=== PATIENT | male | born 1930 | race Caucasian/White ===

== ENCOUNTER 2016-05-24 11:19 | Outpatient (CLI) | payer MEDICARE | END 2016-05-24 11:20 | disposition home or self-care (01) | DX: R79.89 Other specified abnormal findings of blood chemistry (principal); Z90.49 Acquired absence of other specified parts of digestive tract ==

== ENCOUNTER 2016-09-05 12:37 | Outpatient (CLI) | payer MEDICARE | END 2016-09-05 12:38 | disposition home or self-care (01) | DX: I50.9 Heart failure, unspecified (principal); Z95.0 Presence of cardiac pacemaker ==

== ENCOUNTER 2016-09-13 10:35 | Day surgery (SDC) | payer MEDICARE ==
[2016-09-13] MEDS ORDERED: LACTATED RINGERS 1,000 ML IV ONE (12:18)
[2016-09-13] MEDS ORDERED: KETAMINE 500 MG/10 ML VIAL IVP ONE (13:00)
[2016-09-13] MEDS ORDERED: FLUMAZENIL 0.1 MG/1 ML 5 ML MDV IVP ONE (13:00)
[2016-09-13] MEDS ORDERED: GLYCOPYRROLATE 1 MG/5 ML VIAL IVP ONE (13:00)
[2016-09-13] MEDS ORDERED: MIDAZOLAM 2 MG/2 ML VIAL IVP ONE (13:00)
[2016-09-13 14:53] VITALS: BP 116/60
== END 2016-09-13 10:36 | disposition home or self-care (01) ==
LOC: SDS 10:35
PROVIDERS: ATTEND Internal Medicine
PROC: 0DB78ZX Excision of Stomach, Pylorus, Via Natural or Artificial Opening Endoscopic, Diagnostic (ICD-10-PCS; 2016-09-13)
PROC: 0DBM8ZX Excision of Descending Colon, Via Natural or Artificial Opening Endoscopic, Diagnostic (ICD-10-PCS; principal; 2016-09-13 12:30)
PROC: 0DBH8ZX Excision of Cecum, Via Natural or Artificial Opening Endoscopic, Diagnostic (ICD-10-PCS; 2016-09-13 12:30)
DX: K92.1 Melena (principal); D50.9 Iron deficiency anemia, unspecified; C18.6 Malignant neoplasm of descending colon; D12.0 Benign neoplasm of cecum; K64.0 First degree hemorrhoids; K57.30 Diverticulosis of large intestine without perforation or abscess without bleeding; Z95.0 Presence of cardiac pacemaker; Z96.649 Presence of unspecified artificial hip joint; E78.5 Hyperlipidemia, unspecified; E11.9 Type 2 diabetes mellitus without complications; F32.9 Major depressive disorder, single episode, unspecified; Z79.84 Long term (current) use of oral hypoglycemic drugs
CPT/HCPCS: 43239; 45380; 45385; 88305; 88341; 88342; J7120

== ENCOUNTER 2016-09-26 10:26 | Outpatient (CLI) | payer MEDICARE ==
[2016-09-26] MEDS ORDERED: IOPAMIDOL-300 100 ML VIAL IVP ONE (12:09)
--- NOTE | 2016-09-26 14:12 | CT Report ---
CT ABDOMEN AND PELVIS WITH CONTRAST: 09/26/2016 CLINICAL INDICATION: Colon cancer. TECHNIQUE: Axial CT images of the abdomen and pelvis were obtained with 100 mL Isovue-300 intravenou sly. COMPARISON: 09/17/2014 FINDINGS: Limited evaluation of the lung bases demonstrates peripheral fibrosis. ABDOMEN: The liver, spleen and adrenal glands are unremarkable. The right kidney demonstrates a non obstructing 3 mm calculus in the lower pole. The left kidney demonstrates a cortical cyst. The panc reas demonstrates calcifications in the tail, stable. Postoperative changes of cholecystectomy are n ew from previous. No bowel dilatation, free gas, or free fluid is present. No abdominal adenopathy is seen. PELVIS: Images of the lower pelvis are limited by streak artifact from bilateral hip replacements. Scattered sigmoid diverticulosis is noted, without CT evidence of diverticulitis. No free fluid or p elvic adenopathy is appreciated. Osseous structures demonstrate degenerative changes. IMPRESSION: NO EVIDENCE OF METASTATIC DISEASE. In accordance with CT protocol optimization, one or more of the following dose reduction techniques w ere utilized for this exam: automated exposure control, adjustment of mA and/or KV based on patient size, or use of iterative reconstructive technique. JOB #: [id number] EXT JOB #:[id number]
== END 2016-09-26 10:27 | disposition home or self-care (01) ==
LOC: DI 10:26
PROVIDERS: ATTEND Internal Medicine
DX: C18.9 Malignant neoplasm of colon, unspecified (principal)
CPT/HCPCS: 74177; Q9967

== ENCOUNTER 2016-09-29 12:33 | Outpatient (CLI) | payer MEDICARE ==
[2016-09-29 13:01] LABS: CREATININE 1.5 mg/dL (0.6-1.2)
[2016-09-29] MEDS ORDERED: IOPAMIDOL-300 100 ML VIAL IVP ONE (13:25)
--- NOTE | 2016-09-29 16:22 | CT Report ---
CT OF THE CHEST WITH CONTRAST: 09/29/2016 CLINICAL INDICATION: Colon cancer. TECHNIQUE: Axial CT images of the chest were obtained with 50 mL of Isovue-300 intravenously. FINDINGS: The heart and great vessels demonstrate atherosclerotic calcifications. There is mediastin al adenopathy, with a pretracheal node measuring 1.4 x 1.6 cm. Additionally, there is an anterior med iastinal mass, measuring 3.6 x 3.6 cm. The lungs demonstrate emphysema. There is a diffuse miliary no dular pattern in the lungs, which may represent metastases. Additionally, there is interlobular septa l thickening in the periphery, suggestive of either lymphangitic carcinomatosis or pulmonary edema. N o effusion or pneumothorax is present. The osseous structures demonstrate degenerative changes. IMPRESSION: 1. ANTERIOR MEDIASTINAL MASS AND HILAR ADENOPATHY. THIS MAY REPRESENT METASTASES, BUT CONSIDERATION C OULD ALSO BE GIVEN TO LYMPHOMA. 2. MILIARY PULMONARY NODULES AND SEPTAL PROMINENCE, WHICH MAY REPRESENT LYMPHANGITIC CARCINOMATOSIS O R PULMONARY EDEMA. In accordance with CT protocol optimization, one or more of the following dose reduction techniques w ere utilized for this exam: automated exposure control, adjustment of mA and/or KV based on patient size, or use of iterative reconstructive technique. JOB #: [id number] EXT JOB #:[id number]
== END 2016-09-29 12:34 | disposition home or self-care (01) ==
LOC: DI 12:33
PROVIDERS: ATTEND Internal Medicine
DX: C18.9 Malignant neoplasm of colon, unspecified (principal); R59.0 Localized enlarged lymph nodes; R22.2 Localized swelling, mass and lump, trunk; R91.8 Other nonspecific abnormal finding of lung field; I48.92 Unspecified atrial flutter
CPT/HCPCS: 36415; 71260; 82565; Q9967

== ENCOUNTER 2016-11-13 13:40 | Outpatient (CLI) | payer MEDICARE | END 2016-11-13 13:41 | disposition home or self-care (01) | LOC: DI 13:40 | PROVIDERS: ATTEND Internal Medicine | DX: I08.3 Combined rheumatic disorders of mitral, aortic and tricuspid valves (principal) | CPT/HCPCS: 93306 ==

== ENCOUNTER 2017-01-13 13:44 | Outpatient (CLI) | payer MEDICARE ==
[2017-01-13] MEDS ORDERED: IOPAMIDOL-300 100 ML VIAL ONE (13:53)
[2017-01-13] MEDS ORDERED: IOPAMIDOL-300 100 ML VIAL IVP ONE (14:22)
--- NOTE | 2017-01-13 21:00 | CT Report ---
EXAM: CT HEAD WITH AND WITHOUT CONTRAST COMPARISON: None. CLINICAL HISTORY: Migraine headaches TECHNIQUE: Axial CT images were obtained from the foramen magnum to the vertex pre- and post intravenous Isovue 300. In accordance with CT protocol optimization, one or more of the following dose reduction techniques w ere utilized for this exam: automated exposure control, adjustment of mA and/or KV based on patient s ize, or use of iterative reconstructive technique. FINDINGS: CT head: No intracranial hemorrhage. No mass lesions. No unexpected intra-or extra-axial fluid collections. Ventricles are prominent, presumed to reflect volume loss. No lytic or blastic bone lesions identified. Chronic appearing left maxillary sinusitis is noted. No definite acute component. Mastoids are clear. Postcontrast head CT: No abnormal parenchymal enhancement. No mass lesion. No evident abnormality of the pituitary fossa or clivus is seen. Impression: Generalized volume loss, without discrete prior cortical infarct or mass lesion identified. No etiolo gy for migraine headaches is seen. Referring Provider Line: [phone] SITE ID: [id number]
== END 2017-01-13 13:45 | disposition home or self-care (01) ==
LOC: DI 13:44
PROVIDERS: ATTEND Family Medicine
DX: G43.909 Migraine, unspecified, not intractable, without status migrainosus (principal)
CPT/HCPCS: 70470; Q9967

== ENCOUNTER 2017-02-16 19:39 | Outpatient (CLI) | payer MEDICARE | END 2017-02-16 19:40 | disposition critical access hospital (66) | LOC: EMS 19:39 | PROVIDERS: ATTEND Surgery | DX: R53.1 Weakness (principal); R05 Cough; R32 Unspecified urinary incontinence | CPT/HCPCS: A0425; A0427 ==

== ENCOUNTER 2017-02-16 20:01 | Inpatient (IN) | payer MEDICARE, OTHER ==
[2017-02-16] MEDS ORDERED: SODIUM CHLORIDE 0.9% 1,000 ML IV ONE (20:19)
[2017-02-16 20:47] LABS: BASOPHILS # (AUTO) 0.1 10^3/uL (0.0-0.1); BASOPHILS % (AUTO) 0.4 %; EOSINOPHILS % (AUTO) 0.3 %; HCT - HEMATOCRIT 32.8 % (42.0-52.0); HGB - HEMOGLOBIN 10.6 g/dL (14.0-18.0); LYMPHOCYTES # (AUTO) 1.9 10^3/uL (1.5-3.5); LYMPHOCYTES % (AUTO) 15.9 %; MEAN CORPUSCULAR HEMOGLOBIN 27.8 pg (27.0-31.0); MEAN CORPUSCULAR HGB CONC 32.3 g/dL (32.0-36.0); MEAN CORPUSCULAR VOLUME 86.1 fL (80.0-94.0); MEAN PLATELET VOLUME 6.5 fL (7.4-11.4); MONOCYTES # (AUTO) 0.9 10^3/uL (0.0-1.0); MONOCYTES % (AUTO) 7.5 %; NEUTROPHILS # (AUTO) 8.9 10^3/uL (1.5-6.6); NEUTROPHILS % (AUTO) 75.9 %; RED BLOOD COUNT 3.82 10^6/uL (4.70-6.10); UNCORRECTED WHITE BLOOD COUNT 11.7 x10^3/uL; WHITE BLOOD COUNT 11.7 x10^3/uL (4.8-10.8)
[2017-02-16 20:59] LABS: BILIRUBIN,TOTAL 1.8 mg/dL (0.2-1.0); CALCIUM 8.7 mg/dL (8.5-10.3); CREATININE 1.4 mg/dL (0.6-1.2); POTASSIUM 3.9 mmol/L (3.5-5.0); TOTAL PROTEIN 6.9 g/dL (6.7-8.2)
[2017-02-16 21:01] LABS: PLATELET ESTIMATE, MANUAL NORMAL (130-450,000) (NORMAL); PLATELET MORPHOLOGY NORMAL APPEARANCE (NORMAL)
--- NOTE | 2017-02-16 21:10 | XRAY Preliminary Report ---
Exam: XR CHEST 1 VIEW IMPRESSION: 1. Mild cardiac enlargement. 2. Small bilateral effusions worse on the left than on the right. No pneumothorax. Probable pulmonary edema. 3. Left lower lobe atelectasis versus infiltrates. [facility] SITE ID: [id number]
--- NOTE | 2017-02-16 21:22 | XRAY Report ---
EXAM: CHEST RADIOGRAPHY EXAM DATE: 02/16/2017 08:53 p.m. CLINICAL HISTORY: Cough. COMPARISON: 01/17/2017. TECHNIQUE: 1 view. FINDINGS: Lungs/Pleura: Blunting of both costophrenic angles are noted, worse on the left than on the right. No pneumothorax. Mild perihilar and bilateral lower lobe opacities are noted. Obscuration of the left h emidiaphragm present. Mediastinum: Mild cardiac enlargement is unchanged. There is a single lead cardiac device with the le ad in the right ventricle. Other: Status post right shoulder arthroplasty. IMPRESSION: 1. Mild cardiac enlargement. 2. Small bilateral effusions, worse on the left than on the right. No pneumothorax. Probable pulmonar y edema. 3. Left lower lobe atelectasis versus infiltrates. [facility] Referring Provider Line: [phone] SITE ID: [id number]
--- NOTE | 2017-02-16 22:08 | ED Physician Documentation ---
History of Present Illness - Stated complaint Stated Complaint: UTI - Chief complaint Chief Complaint: General - History obtained from History obtained from: Patient, Family, EMS - History of Present Illness Timing: Today - Additonal information Additional information: Patient is an 86 year old male with a history of colon ca, and a lung mass. Patient had a urine dip that was positive today at [facility] so they sent the patient in for evaluation. While en route patient became slightly altered. fingerstick was performed and patient's blood glucose was 60. Patient was treated with oral glucose. The family states that the patient has been coughing a lot and not too long ago he had to have his lung drained. Review of Systems Constitutional: denies: Fever, Chills Eyes: reports: Reviewed and negative Ears: reports: Reviewed and negative Nose: denies: Rhinorrhea / runny nose, Congestion Throat: reports: Reviewed and negative Cardiac: denies: Chest pain / pressure, Palpitations Respiratory: reports: Dyspnea, Cough. denies: Wheezing GI: denies: Abdominal Pain, Nausea, Vomiting : reports: Unable to Void. denies: Dysuria, Frequency Skin: denies: Rash, Lesions Musculoskeletal: reports: Reviewed and negative Neurologic: denies: Generalized weakness, Focal weakness, Syncope, Confused, LOC Immunocompromised: reports: Immunocompromised PD PAST MEDICAL HISTORY - Past Medical History Cardiovascular: Hypertension, High cholesterol Respiratory: Shortness of breath, Other Neuro: None Endocrine/Autoimmune: Type 2 diabetes, HyPOthyroidism GI: Colon polyps : Renal insuffiency HEENT: None Psych: Depression Musculoskeletal: Osteoarthritis Derm: Other - Past Surgical History Past Surgical History: Yes General: Cholecystectomy, Gastric surgery Ortho: Hip replacement, Rotator cuff repair, Shoulder arthroplasty, Carpal Tunnel surgery, Other Cardiovascular: Pacemaker HEENT: Other Derm: Skin cancer surgery - Present Medications Home Medications: Ambulatory Orders Medication Instructions Recorded Confirmed Hydrochlorothiazide 25 mg PO DAILY 02/05/14 02/16/17 Levothyroxine [Synthroid] 150 mcg PO QDAC 02/05/14 02/16/17 Melatonin/Pyridoxine [Melatonin 3 1 each PO QPM 02/05/14 02/16/17 mg Tablet] Metformin HCl 1,000 mg PO BID 02/05/14 02/16/17 Cyanocobalamin (Vitamin B-12) 1,000 mcg PO DAILY 10/02/17 10/20/17 [Vitamin B-12] Lactose-Reduced Food [Boost] 1 each PO TID 01/30/17 02/16/17 Benzonatate 100 mg PO TID 02/16/17 02/16/17 Metoprolol Succinate [Toprol Xl] 50 mg PO DAILY 02/16/17 02/16/17 - Allergies Allergies/Adverse Reactions: Allergies Allergy/AdvReac Type Severity Reaction Status Date / Time No Known Drug Allergies Allergy Verified 02/16/17 20:10 - Social History Does the pt smoke?: No Smoking Status: Never smoker Does the pt drink ETOH?: Yes Does the pt have substance abuse?: No - Immunizations Immunizations are current?: Yes - POLST Patient has POLST: No PD ED PE NORMAL - Vitals Vital signs reviewed: Yes - HEENT HEENT: Atraumatic, PERRL - Neck Neck: Supple, no meningeal sign - Cardiac Cardiac: No murmur - Derm Derm: Normal color, Warm and dry - Extremities Extremities: No deformity - Psych Psych: Normal mood PD ED PE EXPANDED - General General: Alert - HEENT HEENT: Dry mucous membranes - Respiratory Respiratory: Decreased breath sounds, Right lower lobe, Left lower lobe - Abdomen Abdomen: Other (umbilical hernia) - Neuro Neuro: Alert and Oriented X 3, PERRL. No: Confused, Disoriented Results - Vitals Vitals: Vital Signs - 24 hr 02/16/17 02/16/17 02/16/17 20:04 20:30 22:10 Temperature 36.1 C L 36.8 C Heart Rate 70 84 Respiratory 16 16 19 Rate Blood Pressure 104/62 115/61 O2 Saturation 94 96 02/16/17 22:11 Temperature Heart Rate 76 Respiratory 18 Rate Blood Pressure 108/56 L O2 Saturation 95 Oxygen O2 Source [] Room air O2 Source Nasal cannula - Labs Labs: Laboratory Tests 02/16/17 02/16/17 02/16/17 20:34 20:34 20:34 WBC 11.7 H RBC 3.82 L Hgb 10.6 L Hct 32.8 L MCV 86.1 MCH 27.8 MCHC 32.3 RDW 22.0 H Plt Count 205 MPV 6.5 L Neut # 8.9 H Lymph # 1.9 [place] # 0.9 Eos # 0.0 Baso # 0.1 Absolute Nucleated RBC 0.00 Nucleated RBC % 0.0 Manual Slide Review Indicated Platelet Estimate NORMAL (130-450,000) Platelet Morphology NORMAL APPEARANCE RBC Morph Micro Appear 2+ ANISOCYTOSIS Sodium 136 Potassium 3.9 Chloride 102 Carbon Dioxide 22 Anion Gap 12.0 BUN 33 H Creatinine 1.4 H Estimated GFR (MDRD) 48 L Glucose 75 Lactic Acid Calcium 8.7 Total Bilirubin 1.8 H AST 26 ALT 18 Alkaline Phosphatase 78 Troponin I 0.08 Total Protein 6.9 Albumin 3.5 Globulin 3.4 Albumin/Globulin Ratio 1.0 Lipase 19 L 02/16/17 20:34 WBC RBC Hgb Hct MCV MCH MCHC RDW Plt Count MPV Neut # Lymph # [place] # Eos # Baso # Absolute Nucleated RBC Nucleated RBC % Manual Slide Review Platelet Estimate Platelet Morphology RBC Morph Micro Appear Sodium Potassium Chloride Carbon Dioxide Anion Gap BUN Creatinine Estimated GFR (MDRD) Glucose Lactic Acid 1.9 Calcium Total Bilirubin AST ALT Alkaline Phosphatase Troponin I Total Protein Albumin Globulin Albumin/Globulin Ratio Lipase - Rads (name of study) chest x-ray Radiology: Final report received (small bilateral effusions, worse on left, pulmonary edema, left lower lobe atelectasis vs infiltrates) PD MEDICAL DECISION MAKING - ED course Complexity details: reviewed old records, reviewed results, re-evaluated patient , considered differential, d/w patient, d/w family ED course: Patient was seen and examined at bedside. Patient had already received glucose and was awake and alert. labs were drawn and fluids were started. chest x-ray was ordered and showed bilateral effusions and possible infiltrate. Patient desaturated on room air. Patient was covered with levaquin which would cover both pneumonia and a urinary tract infection. Case was discussed with hospitalist and patient was admitted for pneumonia, hypoxia and suspected urinary tract infection. Departure - Departure Disposition: [facility] DC/Xfer Clinical Impression: Pneumonia, Urinary tract infection, Hypoxia Condition: Stable
[2017-02-16] MEDS ORDERED: ALBUTEROL NEB 2.5 MG/3 ML INH PRN (22:41)
[2017-02-16] MEDS ORDERED: ONDANSETRON 4 MG/2 ML VIAL IVP PRN (22:41)
[2017-02-16] MEDS ORDERED: PROCHLORPERAZINE 10 MG/2 ML VIAL IVP PRN (22:41)
[2017-02-16] MEDS ORDERED: SODIUM CHLORIDE FLUSH 0.9% 10 ML SYRINGE IVP PRN (22:41)
[2017-02-16] MEDS ORDERED: HYDROcod/ACETAM 10 MG/325 MG TABLET PO PRN (22:41)
[2017-02-16] MEDS ORDERED: PROMETHAZINE 25 MG/1 ML VIAL IM PRN (22:41)
[2017-02-16] MEDS ORDERED: ACETAMINOPHEN 325 MG TABLET PO PRN (22:41)
[2017-02-16] MEDS ORDERED: ZOLPIDEM 5 MG TABLET PO PRN (22:41)
[2017-02-16] MEDS ORDERED: HYDROcod/ACETAM 5/325 MG TABLET PO PRN (22:41)
[2017-02-16] MEDS ORDERED: levoFLOXacin 750 MG/150 ML 750 MG/150 ML BAG IV SCH (23:00)
[2017-02-16] MEDS: BENZONATATE 100 MG CAPSULE PO SCH (23:54)
[2017-02-16] MEDS: SODIUM CHLORIDE 0.9% 1,000 ML IV SCH (23:55)
[2017-02-17] MEDS: INSULIN GLARGINE 300 UNIT/3 ML PEN SUBQ SCH ×2 (00:03→20:46)
--- NOTE | 2017-02-17 01:03 | HISTORY & PHYSICAL EXAMINATION ---
Chief Complaint - Chief Complaint Chief Complaint: Generalized weakness History of Present Illness - Admitted From Admitted From:: Emergency department - History Obtained From Records Reviewed: Yes History obtained from: Patient and his son Exam Limitations: None - History of Present Illness HPI Comment/Other: Patient is an 86-year-old gentleman with a past medical history significant for hypertension, diabetes, hypothyroidism, atrial fibrillation no longer on Coumadin, status post pacemaker, CKD stage III, anemia of chronic disease, osteoarthritis, aortic stenosis, hilar lymphadenopathy with pleural effusions and colon cancer who presents to the emergency department secondary to generalized weakness. The patient states that over the last few days he has had increasing weakness, shortness of breath with exertion and a persistent cough dry cough that has been there for 3 weeks. The patient states that today he was being evaluated at [facility] for his weakness and a urine dipstick showed the patient had likely urinary tract infection therefore he was sent to the emergency department. When EMS initially evaluated the patient to bring him to the ER they found that his blood sugar was 60 and he appear to be slightly drowsy therefore he was given oral glucose in route. The patient was also found to be borderline hypotensive. The patient states that he saw his primary care physician about a week ago and at that time his insulin regimen had been decreased from 39 units of Lantus at night to 30 units of Lantus as the patient's blood sugars were running low. The patient has had recent evaluation for his hilar adenopathy and pleural effusions. He has been found to have negative cytology and had 2 biopsies which have both been inconclusive. The patient has also been evaluated by surgery for surgical resection of his colon cancer but due to the patient's uncertain lung condition surgery has been on hold. The patient states that he does have chronic diarrhea due to his colon cancer. He also states that he has had about a 30 pound weight loss over the last 6 months. The patient states that he has been unable to sleep well for the last week due to stress of taking care of his . The patient denies any headaches, blurred vision, runny nose, he does admit to congestion, he denies any sore throat, dizziness, lightheadedness, difficulty swallowing, neck pain, chest pain, orthopnea, PND, abdominal pain, nausea, vomiting, constipation, muscle aches, joint swelling, increased lower extremity swelling, back pain, neck stiffness, urinary urgency, urinary frequency, dysuria , changes in appetite or any focal neurologic deficits. On presentation to the emergency department the patient was afebrile and had a borderline blood pressure of 104/62 but was not in respiratory distress however his O2 saturation did drop to 88% on room air therefore he was placed on 2 L of oxygen. The patient's urinalysis did reveal large leukocyte esterase with greater than 25 WBCs consistent with a urinary tract infection. Routine lab work revealed a leukocytosis of 11.7, chronic anemia of 10.6 and chronic kidney disease with a creatinine of 1.4. The patient's chest x-ray showed small bilateral effusions with probable pulmonary edema along with a left lower lobe infiltrate consistent with pneumonia. The patient was admitted to the medical tee for treatment of pneumonia and urinary tract infection. History - Past Medical History Cardiovascular: reports: Hypertension, High cholesterol, Atrial fibrillation Respiratory: reports: Shortness of breath, Other (Hilar adenopathy and pleural effusions ) Neuro: reports: None Endocrine/Autoimmune: reports: Type 2 diabetes, HyPOthyroidism GI: reports: Colon polyps, Chronic diarrhea, Other (Colon cancer) : reports: Renal insuffiency (CKD stage III) HEENT: reports: None Psych: reports: Depression Musculoskeletal: reports: Osteoarthritis Derm: reports: Other MRSA Hx?: No Other Past Medical History: USES WALKER/CANE PRN... BM q 3days.....Chronic Diarrhea, Chronic Anemia - Past Surgical History General: reports: Cholecystectomy, Gastric surgery Ortho: reports: Hip replacement, Rotator cuff repair, Shoulder arthroplasty, Carpal Tunnel surgery, Other Cardiovascular: reports: Pacemaker HEENT: reports: Other Derm: reports: Skin cancer surgery - Family & Social History Family History: Mother: Cancer (Lung), Father: CAD, Diabetes, Type 2 Living arrangement: Assisted living Living Situation: With spouse/s.o. Social History Notes: The patient lives with his at [facility]. The patient uses a walker. The patient was living at home with his , son and son's girlfriend until just a few months ago. 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 The patient retired and moved would be [place] in the year 1999. The patient has 2 children 1 son and 1 daughter who lives in [place]. The patient states that he has been under a fair amount of stress recently having to take care of his who is sick. The patient used to be a moderate drinker but has quit many years ago the patient has never smoked and he denies any illicit drug use. - Substance History Use: Uses substance without health or social issues: NONE Abuse: Recurrent use of substance despite neg consequences: NONE Dependence: Experiences withdrawal or developed tolerances: NONE - POLST Patient has POLST: No POLST Status: DNR Meds/Allgy - Home Medications Home Medications: Ambulatory Orders Medication Instructions Recorded Confirmed Hydrochlorothiazide 25 mg PO DAILY 02/05/14 02/16/17 Levothyroxine [Synthroid] 150 mcg PO QDAC 02/05/14 02/16/17 Melatonin/Pyridoxine [Melatonin 3 1 each PO QPM 02/05/14 02/16/17 mg Tablet] Metformin HCl 1,000 mg PO BID 02/05/14 02/16/17 Cyanocobalamin (Vitamin B-12) 1,000 mcg PO DAILY 01/29/17 02/16/17 [Vitamin B-12] Lactose-Reduced Food [Boost] 1 each PO TID 01/30/17 02/16/17 Benzonatate 100 mg PO TID 02/16/17 02/16/17 Metoprolol Succinate [Toprol Xl] 50 mg PO DAILY 02/16/17 02/16/17 - Allergies Allergies/Adverse Reactions: Allergies Allergy/AdvReac Type Severity Reaction Status Date / Time No Known Drug Allergies Allergy Verified 02/16/17 20:10 Review of Systems - Other Findings Other Findings: A comprehensive review of systems was performed the pertinent positives and negatives are stated above in the HPI and the remainder of the review of systems is negative. Exam - Vital Signs Reviewed Vital Signs: Yes Vital Signs: Vital Signs x48h Temp Pulse Pulse Resp BP BP Pulse Ox 02/16/17 23:43 36.5 C 77 16 96/62 96 02/16/17 23:12 80 18 106/60 94 - Physical Exam General Appearance: positive: No acute distress, Alert Eyes Bilateral: positive: Normal inspection, PERRL, EOMI, No lid inflammation, Conjunctivae nml, No scleral icterus ENT: positive: ENT inspection nml, Pharynx nml, Dry mucous membranes. negative : Purulent nasal drainage, Pharyngeal erythema, Oral lesions Neck: positive: Nml inspection, Thyroid nml, No JVD, Trachea midline. negative : Thyromegaly, Lymphadenopathy (R), Lymphadenopathy (L), Stiff neck, Carotid bruit, Tracheal deviation Respiratory: positive: Chest non-tender, No respiratory distress, Rales ( Bilateral bases), Rhonchi (Left lower lung) Cardiovascular: positive: No gallop, Systolic murmur Peripheral Pulses: positive: 2+ Abdomen: positive: Non-tender, No organomegaly, Nml bowel sounds, No distention , Other (Obese) Back: positive: Nml inspection. negative: CVA tenderness (R), CVA tenderness (L ) Skin: positive: Color nml, No rash, Warm. negative: Cyanosis, Diaphoresis, Skin rash Extremities: positive: Non-tender, Full ROM, Nml appearance, Pedal edema Neurologic/Psychiatric: positive: Oriented x3, CN's nml (2-12), Motor nml, Sensation nml, Mood/affect nml Conclusion/Plan - Problem List (1) Community acquired pneumonia Conclusion/Plan: The patient presented with generalized weakness, cough, shortness of breath with exertion and had a leukocytosis on presentation. The patient was afebrile however he was hypoxic with oxygen saturation down to 88% on room air. The patient underwent a chest x-ray which did show a left lower lobe infiltrate. Plan: Supplemental oxygen IV Levaquin IV fluids Monitor closely Qualifiers: Laterality: left (2) Urinary tract infection Conclusion/Plan: The patient had been having generalized weakness and drowsiness at his assisted living facility. The patient was evaluated with a urine analysis which was concerning for UTI and patient was sent to our emergency department. On arrival patient was afebrile however he did have a leukocytosis and urinalysis did reveal greater than 25 WBCs with positive leukocyte esterase consistent with a urinary tract infection. Plan: Patient will be treated for UTI with IV Levaquin We will get a PT evaluation for the patient's generalized weakness We will await urine cultures to de-escalate antibiotic. (3) Diabetes Conclusion/Plan: The patient has a history of diabetes and is insulin-dependent. Patient has recently been having his insulin regimen adjusted. The patient's Lantus was recently decreased from 39 units at night to 30 units at night. It appears the patient is still having some hypoglycemia as prior to arrival in the emergency department the patient's blood glucose was found to be 60 and he was diaphoretic. The patient was treated with glucose tablets. The patient's blood glucose on arrival was 75. Plan: We will check a hemoglobin A1c We will decrease the patient's home dose of Lantus to 20 units at night and hold his Metformin Patient was placed on sliding scale insulin Patient will be on a diabetic diet We will monitor the patient's blood glucose before meals at bedtime Qualifiers: Diabetes mellitus type: type 2 (4) Hypertension Conclusion/Plan: Patient has history of hypertension however the patient's blood pressure is borderline low on presentation. Plan: We will hold the patient's home dose of hydrochlorothiazide and metoprolol until her his blood pressure improves We will give the patient IV fluids. Qualifiers: Hypertension type: essential hypertension Qualified Code(s): I10 - Essential (primary) hypertension (5) Aortic stenosis Conclusion/Plan: According to the patient's echocardiogram from October 2016 the patient has moderate aortic stenosis and mild to moderate mitral regurgitation with moderately abnormal right heart pressures. The patient does have shortness of breath with exertion which has worsened over the last couple of days but even prior to that the patient was having shortness of breath with exertion. I question whether the patient's chronic shortness of breath may be secondary to his aortic stenosis. We will need to be careful with giving him IV fluid given his history of aortic stenosis with a risk for possible pulmonary edema and volume overload. Qualifiers: Cardiac valve disease etiology: etiology unspecified Qualified Code(s): I35.0 - Nonrheumatic aortic (valve) stenosis (6) DVT prophylaxis Conclusion/Plan: Patient will be placed on Lovenox while he is hospitalized for DVT prophylaxis. - Lab Results Lab results reviewed: Yes Fish Bones: 02/16/17 20:34 02/16/17 20:34 Other Lab Results: Laboratory Results WBC 11.7 x10^3/uL (4.8-10.8) H 02/16/17 20:34 RBC 3.82 10^6/uL (4.70-6.10) L 02/16/17 20:34 Hgb 10.6 g/dL (14.0-18.0) L 02/16/17 20:34 Hct 32.8 % (42.0-52.0) L 02/16/17 20:34 MCV 86.1 fL (80.0-94.0) 02/16/17 20:34 MCH 27.8 pg (27.0-31.0) 02/16/17 20:34 MCHC 32.3 g/dL (32.0-36.0) 02/16/17 20:34 RDW 22.0 % (12.0-15.0) H 02/16/17 20:34 Plt Count 205 10^3/uL (130-450) 02/16/17 20:34 MPV 6.5 fL (7.4-11.4) L 02/16/17 20:34 Neut # 8.9 10^3/uL (1.5-6.6) H 02/16/17: Lymph # 1.9 10^3/uL (1.5-3.5) 02/16/17 20:34 [place] # 0.9 10^3/uL (0.0-1.0) 02/16/17:34 Eos # 0.0 10^3/uL (0.0-0.7) 02/16/17 20:34 Baso # 0.1 10^3/uL (0.0-0.1) 02/16/17:34 Absolute Nucleated RBC 0.00 x10^3/uL 02/16/17 20:34 Nucleated RBC % 0.0 /100WBC 02/16/17 20:34 Manual Slide Review Indicated 02/16/17 20:34 Platelet Estimate NORMAL (130-450,000) (NORMAL) 02/16/17 20:34 Platelet Morphology NORMAL APPEARANCE (NORMAL) 02/16/17 20:34 RBC Morph Micro Appear 2+ ANISOCYTOSIS (NORMAL) 02/16/17 20:34 Sodium 136 mmol/L (135-145) 02/16/17 20:34 Potassium 3.9 mmol/L (3.5-5.0) 02/16/17 20:34 Chloride 102 mmol/L (101-111) 02/16/17 20:34 Carbon Dioxide 22 mmol/L (21-32) 02/16/17 20:34 Anion Gap 12.0 (6-13) 02/16/17 20:34 BUN 33 mg/dL (6-20) H 02/16/17 20:34 Creatinine 1.4 mg/dL (0.6-1.2) H 02/16/17 20:34 Estimated GFR (MDRD) 48 (>89) L 02/16/17 20:34 Glucose 75 mg/dL (70-100) 02/16/17 20:34 Lactic Acid 1.9 mmol/L (0.5-2.2) 02/16/17 20:34 Calcium 8.7 mg/dL (8.5-10.3) 02/16/17 20:34 Total Bilirubin 1.8 mg/dL (0.2-1.0) H 02/16/17 20:34 AST 26 IU/L (10-42) 02/16/17 20:34 ALT 18 IU/L (10-60) 02/16/17 20:34 Alkaline Phosphatase 78 IU/L (42-121) 02/16/17 20:34 Troponin I 0.08 ng/mL (<0.49) 02/16/17 20:34 Total Protein 6.9 g/dL (6.7-8.2) 02/16/17 20:34 Albumin 3.5 g/dL (3.2-5.5) 02/16/17 20:34 Globulin 3.4 g/dL (2.1-4.2) 02/16/17 20:34 Albumin/Globulin Ratio 1.0 (1.0-2.2) 02/16/17 20:34 Lipase 19 U/L (22-51) L 02/16/17 20:34 - Diagnostic Imaging Results Diagnostic Imaging Results: positive: Final report reviewed Diagnostic Imaging Results Comments: Chest x-ray impression 1. Mild cardiac enlargement. 2. Small bilateral pleural effusions, worse on the left than on the right. No pneumothorax. Probable pulmonary edema. 3. Left lower lobe atelectasis versus infiltrates. Issues/Core Measures - Anticipated LOS Anticipated Stay Length: 2 or more midnights - DVT/VTE - Prophylaxis VTE/DVT Prophylaxis med ordered at admit?: Yes
[2017-02-17 02:05] LABS: BILIRUBIN,URINE NEGATIVE (NEGATIVE)
[2017-02-17 02:15] LABS: UA w/ MICROSCOPIC CHARGE YES; UR CULTURE IF IND INDICATED; WBC,URINE >25 /HPF (0-3)
[2017-02-17] MEDS: SODIUM CHLORIDE FLUSH 0.9% 10 ML SYRINGE IVP SCH ×3 (05:37→20:38)
[2017-02-17 05:45] LABS: BASOPHILS % (AUTO) 0.3 %; EOSINOPHILS # (AUTO) 0.1 10^3/uL (0.0-0.7); EOSINOPHILS % (AUTO) 1.5 %; HCT - HEMATOCRIT 32.5 % (42.0-52.0); HGB - HEMOGLOBIN 10.6 g/dL (14.0-18.0); LYMPHOCYTES # (AUTO) 1.5 10^3/uL (1.5-3.5); LYMPHOCYTES % (AUTO) 16.9 %; MEAN CORPUSCULAR HEMOGLOBIN 28.2 pg (27.0-31.0); MEAN CORPUSCULAR HGB CONC 32.7 g/dL (32.0-36.0); MEAN CORPUSCULAR VOLUME 86.4 fL (80.0-94.0); MEAN PLATELET VOLUME 6.5 fL (7.4-11.4); MONOCYTES # (AUTO) 0.9 10^3/uL (0.0-1.0); MONOCYTES % (AUTO) 9.9 %; NEUTROPHILS # (AUTO) 6.3 10^3/uL (1.5-6.6); NEUTROPHILS % (AUTO) 71.4 %; NUCLEATED RED BLOOD CELLS AUTO 0.1 /100WBC; RED BLOOD COUNT 3.76 10^6/uL (4.70-6.10); RED CELL DISTRIBUTION WIDTH 22.1 % (12.0-15.0); UNCORRECTED WHITE BLOOD COUNT 8.9 x10^3/uL; WHITE BLOOD COUNT 8.9 x10^3/uL (4.8-10.8)
[2017-02-17 05:50] LABS: CALCIUM 8.3 mg/dL (8.5-10.3); CREATININE 1.4 mg/dL (0.6-1.2); POTASSIUM 4.3 mmol/L (3.5-5.0)
[2017-02-17] MEDS: BENZONATATE 100 MG CAPSULE PO SCH ×3 (06:09→20:38)
[2017-02-17] MEDS: LEVOTHYROXINE 75 MCG TABLET PO SCH (06:09)
[2017-02-17 06:32] LABS: PLATELET ESTIMATE, MANUAL NORMAL (130-450,000) (NORMAL); PLATELET MORPHOLOGY NORMAL APPEARANCE (NORMAL)
[2017-02-17 06:58] LABS: HEMOGLOBIN A1C 0.44 g/dL
[2017-02-17] MEDS: INSULIN ASPART 300 UNIT/3 ML PEN SUBQ SCH ×4 (08:08→20:45)
[2017-02-17] MEDS: FAMOTIDINE 20 MG TABLET PO SCH (08:32)
[2017-02-17] MEDS: SACCHAROMYCES BOULARDII 250 MG CAPSULE PO SCH ×2 (08:32→16:44)
[2017-02-17] MEDS: CYANOCOBALAMIN 500 MCG TABLET PO SCH (08:32)
[2017-02-17] MEDS: ENOXAPARIN 40 MG/0.4 ML SYRINGE SUBQ SCH (08:32)
[2017-02-17] MEDS: POLYETHYLENE GLYCOL 3350 17 GM PACKET PO SCH (08:32)
[2017-02-17] MEDS ORDERED: METOPROLOL SUCCINATE 50 MG TABLET PO SCH (09:00)
[2017-02-17] MEDS ORDERED: hydroCHLOROthiazide 25 MG TABLET PO SCH (09:00)
[2017-02-17] MEDS: SODIUM CHLORIDE 0.9% 1,000 ML IV SCH (11:29)
--- NOTE | 2017-02-17 17:51 | PROVIDER PROGRESS NOTE ---
Subjective - Prog Note Date Prog Note Date: 02/17/17 Prog Note Time: 17:48 - Subjective Pt reports feeling: No change Subjective: His main complaint is the cough. It just will not stop. But he is able to get out of the bed, sitting the chair and eating his meals. Son Nico and daughter are with him. He has questions about his surgery. Will the pneumonia delay his surgery. He asked how long he will feel tired. And his daughter wants to know if he will be capable of taking care of his , their mother, who has dementia. Current Medications - Current Medications Current Medications: Active Medications Acetaminophen (Tylenol) 650 mg PO Q4HR PRN PRN Reason: Pain 1 to 4 Acetaminophen/Hydrocodone Bitart ([place] 5/325) 1 tab PO Q4HR PRN PRN Reason: Pain 5 to 7 Acetaminophen/Hydrocodone Bitart ([place] 10 Mg/325 Mg) 1 tab PO Q4HR PRN PRN Reason: Pain 8 to 10 Albuterol () 2.5 mg INH Q4HR PRN PRN Reason: Wheezing Benzonatate (Tessalon) 100 mg PO TID [facility] Last Admin: 02/17/17 13:58 Dose: 100 mg Cyanocobalamin (Vitamin B-12) 1,000 mcg PO DAILY [facility] Last Admin: 02/17/17 08:32 Dose: 1,000 mcg Enoxaparin Sodium (Lovenox) 40 mg SUBQ DAILY [facility] Last Admin: 02/17/17 08:32 Dose: 40 mg Famotidine (Pepcid) 20 mg PO DAILY [facility] Last Admin: 02/17/17 08:32 Dose: 20 mg Sodium Chloride (Normal Saline 0.9%) 1,000 mls @ 100 mls/hr IV .Q10H [facility] Last Admin: 02/17/17 11:29 Dose: 100 mls/hr Levofloxacin (Levaquin 750 Mg/150 Ml) 750 mg in 150 mls @ 100 mls/hr IV Q48H [facility] Insulin Aspart (Novolog) 1 - 5 unit SUBQ 0800,1200,1700,2100 LORNA PRN Reason: Protocol Last Admin: 02/17/17 16:43 Dose: Not Given Insulin Glargine (Lantus Solostar) 20 unit SUBQ QPM [facility] Last Admin: 02/17/17 00:03 Dose: 20 unit Levothyroxine Sodium (Synthroid) 150 mcg PO QDAC [facility] Last Admin: 02/17/17 06:09 Dose: 150 mcg Ondansetron HCl (Zofran Inj) 4 mg IVP Q6HR PRN PRN Reason: Nausea / Vomiting Polyethylene Glycol (Miralax) 17 gm PO DAILY [facility] Last Admin: 02/17/17 08:32 Dose: 17 gm Prochlorperazine Edisylate (Compazine Inj) 10 mg IVP Q6HR PRN PRN Reason: Nausea / Vomiting Promethazine HCl (Phenergan Inj) 25 mg IM Q6HR PRN PRN Reason: Nausea / Vomiting Saccharomyces Boulardii (Florastor) 250 mg PO BIDWM [facility] Last Admin: 02/17/17 16:44 Dose: 250 mg Sodium Chloride (Normal Saline Flush 0.9%) 10 ml IVP PRN PRN PRN Reason: NEEDED PER PROVIDER ORDERS Last Admin: 02/16/17 23:59 Dose: 10 ml Sodium Chloride (Normal Saline Flush 0.9%) 10 ml IVP Q8HR [facility] Last Admin: 02/17/17 13:32 Dose: Not Given Zolpidem Tartrate (Ambien) 5 mg PO QPM PRN PRN Reason: Insomnia Hydrochlorothiazide 25 mg PO DAILY 02/05/14 Metformin HCl 1,000 mg PO BIDWM 02/05/14 Cyanocobalamin (Vitamin B-12) [Vitamin B-12] 1,000 mcg PO DAILY 01/29/17 Metoprolol Succinate [Toprol Xl] 50 mg PO DAILY 02/16/17 Latanoprost 0.005% Ophth Drops [Xalatan Ophth Drops] 1 drops EACHEYE QPM Levothyroxine Sodium 150 mcg PO QDAC 02/17/17 Lisinopril [Lisinopril] 20 mg PO DAILY 02/17/17 Warfarin [Coumadin] 2 mg PO DAILY 02/17/17 Objective - Vital Signs/Intake & Output Reviewed Vital Signs: Yes Vital Signs: Vital Signs x48h Temp Pulse Pulse Resp Resp BP BP 02/17/17 16:11 36.6 C 73 16 136/72 H 02/17/17 10:56 67 14 129/65 Pulse Ox Pulse Ox 02/17/17 16:11 94 02/17/17 10:56 99 Intake & Output: Intake & Output 02/14/17 02/15/17 02/16/17 02/17/17 23:59 23:59 23:59 23:59 Intake Total 2240 Output Total 750 Balance 1490 - Objective General Appearance: positive: Alert, Mild distress Eyes Bilateral: positive: PERRL ENT: positive: Other (Severe postnasal drip) Neck: positive: No JVD, Stiff neck (Mainly on the right side. He has been having a right-sided occipital headache, a pull along his paraspinal cervical muscles down into his trapezius and shoulders for weeks now. He is being evaluated for the cause of his headache and saw neurology last week. After a massage the scalp and the neck muscles and trapezius he actually felt much better). negative: Lymphadenopathy (R), Lymphadenopathy (L), Carotid bruit Respiratory: positive: Chest non-tender, Wheezes, Rales, Rhonchi, Other (He is also coughing. The right lung base is dull, and I hear almost no breath sounds. Dawson up the right lung you can hear the rales and rhonchi and wheezing. The left lung does not have a dull base but still has rales rhonchi and wheezing. He is not using his accessory muscles for retraction.) Cardiovascular: positive: Regular rate & rhythm, Systolic murmur. negative: Gallop/S4, Friction rub Abdomen: positive: Non-tender, No organomegaly, Nml bowel sounds Skin: positive: Warm, Dry Extremities: positive: Full ROM, No pedal edema Neurologic/Psychiatric: positive: Oriented x3, CN's nml (2-12), Motor nml, Weakness - Lab Results Fish Bones: 02/17/17 05:32 02/17/17 05:32 Other Labs: Lab Results x24hrs 02/17/17 02/17/17 02/17/17 Range/Units 05:32 05:32 05:32 WBC 8.9 (4.8-10.8) x10^3/uL RBC 3.76 L (4.70-6.10) 10^6/uL Hgb 10.6 L (14.0-18.0) g/dL Hct 32.5 L (42.0-52.0) % MCV 86.4 (80.0-94.0) fL MCH 28.2 (27.0-31.0) pg MCHC 32.7 (32.0-36.0) g/dL RDW 22.1 H (12.0-15.0) % Plt Count 167 (130-450) 10^3/uL MPV 6.5 L (7.4-11.4) fL Neut # 6.3 (1.5-6.6) 10^3/uL Lymph # 1.5 (1.5-3.5) 10^3/uL [place] # 0.9 (0.0-1.0) 10^3/uL Eos # 0.1 (0.0-0.7) 10^3/uL Baso # 0.0 (0.0-0.1) 10^3/uL Absolute Nucleated RBC 0.01 x10^3/uL Nucleated RBC % 0.1 /100WBC Manual Slide Review Indicated Platelet Estimate NORMAL (130-450,000) (NORMAL) Platelet Morphology NORMAL APPEARANCE (NORMAL) RBC Morph Micro Appear 1+ ANISOCYTOSIS (NORMAL) Sodium 136 (135-145) mmol/L Potassium 4.3 (3.5-5.0) mmol/L Chloride 103 (101-111) mmol/L Carbon Dioxide 22 (21-32) mmol/L Anion Gap 11.0 (6-13) BUN 32 H (6-20) mg/dL Creatinine 1.4 H (0.6-1.2) mg/dL Estimated GFR (MDRD) 48 L (>89) Glucose 82 (70-100) mg/dL Glycated Hemoglobin 5.9 (4.6-6.2) % Estim Average Glucose 123 H (70-100) Calcium 8.3 L (8.5-10.3) mg/dL Urine Color Urine Clarity (CLEAR) Urine pH (5.0-7.5) PH Ur Specific [place] (1.002-1.030) Urine Protein (NEGATIVE) mg/dL Urine Glucose (UA) (NEGATIVE) mg/dL Urine Ketones (NEGATIVE) mg/dL Urine Occult Blood (NEGATIVE) Urine Nitrite (NEGATIVE) Urine Bilirubin (NEGATIVE) Urine Urobilinogen (NORMAL) E.U./dL Ur Leukocyte Esterase (NEGATIVE) Urine RBC (0-5) /HPF Urine WBC (0-3) /HPF Ur Squamous Epith Cells (<= Few) Urine Bacteria (None Seen) /HPF Ur Microscopic Review Urine Culture Comments 02/17/17 Range/Units 01:50 WBC (4.8-10.8) x10^3/uL RBC (4.70-6.10) 10^6/uL Hgb (14.0-18.0) g/dL Hct (42.0-52.0) % MCV (80.0-94.0) fL MCH (27.0-31.0) pg MCHC (32.0-36.0) g/dL RDW (12.0-15.0) % Plt Count (130-450) 10^3/uL MPV (7.4-11.4) fL Neut # (1.5-6.6) 10^3/uL Lymph # (1.5-3.5) 10^3/uL [place] # (0.0-1.0) 10^3/uL Eos # (0.0-0.7) 10^3/uL Baso # (0.0-0.1) 10^3/uL Absolute Nucleated RBC x10^3/uL Nucleated RBC % /100WBC Manual Slide Review Platelet Estimate (NORMAL) Platelet Morphology (NORMAL) RBC Morph Micro Appear (NORMAL) Sodium (135-145) mmol/L Potassium (3.5-5.0) mmol/L Chloride (101-111) mmol/L Carbon Dioxide (21-32) mmol/L Anion Gap (6-13) BUN (6-20) mg/dL Creatinine (0.6-1.2) mg/dL Estimated GFR (MDRD) (>89) Glucose (70-100) mg/dL Glycated Hemoglobin (4.6-6.2) % Estim Average Glucose (70-100) Calcium (8.5-10.3) mg/dL Urine Color YELLOW Urine Clarity TURBID (CLEAR) Urine pH 6.0 (5.0-7.5) PH Ur Specific [place] 1.025 (1.002-1.030) Urine Protein 30 H (NEGATIVE) mg/dL Urine Glucose (UA) NEGATIVE (NEGATIVE) mg/dL Urine Ketones NEGATIVE (NEGATIVE) mg/dL Urine Occult Blood MODERATE H (NEGATIVE) Urine Nitrite NEGATIVE (NEGATIVE) Urine Bilirubin NEGATIVE (NEGATIVE) Urine Urobilinogen 0.2 (NORMAL) (NORMAL) E.U./dL Ur Leukocyte Esterase LARGE H (NEGATIVE) Urine RBC 0-5 (0-5) /HPF Urine WBC >25 H (0-3) /HPF Ur Squamous Epith Cells NONE SEEN (<= Few) Urine Bacteria None Seen (None Seen) /HPF Ur Microscopic Review INDICATED Urine Culture Comments INDICATED Assessment/Plan - Problem List (1) Community acquired pneumonia Impression: In a gentleman who lives in an assisted living facility, and is a current diagnosis of colon cancer with pleural effusions. He is being treated as a community-acquired pneumonia. Day #2 of azithromycin and Rocephin. Plan is for 7 days of combined oral and IV. His oxygen requirement has diminished. He is on room air and doing well. In spite of this he continues to have a severe cough. Qualifiers: Laterality: left (2) Cough Impression: On albuterol, add Robitussin-AC (3) Type 2 diabetes mellitus, with long-term current use of insulin Impression: He was hypoglycemic this morning. But he responded to orange juice and food. We will continue to monitor before meals and 3 times daily and adjust insulin as needed. Qualifiers: Diabetes mellitus complication status: without complication Qualified Code( s): E11.9 - Type 2 diabetes mellitus without complications; Z79.4 - manager long term care ( current) use of insulin; Z79.4 - manager long term care (current) use of insulin; Z79.4 - assisted (current) use of insulin; Z79.4 - assisted (current) use of insulin (4) Urinary tract infection Impression: Day #2 of Levaquin and Rocephin. No cultures available (5) Aortic stenosis Impression: Some of his lung exam may be from fluid overload. I cannot tell. Nevertheless. IV fluids at this time. He is taking p.o. adequately. I want to avoid acute systolic congestive heart failure Qualifiers: Cardiac valve disease etiology: etiology unspecified Qualified Code(s): I35.0 - Nonrheumatic aortic (valve) stenosis
[2017-02-17] MEDS ORDERED: ZINC OXIDE 20% OINT 28.35 GM TUBE TOP ONE (19:02)
[2017-02-17] MEDS: guaiFENesin/CODEINE 5 ML UDC PO PRN (20:37)
[2017-02-18] MEDS: BENZOCAINE/MENTHOL LOZENGE MM PRN ×3 (00:07→21:54)
[2017-02-18] MEDS: guaiFENesin/CODEINE 5 ML UDC PO PRN ×3 (02:18→16:33)
[2017-02-18 06:30] LABS: BASOPHILS % (AUTO) 0.5 %; EOSINOPHILS # (AUTO) 0.3 10^3/uL (0.0-0.7); EOSINOPHILS % (AUTO) 4.1 %; HCT - HEMATOCRIT 31.8 % (42.0-52.0); HGB - HEMOGLOBIN 10.4 g/dL (14.0-18.0); LYMPHOCYTES # (AUTO) 1.9 10^3/uL (1.5-3.5); MEAN CORPUSCULAR HEMOGLOBIN 28.4 pg (27.0-31.0); MEAN CORPUSCULAR HGB CONC 32.9 g/dL (32.0-36.0); MEAN CORPUSCULAR VOLUME 86.5 fL (80.0-94.0); MEAN PLATELET VOLUME 6.8 fL (7.4-11.4); MONOCYTES # (AUTO) 0.9 10^3/uL (0.0-1.0); MONOCYTES % (AUTO) 12.3 %; NEUTROPHILS # (AUTO) 3.8 10^3/uL (1.5-6.6); NEUTROPHILS % (AUTO) 55.1 %; RED BLOOD COUNT 3.67 10^6/uL (4.70-6.10); RED CELL DISTRIBUTION WIDTH 21.8 % (12.0-15.0); UNCORRECTED WHITE BLOOD COUNT 6.9 x10^3/uL; WHITE BLOOD COUNT 6.9 x10^3/uL (4.8-10.8)
[2017-02-18] MEDS: LEVOTHYROXINE 75 MCG TABLET PO SCH (06:36)
[2017-02-18] MEDS: BENZONATATE 100 MG CAPSULE PO SCH ×3 (06:36→21:04)
[2017-02-18] MEDS: SODIUM CHLORIDE FLUSH 0.9% 10 ML SYRINGE IVP SCH ×3 (06:37→21:14)
[2017-02-18 06:39] LABS: CALCIUM 8.1 mg/dL (8.5-10.3); CREATININE 1.1 mg/dL (0.6-1.2); POTASSIUM 3.8 mmol/L (3.5-5.0)
[2017-02-18 07:00] LABS: PLATELET ESTIMATE, MANUAL NORMAL (130-450,000) (NORMAL); PLATELET MORPHOLOGY NORMAL APPEARANCE (NORMAL)
--- NOTE | 2017-02-18 07:53 | PROVIDER PROGRESS NOTE ---
Subjective - Prog Note Date Prog Note Date: 02/18/17 Prog Note Time: 07:53 - Subjective Subjective: In the chair and has less cough. Still coughing but less cough. He feels slightly better. More than anything he is just exhausted in the effort of getting up out of bed to go sit in the chair. Had hypoglycemia this morning to 46. In the outpatient setting he had been decreasing his Lantus already because of low blood sugar. He went from 36-30 units. We will have to reduce even further Current Medications - Current Medications Current Medications: Active Medications Acetaminophen (Tylenol) 650 mg PO Q4HR PRN PRN Reason: Pain 1 to 4 Acetaminophen/Hydrocodone Bitart ([place] 5/325) 1 tab PO Q4HR PRN PRN Reason: Pain 5 to 7 Acetaminophen/Hydrocodone Bitart ([place] 10 Mg/325 Mg) 1 tab PO Q4HR PRN PRN Reason: Pain 8 to 10 Albuterol () 2.5 mg INH Q4HR PRN PRN Reason: Wheezing Benzonatate (Tessalon) 100 mg PO TID [facility] Last Admin: 02/18/17 06:36 Dose: 100 mg Cyanocobalamin (Vitamin B-12) 1,000 mcg PO DAILY [facility] Last Admin: 02/17/17 08:32 Dose: 1,000 mcg Enoxaparin Sodium (Lovenox) 40 mg SUBQ DAILY [facility] Last Admin: 02/17/17 08:32 Dose: 40 mg Famotidine (Pepcid) 20 mg PO DAILY [facility] Last Admin: 02/17/17 08:32 Dose: 20 mg Guaifenesin/Codeine Phosphate (Robitussin Ac) 5 ml PO Q6HR PRN PRN Reason: Cough Last Admin: 02/18/17 02:18 Dose: 5 ml Levofloxacin (Levaquin 750 Mg/150 Ml) 750 mg in 150 mls @ 100 mls/hr IV Q48H [facility] Insulin Aspart (Novolog) 1 - 5 unit SUBQ 0800,1200,1700,2100 [facility] PRN Reason: Protocol Last Admin: 02/17/17 20:45 Dose: 2 unit Insulin Glargine (Lantus Solostar) 20 unit SUBQ QPM [facility] Last Admin: 02/17/17 20:46 Dose: 20 unit Levothyroxine Sodium (Synthroid) 150 mcg PO QDAC [facility] Last Admin: 02/18/17 06:36 Dose: 150 mcg Ondansetron HCl (Zofran Inj) 4 mg IVP Q6HR PRN PRN Reason: Nausea / Vomiting Polyethylene Glycol (Miralax) 17 gm PO DAILY [facility] Last Admin: 02/17/17 08:32 Dose: 17 gm Prochlorperazine Edisylate (Compazine Inj) 10 mg IVP Q6HR PRN PRN Reason: Nausea / Vomiting Promethazine HCl (Phenergan Inj) 25 mg IM Q6HR PRN PRN Reason: Nausea / Vomiting Saccharomyces Boulardii (Florastor) 250 mg PO BIDWM [facility] Last Admin: 02/17/17 16:44 Dose: 250 mg Sodium Chloride (Normal Saline Flush 0.9%) 10 ml IVP PRN PRN PRN Reason: NEEDED PER PROVIDER ORDERS Last Admin: 02/16/17 23:59 Dose: 10 ml Sodium Chloride (Normal Saline Flush 0.9%) 10 ml IVP Q8HR [facility] Last Admin: 02/18/17 06:37 Dose: 10 ml Throat Lozenges (Cepacol) 1 lozenge MM Q2HR PRN PRN Reason: Throat pain Last Admin: 02/18/17 06:36 Dose: 1 lozenge Zolpidem Tartrate (Ambien) 5 mg PO QPM PRN PRN Reason: Insomnia Hydrochlorothiazide 25 mg PO DAILY 02/05/14 Metformin HCl 1,000 mg PO BIDWM 02/05/14 Cyanocobalamin (Vitamin B-12) [Vitamin B-12] 1,000 mcg PO DAILY 01/29/17 Metoprolol Succinate [Toprol Xl] 50 mg PO DAILY 02/16/17 Latanoprost 0.005% Ophth Drops [Xalatan Ophth Drops] 1 drops EACHEYE QPM Levothyroxine Sodium 150 mcg PO QDAC 02/17/17 Lisinopril [Lisinopril] 20 mg PO DAILY 02/17/17 Warfarin [Coumadin] 2 mg PO DAILY 02/17/17 Objective - Vital Signs/Intake & Output Reviewed Vital Signs: Yes Vital Signs: Vital Signs x48h Temp Pulse Resp BP Pulse Ox 02/18/17 07:23 36.5 C 72 18 126/60 99 Intake & Output: Intake & Output 02/15/17 02/16/17 02/17/17 02/18/17 23:59 23:59 23:59 23:59 Intake Total 3665 Output Total 1625 200 Balance 2039 -200 - Objective General Appearance: positive: No acute distress, Alert, Other (Right face and right neck are atrophied in comparison to the left side of his body. He has had extensive surgery to the right shoulder and I wonder if some of this is nerve related from cervical spine. Continues to have a headache on the right side of his head) Eyes Bilateral: positive: PERRL Neck: positive: No JVD, Stiff neck (From musculoskeletal stiffness. Not meningeal). negative: Carotid bruit Respiratory: positive: Chest non-tender, Other (Dull bases with the right lung has greater area of dullness going up the back than the left. Yesterday he had quite a bit of rales and rhonchi and amazingly enough there are none present this morning on exam). negative: Wheezes, Rales, Rhonchi Cardiovascular: positive: Regular rate & rhythm. negative: JVD present, Gallop/ S4, Friction rub Abdomen: positive: Non-tender, No organomegaly, Nml bowel sounds, No distention Skin: positive: Warm, Dry Extremities: positive: No pedal edema Neurologic/Psychiatric: positive: Oriented x3, CN's nml (2-12), Motor nml (just very weak) - Lab Results Fish Bones: 02/18/17 05:33 02/18/17 05:33 Other Labs: Lab Results x24hrs 02/18/17 02/18/17 Range/Units 05:33 05:33 WBC 6.9 (4.8-10.8) x10^3/uL RBC 3.67 L (4.70-6.10) 10^6/uL Hgb 10.4 L (14.0-18.0) g/dL Hct 31.8 L (42.0-52.0) % MCV 86.5 (80.0-94.0) fL MCH 28.4 (27.0-31.0) pg MCHC 32.9 (32.0-36.0) g/dL RDW 21.8 H (12.0-15.0) % Plt Count 180 (130-450) 10^3/uL MPV 6.8 L (7.4-11.4) fL Neut # 3.8 (1.5-6.6) 10^3/uL Lymph # 1.9 (1.5-3.5) 10^3/uL Merrick # 0.9 (0.0-1.0) 10^3/uL Eos # 0.3 (0.0-0.7) 10^3/uL Baso # 0.0 (0.0-0.1) 10^3/uL Absolute Nucleated RBC 0.00 x10^3/uL Nucleated RBC % 0.0 /100WBC Manual Slide Review Indicated Platelet Estimate NORMAL (130-450,000) (NORMAL) Platelet Morphology NORMAL APPEARANCE (NORMAL) RBC Morph Micro Appear 1+ ANISOCYTOSIS (NORMAL) Sodium 135 (135-145) mmol/L Potassium 3.8 (3.5-5.0) mmol/L Chloride 105 (101-111) mmol/L Carbon Dioxide 21 (21-32) mmol/L Anion Gap 9.0 (6-13) BUN 29 H (6-20) mg/dL Creatinine 1.1 (0.6-1.2) mg/dL Estimated GFR (MDRD) 64 L (>89) Glucose 46 L* (70-100) mg/dL Calcium 8.1 L (8.5-10.3) mg/dL Assessment/Plan - Problem List (1) Community acquired pneumonia Impression: In a gentleman who lives in an assisted living facility, and is a current diagnosis of colon cancer with pleural effusions. He is being treated as a community-acquired pneumonia. Day #3 of rocephin and levaquin. Plan is for 7 days of combined oral and IV. His oxygen requirement has diminished. He is on room air and doing well. In spite of this he was having a severe cough. It is still there but much improved with Malcolm Ac. He will be ambulated in his room to see how he does. Plan is possible dc in am if he ambulates safely. Qualifiers: Laterality: left (2) Cough Impression: On albuterol, Robitussin-AC (3) Type 2 diabetes mellitus, with long-term current use of insulin Impression: He was hypoglycemic the last two mornings. But he responded to orange juice and food. We will continue to monitor before meals and 3 times daily and Lantus will be reduced. Qualifiers: Diabetes mellitus complication status: without complication Qualified Code( s): E11.9 - Type 2 diabetes mellitus without complications; Z79.4 - group home ( current) use of insulin; Z79.4 - group home (current) use of insulin; Z79.4 - intermediate manager (current) use of insulin; Z79.4 - intermediate manager (current) use of insulin (4) Urinary tract infection Impression: Day #3 of Levaquin and Rocephin. Urine culture is with no growth. (5) Aortic stenosis Impression: Some of his lung exam may be from fluid overload. I cannot tell. Nevertheless. IV fluids discontinued 02/17/ He is taking p.o. adequately. I want to avoid acute systolic congestive heart failure Qualifiers: Cardiac valve disease etiology: etiology unspecified Qualified Code(s): I35.0 - Nonrheumatic aortic (valve) stenosis
[2017-02-18] MEDS: INSULIN ASPART 300 UNIT/3 ML PEN SUBQ SCH ×4 (08:30→21:05)
[2017-02-18] MEDS: POLYETHYLENE GLYCOL 3350 17 GM PACKET PO SCH (10:47)
[2017-02-18] MEDS: SACCHAROMYCES BOULARDII 250 MG CAPSULE PO SCH ×2 (10:50→16:33)
[2017-02-18] MEDS: ENOXAPARIN 40 MG/0.4 ML SYRINGE SUBQ SCH (10:50)
[2017-02-18] MEDS: FAMOTIDINE 20 MG TABLET PO SCH (10:50)
[2017-02-18] MEDS: CYANOCOBALAMIN 500 MCG TABLET PO SCH (10:51)
[2017-02-18] MEDS: NYSTATIN POWDER 15 GM TOP SCH ×2 (17:00→21:04)
[2017-02-18] MEDS ORDERED: INSULIN GLARGINE 300 UNIT/3 ML PEN SUBQ SCH ×2 (17:00→21:00)
[2017-02-18] MEDS ORDERED: levoFLOXacin 750 MG/150 ML 750 MG/150 ML BAG IV SCH (21:00)
[2017-02-19] MEDS: LEVOTHYROXINE 75 MCG TABLET PO SCH (05:20)
[2017-02-19] MEDS: BENZONATATE 100 MG CAPSULE PO SCH ×2 (05:20→13:21)
[2017-02-19] MEDS: SODIUM CHLORIDE FLUSH 0.9% 10 ML SYRINGE IVP SCH (05:21)
[2017-02-19 05:39] LABS: CALCIUM 8.1 mg/dL (8.5-10.3); CREATININE 1.1 mg/dL (0.6-1.2); POTASSIUM 4.2 mmol/L (3.5-5.0)
[2017-02-19 05:40] LABS: BASOPHILS % (AUTO) 0.4 %; EOSINOPHILS # (AUTO) 0.3 10^3/uL (0.0-0.7); EOSINOPHILS % (AUTO) 4.8 %; HCT - HEMATOCRIT 31.9 % (42.0-52.0); HGB - HEMOGLOBIN 10.4 g/dL (14.0-18.0); LYMPHOCYTES # (AUTO) 1.6 10^3/uL (1.5-3.5); LYMPHOCYTES % (AUTO) 22.5 %; MEAN CORPUSCULAR HEMOGLOBIN 28.1 pg (27.0-31.0); MEAN CORPUSCULAR HGB CONC 32.8 g/dL (32.0-36.0); MEAN CORPUSCULAR VOLUME 85.8 fL (80.0-94.0); MEAN PLATELET VOLUME 6.6 fL (7.4-11.4); MONOCYTES # (AUTO) 0.8 10^3/uL (0.0-1.0); MONOCYTES % (AUTO) 11.3 %; NEUTROPHILS # (AUTO) 4.4 10^3/uL (1.5-6.6); RED BLOOD COUNT 3.71 10^6/uL (4.70-6.10); RED CELL DISTRIBUTION WIDTH 22.1 % (12.0-15.0); UNCORRECTED WHITE BLOOD COUNT 7.2 x10^3/uL; WHITE BLOOD COUNT 7.2 x10^3/uL (4.8-10.8)
[2017-02-19 06:18] LABS: PLATELET ESTIMATE, MANUAL NORMAL (130-450,000) (NORMAL); PLATELET MORPHOLOGY NORMAL APPEARANCE (NORMAL)
[2017-02-19 08:21] VITALS: BP 107/44
[2017-02-19] MEDS: CYANOCOBALAMIN 500 MCG TABLET PO SCH (08:39)
[2017-02-19] MEDS: SACCHAROMYCES BOULARDII 250 MG CAPSULE PO SCH (08:39)
[2017-02-19] MEDS: INSULIN ASPART 300 UNIT/3 ML PEN SUBQ SCH ×2 (08:39→12:07)
[2017-02-19] MEDS: POLYETHYLENE GLYCOL 3350 17 GM PACKET PO SCH (08:40)
[2017-02-19] MEDS: NYSTATIN POWDER 15 GM TOP SCH (08:40)
[2017-02-19] MEDS: FAMOTIDINE 20 MG TABLET PO SCH (08:40)
[2017-02-19] MEDS: ENOXAPARIN 40 MG/0.4 ML SYRINGE SUBQ SCH (08:40)
--- NOTE | 2017-02-19 10:27 | Discharge Plan ---
Discharge Plan Disposition: Home, Self Care Condition: Fair Prescriptions: guaiFENesin/CODEINE [Robitussin AC] 5 ml PO Q6HR PRN #30 udc PRN Reason: Cough Levofloxacin [Levaquin] 500 mg PO DAILY #4 tablet Nystatin [Nystop] 1 applic TOP BID #45 bottle Diet: Diabetic Activity Restrictions: Activity as Tolerated Shower Restrictions: No Driving Restrictions: Yes (no driving) Assistance Devices: Walker Additional Instructions or Follow Up instructions: You were admitted because you had a persistent cough, chest congestion that progressed to shortness of breath and weakness. We found you to have a low oxygen level, and a chest x-ray that had a left lung pneumonia. You also had a urinary tract infection. Prior to all of this you do have a diagnosis of colon cancer, and had been evaluated for enlarged lymph nodes in the middle of your chest and pleural effusions. Your doctors were worried that you had metastasized colon cancer but that workup has been negative. However, you continue to have small pleural effusions. We think that is from your chronic congestive heart failure. Treatment consisted of IV antibiotics, and medicines to try and control your cough. You have needed oxygen off and on. You are still very weak but still able to be independent with getting up out of bed and using a walker. We recommend that you return to [facility], and get home health with physical therapy. You will finish your antibiotics for a pneumonia at 1 pill a day for the next 4 days. And we would like you to see Dr. Rahman in follow-up either this Sunday or next Sunday. We need to be aggressive about getting you recovered from this episode of pneumonia because your colon cancer resection has been delayed several months now as they worked up your other problems. You still have a cough that makes your miserable. Most of it seems to be from post nasal drip. Try claritin or its generic. It is over the counter. And I have given you a prescription for Robitussin AC to take as needed. We also recommend that you strongly consider a rehabilitation facility after your colon cancer surgery. Of course you will have to play it by ear, and you may come through it much stronger than we anticipate but consider which rehabilitation group home you would like to go to after that colon cancer surgery. Follow-Up Care: Home Health - PT No Smoking: If you smoke, Please STOP! Call for help. Follow-up with: Da Rahman MD [Primary Care Provider] -
--- NOTE | 2017-02-19 18:12 | DISCHARGE SUMMARY ---
DATE OF ADMISSION: 02/16/2017 DATE OF DISCHARGE: 02/19/2017 DISCHARGE DIAGNOSES: 1. Community-acquired pneumonia. 2. Cough, chronic. 3. Type 2 diabetes mellitus, with long-term current use of insulin. 4. Urinary tract infection. 5. Aortic stenosis. 6. Colon cancer. 7. Deanne intertrigo, left breast. DISCHARGE MEDICATIONS: 1. Robitussin-AC with codeine 1 teaspoon every 6 hours as needed. 2. Vitamin B12 1000 mcg daily. 3. Hydrochlorothiazide 25 mg daily. 4. Lantus has been changed from the home dose to 16 units subcu q.a.m., not p.m. 5. Latanoprost ophthalmic solution 1 drop in each eye daily. 6. Levaquin 500 mg p.o. daily, #4. 7. Levothyroxine 150 mcg daily. 8. Lisinopril 20 mg daily. 9. Metformin 1000 mg daily. 10. Metoprolol XL 50 mg daily. 11. Nystatin topically to left breast Deanne intertrigo. PRINCIPLE PROCEDURES: Chest x-ray, with left lower lobe atelectasis versus infiltrate. Small bilateral effusions, left worse than right. Mild cardiac enlargement. HOSPITAL COURSE: He is an 86-year-old man, who has hypertension, diabetes, hypothyroidism, and atrial fibrillation, no longer on Coumadin. He has a pacemaker, anemia of chronic disease, osteoarthritis, aortic stenosis, and was recently diagnosed with colon cancer in the spring of this year. As they were doing his workup, they found him to have small pleural effusions and hilar adenopathy. He has been in the midst of a workup and has seen Dr. Jyoti Silva, Amalia Silva, and Oncology. They were trying to establish that this patient had metastatic disease before definitively treating his colon cancer. His mediastinal adenopathy has been biopsied and negative. He had a pleural thoracentesis, and the cytology was negative. In the meantime, he was getting increasingly more fatigued. Over the last few days, he has had increasing weakness and shortness of breath, with a persistent dry cough. The dry cough had been going on for more than 3 or 4 weeks. It was associated with copious postnasal drip and having a cough with quite a bit of phlegm. EMS was called at the [facility] where he lives. His glucose was 60. He was drowsy and was given oral glucose. He was borderline hypotensive. His Lantus had been decreased from 39 units to 30 units at night because of the low sugars. Further evaluation showed him to have abnormal urinary constituents , with a possible UTI, as well as an abnormal chest x-ray and a left lung infiltrate. The patient was placed on empiric antibiotic therapy. He is an immunocompromised elderly gentleman. Urine cultures were done. Blood cultures were not ordered. He was treated with Levaquin and tolerated that well. He received IV Levaquin until the day before discharge, when he was transitioned to oral Levaquin. His initial exam had quite a few rhonchi and crackles. Those resolved within 24 hours. He continued to have a dry steady cough. That has improved Robitussin-AC, but it is still present. He says that is what is driving him crazy more than anything else. Because of the postnasal drip, and I told him that he might want to consider taking Claritin [id number]. At the time of discharge, the crackles and rhonchi are completely resolved. The cough is just still present. With regard to his abnormal urinary constituents that were treated as a UTI, the culture was negative. His diabetes mellitus continued to be problematic, in that he kept on bottoming out in spite of decreasing doses of Lantus. He was on 39 in the outpatient setting and reduced to 30 units in the outpatient setting. In the inpatient setting, he was reduced to 20 units, and that was still too high, and he was changed to 16 units. He still continued to be hypoglycemic on 16 units at night. As of discharge, we asked him to start taking the 16 units in the morning. We would like him to see Dr. Rahman in followup this Sunday or next Sunday to make sure that his potassium is checked and that his lung exam is followed through on. He still continues to have a postnasal drip. The next step would be adding something like Atrovent. 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 Deanne intertrigo was identified during his stay underneath the left breast, and he was started on nystatin. That will be continued in the outpatient setting. I did tell him that he is already debilitated from his illness of pneumonia. He is going to be able to make it back to his assisted living facility with physical therapy in the home health setting, but I would recommend that he consider being treated at a shelter facility for rehabilitation after his colon cancer resection. Aortic stenosis was heard on physical exam, but this is not felt to be the cause of the cough or any congestive heart failure. DISCHARGE PHYSICAL EXAMINATION: GENERAL: He is discharged in stable condition, but still is quite weak. He is able to get up and transfer to a standing position using a walker and walk to the toilet. VITAL SIGNS: His temperature is 36.8, pulse is 78, blood pressure is 107/44, respirations 18, and 94% on 1 liter. He has a nasal tone of voice, postnasal drip, and an occasional dry cough that is at least 50% to 60% better than it was on admission. HEENT/NECK: The right side of his face is much smaller than the left side of his face. He has a right neck deformity from previous surgery, right trapezius deformity, and right shoulder deformity. During his stay, he had quite a bit of headache that was relieved partially by Tylenol and also relieved when I gave him a massage one day. He says that his face is performed because of childhood surgery at the age of 3. LUNGS: Completely clear. Slightly diminished breath sounds at the bases, but were clear of crackles, rhonchi, or wheezing. CARDIOVASCULAR: PMI is normally placed, with a regular rate and rhythm. ABDOMEN: Protuberant, soft, nontender. EXTREMITIES: He has such limb wasting that he almost looks like he is a cirrhotic patient with a protuberant belly, but there is no fluid wave. His ankles have trace edema, with rubor of slight venous insufficiency. However, his limbs have no skin breakdown and no scaling. He has received gait training from Physical Therapy. He was able to contact guard assist and ambulated 200 feet using a front-wheel walker and contact guard assist, with standby assistance. His O2 saturation was 90% after he did that and increased to 92% with verbal cues. He would benefit from continued physical therapy to improve mobility, and we do recommend home health physical therapy. He is limited to being in the home and completely dependent on care providers for transportation. Greater than 30 minutes were spent in coordinating discharge. JOB #: [id number] EXT JOB #:[id number] [facility]
== END 2017-02-19 13:50 | disposition home or self-care (01) | DRG 194 ==
LOC: ED 20:01 → MS2 22:42
PROVIDERS: ADMIT Internal Medicine; ATTEND Specialist
DX: J18.9 Pneumonia, unspecified organism (principal); N39.0 Urinary tract infection, site not specified; C18.9 Malignant neoplasm of colon, unspecified; I10 Essential (primary) hypertension; E11.9 Type 2 diabetes mellitus without complications; I13.0 Hypertensive heart and chronic kidney disease with heart failure and stage 1 through stage 4 chronic kidney disease, or unspecified chronic kidney disease; R09.02 Hypoxemia; E11.649 Type 2 diabetes mellitus with hypoglycemia without coma; I08.0 Rheumatic disorders of both mitral and aortic valves; B37.2 Candidiasis of skin and nail; E11.22 Type 2 diabetes mellitus with diabetic chronic kidney disease; N18.3 Chronic kidney disease, stage 3 (moderate); E03.9 Hypothyroidism, unspecified; I48.91 Unspecified atrial fibrillation; D63.1 Anemia in chronic kidney disease; I95.9 Hypotension, unspecified; J30.0 Vasomotor rhinitis; I50.9 Heart failure, unspecified; E78.00 Pure hypercholesterolemia, unspecified; K52.89 Other specified noninfective gastroenteritis and colitis; E66.9 Obesity, unspecified; R51 Headache; Z66 Do not resuscitate; Z96.649 Presence of unspecified artificial hip joint; Z96.619 Presence of unspecified artificial shoulder joint; Z85.828 Personal history of other malignant neoplasm of skin; Z95.0 Presence of cardiac pacemaker; Z79.4 Long term (current) use of insulin; Z79.84 Long term (current) use of oral hypoglycemic drugs; Z63.6 Dependent relative needing care at home; Z68.32 Body mass index [BMI] 32.0-32.9, adult
CPT/HCPCS: 36415; 71010; 80048; 80053; 81001; 81003; 83036; 83605; 83690; 84484; 85025; 87086; 96360; 99284; 99285

== ENCOUNTER 2017-04-21 13:46 | Outpatient (CLI) | payer MEDICARE ==
--- NOTE | 2017-04-22 00:55 | XRAY Report ---
EXAM: CHEST RADIOGRAPHY EXAM DATE: 04/21/2017 01:57 PM. CLINICAL HISTORY: Pleural effusion. COMPARISON: 02/16/2017. TECHNIQUE: 2 views. FINDINGS: Lungs/Pleura: Medium sized left sided pleural effusion is minimally increased from the prior exam. Th ere is a small to medium right pleural effusion, also increased from the prior exam. There is interst itial septal thickening. Additional bibasilar airspace consolidation. No definite pneumothorax. Mediastinum: Mild enlargement of the cardiac silhouette. Other: Left subclavian pacemaker device tip at the right ventricle apex. There is a right shoulder pr osthesis. IMPRESSION: 1. Mild CHF and pulmonary edema. 2. Bilateral effusions are increased. 3. Bibasilar airspace disease may be compressive atelectasis. Aspiration or infection difficult to ex clude. [facility] Referring Provider Line: [phone] SITE ID: [id number]
== END 2017-04-21 13:47 | disposition home or self-care (01) ==
LOC: DI 13:46
PROVIDERS: ATTEND Internal Medicine
DX: I50.9 Heart failure, unspecified (principal)
CPT/HCPCS: 71020

== ENCOUNTER 2017-04-27 15:21 | Inpatient (IN) | payer MEDICARE ==
--- NOTE | 2017-04-27 16:41 | XRAY Report ---
EXAM: CHEST RADIOGRAPHY EXAM DATE: 04/27/2017 04:33 PM. CLINICAL HISTORY: Shortness of breath. Weakness. COMPARISON: 04/21/2017. TECHNIQUE: 2 views. FINDINGS: Lungs/Pleura: Stable small right and moderate left pleural effusion with mild overlying atelectasis. No sign of infiltrate or pneumothorax. Mediastinum: Large heart. Stable single lead left pacemaker. Other: Right reverse shoulder arthroplasty noted. Stable lower thoracic compression fracture. IMPRESSION: No acute or progressive abnormalities. Stable cardiomegaly and stable small right and mod erate left pleural effusion with overlying mild atelectasis. [facility] Referring Provider Line: [phone] SITE ID: [id number]
[2017-04-27 16:48] LABS: BASOPHILS % (AUTO) 0.8 %; EOSINOPHILS # (AUTO) 0.1 10^3/uL (0.0-0.7); EOSINOPHILS % (AUTO) 2.1 %; HGB - HEMOGLOBIN 11.6 g/dL (14.0-18.0); LYMPHOCYTES # (AUTO) 1.5 10^3/uL (1.5-3.5); LYMPHOCYTES % (AUTO) 24.8 %; MEAN CORPUSCULAR HGB CONC 32.3 g/dL (32.0-36.0); MEAN CORPUSCULAR VOLUME 89.9 fL (80.0-94.0); MEAN PLATELET VOLUME 6.6 fL (7.4-11.4); MONOCYTES # (AUTO) 0.5 10^3/uL (0.0-1.0); MONOCYTES % (AUTO) 7.6 %; NEUTROPHILS # (AUTO) 3.8 10^3/uL (1.5-6.6); NEUTROPHILS % (AUTO) 64.7 %; PLT - PLATELET COUNT 185 10^3/uL (130-450); RED BLOOD COUNT 4.01 10^6/uL (4.70-6.10); WHITE BLOOD COUNT 5.9 x10^3/uL (4.8-10.8)
[2017-04-27 16:58] LABS: CALCIUM 8.9 mg/dL (8.5-10.3); CREATININE 1.1 mg/dL (0.6-1.2)
--- NOTE | 2017-04-27 17:08 | ED Physician Documentation ---
PD HPI DYSPNEA - Stated complaint Stated Complaint: FLUID IN LUNGS - Chief complaint Chief Complaint: Resp - History obtained from History obtained from: Patient - History of Present Illness Timing - onset: How many days ago (several days of increasing weakness, some confusion. No fall nor injury.) Timing - onset during: Light activity Timing - details: Gradual onset (he has had some cough and dyspnea progressing for couple of weeks. Seem in office and had CXR showing effusions. Was getting referral for Radiology to do outpt thoracentesis. Had increase in diuretic dose. However has had general weakness, some noted confusion and off balance noted by caregivers at [facility].) Inciting event(s): No: Out of meds, Immobilization/travel Improved by: Rest. No: Sitting up Worsened by: Exertion. No: Laying flat Associated symptoms: Cough, Bilateral edema. No: Fever, Wheezing, Chest pain / discomfort, Palpitations Similar symptoms before: Diagnosis (CHF and pleural effusions. Had thoracentesis therapeutic last spring and did well with it. Has had some effusion since pneumonia a few years ago. Prior history of colon CA but no lung mets.) Recently seen: Clinic (few days ago, Dr. Rahman) Review of Systems Constitutional: reports: Myalgias. denies: Fever, Chills Nose: reports: Congestion. denies: Rhinorrhea / runny nose Throat: denies: Sore throat Cardiac: reports: Pedal edema. denies: Chest pain / pressure, Palpitations, Calf pain Respiratory: reports: Dyspnea, Cough. denies: Wheezing GI: denies: Abdominal Pain, Nausea, Vomiting, Diarrhea, Bloody / black stool : denies: Dysuria, Frequency Skin: denies: Rash, Lesions Musculoskeletal: reports: Extremity swelling. denies: Extremity pain Neurologic: reports: Generalized weakness, Confused (for few days, increasing). denies: Focal weakness, Numbness Psychiatric: denies: Anxiety Endocrine: denies: Weight loss, Easy bruising / bleeding Immunocompromised: denies: Immunocompromised PD PAST MEDICAL HISTORY - Past Medical History Cardiovascular: Hypertension, High cholesterol, Atrial fibrillation Respiratory: Shortness of breath, Other Neuro: None Endocrine/Autoimmune: Type 2 diabetes, HyPOthyroidism GI: Colon polyps, Chronic diarrhea, Other : Renal insuffiency HEENT: None Psych: Depression Musculoskeletal: Osteoarthritis Derm: Other - Past Surgical History Past Surgical History: Yes General: Cholecystectomy, Gastric surgery Ortho: Hip replacement, Rotator cuff repair, Shoulder arthroplasty, Carpal Tunnel surgery, Other Cardiovascular: Pacemaker HEENT: Other Derm: Skin cancer surgery - Present Medications Home Medications: Ambulatory Orders Medication Instructions Recorded Confirmed Metformin HCl 1,000 mg PO BIDWM 02/05/14 04/27/17 hydroCHLOROthiazide 25 mg PO DAILY 02/05/14 04/27/17 [Hydrochlorothiazide] Cyanocobalamin (Vitamin B-12) 1,000 mcg PO DAILY 01/29/17 04/27/17 [Vitamin B-12] Metoprolol Succinate [Toprol Xl] 50 mg PO DAILY 02/16/17 04/27/17 Latanoprost 0.005% Ophth Drops 1 drops EACHEYE QPM 02/17/17 04/27/17 [Xalatan Ophth Drops] Levothyroxine Sodium 150 mcg PO QDAC 02/17/17 04/27/17 Lisinopril 20 mg PO DAILY 02/17/17 04/27/17 Warfarin [Coumadin] 2 mg PO DAILY 02/17/17 04/27/17 Insulin Glargine [Lantus Solostar] 16 unit SUBQ QPM pen 02/19/17 04/27/17 Levofloxacin [Levaquin] 500 mg PO DAILY #4 tablet 02/19/17 04/27/17 Nystatin [Nystop] 1 applic TOP BID #45 bottle 02/19/17 04/27/17 guaiFENesin/CODEINE [Robitussin AC] 5 ml PO Q6HR PRN #30 udc 02/19/17 04/27/17 - Allergies Allergies/Adverse Reactions: Allergies Allergy/AdvReac Type Severity Reaction Status Date / Time No Known Drug Allergies Allergy Verified 04/27/17 15:28 - Social History Does the pt smoke?: No Smoking Status: Never smoker Does the pt drink ETOH?: Yes Does the pt have substance abuse?: No - Immunizations Immunizations are current?: Yes - POLST Patient has POLST: No POLST Status: DNR PD ED PE NORMAL - Vitals Vital signs reviewed: Yes - General General: Alert and oriented X 3, No acute distress (no respiratory distress and able to lie semi-reclined. ), Well developed/nourished - HEENT HEENT: Ears normal, Pharynx benign - Neck Neck: Supple, no meningeal sign, No adenopathy, No bruit, Other (JVD noted at 45 degrees. ) - Cardiac Cardiac: RRR, Other (1/6 murmur noted left chest. ) - Respiratory Respiratory: No: Clear bilaterally (crackles at bases/lower third, and some dull sounds at lateral bases. ) - Abdomen Abdomen: Soft, Non tender, Non distended - Male Male : Deferred - Rectal Rectal: Deferred - Back Back: No CVA TTP, No spinal TTP - Derm Derm: Normal color, Warm and dry - Extremities Extremities: No calf tenderness / cord, Other (2+ edema in both ankles and lower legs. ) - Neuro Neuro: Alert and oriented X 3, No motor deficit, Normal speech Eye Opening: Spontaneous Motor: Obeys Commands Verbal: Oriented GCS Score: 15 - Psych Psych: Normal mood Results - Vitals Vitals: Vital Signs - 24 hr 04/27/17 04/27/17 04/27/17 15:24 17:01 19:25 Temperature 35.6 C L 35.9 C L Heart Rate 79 83 79 Respiratory 18 17 18 Rate Blood Pressure 125/81 H 128/83 H 119/87 H O2 Saturation 93 93 89 L 04/27/17 04/27/17 04/27/17 19:39 19:40 19:43 Temperature Heart Rate 81 Respiratory 20 20 21 Rate Blood Pressure 122/77 O2 Saturation 87 L 90 L 95 04/27/17 20:01 Temperature Heart Rate 79 Respiratory 22 Rate Blood Pressure 139/87 H O2 Saturation 92 Oxygen O2 Source [With Activity] Nasal cannula O2 Source Nasal cannula Oxygen Flow Rate 4 - Labs Labs: Laboratory Tests 04/27/17 04/27/17 04/27/17 16:28 16:28 16:39 WBC 5.9 RBC 4.01 L Hgb 11.6 L Hct 36.0 L MCV 89.9 MCH 29.0 MCHC 32.3 RDW 16.0 H Plt Count 185 MPV 6.6 L Neut # 3.8 Lymph # 1.5 [place] # 0.5 Eos # 0.1 Baso # 0.0 Absolute Nucleated RBC 0.00 Nucleated RBC % 0.0 PT INR Sodium 123 L Potassium 4.7 Chloride 87 L Carbon Dioxide 22 Anion Gap 14.0 H BUN 25 H Creatinine 1.1 Estimated GFR (MDRD) 64 L Glucose 126 H Glycated Hemoglobin Estim Average Glucose Calcium 8.9 Magnesium 1.4 L B-Natriuretic Peptide Urine Color Urine Clarity Urine pH Ur Specific [place] Urine Protein Urine Glucose (UA) Urine Ketones Urine Occult Blood Urine Nitrite Urine Bilirubin Urine Urobilinogen Ur Leukocyte Esterase Ur Microscopic Review Urine Culture Comments 04/27/17 04/27/17 04/27/17 16:39 16:39 16:39 WBC RBC Hgb Hct MCV MCH MCHC RDW Plt Count MPV Neut # Lymph # [place] # Eos # Baso # Absolute Nucleated RBC Nucleated RBC % PT 15.1 H INR 1.4 H Sodium Potassium Chloride Carbon Dioxide Anion Gap BUN Creatinine Estimated GFR (MDRD) Glucose Glycated Hemoglobin 6.7 H Estim Average Glucose 146 H Calcium Magnesium B-Natriuretic Peptide 835 H Urine Color Urine Clarity Urine pH Ur Specific [place] Urine Protein Urine Glucose (UA) Urine Ketones Urine Occult Blood Urine Nitrite Urine Bilirubin Urine Urobilinogen Ur Leukocyte Esterase Ur Microscopic Review Urine Culture Comments 04/27/17 20:04 WBC RBC Hgb Hct MCV MCH MCHC RDW Plt Count MPV Neut # Lymph # [place] # Eos # Baso # Absolute Nucleated RBC Nucleated RBC % PT INR Sodium Potassium Chloride Carbon Dioxide Anion Gap BUN Creatinine Estimated GFR (MDRD) Glucose Glycated Hemoglobin Estim Average Glucose Calcium Magnesium B-Natriuretic Peptide Urine Color YELLOW Urine Clarity CLEAR Urine pH 6.0 Ur Specific [place] 1.015 Urine Protein NEGATIVE Urine Glucose (UA) NEGATIVE Urine Ketones NEGATIVE Urine Occult Blood NEGATIVE Urine Nitrite NEGATIVE Urine Bilirubin NEGATIVE Urine Urobilinogen 0.2 (NORMAL) Ur Leukocyte Esterase NEGATIVE Ur Microscopic Review NOT INDICATED Urine Culture Comments NOT INDICATED - Rads (name of study) chest Radiology: Prelim report reviewed (bilateral effusions left more than right, comparable to prior CXR. No infiltrates. ) PD MEDICAL DECISION MAKING - ED course Complexity details: reviewed results, re-evaluated patient, considered differential (He does have the pleural effusions and there were referrals from his primary care to get the effusions drained outpatient by radiology. The effusions are not much bigger than they had been on prior films. This certainly can account for his dyspnea though he does not have much orthopnea. I think his bigger issue is the weakness, confusion, off balance that is likely related to the hyponatremia. He does seem to be in some fluid overload and so the hyponatremia will need to be treated carefully with fluid restriction and also diuresis with some saline. His magnesium is slightly low and is given a supplement there. His renal function is somewhat worse than baseline and will need to be reassessed with the diuretic treatment. He is running slightly hypoxic after in the emergency department but it responds with nasal cannula. I think he needs to be admitted for the hyponatremia and confusion and will also need treatment for the effusions and congestive failure.), d/w patient, d/ w regional engagement consultant (Dr. Saleem, hospitalist) Departure - Departure Disposition: 66 [facility] DC/Xfer Clinical Impression: Hyponatremia, General weakness, Confusion, Pleural effusion Dyspnea Qualifiers: Dyspnea type: shortness of breath Qualified Code(s): R06.02 - Shortness of breath; R06.00 - Dyspnea, unspecified; R06.01 - Orthopnea CHF (congestive heart failure) Qualifiers: Congestive heart failure type: unspecified congestive heart failure type Congestive heart failure chronicity: acute on chronic Qualified Code(s): I50.9 - Heart failure, unspecified Condition: Stable Record reviewed to determine appropriate education?: Yes
[2017-04-27 18:07] LABS: HB2 TOTAL 12.4 g/dL; HEMOGLOBIN A1C 0.62 g/dL; HEMOGLOBIN A1C % 6.7 % (4.6-6.2)
[2017-04-27] MEDS ORDERED: MAGNESIUM SULFATE 2 GRAM 2 GM/50 ML BAG IV ONE (18:09)
[2017-04-27] MEDS ORDERED: SODIUM CHLORIDE 0.9% 1,000 ML IV ONE (18:34)
[2017-04-27] MEDS ORDERED: FUROSEMIDE 20 MG/2 ML VIAL IVP STA (18:34)
[2017-04-27] MEDS ORDERED: ONDANSETRON 4 MG/2 ML VIAL IVP PRN (20:08)
[2017-04-27] MEDS ORDERED: ONDANSETRON ODT 4 MG TABLET TL PRN (20:08)
[2017-04-27] MEDS ORDERED: SODIUM CHLORIDE FLUSH 0.9% 10 ML SYRINGE IVP PRN (20:08)
[2017-04-27 20:10] LABS: BILIRUBIN,URINE NEGATIVE (NEGATIVE); GLUCOSE, URINE (UA) NEGATIVE (NEGATIVE); KETONES,URINE (UA) NEGATIVE (NEGATIVE); LEUKOCYTE ESTERASE, URINE NEGATIVE (NEGATIVE); NITRITE,URINE NEGATIVE (NEGATIVE); OCCULT BLOOD,URINE NEGATIVE (NEGATIVE); PROTEIN,URINE NEGATIVE (NEGATIVE); UROBILINOGEN,URINE 0.2 (NORMAL) E.U./dL (NORMAL)
[2017-04-27 20:14] LABS: CLARITY,URINE CLEAR (CLEAR)
[2017-04-27 20:32] LABS: INR 1.4 (0.8-1.2); PT - PROTHROMBIN TIME 15.1 secs (9.9-12.6)
[2017-04-27] MEDS ORDERED: INSULIN GLARGINE 300 UNIT/3 ML PEN SUBQ SCH (21:00)
--- NOTE | 2017-04-27 22:01 | HISTORY & PHYSICAL EXAMINATION ---
Chief Complaint - Chief Complaint Chief Complaint: Increasing cough and shortness of breath superimposed on chronic complaints History of Present Illness - Admitted From Admitted From:: Emergency room - History Obtained From Records Reviewed: [facility] History obtained from: [facility] and patient and daughter Exam Limitations: None - History of Present Illness HPI Comment/Other: In the Spring of this year, he was having bright red blood per rectum, and was diagnosed with EGD and colonoscopy as having a transverse bowel lesion. 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 That was in August 2016. He has subsequently been evaluated for possible metastatic disease since staging CT showed him to have hilar and mediastinal adenopathy. He underwent transthoracic biopsy at [facility] November 10, 2016 and and fortunately the biopsy was inconclusive. He is being seen by Dr. Ralph Navarro and has had a pleural effusion 12/2016 evaluated with thoracentesis 01/17/17. Cytology was negative. He was then hospitalized in January 2017 with community-acquired pneumonia, urinary tract infection, and had small bilateral pleural effusions, left worse than right.. He was discharged home on oral antibiotics, and he felt like he was doing better. He lives at [facility] assisted living facility. His has severe dementia and was living with him but was transferred to the memory care unit shortly after his return to [facility] after his hospitalization in January. He is needing to use a walker more often. He has chronic dyspnea on exertion that does not seem to go away. He has a chronic postnasal drip with a cough. He does not attribute his cough to the pleural effusions. He says these have the cough and postnasal drip for years. Seems to be getting worse. Occasionally is productive of yellow phlegm. He denies fever, chills. He continues to have intermittent diarrhea with relation to a cholecystectomy and his colon cancer. His appetite is poor and he has gone from 260 pounds down to 230 pounds. In the last week his cough worsened over the course of a few days. He denied fever, chills. Denies any URI symptoms. He spends even more short of breath than usual. He was seen by his primary care provider, Dr. Rahman, and given Levaquin and appears to be describing increasing hydrochlorothiazide. Unfortunately [facility] is not part of [facility] and I cannot access their medical records. Chest x-ray confirms worsening of pleural effusions on 04/21/17. He was due to get a thoracentesis next Sunday. His daughter called the assisted-living facility to check up on him today. They described him as getting more short of breath, weaker. Barely able to stand up today. When he got up, at one point, he fell backwards into his chair. As such she was brought to the emergency room. He was evaluated by Dr. Alvarado where he is afebrile, he is not tachypneic, and is requiring 2 L nasal cannula to maintain O2 sats at 90%. As such he was put in 4 liters to maintain him at 95%. He has dull lung sounds, and is a pale fatigued elderly gentleman. Chest x-ray confirms a small right and a moderate left pleural effusion with overlying atelectasis. A large heart. Compared to April 21, 2017 film there is no acute or progressive abnormalities. The effusions are stable size. He is now brought in to accelerate his workup. He is hypoxic, short of breath, fatigue. We attribute that to either his pleural effusions that are from cancer , or from aortic stenosis or from congestive heart failure. History - Past Medical History Cardiovascular: reports: Hypertension, High cholesterol, Atrial fibrillation ( no longer on coumadin.), Valve disorder (LVEF 60-65%, mod R VH, severe LAE, severe KENYATTA, moderate with peak/mean 27mmHg/16 mmHG, area 0.8cm@, mild to mod MR, mild to mod TR, mod abnml R heart pressures), Other (chronic venous stasis and lymphedema of legs with R>L) Respiratory: reports: Pneumonia (CAP in January 2017), Shortness of breath, Sleep apnea (Mild, has seen Sleep Center and to be on CPAP 8 cm H20), Other Neuro: reports: Other (Right sided body numbness and cold sensation. Negative CT brain wiht contrast for CVA. Can't do MRI bc of pacer . Seen by Neurology. ) Endocrine/Autoimmune: reports: Type 2 diabetes (on tank terminal gauger insulin, no complications), HyPOthyroidism GI: reports: Colon polyps, Chronic diarrhea, Cholelithiasis, Other (well differentiated colon cancer, transverse bowel, awaiting surgery since 08/2016) : reports: Benign prostate hypertrophy, Renal insuffiency, Other (Stage III CKD) HEENT: reports: None Psych: reports: Depression Musculoskeletal: reports: Osteoarthritis (shoulder, knees, hips) Derm: reports: Other MRSA Hx?: No Other Past Medical History: Anemia from iron deficiency and Stage III CKD. s/p iron infusions this summer and oral B12, iron. - Past Surgical History General: reports: Cholecystectomy, Gastric surgery, Colonoscopy Ortho: reports: Hip replacement, Rotator cuff repair, Shoulder arthroplasty, Carpal Tunnel surgery, Other Cardiovascular: reports: Pacemaker HEENT: reports: Other Derm: reports: Skin cancer surgery - Family & Social History Family History Comment/Other: Mom of lung cancer Dad has CAD, DM Type 2 Siblings and children healthy. Living arrangement: Assisted living Living Situation: Alone, Other (spouse lives in Memory care. ) Social History Notes: The patient lives with his at [facility] living [facility] but she was moved to the Memory Care unit in late January 2017. The patient uses a walker. The patient was living at home with his , son and son's girlfriend until just a few months ago. 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 The patient retired and moved would [facility] in the year 1999. The patient has 2 children: 1 son and 1 daughter who lives in [place]. The patient states that he has been under a fair amount of stress recently having to take care of his who is sick. The patient used to be a moderate drinker but has quit many years ago the patient has never smoked and he denies any illicit drug use. - Substance History Use: Uses substance without health or social issues: NONE - POLST Patient has POLST: No POLST Status: DNR Meds/Allgy - Home Medications Home Medications: Ambulatory Orders Medication Instructions Recorded Confirmed Metformin HCl 1,000 mg PO BIDWM 02/05/14 04/27/17 hydroCHLOROthiazide 25 mg PO DAILY 02/05/14 04/27/17 [Hydrochlorothiazide] Cyanocobalamin (Vitamin B-12) 1,000 mcg PO DAILY 01/29/17 04/27/17 [Vitamin B-12] Metoprolol Succinate [Toprol Xl] 50 mg PO DAILY 02/16/17 04/27/17 Latanoprost 0.005% Ophth Drops 1 drops EACHEYE QPM 02/17/17 04/27/17 [Xalatan Ophth Drops] Levothyroxine Sodium 150 mcg PO QDAC 02/17/17 04/27/17 Lisinopril 20 mg PO DAILY 02/17/17 04/27/17 Insulin Glargine [Lantus Solostar] 16 unit SUBQ QPM pen 02/19/17 04/27/17 Levofloxacin [Levaquin] 500 mg PO DAILY #4 tablet 02/19/17 04/27/17 Nystatin [Nystop] 1 applic TOP BID #45 bottle 02/19/17 04/27/17 guaiFENesin/CODEINE [Robitussin AC] 5 ml PO Q6HR PRN #30 udc 02/19/17 04/27/17 - Allergies Allergies/Adverse Reactions: Allergies Allergy/AdvReac Type Severity Reaction Status Date / Time No Known Drug Allergies Allergy Verified 04/27/17 15:28 Review of Systems - Constitutional Constitutional: reports: Fatigue, Malaise, Weakness, Poor appetite, Weight loss - Eyes Eyes: reports: Other (wears glasses). denies: Pain, Irritation, Amaurosis, Blurred vision - Ears, Nose & Throat Ears, Nose & Throat: reports: Hearing loss, Nasal congestion, Postnasal drainage (chronic for years). denies: Nosebleeds, Nasal obstruction - Cardiovascular Cariovascular: reports: Irregular heart rate, Palpitations, Edema (chronic for years), Exertional dyspnea (chronic and recently worse), Decr. exercise tolerance (in the last week). denies: Syncope, Orthopnea - Respiratory Respiratory: reports: Cough (chronic for months and worse this week), Sputum production (off and on, no change), Snoring, SOB at rest, SOB with exertion, Apnea. denies: Hemoptysis - Gastrointestinal Gastrointestinal: reports: Diarrhea, Poor appetite. denies: Abdominal pain, Abdominal distention, Constipation, Black stools, Bloody stools, Nausea, Vomiting, Coffee grounds emesis - Genitourinary Genitourinary: reports: Frequency, Nocturia (once a night), Other (avoids fluids so he doesn't have to pee at night). denies: Dysuria - Musculoskeletal Musculoskeletal: reports: Other (joints hurt, feet are taken care of monthly by a big data analytics lead who cuts his nails. has severe onychomycosis.) - Neurological Neurological: reports: General weakness, Other (right sided numbness) - Psychiatric Psychiatric: reports: Depression - Endocrine Endocrine: reports: Intolerance to cold. denies: Polyuria, Polydypsia, Polyphagia - Hematologic/Lymphatic Hematologic/Lymphatic: reports: Anemia, Bruising. denies: Blood clots, Lymphadenopathy Exam - Vital Signs Reviewed Vital Signs: Yes Vital Signs: Vital Signs x48h Temp Pulse Resp BP Pulse Ox 04/27/17 20:40 36.0 C L 78 17 134/80 H 97 - Physical Exam General Appearance: positive: No acute distress, Alert, Other (He is sitting upright in the bed with his daughter at the bedside. Eating half a sandwich and some peaches since she has not eaten lunch. Has a nasal cannula oxygen, nasal tone of voice, is comfortable sitting talking to me) Eyes Bilateral: positive: PERRL, EOMI, Other (Wearing glasses) ENT: positive: Dry mucous membranes, Other (Lower lip has cyanosis/blue discoloration along the inside mucosa) Neck: positive: No JVD, Carotid bruit. negative: Lymphadenopathy (R), Lymphadenopathy (L), Stiff neck Respiratory: positive: Chest non-tender, Rales, Other (Dull lung bases at both, the left side is dull nursing home up the right side is dull only at the bottom. Fatigued but able to complete full sentences with no increased respiratory effort talking to me) Cardiovascular: positive: Irregularly irregular, Systolic murmur. negative: PMI displaced laterally, Gallop/S4, Friction rub (There is loudest at the right upper sternal border, and does start at the apex. Does not radiate to the carotids very loudly. While it is a aortic stenosis murmur, it does not appear harsh. It is not high-pitched and whistling.) Peripheral Pulses: positive: 1+ Abdomen: positive: Non-tender, No organomegaly, Nml bowel sounds, No distention , Other (Mildly to moderately enlarged abdominal pannus with central diastases during his cough) Skin: positive: Dry, Cyanosis (Of lower lip, fingertips and toes. It resolves with compression of the hands, elevation of the feet) Extremities: positive: Pedal edema (3+ edema on the right leg up above the knee , 2+ edema on the left leg up above the knee), Other (He has chronic venous stasis redness of the anterior shins, right leg worse than left leg. The anterior ochoa along the ochoa bone has dry flaking thick skin. There are no ulcers, no skin breakdown yet. He does not wear compression stockings). negative: Nml appearance (The bottoms of his feet are peeling), Joint swelling ( But he does have joint deformities of osteoarthritis in his hands and toes with severe onychomycosis of the toenails) Neurologic/Psychiatric: positive: Oriented x3, CN's nml (2-12), Motor nml (But diffusely weak.). negative: Facial droop, Slurred/abnml speech Conclusion/Plan - Problem List (1) Chronic respiratory failure with hypoxia Conclusion/Plan: slight worsening this last week and it's attributed to #2. Exam shows dull bases but no JVD, no hepatomegaly, cyanosis vs rubor Plan: work up cause of #2 Nasal Canula O2 for now (2) Pleural effusion Conclusion/Plan: one side worse than the other. Most likely will need thoracentesis on the one that is worse. DD includes effusion from tumor, effusion from CAP in January 2017, or CHF. Cytology 01/17/17 had reactive mesothelial cells and mixed inflammation, negative for malignancy Plan: list has coumadin as a drug being taken. It hasn't been for months. I've asked RN to correct list Check INR Ordered Thoracentesis via US tomorrow with radiology submit fluid for cell count, chemistry analysis, cytology (3) Aortic stenosis Conclusion/Plan: on exam does not have JVD and lung bases filled with effusion no hepatomegaly. Severe CHF doesn't seem to be part of this problem and there are no complaints of syncope or angina Murmur is not harsh or high pitched but the 10/2016 already shows signs of afterload stress with dilated atria, valvular regurgitation and increasing pulm pressures. Plan: repeat ECHO small doses of lasix for diuresis Vadodilators such as MOI inhibitors thru inhibition of formation of angiotensin II are preferred treatment for HTN when present. He is on Lisinopril 20 mg Use alpha blockers and nitrates cautiously Qualifiers: Cardiac valve disease etiology: nonrheumatic Qualified Code(s): I35.0 - Nonrheumatic aortic (valve) stenosis (4) Colon adenocarcinoma Conclusion/Plan: It's been 6 months since diagnosis and the patient and his children are understandably anxious. Time is passing and the fear progression of disease with obstruction or metastases. They will be seeing Dr. Navarro in followup (5) CKD (chronic kidney disease), stage III Conclusion/Plan: His GFR jose was 45 01/05/17 and he's been as high as 72 in 08/2016. Today 64, Stable today. will continue to monitor with our diuresis. (6) Lymphedema of both lower extremities Conclusion/Plan: with vaircosities. Chronic venous stasis changes seen on exam Plan: I've explained the pathophysiology He needs to have Jobst stockings every day. he's reluctant. (7) Controlled type 2 diabetes mellitus without complication Conclusion/Plan: he's had reduction of his insulin for 6 months now. Plan: resume his lantus. check ac glucose treat with ac sliding scale Check A1c avoid metformin while here since I will be diuresis. consider stopping metformin in the outpatient setting to avoid lactic acidosis Qualifiers: Diabetes mellitus tank terminal gauger insulin use: with tank terminal gauger use Qualified Code( s): E11.9 - Type 2 diabetes mellitus without complications; Z79.4 - manager long term care ( current) use of insulin; Z79.4 - manager long term care (current) use of insulin; Z79.4 - residential (current) use of insulin; Z79.4 - residential (current) use of insulin (8) Hyponatremia Conclusion/Plan: will need IVF slowly. but may be from lung disease and/or CHF. may be part of his weakness and fatigue this week. - Lab Results Fish Bones: 04/27/17 16:28 04/27/17 16:28 - Diagnostic Imaging Results Diagnostic Imaging Results: positive: Final report reviewed - EKG Results EKG Interpreted Independently: No EKG Comparison: Unchanged from prior EKG Core Measures - Anticipated LOS I expect patient to be DC'd or transferred within 96 hours.: Yes - DVT/VTE - Prophylaxis VTE/DVT Device ordered at admit?: Yes
[2017-04-27] MEDS: NYSTATIN POWDER 15 GM TOP SCH (22:08)
[2017-04-27] MEDS: LATANOPROST 0.005% OPHTH DROPS EACHEYE SCH (22:08)
[2017-04-27] MEDS: SODIUM CHLORIDE FLUSH 0.9% 10 ML SYRINGE IVP SCH (22:09)
[2017-04-28] MEDS ORDERED: MIN OIL/DIMETHICON/COCONUT OIL 92 GM TUBE TOP PRN (00:12)
[2017-04-28] MEDS ORDERED: ZINC OXIDE 20% OINT 28.35 GM TUBE TOP PRN (00:12)
[2017-04-28 05:43] LABS: BASOPHILS % (AUTO) 0.6 %; EOSINOPHILS # (AUTO) 0.2 10^3/uL (0.0-0.7); EOSINOPHILS % (AUTO) 2.8 %; HGB - HEMOGLOBIN 11.3 g/dL (14.0-18.0); LYMPHOCYTES # (AUTO) 1.7 10^3/uL (1.5-3.5); LYMPHOCYTES % (AUTO) 28.3 %; MEAN CORPUSCULAR HEMOGLOBIN 29.6 pg (27.0-31.0); MEAN CORPUSCULAR HGB CONC 33.5 g/dL (32.0-36.0); MEAN CORPUSCULAR VOLUME 88.4 fL (80.0-94.0); MEAN PLATELET VOLUME 6.9 fL (7.4-11.4); MONOCYTES # (AUTO) 0.5 10^3/uL (0.0-1.0); MONOCYTES % (AUTO) 9.2 %; NEUTROPHILS # (AUTO) 3.5 10^3/uL (1.5-6.6); NEUTROPHILS % (AUTO) 59.1 %; PLT - PLATELET COUNT 188 10^3/uL (130-450); RED BLOOD COUNT 3.81 10^6/uL (4.70-6.10); RED CELL DISTRIBUTION WIDTH 15.5 % (12.0-15.0)
[2017-04-28 05:44] LABS: INR 1.4 (0.8-1.2); PT - PROTHROMBIN TIME 15.4 secs (9.9-12.6)
[2017-04-28 05:48] LABS: CALCIUM 8.5 mg/dL (8.5-10.3); CREATININE 1.2 mg/dL (0.6-1.2); MAGNESIUM 1.7 mg/dL (1.7-2.8)
[2017-04-28] MEDS: SODIUM CHLORIDE FLUSH 0.9% 10 ML SYRINGE IVP SCH ×3 (06:38→20:00)
[2017-04-28] MEDS: LEVOTHYROXINE 75 MCG TABLET PO SCH (06:40)
--- NOTE | 2017-04-28 09:10 | Ultrasound Report ---
EXAM: ULTRASOUND OF THE CHEST EXAM DATE: 04/28/2017 08:07 AM. CLINICAL HISTORY: Left pleural effusion marking for thoracentesis. COMPARISON: Chest x-ray 04/27/2017. TECHNIQUE: Real time ultrasound evaluation of the lower left chest was performed by the equal opportunity representative w ith static images obtained for remote interpretation. The largest area of the patient's left pleural effusion was marked by the equal opportunity representative on the skin. FINDINGS: Ultrasound images demonstrate a moderate left pleural effusion. IMPRESSION: Left pleural effusion, marked at the posterior lower left chest, in preparation for thora centesis to be performed by the referring physician. [facility] Referring Provider Line: [phone] SITE ID: [id number]
[2017-04-28] MEDS: INSULIN GLARGINE 300 UNIT/3 ML PEN SUBQ SCH (09:16)
[2017-04-28] MEDS: LISINOPRIL 20 MG TABLET PO SCH (09:17)
[2017-04-28] MEDS: levoFLOXacin 250 MG TABLET PO SCH (09:17)
[2017-04-28] MEDS: METOPROLOL SUCCINATE 50 MG TABLET PO SCH (09:17)
[2017-04-28] MEDS: POLYETHYLENE GLYCOL 3350 17 GM PACKET PO SCH (09:19)
[2017-04-28] MEDS: NYSTATIN POWDER 15 GM TOP SCH ×2 (09:19→20:00)
[2017-04-28 12:19] LABS: CC,BF RBC 1642 /mm^3
[2017-04-28 13:26] LABS: LYMPHOCYTES %,BODY FLUID 88; MONOCYTES %,BODY FLUID 1 %
[2017-04-28 13:27] LABS: BF COLOR YELLOW; BF SOURCE PLEURAL; MACROPHAGES %,BODY FLUID 10 %
--- NOTE | 2017-04-28 14:39 | XRAY Report ---
EXAM: CHEST RADIOGRAPHY EXAM DATE: 04/28/2017 01:57 PM. CLINICAL HISTORY: Status post left thoracentesis. COMPARISON: Chest x-ray 04/27/2017. TECHNIQUE: 2 views. FINDINGS: Lungs/Pleura: Mild hyperinflation with small left pleural effusion and trace right pleural effusion. Pulmonary cephalization with bibasilar airspace disease. No pneumothorax seen. Mediastinum: Cardiomegaly with left-sided single lead pacemaker. Other: Status post right shoulder replacement. Old compression fracture T12. IMPRESSION: 1. Small left pleural effusion, decreased in size consistent with the given history of thoracentesis. No pneumothorax. Other findings as above. [facility] Referring Provider Line: [phone] SITE ID: [id number]
--- NOTE | 2017-04-28 17:37 | PROVIDER PROGRESS NOTE ---
Assessment/Plan - Problem List (1) Chronic respiratory failure with hypoxia Assessment/Plan: slight worsening this last week and it's attributed to #2. Exam shows dull bases but no JVD, no hepatomegaly, cyanosis vs rubor Plan: work up cause of #2 Nasal Canula O2 up to 3L this am (2) Pleural effusion Conclusion/Plan: Left greater than right DD includes effusion from tumor, effusion from CAP in January 2017, or CHF. Cytology 01/17/17 had reactive mesothelial cells and mixed inflammation, negative for malignancy Plan: US to [facility] for thoracentesis this am and consult surgery to do Thoracentesis submit fluid for cell count, chemistry analysis, cytology, culture (3) Aortic stenosis Conclusion/Plan: on exam does not have JVD and lung bases filled with effusion no hepatomegaly. Severe CHF doesn't seem to be part of this problem and there are no complaints of syncope or angina Murmur is not harsh or high pitched but the 10/2016 already shows signs of afterload stress with dilated atria, valvular regurgitation and increasing pulm pressures. Plan: repeat ECHO shows moderate aortic stenosis and low normal EF small doses of lasix for diuresis Vadodilators such as MOI inhibitors thru inhibition of formation of angiotensin II are preferred treatment for HTN when present. He is on Lisinopril 20 mg Use alpha blockers and nitrates cautiously Qualifiers: Cardiac valve disease etiology: nonrheumatic Qualified Code(s): I35.0 - Nonrheumatic aortic (valve) stenosis (4) Colon adenocarcinoma Conclusion/Plan: It's been 6 months since diagnosis and the patient and his children are understandably anxious. Time is passing and the fear progression of disease with obstruction or metastases. They will be seeing Dr. Navarro in followup (5) CKD (chronic kidney disease), stage III Conclusion/Plan: His GFR jose was 45 01/05/17 and he's been as high as 72 in 08/2016. Today 58, Stable today. will continue to monitor with our diuresis. (6) Lymphedema of both lower extremities Conclusion/Plan: with vaircosities. Chronic venous stasis changes seen on exam Plan: He needs to have Jobst stockings every day. (7) Controlled type 2 diabetes mellitus without complication Conclusion/Plan: he's had reduction of his insulin for 6 months now. Plan: resume his lantus. check ac glucose treat with ac sliding scale Check A1c avoid metformin while here since I will be diuresis. consider stopping metformin in the outpatient setting to avoid lactic acidosis Qualifiers: Diabetes mellitus watermelon inspector insulin use: with watermelon inspector use Qualified Code( s): E11.9 - Type 2 diabetes mellitus without complications; Z79.4 - watermelon inspector ( current) use of insulin; Z79.4 - care home (current) use of insulin; Z79.4 - watermelon inspector (current) use of insulin; Z79.4 - watermelon inspector (current) use of insulin (8) Hyponatremia Conclusion/Plan: Likely from lung disease and/or CHF. may be part of his weakness and fatigue this week. Monitor - Current Meds Current Meds: Current Medications Generic Name Dose Route Start Last Admin Trade Name Freq PRN Reason Stop Dose Admin Insulin Glargine 16 unit 04/27/17 21:24 04/28/17 09:16 Lantus Solostar SUBQ 16 unit DAILY LORNA Administration Latanoprost 0 drops 04/27/17 21:00 04/27/17 22:08 Xalatan Ophth Drops EACHEYE Not Given QPM LORNA Levofloxacin 500 mg 04/28/17 09:00 04/28/17 09:17 Levaquin PO 500 mg DAILY LORNA Administration Levothyroxine Sodium 150 mcg 04/28/17 07:00 04/28/17 06:40 Synthroid PO 150 mcg QDAC LORNA Administration Lisinopril 20 mg 04/28/17 09:00 04/28/17 09:17 Zestril PO 20 mg DAILY LORNA Administration Metoprolol Succinate 50 mg 04/28/17 09:00 04/28/17 09:17 Toprol Xl PO 50 mg DAILY LORNA Administration Mineral Oil 1 applic 04/28/17 00:12 04/28/17 02:17 Cavilon TOP 1 applic PRN PRN Administration Skin Care Multi-Ingredient Ointment 1 applic 04/28/17 00:12 04/28/17 02:17 Zinc Oxide TOP 1 applic PRN PRN Administration Skin Care Nystatin 1 applic 04/27/17 21:00 04/28/17 09:19 Nystop TOP 1 applic BID LORNA Administration Polyethylene Glycol 17 gm 04/28/17 09:00 04/28/17 09:19 Miralax PO Not Given DAILY LORNA Sodium Chloride 10 ml 04/27/17 22:00 04/28/17 14:43 Normal Saline Flush 0.9% IVP 10 ml Q8HR LORNA Administration - Lab Result Lab results reviewed: Yes Fish Bone Diagrams: 04/28/17 05:11 04/28/17 05:11 - Diagnostic Imaging Results Diagnostic Imaging Results: Final report reviewed - Additional Planning Condition/Complexity: Guarded My Orders: My Active Orders 04/28/17 General Surgery Consult [CONS] Routine Consult/Specialty: Surgery Plan Discussed with:: Patient, Family Subjective - Subjective Patient Reports: Shortness of Breath (Patient is still short of breath this morning. He denies any cough or fevers or chills.) Nursing Reports: No Complaints Objective Vital Signs: Vital Signs - 24 hr 04/27/17 04/27/17 04/28/17 20:40 22:00 00:25 Temperature 36.0 C L 36.3 C L 36.4 C L Heart Rate 78 Heart Rate [ 74 72 Brachial] Respiratory 17 18 18 Rate Blood Pressure 134/80 H Blood Pressure 132/79 H 106/58 L [Right Brachial artery] O2 Saturation 97 98 96 04/28/17 04/28/17 08:24 16:42 Temperature 36.6 C 36.4 C L Heart Rate Heart Rate [ 54 L 68 Brachial] Respiratory 18 18 Rate Blood Pressure Blood Pressure 121/67 109/63 [Right Brachial artery] O2 Saturation 92 95 Oxygen O2 Source Nasal cannula I&O (Last 24 Hrs): Intake and Output Totals x24h 04/26/17 04/27/17 04/28/17 23:59 23:59 23:59 Intake Total 450 Output Total 1300 Balance -850 General: Alert, Oriented x3, Cooperative, Mild distress (Short of breath) HEENT: Atraumatic, PERRLA, EOMI, Mucous membr. moist/pink Neck: Supple, No JVD, No thyromegaly, +2 carotid pulse wo bruit, No LAD Lymphatic: no adenopathy Neuro: Alert, Non Focal, CN 2-12 Grossly Intact, Oriented Times 3 Cardiovascular: Regular rate, Normal S1, Normal S2, No murmurs Respiratory: Chest non-tender, Rales (Bilateral worse on left), Other ( Tachypneic) Abdomen: Normal bowel sounds, Soft, No tenderness, No hepatospenomegaly Extremities: No clubbing, No cyanosis, No edema, Normal pulses Skin: No rashes, No breakdown - Results Results: Laboratory Results WBC 6.0 x10^3/uL (4.8-10.8) 04/28/17 05:11 RBC 3.81 10^6/uL (4.70-6.10) L 04/28/17 05:11 Hgb 11.3 g/dL (14.0-18.0) L 04/28/17 05:11 Hct 33.7 % (42.0-52.0) L 04/28/17 05:11 MCV 88.4 fL (80.0-94.0) 04/28/17 05:11 MCH 29.6 pg (27.0-31.0) 04/28/17 05:11 MCHC 33.5 g/dL (32.0-36.0) 04/28/17 05:11 RDW 15.5 % (12.0-15.0) H 04/28/17 05:11 Plt Count 188 10^3/uL (130-450) 04/28/17 05:11 MPV 6.9 fL (7.4-11.4) L 04/28/17 05:11 Neut # 3.5 10^3/uL (1.5-6.6) 04/28/17 05:11 Lymph # 1.7 10^3/uL (1.5-3.5) 04/28/17 05:11 Grayson # 0.5 10^3/uL (0.0-1.0) 04/28/17 05:11 Eos # 0.2 10^3/uL (0.0-0.7) 04/28/17 05:11 Baso # 0.0 10^3/uL (0.0-0.1) 04/28/17 05:11 Absolute Nucleated RBC 0.00 x10^3/uL 04/28/17 05:11 Nucleated RBC % 0.0 /100WBC 04/28/17 05:11 PT 15.4 secs (9.9-12.6) H 04/28/17 05:11 INR 1.4 (0.8-1.2) H 04/28/17 05:11 Sodium 125 mmol/L (135-145) L 04/28/17 05:11 Potassium 4.2 mmol/L (3.5-5.0) 04/28/17 05:11 Chloride 92 mmol/L (101-111) L 04/28/17 05:11 Carbon Dioxide 25 mmol/L (21-32) 04/28/17 05:11 Anion Gap 8.0 (6-13) 04/28/17 05:11 BUN 25 mg/dL (6-20) H 04/28/17 05:11 Creatinine 1.2 mg/dL (0.6-1.2) 04/28/17 05:11 Estimated GFR (MDRD) 58 (>89) L 04/28/17 05:11 Glucose 75 mg/dL (70-100) 04/28/17 05:11 POC Whole Bld Glucose 77 mg/dL (70 - 100) 04/28/17 07:52 Glycated Hemoglobin 6.7 % (4.6-6.2) H 04/27/17 16:39 Estim Average Glucose 146 (70-100) H 04/27/17 16:39 Calcium 8.5 mg/dL (8.5-10.3) 04/28/17 05:11 Magnesium 1.7 mg/dL (1.7-2.8) 04/28/17 05:11 B-Natriuretic Peptide 835 pg/mL (5-100) H 04/27/17 16:39 Urine Color YELLOW 04/27/17 20:04 Urine Clarity CLEAR (CLEAR) 04/27/17 20:04 Urine pH 6.0 PH (5.0-7.5) 04/27/17 20:04 Ur Specific [place] 1.015 (1.002-1.030) 04/27/17 20:04 Urine Protein NEGATIVE mg/dL (NEGATIVE) 04/27/17 20:04 Urine Glucose (UA) NEGATIVE mg/dL (NEGATIVE) 04/27/17 20:04 Urine Ketones NEGATIVE mg/dL (NEGATIVE) 04/27/17 20:04 Urine Occult Blood NEGATIVE (NEGATIVE) 04/27/17 20:04 Urine Nitrite NEGATIVE (NEGATIVE) 04/27/17 20:04 Urine Bilirubin NEGATIVE (NEGATIVE) 04/27/17 20:04 Urine Urobilinogen 0.2 (NORMAL) E.U./dL (NORMAL) 04/27/17 20:04 Ur Leukocyte Esterase NEGATIVE (NEGATIVE) 04/27/17 20:04 Ur Microscopic Review NOT INDICATED 04/27/17 20:04 Urine Culture Comments NOT INDICATED 04/27/17 20:04 Fluid Source PLEURAL 04/28/17 11:30 Fluid Color YELLOW 04/28/17 11:30 Fluid Clarity CLEAR 04/28/17 11:30 Fluid WBC 803 /mm^3 04/28/17 11:30 Fluid RBC 1642 /mm^3 04/28/17 11:30 Fluid Neutrophils % 1 % 04/28/17 11:30 Fluid Lymphocytes % 88 04/28/17 11:30 Fluid Monocytes % 1 % 04/28/17 11:30 Fluid Macrophages % 10 % 04/28/17 11:30 Fld Mesothelial Cell % Not Reportable 04/28/17 11:30 CSF Total Protein Cancelled 04/28/17 11:30 - Procedures Procedures: Procedures CARPAL TUNNEL RELEASE (02/09/14) EXCISION OF CECUM, ENDO, DIAGN (09/13/16) EXCISION OF DESCENDING COLON, ENDO, DIAGN (09/13/16) EXCISION OF STOMACH, PYLORUS, ENDO, DIAGN (09/13/16) LAPAROSCOPIC CHOLECYSTECTOMY (09/19/14) PARTIAL SHOULDER REPLACEMENT (02/09/14)
[2017-04-28] MEDS: LATANOPROST 0.005% OPHTH DROPS EACHEYE SCH (20:00)
[2017-04-28] MEDS: ACETAMINOPHEN 325 MG TABLET PO PRN (22:14)
[2017-04-29] MEDS: ACETAMINOPHEN 325 MG TABLET PO PRN (03:30)
[2017-04-29] MEDS: SODIUM CHLORIDE FLUSH 0.9% 10 ML SYRINGE IVP SCH ×2 (06:16→08:46)
[2017-04-29] MEDS: LEVOTHYROXINE 75 MCG TABLET PO SCH (06:29)
[2017-04-29 07:05] LABS: BASOPHILS % (AUTO) 0.5 %; EOSINOPHILS # (AUTO) 0.1 10^3/uL (0.0-0.7); EOSINOPHILS % (AUTO) 2.1 %; HGB - HEMOGLOBIN 10.9 g/dL (14.0-18.0); LYMPHOCYTES # (AUTO) 1.6 10^3/uL (1.5-3.5); LYMPHOCYTES % (AUTO) 26.1 %; MEAN CORPUSCULAR HEMOGLOBIN 29.5 pg (27.0-31.0); MEAN CORPUSCULAR HGB CONC 33.4 g/dL (32.0-36.0); MEAN CORPUSCULAR VOLUME 88.3 fL (80.0-94.0); MEAN PLATELET VOLUME 6.8 fL (7.4-11.4); MONOCYTES # (AUTO) 0.7 10^3/uL (0.0-1.0); MONOCYTES % (AUTO) 11.5 %; NEUTROPHILS # (AUTO) 3.7 10^3/uL (1.5-6.6); NEUTROPHILS % (AUTO) 59.8 %; PLT - PLATELET COUNT 182 10^3/uL (130-450); RED BLOOD COUNT 3.69 10^6/uL (4.70-6.10); RED CELL DISTRIBUTION WIDTH 15.7 % (12.0-15.0); WHITE BLOOD COUNT 6.3 x10^3/uL (4.8-10.8)
[2017-04-29 07:10] LABS: INR 1.4 (0.8-1.2); PT - PROTHROMBIN TIME 15.8 secs (9.9-12.6)
[2017-04-29 07:15] LABS: CALCIUM 8.4 mg/dL (8.5-10.3); CREATININE 1.2 mg/dL (0.6-1.2); MAGNESIUM 1.6 mg/dL (1.7-2.8)
[2017-04-29 07:46] VITALS: BP 104/69
[2017-04-29] MEDS: LISINOPRIL 20 MG TABLET PO SCH (08:45)
[2017-04-29] MEDS: levoFLOXacin 250 MG TABLET PO SCH (08:45)
[2017-04-29] MEDS: METOPROLOL SUCCINATE 50 MG TABLET PO SCH (08:45)
[2017-04-29] MEDS: POLYETHYLENE GLYCOL 3350 17 GM PACKET PO SCH (08:46)
[2017-04-29] MEDS: INSULIN GLARGINE 300 UNIT/3 ML PEN SUBQ SCH (08:46)
[2017-04-29] MEDS: NYSTATIN POWDER 15 GM TOP SCH (08:46)
--- NOTE | 2017-04-29 11:29 | Discharge Plan ---
"Discharge Plan for SNF / [facility] - DC Plan and Transition Orders Disposition: 01 Home, Self Care Condition: Stable SNF Transition Orders: Admit to: [facility] under the care of Da Rahman Discharge Diagnosis: 1. Chronic respiratory failure with hypoxia 2. Pleural Effusion 3. Colon Cancer 4. CKD stage 3 5. Diabetes Type 2 6. Lymphedema Medicare Certification: I certify that Post Hospital care home care is medically necessary on a continuing basis for any of the conditions for which she/he is receiving care during hospitalization. Notify PCP of admission and forward orders to primary provider for signature. Weight on admission and monthly. Call PCP immediately if weight increases by 10 pounds or if patient develops dyspnea, chest pain/tightness or edema. House Bowel Program: Yes If no BM after 2 days, nurse may give M.O.M. 30ml PO PRN and /or ducolax Supp 1 HI and /or SANDRA 250mg P.O., and/or senna 1-2 tabs PO. On day 3 nurse may give repeat above order until residents constipation is resolved. Immunizations: Annual Influenza Vaccine: Yes. (between Dec 29 and July 28.) Unless allergy or already given Two-Step PPD: Yes per [facility] [id number] or appropriate documentation of approved exceptions Treatments & Other Orders: Continue home medications as before admission. Oxygen Orders: 2L of O2 as needed for O2 sat less than 92% Lab Tests or X-Rays Orders: None Orthopedic Orders: None. Medications: PLEASE REFER TO THE DISCHARGE MEDICATION LIST. Insulin Orders? Yes Diagnosis: Diabetes Initiate hypo and hyperglycemia protocols for BG <70 and BG >375. May check BG prn for signs/symptoms of dysglycemia. Frequency of BG checks: [AC/Meal/HS] Basal Insulin: None Correction Insulin: - Select the type of insulin below [Novolog]100 units /ml insulin inject subq per orders indicate below [x] LOW DOSE [] MODERATE DOSE [] MODERATE/HIGH DOSE [] HIGH DOSE GB UNITS GB UNITS GB UNITS GB UNITS 61-140 0 UNITS 61-140 0 UNITS 61-140 0 UNITS 61-140 0 UNITS 141-175 1 UNITS 141-175 1 UNITS 141-175 2 UNITS 141-175 3 UNITS 176-225 2 UNITS 176-225 3 UNITS 176-225 4 UNITS 176-225 5 UNITS 226-275 3 UNITS 226-275 5 UNITS 226-275 6 UNITS 226-275 7 UNITS 276-325 4 UNITS 276-325 7 UNITS 276-325 8 UNITS 276-325 9 UNITS 326-375 5 UNITS 326-375 9 UNITS 326-375 10 UNITS 326-375 11 UNITS >375 CONTACT MD >375 CONTACT MD >375 CONTACT MD >375 CONTACT MD Allergies and Adverse Reactions: Allergies Allergy/AdvReac Type Severity Reaction Status Date / Time No Known Drug Allergies Allergy Verified 04/27/17 15:28 - Diet Type: No added sugar Texture: Regular Liquids: Thin May have monthly special meal: Yes - Therapies | Activity Activity: Activity as Tolerated Weight Bearing: Full Weight Assistance Devices: Walker Follow Up: Please follow up with your PCP and surgeon regarding results of cytology from the pleural fluid and regarding future surgery for your colon cancer."
--- NOTE | 2017-04-29 12:39 | DISCHARGE SUMMARY ---
"Discharge Summary Admit Date: 04/27/17 Discharge Date: 04/29/17 Discharging Provider: Miah Farr MD Primary Care Provider: Da Rahman MD Code Status: Do Not Attempt Resuscitation Condition at Discharge: Stable Discharge Disposition: 01 Home, Self Care - DIAGNOSES Admission Diagnoses: 1. Chronic respiratory failure with hypoxia 2. Pleural effusion 3. Aortic stenosis 4. Colon adenocarcinoma 5. CKD stage III 6. Lymphedema of both lower extremities Discharge Diagnoses with Status of Each Condition: 1. Chronic respiratory failure with hypoxia 2. Pleural effusion 3. Aortic stenosis 4. Colon adenocarcinoma 5. CKD stage III 6. Lymphedema of both lower extremities 7. Controlled type 2 diabetes mellitus without complications - HPI History of Present Illness: In the Spring of this year, he was having bright red blood per rectum, and was diagnosed with EGD and colonoscopy as having a transverse bowel lesion. 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 That was in August 2016. He has subsequently been evaluated for possible metastatic disease since staging CT showed him to have hilar and mediastinal adenopathy. He underwent transthoracic biopsy at [facility] November 10, 2016 and and fortunately the biopsy was inconclusive. He is being seen by Dr. Ralph Navarro and has had a pleural effusion 12/2016 evaluated with thoracentesis 01/17/17. Cytology was negative. He was then hospitalized in January 2017 with community-acquired pneumonia, urinary tract infection, and had small bilateral pleural effusions, left worse than right.. He was discharged home on oral antibiotics, and he felt like he was doing better. He lives at [facility] assisted living facility. His has severe dementia and was living with him but was transferred to the memory care unit shortly after his return to [facility] after his hospitalization in January. He is needing to use a walker more often. He has chronic dyspnea on exertion that does not seem to go away. He has a chronic postnasal drip with a cough. He does not attribute his cough to the pleural effusions. He says these have the cough and postnasal drip for years. Seems to be getting worse. Occasionally is productive of yellow phlegm. He denies fever, chills. He continues to have intermittent diarrhea with relation to a cholecystectomy and his colon cancer. His appetite is poor and he has gone from 260 pounds down to 230 pounds. In the last week his cough worsened over the course of a few days. He denied fever, chills. Denies any URI symptoms. He spends even more short of breath than usual. He was seen by his primary care provider, Dr. Rahman, and given Levaquin and appears to be describing increasing hydrochlorothiazide. Unfortunately [facility] is not part of [facility] and I cannot access their medical records. Chest x-ray confirms worsening of pleural effusions on 04/21/17. He was due to get a thoracentesis next Sunday. His daughter called the assisted-living facility to check up on him today. They described him as getting more short of breath, weaker. Barely able to stand up today. When he got up, at one point, he fell backwards into his chair. As such she was brought to the emergency room. He was evaluated by Dr. Alvarado where he is afebrile, he is not tachypneic, and is requiring 2 L nasal cannula to maintain O2 sats at 90%. As such he was put in 4 liters to maintain him at 95%. He has dull lung sounds, and is a pale fatigued elderly gentleman. Chest x-ray confirms a small right and a moderate left pleural effusion with overlying atelectasis. A large heart. Compared to April 21, 2017 film there is no acute or progressive abnormalities. The effusions are stable size. He is now brought in to accelerate his workup. He is hypoxic, short of breath, fatigue. We attribute that to either his pleural effusions that are from cancer , or from aortic stenosis or from congestive heart failure. - CONSULTS | PROCEDURES Consultations: Dr. Gaurav Rodriguez general surgery Procedures: Thoracentesis with removal of 1300 mL's of pleural fluid. - HOSPITAL COURSE Hospital Course: Patient was admitted to the medical tee and placed on oxygen. The patient's oxygen requirement increased up to 4 L nasal cannula prior to thoracentesis. The patient had a thoracentesis on 04/28/[address] Gaurav Rodriguez of general surgery. 1300 mL's of fluid were removed from the left pleural cavity. Chest x -ray postprocedure showed a small left pleural effusion decreased in size consistent with given history of thoracentesis. It did not show any evidence of a pneumothorax. The patient had significant improvement in his breathing and was weaned down to room air saturating at 94% prior to discharge. The patient was evaluated by his assisted living facility [facility] and was cleared to return back. The patient was discharged back to [facility] in stable condition. The patient will follow up with his primary care physician and with surgery for further treatment of his colon cancer. The patient's pleural fluid had significant RBCs and was sent off for cytology which is currently pending. - ALLERGIES Allergies/Adverse Reactions: Allergies Allergy/AdvReac Type Severity Reaction Status Date / Time No Known Drug Allergies Allergy Verified 04/27/17 15:28 - MEDICATIONS Home Medications: Ambulatory Orders Medication Instructions Recorded Confirmed Metformin HCl 1,000 mg PO BIDWM 02/05/14 04/27/17 hydroCHLOROthiazide 25 mg PO DAILY 02/05/14 04/27/17 [Hydrochlorothiazide] Metoprolol Succinate [Toprol Xl] 50 mg PO DAILY 02/16/17 04/27/17 Levothyroxine Sodium 150 mcg PO QDAC 02/17/17 04/27/17 Insulin Glargine [Lantus Solostar] 12 unit SQ DAILY 04/28/17 04/28/17 Vitamin B Complex 1 each PO DAILY 04/28/17 04/28/17 - PHYSICAL EXAM AT DISCHARGE General Appearance: positive: No acute distress, Alert Eyes Bilateral: positive: Normal inspection, PERRL, EOMI, No lid inflammation, Conjunctivae nml, No scleral icterus ENT: positive: ENT inspection nml, Pharynx nml, No signs of dehydration. negative: Purulent nasal drainage, Pharyngeal erythema, Oral lesions Neck: positive: Nml inspection, Thyroid nml, No JVD, Trachea midline. negative : Thyromegaly, Lymphadenopathy (R), Lymphadenopathy (L), Stiff neck, Carotid bruit, Tracheal deviation Respiratory: positive: Chest non-tender, No respiratory distress, Rales (Mild at bases bilaterally) Cardiovascular: positive: Regular rate & rhythm, No murmur, No gallop Peripheral Pulses: positive: 2+ Abdomen: positive: Non-tender, No organomegaly, Nml bowel sounds, No distention. negative: Guarding, Rebound, Hepatomegaly Back: positive: Nml inspection. negative: CVA tenderness (R), CVA tenderness (L ) Skin: positive: Color nml, No rash, Warm. negative: Diaphoresis Extremities: positive: Non-tender, Full ROM, Nml appearance, No pedal edema Neurologic/Psychiatric: positive: Oriented x3, CN's nml (2-12), Motor nml, Sensation nml, Mood/affect nml - LABS Result Diagrams: 04/29/17 06:20 04/29/17 06:20 - DIAGNOSTIC IMAGING Diagnostic Imaging Results: Final report reviewed Diagnostic Imaging Results Comments: Chest x-ray 04/27/2017 Impression: No acute or progressive abnormalities. Stable cardiomegaly and stable small right and moderate left pleural effusion with overlying mild atelectasis. Chest ultrasound Impression: Left pleural effusion, marked at the posterior lower left chest, in preparation for thoracentesis to be performed by referring physician Chest x-ray 04/28/2017 Impression: 1. Small left pleural effusion, decreased in size consistent with given history of thoracentesis. No pneumothorax. Other findings as above. - FOLLOW UP Follow Up: Patient will follow up with his primary care physician and surgery for treatment of his colon cancer and chronic medical problems. Patient's pleural fluid was sent off for cytology results have yet to return and will need to be followed up by his primary care physician. - TIME SPENT Time Spent in Discharge (Minutes): 45 (FAX TO PCP)"
--- NOTE | 2017-05-30 17:11 | PROCEDURE REPORT ---
DATE OF SERVICE: 04/28/2017 Physician: Tom Rodriguez MD PRE AND POST PROCEDURE DIAGNOSIS: Left pleural effusion. PROCEDURE: Left thoracentesis. DESCRIPTION OF PROCEDURE: After informed consent was obtained, the patient was sat up in bed and the left posterior chest was then prepped and draped in usual sterile fashion. The skin, 2 fingerbreadths down and laterally, from the tip of the scapula was then identified for thoracentesis. The skin overlying this area was then injected with local anesthesia. A small incision was then made in the skin. A thoracentesis needle was then inserted over the top of the rib and into the pleural space. There was return of serous fluid. The catheter was then inserted into the chest pleural space. The catheter was then hooked up to suction canisters in which 1300 mL of fluid was then aspirated. The catheter was then removed and a tape was then placed upon the insertion site. There were no immediate complications. A STAT chest x-ray was ordered. TD: 05/30/2017 18:11
== END 2017-04-29 12:20 | disposition home or self-care (01) | DRG 189 ==
LOC: ED 15:21 → MS2 20:08
PROVIDERS: ADMIT Specialist; ATTEND Internal Medicine
PROC: 0W9B3ZZ Drainage of Left Pleural Cavity, Percutaneous Approach (ICD-10-PCS; principal; 2017-04-28)
DX: J96.11 Chronic respiratory failure with hypoxia (principal); J90 Pleural effusion, not elsewhere classified; I11.0 Hypertensive heart disease with heart failure; J91.0 Malignant pleural effusion; E87.1 Hypo-osmolality and hyponatremia; N28.9 Disorder of kidney and ureter, unspecified; C18.4 Malignant neoplasm of transverse colon; I13.0 Hypertensive heart and chronic kidney disease with heart failure and stage 1 through stage 4 chronic kidney disease, or unspecified chronic kidney disease; Z85.038 Personal history of other malignant neoplasm of large intestine; I50.9 Heart failure, unspecified; Z79.01 Long term (current) use of anticoagulants; N18.3 Chronic kidney disease, stage 3 (moderate); I35.0 Nonrheumatic aortic (valve) stenosis; E11.9 Type 2 diabetes mellitus without complications; I89.0 Lymphedema, not elsewhere classified; E78.00 Pure hypercholesterolemia, unspecified; I48.91 Unspecified atrial fibrillation; I87.8 Other specified disorders of veins; G47.30 Sleep apnea, unspecified; E03.9 Hypothyroidism, unspecified; D63.1 Anemia in chronic kidney disease; D50.9 Iron deficiency anemia, unspecified; F32.9 Major depressive disorder, single episode, unspecified; B35.1 Tinea unguium; Z66 Do not resuscitate; Z87.01 Personal history of pneumonia (recurrent); Z87.440 Personal history of urinary (tract) infections; Z90.49 Acquired absence of other specified parts of digestive tract; Z79.4 Long term (current) use of insulin; Z95.0 Presence of cardiac pacemaker; Z85.828 Personal history of other malignant neoplasm of skin
CPT/HCPCS: 32554; 36415; 71020; 76604; 80048; 81001; 81003; 81599; 82947; 83036; 83615; 83735; 83880; 84157; 85025; 85610; 87070; 87086; 87205; 89051; 93306; 96365; 96375; 99285

== ENCOUNTER 2017-06-08 17:10 | Outpatient (CLI) | payer MEDICARE ==
--- NOTE | 2017-06-08 17:36 | CONSULTATION NOTE ---
Palliative Care Consultation - Referral Referring Provider: Dr. Da Rahman Time of Visit: Referral setting: Assisted living (Patient seen at [facility], he has been in assisted living now since July. 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 This was in August 2016. In his workup he was shown on a CT to have hilar and mediastinal adenopathy, he did undergo transthoracic biopsy and unfortunately the biopsy was inconclusive, patient does continue to have recurrent pleural effusions, he had a thoracentesis in December/2016 and another one in his hospitalization of 04/27. Of concern his he continues to have abdominal distention, denies pain or cramping, has intermittent nausea but no vomiting. He does report early satiety, he does have ongoing diarrhea, this is not persistent but builds up over 2 or 3 days and then he is incontinent without control. He has had ongoing weight loss most recent weight is been about 233. This is a total of 30 pounds over the last several months. During this time he did see the oncologist, at that point in time recommended surgery as the intervention. He also had presented with increased headaches, altered sensation of cold on the right side, and had a workup with the neurologist that was negative as well. He did receive an iron transfusion related to his anemia , had follow-up with eye doctor which was negative workup. His headaches and some of his neurology symptoms have improved since his moved into the memory facility. At this point in time they are waiting follow-up with Dr. Renee, they did not have an appointment scheduled, and follow-up with surgeon 's office they had been waiting for follow-up with patient. Appointment has been made for . Patient's goals actually are to move forward on the surgery, he is getting somewhat impatient, he does present with multiple comorbidities including hypertension, atrial fib, valve disorder, pneumonia in January 2017, he does have pacer, type 2 diabetes, BPH, and renal insufficiency stage III. He is not the best of health as far as his functional status, he is able to ambulate short distances, his diabetes has been fairly well controlled, he also has lower extremity venous stasis disease. He is not concerned regarding the information provided about the high risk given his underlying health conditions , feels like he needs to move forward, particularly as his symptom burden is increasing. His goal is also to outlive his , this is related to financial stressors, and be able to be of support for her through her ongoing decline with dementia. 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), HyPOthyroidism GI: reports: Colon polyps, Chronic diarrhea, Cholelithiasis, Other (colon cancer transverse) : reports: Benign prostate hypertrophy, Renal insuffiency HEENT: reports: None Psych: reports: Depression Musculoskeletal: reports: Osteoarthritis (shoulder, knees, hips) Derm: reports: Other (venuos stasis) MRSA Hx?: No - Past Surgical History General: reports: Cholecystectomy, Gastric surgery, Colonoscopy Ortho: reports: Hip replacement, Rotator cuff repair, Shoulder arthroplasty, Carpal Tunnel surgery, Other Cardiovascular: reports: Pacemaker HEENT: reports: Other Derm: reports: Skin cancer surgery - Substance History Use: Uses substance without health or social issues: Tobacco (distant history of smoking pipe), Alcohol (stopped drinking 06/2016) Social History - Living Situation Living arrangement: Assisted living Living Situation: Alone Support System: Erika has dementia, and she was the impetus for moving into [facility] after hospitalization. She continued to deteriorate quite quickly, they did move her in the last month over to [facility], this is actually been no relief to the . He does live alone in the apartment.His daughter provides support and oversight for his medical care, the patient is alert and oriented and able to participate in all conversations and decisions. He does have a son who is less [place] and errands Family History - Family History Family History: Mother: , Cancer, Father: , Diabetes, Type 2, Brother: , [place] Medications/Allergies - Medications Home Medications: Ambulatory Orders Medication Instructions Recorded Confirmed Metformin HCl 1,000 mg PO BIDWM 02/05/14 06/08/17 hydroCHLOROthiazide 25 mg PO DAILY 02/05/14 06/08/17 [Hydrochlorothiazide] Metoprolol Succinate [Toprol Xl] 50 mg PO DAILY 02/16/17 06/08/17 Levothyroxine Sodium 150 mcg PO QDAC 02/17/17 06/08/17 Insulin Glargine [Lantus Solostar] 12 unit SQ DAILY 04/28/17 06/08/17 Vitamin B Complex 1 each PO DAILY 04/28/17 06/08/17 Acetaminophen 500 mg PO Q4HR PRN 06/08/17 06/08/17 Dextromethorphan HBr [Robitussin] 2 tsp PO Q8HR PRN 06/08/17 06/08/17 Furosemide [Lasix] 20 mg PO .MWF 06/08/17 06/08/17 Ipratropium [place] 1 spray CATRINA Q4HR PRN 06/08/17 06/08/17 Melatonin 3 mg PO ACHS PRN 06/08/17 06/08/17 Nystatin Cream [Mycostatin Cream] 1 applic TOP BID 06/08/17 06/08/17 - Allergies Allergies/Adverse Reactions: Allergies Allergy/AdvReac Type Severity Reaction Status Date / Time No Known Drug Allergies Allergy Verified 04/27/17 15:28 Review of Systems - Constitutional Constitutional: reports: Fatigue, Poor appetite, Weight loss. denies: Fever - Eyes Eyes: reports: Vision loss, Corrective lenses - Ears, Nose & Throat Ears, Nose & Throat: reports: Postnasal drainage - Cardiovascular Cardiovascular: reports: Exertional dyspnea, Decr. exercise tolerance. denies: Chest pain - Respiratory Respiratory: reports: Cough, SOB at rest, SOB with exertion, Other (most recent pleural effusion left tapped 1300 mls last hospitalization) - Gastrointestinal Gastrointestinal: reports: Abdominal distention, Diarrhea (patient reports abdominal pressure "builds up"; then has diarrhea every 2-3 days without much control and some incontinence; denies acute pain or cramping with this), Bloating, Poor appetite, Early satiety. denies: Vomiting - Genitourinary Genitourinary: reports: Frequency, Incontinence - Musculoskeletal Musculoskeletal: reports: Stiffness, Limited range of motion (right shoulder), Muscle weakness (lower extremities; ambulates on short distances), Joint pain ( right knee limiting mobility), Assistive devices (uses rolling walker like wheelchair in apartment), Other (c/o cold right side; work up negative) - Integumentary Integumentary: reports: Lesions (v), Dryness, Other (left breast with lesion of candidasis) - Neurological Neurological: reports: General weakness, Headache (improved), Dizziness (on awakening), Memory problems (STM; no confusion) - Psychiatric Psychiatric: reports: Depression, Anxiety - Endocrine Endocrine: reports: Diabetes type 2 (BS good range 84-122) - Hematologic/Lymphatic Hematologic/Lymphatic: reports: Anemia (received iron transfusion in past; no recent labs since hospitalization), Recurrent infections (pneumonia in January) - All Other Systems All Other Systems: reports: Reviewed and negative Physical Exam - Vital Signs Temperature: 97.7 C Pulse Rate: 57 Respiratory Rate: 18 O2 Saturation: 96 (ra @ rest) Blood Pressure: 94/64 - Physical Exam General Appearance: positive: No acute distress, Alert Eyes Bilateral: positive: Normal inspection, Conjunctivae nml, No scleral icterus ENT: positive: Dry mucous membranes Neck: positive: No JVD, Trachea midline, Stiff neck Cardiovascular: positive: Regular rate & rhythm, Systolic murmur Respiratory: positive: Other (no breaths sounds left base about 1/[address] up; diminished left; right clear-diminished base) Abdomen: positive: Soft, Abnml bowel sounds (hyperactive;not tinkling), Distended, Taut (unclear if ascitic or fat) Skin: positive: Pallor, Dryness, Other (plaques and scales of venous stasis; dull red no s/s infection; fungal nails) Extremities: positive: Pedal edema (1-2+ up to knees) Neurologic/Psychiatric: positive: Oriented x3, Mood/affect nml, Weakness, Flat affect Palliative Care - POLST Patient has POLST: No Pain: Pain unchanged, Location (right knee; no abdominal pain) Tiredness/Fatigue: Moderate (4-6) Drowsiness/Sedation: None Nausea: None Depression: Mild (1-3) Anxiety: Mild (1-3) Dyspnea: Severe (7-10) Anorexia: Moderate (4-6) Sleep: Sleeps poorly (up frequently at night) Feelings of wellbeing/Perceived Quality of Life: Fair, Acceptable Performance Status: Patient is at [facility], does have frequent wound checks for assistance. He is currently bathing himself independently, will need assistance with his venous stasis care of his lower extremities, does go down to dining room for most meals. - Palliative Care Discussion: Discussion regarding patient's goals of care, which is to move forward with surgery, is hoping for the best, discussed surgical risk and possible sequela, patient would want to be a full code but if he were deteriorating are going to have significant disabilities he would not want to prolong his life or put himself in a place where he would be more disabled. Anuj Arce his DPOAE feels like she would be able to speak on his behalf he was unable speak for himself. 1 of the driving factors for his goals for moving forward and getting better as his is 57 years, with dementia, it would be actually financially disadvantage for them, and he also wants to be able to oversee her care and end- of-life care. He reports he is not afraid of dying, but is hoping for a good outcome. He does very recognize this will include a transition to a senior care for rehab, we did discuss at length things he could do at this point in time to prepare himself for surgery including increasing activity, and improved nutrition. 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 Has been many steps along the way, as trying to rule out metastatic disease, particularly related to his mediastinal and hilar adenopathy. He has had recurrent left pleural effusions, he presents with fairly moderate symptom burden, but anxious to move on to the next step. He does have multiple comorbidities, that are of concern as far as surgical risk, but he is certain at this point in time that this is his wishes. Palliative care to provide support, help with coordination of care, and follow as he is of advanced age and fragile health. Recommendations/Counseling Done: 1. Colon cancer. Called to Dr. Montejo to facilitate setting up second step of surgical consult. Appointment set for 06/20. Patient is quite symptomatic, will follow up with note and current goals which are to proceed with surgery.Contact me with Dr. Villeda, to follow-up on anemia and iron transfusions, had been instructed to follow-up in 1-2 months, no labs drawn since hospitalization in March. Ordered will have done the same time his chest x-ray. Also discussion regarding concern for time. Between diagnosis and still unscheduled surgery, Dr. Villeda recommended a CT of the abdomen and pelvis again to evaluate for metastatic disease 2. Dyspnea. Patient has had recurrent left pleural effusions, does present with symptoms as well as objective findings. Given he is moving on towards surgery, will go ahead and get a chest x-ray case patient does need thoracentesis prior to surgery. 3. Hypotension. Patient does admit to poor fluid intake, he has had weight loss, and is on multiple hypertension medications. Encouraged increase fluid intake, as well as increase activity, will have facility monitor blood pressures daily and weights weekly the next couple weeks. May need to adjust medications with patient's recent weight loss. 4. Candidiasis under left breast. Has open lesion painful to touch, does have nystatin cream already ordered as as needed we will schedule it for 1 week or until lesion healed 5. Venous stasis lower extremities. Patient has not been doing any care for lower extremities. Patient is pain-free assistance, treatment plan will be to wash with warm soapy water and rinse and apply emollient cream, family to pick that up today. 6. Advanced care planning. Patient does have JOYCE Arce [phone]. Initiated conversation regarding CODE STATUS, goals of care, and pending surgical risk. Patient's goal is to proceed with surgery, hoping for the best, reports he is not afraid of dying and would not want any support that would prolong any suffering. He is hoping to recover well and continue to support his with dementia, they have been 57 years. Time Spent: 75 minutes spent with greater than 50% of this done in counseling regarding goals of care, translating current information, helping coordinate and next steps as far as moving forward on surgery and checking ongoing status of labs, recurrent left pleural effusion, follow-up with oncologist and anticipatory guidance
== END 2017-06-08 17:11 | disposition home or self-care (01) ==
LOC: PC 17:10
PROVIDERS: ATTEND Nurse Practitioner Adult Health
DX: Z51.5 Encounter for palliative care (principal); C18.4 Malignant neoplasm of transverse colon; R06.00 Dyspnea, unspecified; I95.9 Hypotension, unspecified; B37.2 Candidiasis of skin and nail; I87.8 Other specified disorders of veins; J90 Pleural effusion, not elsewhere classified; R11.0 Nausea; R68.81 Early satiety; R19.7 Diarrhea, unspecified; R63.4 Abnormal weight loss; I10 Essential (primary) hypertension; I48.91 Unspecified atrial fibrillation; E11.22 Type 2 diabetes mellitus with diabetic chronic kidney disease; I12.9 Hypertensive chronic kidney disease with stage 1 through stage 4 chronic kidney disease, or unspecified chronic kidney disease; N18.3 Chronic kidney disease, stage 3 (moderate); Z79.4 Long term (current) use of insulin; Z79.84 Long term (current) use of oral hypoglycemic drugs; Z95.0 Presence of cardiac pacemaker; Z87.891 Personal history of nicotine dependence; R14.0 Abdominal distension (gaseous); M62.81 Muscle weakness (generalized); F32.9 Major depressive disorder, single episode, unspecified; F41.9 Anxiety disorder, unspecified

== ENCOUNTER 2017-06-11 14:41 | Outpatient (CLI) | payer MEDICARE ==
[2017-06-11 15:29] LABS: HGB - HEMOGLOBIN 11.5 g/dL (14.0-18.0); MEAN CORPUSCULAR HEMOGLOBIN 29.1 pg (27.0-31.0); MEAN CORPUSCULAR HGB CONC 33.2 g/dL (32.0-36.0); MEAN CORPUSCULAR VOLUME 87.9 fL (80.0-94.0); NEUTROPHILS # (AUTO) 4.3 10^3/uL (1.5-6.6); NEUTROPHILS % (AUTO) 63.2 %; RED BLOOD COUNT 3.95 10^6/uL (4.70-6.10); RED CELL DISTRIBUTION WIDTH 15.3 % (12.0-15.0); WHITE BLOOD COUNT 6.8 x10^3/uL (4.8-10.8)
[2017-06-11 15:37] LABS: ALBUMIN 4.4 g/dL (3.2-5.5); ALBUMIN/GLOBULIN RATIO 1.3 (1.0-2.2); BILIRUBIN,TOTAL 1.4 mg/dL (0.2-1.0); CALCIUM 9.1 mg/dL (8.5-10.3); CREATININE 1.4 mg/dL (0.6-1.2); TOTAL PROTEIN 7.7 g/dL (6.7-8.2)
--- NOTE | 2017-06-11 15:59 | XRAY Report ---
TWO VIEW CHEST: 06/11/2017 CLINICAL INDICATION: Pleural effusion, dyspnea. COMPARISON: 04/28/2017. FINDINGS: Frontal and lateral views of the chest demonstrate a normal cardiac silhouette. A left subclavian pacemaker is present. Small effusions persist. No pneumothorax is present. IMPRESSION: STABLE EFFUSIONS. NO SIGNIFICANT INTERVAL CHANGE. TD: 06/11/2017 15:58
== END 2017-06-11 14:42 | disposition home or self-care (01) ==
LOC: DI 14:41
PROVIDERS: ATTEND Nurse Practitioner Adult Health
DX: J90 Pleural effusion, not elsewhere classified (principal); D50.0 Iron deficiency anemia secondary to blood loss (chronic); Z79.899 Other long term (current) drug therapy
CPT/HCPCS: 36415; 71046; 80053; 83540; 84466; 85027

== ENCOUNTER 2017-06-15 14:05 | Outpatient (CLI) | payer MEDICARE ==
--- NOTE | 2017-06-15 18:07 | CONSULTATION NOTE ---
Palliative Care Follow Up - Referral Referring Provider: Dr. 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 His workup also has included a CT to have follow-up on hilar or mediastinal adenopathy, he did undergo transthoracic biopsy which reportedly unfortunately was inconclusive. During this time he also had a workup with neurology, concern about follow-up on possible stroke, this too was negative. He has also had recurrent pleural effusions, but most recently his checks x-ray on 06/11/2017 showed small effusions persist did not but stable. He himself does feel more short of breath, increased fatigue, and somewhat impatient about getting on with his surgery for his cancer. His labs did reveal a low iron level of 28, TIBC 496, iron percent saturation 6, and transferrin 354. He is receiving an iron transfusion as we speak. He does present with symptoms of intermittent diarrhea, his perception is that "builds up", and he has no control and some incontinence with this. He does not have any nausea or vomiting, or increase in pain related to this. Dr. Silva, has spoken with the daughter, for patient to proceed will need a cardiology appointment, he does have underlying hypertension atrial fib, valve disorder, and a pacer. As well as renal insufficiency stage III. This is to complete a risk assessment to be able to weigh benefits and burdens and risk for surgery. Patient does have insight that he has a high risk candidate, but does not feel that he has other options. In the context of his cancer, Dr. Navarro did want a follow-up given his last CT scan was in December 2016, to evaluate for further metastatic disease. Patient goals are to move forward with surgery, but does have some understanding of the steps we need to go through. He does perceive at this point in time the risk is worth it for him, his overall approach to things is fairly pragmatic. He is quite focused on being able to be present and supportive for his to her decline with dementia. Social History - Living Situation Living arrangement: Assisted living Living Situation: Alone Support System: Patient moved into [facility] to be able to support his , as she was having dementia decline, unfortunately her dates were not able to be met in the current setting, and she is over in [facility] which is the dementia unit. He does feel like she is settling in. His daughter Anuj provides oversight and efficacy for his medical needs, he also has a son Nico who is providing support for transportation. Medications/Allergies - Medications Home Medications: Ambulatory Orders Medication Instructions Recorded Confirmed Metformin HCl 1,000 mg PO BIDWM 02/05/14 06/08/17 hydroCHLOROthiazide 25 mg PO DAILY 02/05/14 06/08/17 [Hydrochlorothiazide] Metoprolol Succinate [Toprol Xl] 50 mg PO DAILY 02/16/17 06/08/17 Levothyroxine Sodium 150 mcg PO QDAC 02/17/17 06/08/17 Insulin Glargine [Lantus Solostar] 12 unit SQ DAILY 04/28/17 06/08/17 Vitamin B Complex 1 each PO DAILY 04/28/17 06/08/17 Acetaminophen 500 mg PO Q4HR PRN 06/08/17 06/08/17 Dextromethorphan HBr [Robitussin] 2 tsp PO Q8HR PRN 06/08/17 06/08/17 Furosemide [Lasix] 20 mg PO .MWF 06/08/17 06/08/17 Ipratropium [place] 1 spray CATRINA Q4HR PRN 06/08/17 06/08/17 Melatonin 3 mg PO ACHS PRN 06/08/17 06/08/17 Nystatin Cream [Mycostatin Cream] 1 applic TOP BID 06/08/17 06/08/17 - Allergies Allergies/Adverse Reactions: Allergies Allergy/AdvReac Type Severity Reaction Status Date / Time No Known Drug Allergies Allergy Verified 04/27/17 15:28 Review of Systems - Constitutional Constitutional: reports: Fatigue - Eyes Eyes: reports: Corrective lenses - Ears, Nose & Throat Ears, Nose & Throat: reports: Dry mouth - Cardiovascular Cardiovascular: reports: Edema, Decr. exercise tolerance. denies: Chest pain - Respiratory Respiratory: reports: SOB at rest, SOB with exertion. denies: Hemoptysis - Gastrointestinal Gastrointestinal: reports: Abdominal distention, Diarrhea, Early satiety. denies: Bloody stools, Nausea - Genitourinary Genitourinary: reports: Frequency - Musculoskeletal Musculoskeletal: reports: Muscle aches, Limited range of motion (right side, particularly upper extremity), Assistive devices (uses rolling walker) - Integumentary Integumentary: reports: Other (venous stasis; started LE [facility] about 2 days ago) - Neurological Neurological: reports: General weakness, Headache, Memory problems (STM at times ) - Psychiatric Psychiatric: reports: Anxiety (relating to impending delay in getting surgery). denies: Depression - Endocrine Endocrine: reports: Diabetes type 2 - Hematologic/Lymphatic Hematologic/Lymphatic: reports: Anemia (34.7 hct) - All Other Systems All Other Systems: reports: Reviewed and negative Physical Exam - Vital Signs Pulse Rate: 76 Respiratory Rate: 18 Blood Pressure: 112/68 - Physical Exam General Appearance: positive: No acute distress Eyes Bilateral: positive: Normal inspection ENT: positive: No signs of dehydration Neck: positive: No JVD, Trachea midline Cardiovascular: positive: Regular rate & rhythm Respiratory: positive: Diminished in bases. 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 He is limited as far as his ability to bend over, he can walk short distances though tends to roll himself on his 4 wheeled walker. Does report lower extremity weakness is the limiting factor as well severe fatigue. - Palliative Care Discussion: Patient does perceive himself as having a consider amount of marta, he does not identify any particular sikhism. He is fairly pragmatic, and seems to have some insight into the seriousness of the nature of his impending surgery. He is getting quite impatient with the process, his outcomes are hoping for better quality of life, and to address his underlying cancer diagnosis. He reports he is not "afraid of having cancer", did discuss at length though the concern is any sequela from the surgery itself given his underlying comorbidities and advanced age. Patient at this point, does not want to be a DO NOT RESUSCITATE, but a FULL CODE, he is hoping for a positive outcome from this surgery. We did discuss in the context of what would be acceptable quality of life, he does not want to be a heavy burden, or spend the rest of his life in a residential. He is most worried about the impact on his , her ongoing decline, and related to the financial stressors if he were to first. 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 He has been getting further workup, he does have multiple comorbidities that are concerning as far as surgical risk, at this point in time he is receiving an iron transfusion, pending CT abdomen/pelvis, as well as cardiology referral. Palliative care to provide support, help with coordination of care, and follow as he is of advanced age and fragile health. Recommendations/Counseling Done: 1. Colon cancer. Next step for Dr. Delia Williamson is to receive cardiology referral, daughter is currently attempting to fast track that for this next week. Patient is receiving iron transfusion, and has pending CT scan of the abdomen and pelvis to evaluate for metastatic disease per Dr. Navarro's recommendation. Patient does present with mild obstructive symptoms, with increased diarrhea, increased tightness in his abdomen, but no acute symptoms of pain or vomiting or nausea. 2. Dyspnea. At this point in time he does not have recurrent pleural effusion , most likely related to his current counts. Instructed to pace activities. 3. Venous stasis, lower extremities. They have started in the last couple days care to his lower extremities, this is already improved the appearance of this. They will continue this support at the assisted living facility. 4. Diabetes type 2. Patient reports his blood sugars have been running on the lower side, will have [facility] send them early next week to see if his insulin needs to be adjusted given his weight loss and decreased intake. 5. Advanced care planning. Patient does have DPOA Anuj Arce [phone]. Patient currently in the context of the conversation, still wants to be a full code. We did discuss to revisit this decision, again in the context of weighing benefits and burdens of moving forward. Patient does not want long- term to be dependent, to have to live in a residential, or to prolong any suffering. But at this point is wanting to have support and surgery improve quantity of life as well as quality. Time Spent: 45 minutes with greater than 50% of this done and counseling regarding goals of care, assisting with coordination of care regarding preparation for surgery, and anticipatory guidance
== END 2017-06-15 14:06 | disposition home or self-care (01) ==
LOC: PC 14:05
PROVIDERS: ATTEND Nurse Practitioner Adult Health
DX: Z51.5 Encounter for palliative care (principal); C18.4 Malignant neoplasm of transverse colon; R06.00 Dyspnea, unspecified; I87.8 Other specified disorders of veins; E11.22 Type 2 diabetes mellitus with diabetic chronic kidney disease; I12.9 Hypertensive chronic kidney disease with stage 1 through stage 4 chronic kidney disease, or unspecified chronic kidney disease; N18.3 Chronic kidney disease, stage 3 (moderate); Z79.84 Long term (current) use of oral hypoglycemic drugs; Z79.4 Long term (current) use of insulin; J90 Pleural effusion, not elsewhere classified; R53.83 Other fatigue; R19.7 Diarrhea, unspecified; I10 Essential (primary) hypertension; I48.91 Unspecified atrial fibrillation; Z95.0 Presence of cardiac pacemaker; R06.09 Other forms of dyspnea; M62.81 Muscle weakness (generalized); D64.9 Anemia, unspecified; M17.0 Bilateral primary osteoarthritis of knee; F32.9 Major depressive disorder, single episode, unspecified; F41.9 Anxiety disorder, unspecified
CPT/HCPCS: 99215

== ENCOUNTER 2017-06-20 13:39 | Outpatient (CLI) | payer MEDICARE ==
[2017-06-20] MEDS ORDERED: IOPAMIDOL-300 50 ML VIAL ONE (13:58)
[2017-06-20] MEDS ORDERED: IOPAMIDOL-300 100 ML VIAL ONE (13:58)
[2017-06-20 14:49] LABS: CREATININE 1.4 mg/dL (0.6-1.2)
[2017-06-20] MEDS ORDERED: IOPAMIDOL-300 50 ML VIAL PO ONE (16:48)
[2017-06-20] MEDS ORDERED: IOPAMIDOL-300 100 ML VIAL IVP ONE (16:48)
--- NOTE | 2017-06-21 11:50 | CT Report ---
CT OF THE ABDOMEN AND PELVIS WITH CONTRAST: 06/20/2017 CLINICAL INDICATION: Adenocarcinoma of transverse colon. TECHNIQUE: Axial CT images of the abdomen and pelvis were obtained with 100 mL Isovue 300 intravenously as well as oral contrast. COMPARISON: 09/26/2016. FINDINGS: Limited evaluation of the lung bases demonstrates small pleural effusions and associated basilar atelectasis. ABDOMEN: The liver, spleen, pancreas and adrenal glands appear unremarkable. Nonobstructing right renal calculus is again noted, and a small cortical cyst is seen in the left kidney. No hydronephrosis or hydroureter is present. The patient is status post cholecystectomy. No bowel dilatation, free gas, or free fluid is present. No abdominal adenopathy is seen. PELVIS: Sigmoid diverticulosis is present, without CT evidence of diverticulitis. No pelvic adenopathy or free fluid is seen. Osseous structures demonstrate degenerative and postoperative changes. IMPRESSION: NO DEFINITE EVIDENCE OF METASTATIC DISEASE. NEW SMALL BILATERAL PLEURAL EFFUSIONS. NO EVIDENCE OF BOWEL OBSTRUCTION. CT DOSE REDUCTION STATEMENT In accordance with CT protocol optimization, one or more of the following dose reduction techniques were utilized for this exam: automated exposure control, adjustment of mA and/or KV based on patient size, or use of iterative reconstructive technique. TD: 06/21/2017 11:50
== END 2017-06-20 13:40 | disposition home or self-care (01) ==
LOC: DI 13:39
PROVIDERS: ATTEND Nurse Practitioner Adult Health
DX: C18.4 Malignant neoplasm of transverse colon (principal); J90 Pleural effusion, not elsewhere classified
CPT/HCPCS: 36415; 74177; 82565; Q9967

== ENCOUNTER 2017-07-02 10:15 | Outpatient (CLI) | payer MEDICARE ==
--- NOTE | 2017-07-02 20:32 | CONSULTATION NOTE ---
Palliative Care Follow Up - Referral Referring Provider: Dr. 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 His workup included a CT to have follow-up on hilar/mediastinal adenopathy, he did undergo transthoracic biopsy that was inconclusive. He also has had a workup for neurology for possible stroke, this was negative. He has had some recurrent pleural effusions on the left, most recently his most recent chest x-ray on does show moderate left pleural effusion though this was not compared to previous one here would be. He continues to feel short of breath, with fatigue , did receive iron transfusion, CT of the abdomen did not show any symptoms of metastatic disease. His last step was to see the public safety teacher, he is to lose 15 pounds related to his heart failure medication adjustments were to have been made. He did see them on 228 has not started his regimen. His understanding from Dr. Epps is that he may proceed, with the goal of him starting in better fluid balance. He is to start furosemide 60 mg daily, with potassium 10 mEq with a BMP in 1 week. Patient had been on furosemide 20 mg Sunday, he will be receiving close monitoring of weights and blood pressures as well as follow-up from the heart failure clinic. Patient does continue with regular bowel patterns, with buildup in abdominal pressure, passes soft loose stool mixed with watery stool. He denies any increased abdominal pain or nausea and vomiting with this. He does have early satiety but has been eating. Social History - Living Situation Living arrangement: Assisted living Living Situation: Alone Support System: Daughter Anuj helps patient navigate healthcare system, he is currently living in assisted living. His [place] is across the [place] and [facility], which is a dementia unit. Medications/Allergies - Medications Home Medications: Ambulatory Orders Medication Instructions Recorded Confirmed Metformin HCl 1,000 mg PO BIDWM 02/05/14 07/02/17 hydroCHLOROthiazide 25 mg PO DAILY 02/05/14 07/02/17 [Hydrochlorothiazide] Metoprolol Succinate [Toprol Xl] 50 mg PO DAILY 02/16/17 07/02/17 Levothyroxine Sodium 150 mcg PO QDAC 02/17/17 07/02/17 Insulin Glargine [Lantus Solostar] 10 unit SQ DAILY 04/28/17 07/02/17 Vitamin B Complex 1 each PO DAILY 04/28/17 07/02/17 Acetaminophen 500 mg PO Q4HR PRN 06/08/17 07/02/17 Dextromethorphan HBr [Robitussin] 2 tsp PO Q8HR PRN 06/08/17 07/02/17 Furosemide [Lasix] 60 mg PO DAILY 06/08/17 07/02/17 Ipratropium [place] 1 spray CATRINA Q4HR PRN 06/08/17 07/02/17 Melatonin 3 mg PO ACHS PRN 06/08/17 07/02/17 Nystatin Cream [Mycostatin Cream] 1 applic TOP BID 06/08/17 07/02/17 Potassium Citrate [Potassium 10 meq PO DAILY 07/02/17 07/02/17 Citrate ER] - Allergies Allergies/Adverse Reactions: Allergies Allergy/AdvReac Type Severity Reaction Status Date / Time No Known Drug Allergies Allergy Verified 04/27/17 15:28 Review of Systems - Constitutional Constitutional: reports: Fatigue, Weight stable (234). denies: Fever, Chills, Night sweats - Eyes Eyes: reports: Corrective lenses - Ears, Nose & Throat Ears, Nose & Throat: reports: Dry mouth - Cardiovascular Cardiovascular: reports: Edema, Exertional dyspnea, Decr. exercise tolerance. denies: Palpitations, Chest pain - Respiratory Respiratory: reports: SOB at rest, SOB with exertion. denies: Cough - Gastrointestinal Gastrointestinal: reports: Reflux/heartburn, Bloating, Poor appetite, Early satiety, Other (reports loose stool with significant bloating; then release, mixed with water; no s/s bleeding.). denies: Rectal bleeding, Black stools - Genitourinary Genitourinary: reports: Frequency, Urgency - Musculoskeletal Musculoskeletal: reports: Stiffness, Limited range of motion, Muscle weakness, Assistive devices (uses 4WW to ambulate; lift chair) - Integumentary Integumentary: reports: Dryness, Pigment changes - Neurological Neurological: reports: General weakness - Psychiatric Psychiatric: reports: Anxiety. denies: Depression - Endocrine Endocrine: reports: Diabetes type 2 (running on lower side 80 to occasionally over 110; goal about 120) - Hematologic/Lymphatic Hematologic/Lymphatic: reports: Anemia - All Other Systems All Other Systems: reports: Reviewed and negative Physical Exam - Vital Signs Temperature: 97.0 C Pulse Rate: 69 Respiratory Rate: 18 O2 Saturation: 90 (ra @ rest) Blood Pressure: 118/74 - Physical Exam General Appearance: positive: Alert, Anxious Eyes Bilateral: positive: Normal inspection, No scleral icterus ENT: positive: ENT inspection nml Neck: positive: Trachea midline Cardiovascular: positive: Regular rate & rhythm Respiratory: positive: Other (decreased 1/4 up on left; diminished right base; clear). negative: Wheezes, Rales, Rhonchi Abdomen: positive: Abnml bowel sounds (hyperactive), Distended, Obese. negative : Guarding Skin: positive: Pallor, Other (rash on face) Extremities: positive: Pedal edema (2-3+ up to knees; no worse than last visit;) , Other (difficulty getting sitting to standing) Neurologic/Psychiatric: positive: Oriented x3, Mood/affect nml, Weakness Palliative Care - POLST Patient has POLST: No Pain: Pain unchanged, Location (bilateral knee pain; generalized achiness) Tiredness/Fatigue: Moderate (4-6) Drowsiness/Sedation: None Nausea: None Depression: Mild (1-3) Anxiety: Mild (1-3) Dyspnea: Moderate (4-6) Anorexia: Mild (1-3) Sleep: Variable sleep pattern Constipation: No Feelings of wellbeing/Perceived Quality of Life: Fair, Acceptable Performance Status: Patient with assistance for ADLs, he can walk down to meals and self-feed. He does have poor activity tolerance. He has have difficulty getting from sitting to standing this is both weakness and bilateral DJD pain. He is at baseline fairly sedentary, has not been able to increase his activity secondary to breathlessness. - Palliative Care Discussion: Patient did fill his meeting with public safety teacher was quite productive. He is aware he is to attempt diuresis, in preparation for surgery. He has not made an appointment with the surgeon yet. Did discuss most likely this would be something to facilitate. He is agreed in agreement. We did discuss completing the [facility] [facility] Counseling regarding goals of care and decisions. Patient at this point in time does want to be a DNAR/allow natural as well as selected treatments. He would accept surgery and things to prolong and improve his quality of life, but would not at end of life want to prolong his suffering. He continues to be quite focused on getting as "good as he can" to be able to be supportive of his who has dementia. Did provide him with hard choices for loving people as he is trying to help his complete hers as well, we did discuss in the context of our conversation that we would revisit this and sign it at our next visit. 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 He has had multiple workups related to his comorbidities as far as surgical risk, he has recently completed his follow-up with Dr. Epps the public safety teacher. He has recommended that he lose 15 pounds prior to surgery and receive close follow-up regarding his CHF thru the process. Patient is anxious to proceed with surgery, will help facilitate appointment with Dr. Silva. Recommendations/Counseling Done: 1. CHF. Patient has only received 1 increased dose of his furosemide at 60 mg last Sunday, due to miscommunication regarding pharmacy prescription and medication program at [facility], does not have furosemide available even for baseline dosing. Did provide prescription for 20 mg tabs 3 tabs daily, as well as potassium for 1 week, confirmed [place] delivery to be delivered within the week. Recommended he start as soon as possible and receive lab work at the end of week as to not miss if patient does poorly. 2. Colon cancer. Will help facilitate appointment with surgeon to proceed with scheduling, or at least be able to follow-up on risk and benefit. Will provide note from Dr. Epps as well and support. 3. Venous stasis, lower extremity. Skin does appear in better condition, though he does still have some lower extremity edema, no open areas are noted areas of cellulitis. 4. Diabetes type 2. Will decrease Lantus to 10 units, he has been running on the slow side with increased diuresis is at high risk for hypoglycemia. 5. Advanced care planning. Did spend time counseling regarding [facility], provided hard choices for loving people, as well as anticipatory guidance Time Spent: 45 minutes with greater than 50% of this done in counseling regarding symptom management, coordination of care regarding prescriptions and new plan for diuresis, as well as anticipatory guidance and advanced care planning
== END 2017-07-02 10:16 | disposition home or self-care (01) ==
LOC: PC 10:15
PROVIDERS: ATTEND Nurse Practitioner Adult Health
DX: Z51.5 Encounter for palliative care (principal); I50.9 Heart failure, unspecified; C18.4 Malignant neoplasm of transverse colon; I87.8 Other specified disorders of veins; E11.9 Type 2 diabetes mellitus without complications; Z79.4 Long term (current) use of insulin; Z79.84 Long term (current) use of oral hypoglycemic drugs; M62.81 Muscle weakness (generalized)

== ENCOUNTER 2017-07-09 10:15 | Outpatient (CLI) | payer MEDICARE ==
--- NOTE | 2017-07-09 17:48 | CONSULTATION NOTE ---
Palliative Care Follow Up - Referral Referring Provider: Dr. 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 His workup included a CT to have follow-up on hilar/mediastinal adenopathy, his transthoracic biopsy was inconclusive. He has been diuresed by his golf range attendant, he has lost 19 pounds, and appears quite dry today. His blood pressure is 102/51, he is complaining of dry mouth, denies any dizziness. He is quite tired from the frequent urination, but his legs do seem improved with decreased lower extremity edema as well as he does feel he is breathing better.Unfortunately he did not get his labs drawn on Sunday as I had requested , they had rescheduled him for Sunday as he had started his diuresis officially on Sunday the 07/02. Patient continues to have intermittent explosive diarrhea, at times he is incontinent of stool. He also been running low blood sugars, he does feel a little bit more energetic despite the symptoms of dehydration, though they did not take his blood sugar till after breakfast today. Patient continues to eat fairly high carbo load, he reports he had pancakes and syrup with a blood sugar of 253 after breakfast. We had decreased his Lantus, unfortunately this did not get put on his medication record, so we did discontinue it to see if his blood sugars with improve as they were running quite low below 100. His venous stasis is still quite rough, his lower extremities are quite John, at this point in time though his skin is at high risk for cellulitis no signs or symptoms of infection. Social History - Living Situation Living arrangement: Assisted living Living Situation: Alone Support System: His kyra daughter Anuj Arce oversees his care her phone number is . They have an appointment with Dr. Radford on 320. His Lula his over in the dementia unit. Medications/Allergies - Medications Home Medications: Ambulatory Orders Medication Instructions Recorded Confirmed Metformin HCl 1,000 mg PO BIDWM 02/05/14 07/09/17 hydroCHLOROthiazide 25 mg PO DAILY 02/05/14 07/09/17 [Hydrochlorothiazide] Metoprolol Succinate [Toprol Xl] 50 mg PO DAILY 02/16/17 07/09/17 Levothyroxine Sodium 150 mcg PO QDAC 02/17/17 07/09/17 Vitamin B Complex 1 each PO DAILY 04/28/17 07/09/17 Acetaminophen 500 mg PO Q4HR PRN 06/08/17 07/09/17 Dextromethorphan HBr [Robitussin] 2 tsp PO Q8HR PRN 06/08/17 07/09/17 Furosemide [Lasix] 20 mg PO DAILY 06/08/17 07/09/17 Ipratropium [place] 1 spray CATRINA Q4HR PRN 06/08/17 07/09/17 Melatonin 3 mg PO ACHS PRN 06/08/17 07/09/17 Nystatin Cream [Mycostatin Cream] 1 applic TOP BID 06/08/17 07/09/17 Potassium Citrate [Potassium 10 meq PO DAILY 07/02/17 07/09/17 Citrate ER] - Allergies Allergies/Adverse Reactions: Allergies Allergy/AdvReac Type Severity Reaction Status Date / Time No Known Drug Allergies Allergy Verified 04/27/17 15:28 Review of Systems - Constitutional Constitutional: reports: Fatigue, Weight loss (215 from 234 last week). denies : Fever - Eyes Eyes: reports: Vision loss, Corrective lenses - Ears, Nose & Throat Ears, Nose & Throat: reports: Hearing loss, Dry mouth (reports quite severe) - Cardiovascular Cardiovascular: reports: Decr. exercise tolerance. denies: Lightheadedness - Respiratory Respiratory: reports: SOB with exertion. denies: Cough, Orthopnea, SOB at rest - Gastrointestinal Gastrointestinal: reports: Diarrhea, Bloating, Good appetite. denies: Abdominal pain, Rectal bleeding, Nausea, Vomiting - Genitourinary Genitourinary: reports: Frequency, Urgency, Incontinence - Musculoskeletal Musculoskeletal: reports: Muscle pain, Muscle aches, Stiffness, Limited range of motion, Muscle weakness, Assistive devices (uses walker) - Integumentary Integumentary: reports: Dryness, Other (venous stasis lower extremities) - Neurological Neurological: reports: General weakness, Memory problems (mild) - Psychiatric Psychiatric: reports: Anxiety - Endocrine Endocrine: reports: Diabetes type 2 - All Other Systems All Other Systems: reports: Reviewed and negative Physical Exam - Vital Signs Temperature: 97.9 C Pulse Rate: 81 Respiratory Rate: 18 O2 Saturation: 91 (ra @ rest) Blood Pressure: 102/51 - Physical Exam General Appearance: positive: No acute distress, Alert Eyes Bilateral: positive: Normal inspection ENT: positive: Dry mucous membranes. negative: Pharyngeal erythema Neck: positive: No JVD, Trachea midline Cardiovascular: positive: Regular rate & rhythm Respiratory: positive: Other (diminished left lower base but decreased). negative: Wheezes, Rales, Rhonchi Abdomen: positive: Non-tender, Nml bowel sounds, Distended, Obese Skin: positive: Pallor, Dryness, Other (bilataral venous stasis) Extremities: positive: Pedal edema (markedly improved) Neurologic/Psychiatric: positive: Oriented x3, Mood/affect nml, Flat affect Palliative Care - POLST Patient has POLST: No Pain: Pain unchanged, Location (generalized joint pain; lower extremities) Tiredness/Fatigue: Moderate (4-6) Drowsiness/Sedation: None Nausea: None Depression: Mild (1-3) Anxiety: Moderate (4-6) Dyspnea: Moderate (4-6) Anorexia: None Sleep: Variable sleep pattern Constipation: No Feelings of wellbeing/Perceived Quality of Life: Fair, Acceptable Performance Status: Patient is ambulatory with his 4 wheeled walker, does feel a little bit stronger and more able to ambulate easier with decreased edema in his lower extremities. He is able to change himself, is showering though everything takes "much longer". Will put him at a PPS of 70% - Palliative Care Discussion: Plan had been to follow-up on [address] today, patient is trying to complete for both himself and his Lula. We did review the form much more in detail this time, he does want to be a D and a R, wants to have further conversation with his family before completing. Patient does understand particularly after reading hard choices for loving people, and fragility of his situation given advanced age and multiple comorbidities. We did discuss quality of life, in the context of if patient more dependent or needed assisted placement this with not be acceptable. He is okay with assisted placement for rehab or short-term and is aware that most likely this will be part of his treatment plan after surgery. He is wondering, about returning home with paid caregivers with his . Lula is in a dementia unit, His perception is she is march more functional than most of the residents. It does sound like she does have a little bit of neuropsychiatric behaviors with some , he continues to struggle how best to support her given his current health Results - Lab Results Lab and Imaging Results: requested to be faxed to myself as well. 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 He has actually lost 19 pounds, and does appear quite dry today, will decrease his diuretic and await results of labs. Patient continues to be anxious to proceed with surgery , does have an appointment with the surgeon next week. Recommendations/Counseling Done: 1. CHF. Patient has received a whole week of 60 mg of furosemide, as well as potassium 10 mEq daily. Unfortunately lab work was not done end of week, am awaiting results. I did leave a message at the heart failure clinic for KAREN RODRÍGUEZ's at [phone], did not hear back from her by end of day so sent in order to decrease furosemide to 20 mg daily patient's baseline furosemide had been 3 times a week at the dose of 20 mg. Will await lab results and coordinate with clinic and golf range attendant. 2.Diabetes type 2. Unfortunately patient's Lantus had not been decreased, his blood sugars continue to run low, I did follow-up with coding educator, will discontinue for now and restart if creeps back up.Will have them send his blood sugars on to see if need to restart Lantus, would restart at 8 units depending on readings. 3 venous stasis, lower extremities. Skin continues to appear somewhat contreras, his lower extremity edema is improving, no open areas are noted or signs or symptoms of infection. 4. Colon cancer. Patient does have a scheduled visit with Dr. Renee next week on Sunday. Patient is quite anxious to move forward with surgery, continues to have intermittent and unpredictable explosive diarrhea. Denies pain, cramping, nausea or vomiting and knows to report any of the above symptoms. 5. Advanced care planning. Reviewed the [address], patient continues to focus on goals of care, at this point in time wants to wait until he spoken with daughter as well as follow-up with surgeon. We will see patient depending on surgical schedule and long-term plan. Plan to follow-up on labs and kidney function for maintenance dosing, will collaborate with heart failure clinic. Time Spent: 45 minutes with greater than 50% of this done in counseling regarding symptom management, CHF management, diabetic management and anticipatory guidance
== END 2017-07-09 10:16 | disposition home or self-care (01) ==
LOC: PC 10:15
PROVIDERS: ATTEND Nurse Practitioner Adult Health
DX: Z51.5 Encounter for palliative care (principal); I50.9 Heart failure, unspecified; E11.9 Type 2 diabetes mellitus without complications; Z79.4 Long term (current) use of insulin; Z79.84 Long term (current) use of oral hypoglycemic drugs; I87.8 Other specified disorders of veins; C18.4 Malignant neoplasm of transverse colon; F32.9 Major depressive disorder, single episode, unspecified; F41.9 Anxiety disorder, unspecified
CPT/HCPCS: 99349

== ENCOUNTER 2017-07-13 00:26 | Outpatient (CLI) | payer MEDICARE | END 2017-07-13 00:27 | disposition critical access hospital (66) | LOC: EMS 00:26 | PROVIDERS: ATTEND Surgery | DX: M25.511 Pain in right shoulder (principal); M25.551 Pain in right hip; W01.0XXA Fall on same level from slipping, tripping and stumbling without subsequent striking against object, initial encounter; Y92.099 Unspecified place in other non-institutional residence as the place of occurrence of the external cause | CPT/HCPCS: A0425; A0429 ==

== ENCOUNTER 2017-07-13 00:41 | Inpatient (IN) | payer MEDICARE ==
--- NOTE | 2017-07-13 02:23 | XRAY Preliminary Report ---
Exam: XR SHOULDER 3 VIEW RT IMPRESSION: 1. Please refer to the report of the chest radiograph and rib series. 2. Right total shoulder prosthesis without definite acute bony abnormalities. 3. 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 Marrow replacing process difficult to exclude. [facility] SITE ID: [id number]
--- NOTE | 2017-07-13 02:28 | XRAY Preliminary Report ---
Exam: XR HIP W/PELVIS 2-3V RT IMPRESSION: Bilateral hip replacement. No definite acute bony abnormality. [facility] SITE ID: [id number]
--- NOTE | 2017-07-13 02:29 | XRAY Report ---
EXAM: RIGHT SHOULDER RADIOGRAPHY EXAM DATE: 07/13/2017 02:02 AM. CLINICAL HISTORY: Fall, right-sided pain. COMPARISON: None. TECHNIQUE: 3 views. FINDINGS: Bones: Right total shoulder prosthesis. No evidence of a fracture or periprosthesis loosening demonst rated. Mottled appearance of the humerus. Rib fractures are described on the rib series report. Joints: No dislocation. Soft tissues: Findings about the chest are dictated separately on the chest radiograph report. IMPRESSION: 1. Please refer to the report of the chest radiograph and rib series. 2. Right total shoulder prosthesis without definite acute bony abnormality. 3. 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 Marrow replacing process difficult to exclude. [facility] Referring Provider Line: [phone] SITE ID: [id number]
--- NOTE | 2017-07-13 02:31 | XRAY Report ---
EXAM: RIGHT HIP AND PELVIS RADIOGRAPHY EXAM DATE: 07/13/2017 01:55 AM. HISTORY: Fall, right-sided pain. COMPARISONS: None. TECHNIQUE: 1 view of the pelvis and 2 view of the hip. FINDINGS: Bones: There is no definite acute displaced fracture or suspicious bony lesion. Osteopenia reduces se nsitivity and specificity. Joints: Bilateral hip replacements have been performed. No evidence of loosening or infection of the right hip prosthesis and of the left hip prosthesis as visualized. Soft Tissues: Calcific atherosclerosis. IMPRESSION: Bilateral hip replacement. No definite acute bony abnormality. [facility] Referring Provider Line: [phone] SITE ID: [id number]
--- NOTE | 2017-07-13 02:31 | XRAY Preliminary Report ---
Exam: XR RIBS W/PA CHEST RT IMPRESSION: 1. Acute appearing mildly displaced fractures of the lateral portions of the right first, second, thi rd, and fourth ribs. There is no definite evidence of a pneumothorax. Small associated extrapleural h ematoma. 2. Left basilar pleural and parenchymal abnormalities is stable. Stable blunting of the right lateral costophrenic sulcus region. [facility] SITE ID: [id number]
--- NOTE | 2017-07-13 02:44 | XRAY Report ---
EXAM: RIGHT RIB RADIOGRAPHY EXAM DATE: 07/13/2017 02:01 AM. CLINICAL HISTORY: Fall, right-sided pain. COMPARISON: 06/11/2017 (report not available at this time). TECHNIQUE: 1 view of the chest and 5 views of the ribs. FINDINGS: Bones: Acute-appearing displaced fractures of the lateral portions of the right first, second, third, and fourth ribs noted. This is far above the laterally placed BB, reportedly at the patient-describe d site of pain. Lungs and pleura: There is right lateral upper hemithorax pleural thickening, related to the rib frac tures. Chronic bilateral costophrenic sulcus region blunting. This is left greater than right. Mediastinum: Mild enlargement of the cardiac silhouette. Other: Left subclavian pacemaker device tip at the right ventricle apex. Right shoulder prosthesis. N onspecific mottled appearance of the right humerus, potentially from aggressive osteoporosis. Bone ma rrow infiltrative process difficult to exclude with certainty. IMPRESSION: 1. Acute-appearing mildly displaced fractures of the lateral portions of the right first, second, thi rd, and fourth ribs. There is no definite evidence of a pneumothorax. Small associated extrapleural h ematoma. 2. Left basilar pleural and parenchymal abnormality is stable. Stable blunting of the right lateral c ostophrenic sulcus region. [facility] Referring Provider Line: [phone] SITE ID: [id number]
[2017-07-13] MEDS ORDERED: LIDOCAINE PATCH 5% TOP STA (03:06)
[2017-07-13] MEDS ORDERED: oxyCOD/ACETAMIN 5 MG/325 MG TABLET PO STA (03:06)
--- NOTE | 2017-07-13 03:13 | ED Physician Documentation ---
PD HPI Fall - Stated complaint Stated Complaint: GLF/R SIDE PX - Chief complaint Chief Complaint: General - History obtained from History obtained from: Patient, EMS - History of Present Illness Mechanism of injury: Tripped Fall distance: Standing position Where injury occurred: Home Timing - onset: Today Injury(ies) location: Chest, Right Upper Extremity, Right Lower Extremity Quality of pain: Pain, Aching Associated symptoms: No: LOC, AMS, Amnesia, Neck pain Worsens with: Movement, Palpation Contributing factors: No: Anticoagulated Similar symptoms before: Has not had sx before Recently seen: Not recently seen - Additional information Additional information: patient is an 86 year old male who is brought in by ems after falling. patient states that he had taken off his shoes and he got up to go to the bathroom. patient tripped and fell on his right side. ems was called. Patient denies any loc, or amnesia. Patient states that he is not on any blood thinners. Patient is complaining of pain in his right scapular region, his right shoulder and his right hip. Review of Systems Constitutional: denies: Fever, Chills Eyes: denies: Decreased vision, Photophobia Ears: denies: Ear pain, Drainage/discharge Nose: denies: Epistaxis Throat: denies: Dental pain / toothache Cardiac: denies: Chest pain / pressure, Palpitations Respiratory: denies: Dyspnea, Cough, Wheezing GI: denies: Nausea, Vomiting : reports: Reviewed and negative Skin: denies: Abrasion (s), Laceration (s) Musculoskeletal: reports: Back pain, Extremity pain, Joint pain, Extremity swelling. denies: Neck pain Neurologic: denies: Generalized weakness, Focal weakness, Numbness, Altered mental status, Headache, Head injury, LOC Psychiatric: denies: Depressed Immunocompromised: denies: Immunocompromised PD PAST MEDICAL HISTORY - Past Medical History Cardiovascular: Hypertension, High cholesterol, Atrial fibrillation, Valve disorder, Other Respiratory: Pneumonia, Shortness of breath Neuro: Other Endocrine/Autoimmune: Type 2 diabetes, HyPOthyroidism GI: Colon polyps, Chronic diarrhea, Cholelithiasis, Other : Benign prostate hypertrophy, Renal insuffiency HEENT: None Psych: Depression Musculoskeletal: Osteoarthritis Derm: Other - Past Surgical History Past Surgical History: Yes General: Cholecystectomy, Gastric surgery, Colonoscopy Ortho: Hip replacement, Rotator cuff repair, Shoulder arthroplasty, Carpal Tunnel surgery, Other Cardiovascular: Pacemaker HEENT: Other Derm: Skin cancer surgery - Present Medications Home Medications: Ambulatory Orders Medication Instructions Recorded Confirmed Metformin HCl 1,000 mg PO BIDWM 02/05/14 07/09/17 hydroCHLOROthiazide 25 mg PO DAILY 02/05/14 07/09/17 [Hydrochlorothiazide] Metoprolol Succinate [Toprol Xl] 50 mg PO DAILY 02/16/17 07/09/17 Levothyroxine Sodium 150 mcg PO QDAC 02/17/17 07/09/17 Vitamin B Complex 1 each PO DAILY 04/28/17 07/09/17 Acetaminophen 500 mg PO Q4HR PRN 06/08/17 07/09/17 Dextromethorphan HBr [Robitussin] 2 tsp PO Q8HR PRN 06/08/17 07/09/17 Furosemide [Lasix] 20 mg PO DAILY 06/08/17 07/09/17 Ipratropium [place] 1 spray CATRINA Q4HR PRN 06/08/17 07/09/17 Melatonin 3 mg PO ACHS PRN 06/08/17 07/09/17 Nystatin Cream [Mycostatin Cream] 1 applic TOP BID 06/08/17 07/09/17 Potassium Citrate [Potassium 10 meq PO DAILY 07/02/17 07/09/17 Citrate ER] - Allergies Allergies/Adverse Reactions: Allergies Allergy/AdvReac Type Severity Reaction Status Date / Time No Known Drug Allergies Allergy Verified 07/13/17 00:48 - Social History Does the pt smoke?: No Smoking Status: Never smoker Does the pt drink ETOH?: Yes Does the pt have substance abuse?: No - Immunizations Immunizations are current?: Yes - POLST Patient has POLST: No POLST Status: DNR PD ED PE NORMAL - Vitals Vital signs reviewed: Yes - General General: Alert and oriented X 3 - HEENT HEENT: Atraumatic, Dentition benign - Neck Neck: Supple, no meningeal sign, No bony TTP - Cardiac Cardiac: RRR, No murmur - Abdomen Abdomen: Soft, Non tender, Non distended - Neuro Neuro: Alert and oriented X 3, No motor deficit, No sensory deficit, Normal speech Eye Opening: Spontaneous Motor: Obeys Commands Verbal: Oriented GCS Score: 15 - Psych Psych: Normal mood PD ED PE EXPANDED - Back Back: Vertebral tenderness (lateral tenderenss thourough back from upper to lower thoracics on the right side, no ecchymosis, no gorss deformity) - Extremities Extremities: Right shoulder (tenderness to palpation of right shoulder, previous surgical scarring, no gross deformity), Right hip (tenderness to palpation of right hip) Results - Vitals Vitals: Vital Signs - 24 hr 07/13/17 00:42 Temperature 36.5 C Heart Rate 70 Respiratory 16 Rate Blood Pressure 131/75 H O2 Saturation 83 L Oxygen O2 Source [With Activity] Nasal cannula O2 Source Room air - Rads (name of study) rt rib series Radiology: Final report received (mildly displaced fractures of ribs 1-4) right shoulder Radiology: Final report received (no acute abnormality) right hip Radiology: Final report received (no acute abnormality) PD MEDICAL DECISION MAKING - ED course Complexity details: reviewed old records, reviewed results, re-evaluated patient , considered differential, d/w patient, d/w [facility] consultant ED course: Patient was seen and examined at bedside. Patient was sent for imaging. When patient returned the results were reviewed. patient was found to have multiple rib fractures but no pnuemo, or hemothorax. patient was treated with lidoderm and percocet. Hospitalist was contacted and the case was discussed with her. patient was admitted for further evaluation and care. Departure - Departure Disposition: ED Place in Observation Clinical Impression: Multiple rib fractures involving four or more ribs Condition: Good
[2017-07-13 03:29] LABS: BASOPHILS % (AUTO) 0.3 %; EOSINOPHILS % (AUTO) 0.3 %; HGB - HEMOGLOBIN 11.9 g/dL (14.0-18.0); LYMPHOCYTES # (AUTO) 1.1 10^3/uL (1.5-3.5); LYMPHOCYTES % (AUTO) 8.9 %; MEAN CORPUSCULAR HEMOGLOBIN 29.3 pg (27.0-31.0); MEAN CORPUSCULAR HGB CONC 33.3 g/dL (32.0-36.0); MEAN CORPUSCULAR VOLUME 88.2 fL (80.0-94.0); MEAN PLATELET VOLUME 6.5 fL (7.4-11.4); MONOCYTES # (AUTO) 0.7 10^3/uL (0.0-1.0); MONOCYTES % (AUTO) 5.5 %; NEUTROPHILS # (AUTO) 10.2 10^3/uL (1.5-6.6); PLT - PLATELET COUNT 194 10^3/uL (130-450); RED BLOOD COUNT 4.07 10^6/uL (4.70-6.10); RED CELL DISTRIBUTION WIDTH 17.4 % (12.0-15.0)
[2017-07-13] MEDS ORDERED: SODIUM CHLORIDE FLUSH 0.9% 10 ML SYRINGE IVP PRN (03:34)
[2017-07-13] MEDS ORDERED: ONDANSETRON 4 MG/2 ML VIAL IVP PRN (03:34)
[2017-07-13] MEDS ORDERED: IBUPROFEN 600 MG TABLET PO PRN (03:34)
[2017-07-13 03:36] LABS: CREATININE 1.3 mg/dL (0.6-1.2)
[2017-07-13] MEDS ORDERED: SODIUM CHLORIDE 0.9% 1,000 ML IV SCH (04:00)
[2017-07-13] MEDS: HYDROmorphone 1 MG/ML SYRINGE IVP PRN ×2 (04:29→09:15)
[2017-07-13] MEDS ORDERED: BENZOCAINE/MENTHOL LOZENGE MM PRN (05:22)
--- NOTE | 2017-07-13 07:24 | HISTORY & PHYSICAL EXAMINATION ---
DATE OF SERVICE: 07/13/2017 Physician: Linnette Tjeeda MD HISTORY OF PRESENT ILLNESS: This is an 86-year-old, white male with a history of hypertension, diabetes, pneumonia in January 2017, aortic stenosis, prior pleural effusions requiring thoracentesis. The patient lives at [facility]. The patient was brought in by an ambulance after falling. He described that he was taking off his shoes and then got up to go to the bathroom, and tripped and fell over his shoes, falling on his right side. He denies any syncope, he can remember the entire event. The patient started complaining of pain in the right shoulder area, right scapular area, and right hip area. X-rays done in the emergency room of various parts of his body have shown that he has rib fractures of ribs 1 through 4 and he is admitted for pain management and Incentive Spirometry use. PAST MEDICAL HISTORY: Hypertension, diabetes, community acquired pneumonia requiring admission here in January 2017, aortic stenosis, pleural effusions with prior thoracentesis, atrial fibrillation, hypothyroidism, BPH, CKD, depression, arthritis. PAST SURGICAL HISTORY: Cholecystectomy, gastric surgery, colonoscopy, hip replacement, rotator cuff surgery, shoulder arthroplasty, carpal tunnel surgery, pacemaker, skin cancer surgery. REVIEW OF SYSTEMS: Comprehensive review of systems was performed and the pertinent positives are in the HPI, all the rest are negative. ALLERGIES: None. MEDICATIONS AT HOME 1. Hydrochlorothiazide 25 mg daily. 2. Vitamin B complex daily. 3. Potassium citrate 10 mEq daily. 4. Mycostatin cream topically b.i.d. 5. Toprol-XL 50 mg daily. 6. Metformin 1000 mg b.i.d. 7. Melatonin 3 mg a.c. and at bedtime p.r.n. 8. Levothyroxine 150 mcg p.o. daily. 9. Ipratropium nasal spray p.r.n. 10. Lasix 20 mg daily. 11. Robitussin p.r.n. 12. Tylenol p.r.n. FAMILY HISTORY: Noncontributory, unknown by the patient. SOCIAL HISTORY: The patient is a nonsmoker, drinks no alcohol, uses no illicit drugs, lives at an assisted living facility. PHYSICAL EXAMINATION GENERAL: Elderly, white male, cachectic. He is in no distress, supine in bed. VITAL SIGNS: Blood pressure 131/75, pulse of 70, afebrile; room air saturation 83%, increased to 93% on 4 liters nasal cannula. HEENT: Reveals temporal wasting. He has a "brush burn" on his right cheek. Oral mucosa is moist. NECK: Shows positive JVD supine. No carotid bruits. CHEST: Diminished breath sounds diffusely. No rales or wheezes. HEART: Sounds have a soft S1, S2 and a 3/6 systolic murmur at the base, mid peaking. There is no gallop. ABDOMEN: Soft, decreased bowel sounds, nontender. EXTREMITIES: No clubbing, cyanosis or edema. NEUROLOGIC: Grossly intact. LABORATORIES: Sodium 136, potassium 4.1, BUN 54, creatinine 1.3. White blood count 12, hemoglobin 11.9, platelet count normal at 194. No INR was done. No urinalysis was done. ELECTROCARDIOGRAM: None done, but telemetry shows ventricular pacing, underlying rhythm not clear. IMAGING: Hip and pelvis x-rays showed bilateral hip replacements and no bony abnormality. Shoulder x-ray on the right showed right total shoulder prosthesis and mottled appearance of the humerus, suggesting osteoporosis. Rib x-rays showed acute appearing mildly displaced fractures of the lateral portions of the right first, second, third and fourth ribs. No pneumothorax, small extrapleural hematoma present. There is a left basilar pleural and parenchymal abnormality, which is stable, and stable blunting of the right costophrenic angle. IMPRESSION/DIAGNOSES 1. Rib fractures. 2. Fall. 3. Diabetes, on oral medications. 4. Hypertension history, currently controlled. 5. Aortic stenosis history. 6. Pleural effusion, small, recurrent. 7. Pre-renal azotemia. PLAN: Place the patient in Observation status on telemetry. Obtain an EKG to assess the rhythm. Obtain orthostatic vital signs to determine if there was any obvious sign for him to have fallen. Initiate pain control and initiate incentive spirometry in order to avoid splinting, atelectasis, and potential pneumonia. Continue with his other medications, but would back off on the diuretics currently, given his prerenal azotemia. Obtain consult from OT and PT to [facility] with the current rib fractures and pain. DEEP VENOUS THROMBOSIS PROPHYLAXIS: SCDs. CODE STATUS: DNR. ATTESTATION: The patient is expected to be discharged or transferred to another facility within 96 hours: Yes. TD: 07/13/2017 07:23 RICARDO
[2017-07-13] MEDS: FAMOTIDINE 20 MG TABLET PO SCH (09:14)
[2017-07-13] MEDS: SODIUM CHLORIDE FLUSH 0.9% 10 ML SYRINGE IVP SCH ×2 (09:15→16:28)
[2017-07-13] MEDS: POLYETHYLENE GLYCOL 3350 17 GM PACKET PO SCH (11:17)
[2017-07-13] MEDS ORDERED: ACETAMINOPHEN 325 MG TABLET PO PRN (11:35)
[2017-07-13] MEDS ORDERED: SODIUM CHLORIDE 0.9% 500 ML IV ONE (15:33)
--- NOTE | 2017-07-13 15:41 | PROVIDER PROGRESS NOTE ---
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 He states that he recently discontinued his insulin and just takes Metformin. He cannot recall recent blood sugar values. Plan: Check A1C and order blood sugar checks, SSI ACHS. (2) Multiple rib fractures involving four or more ribs Assessment/Plan: Patient states that he tripped and fell to the ground in his apartment and laid there for " a while" before he got help. This is concerning for rhabdomyolysis and an extremely high risk for pneumonia in ~24 hours. The patient does not use oxygen at home, and has required 5L per nasal cannula while at the hospital. Plan: Continue lidocaine patches for right upper posterior rib pain, encourage ambulation, encourage incentive spirometry, may consider a repeat chest x-ray since patient has not been able to wean off O2, and provide oxygen to keep O2 greater than 92%. (3) CHF (congestive heart failure) Qualifiers: Congestive heart failure type: combined Congestive heart failure chronicity : acute on chronic Qualified Code(s): I50.43 - Acute on chronic combined systolic (congestive) and diastolic (congestive) heart failure Assessment/Plan: Patient's most recent echocardiogram from 04/28/2017 shows mild LV hypertrophy with an EF of 55%, LA moderately dilated, moderate aortic stenosis with regurg, moderate mitral regurg, and moderate pulmonary hypertension with a RVSP at rest of 46mmHg. So this is combined acute on chronic heart failure with a likely exacerbation from fall and now lung injury. Plan: Order echo, hold lasix in the setting of hypotension, and give 500ml NS bolus x1. Check BNP, electrolytes. (4) Hypoxia Assessment/Plan: Patient does not have a history of oxygen use, but now requires 5L nasal cannula due to recent lung injury. The patient has a history of moderate pulmonary hypertension, but he will likely need oxygen going forward. Plan: Order echo, provide oxygen to keep O2 greater than 92%, and attempt to wean after the acute injury is resolved. (5) Hypotension Qualifiers: Hypotension type: unspecified hypotension type Qualified Code(s): I95.9 - Hypotension, unspecified Assessment/Plan: Hypotension at rest with values of 83/47 and 84/59 without tachycardia. Patient normally takes lasix at home, but states that he has been weaned from his usual dose. He is also noted to have low urinary output. Plan: Give a 500ml NS bolus, recheck vital signs and continue to hold lasix. (6) CKD (chronic kidney disease), stage III Assessment/Plan: Patient has had this condition for several years and has a GFR of 39, and a creatinine of 1.7. This could be worsened due to being slightly dehydrated at the time of admission. Plan: Monitor labs and avoid nephrotoxins. - Current Meds Current Meds: Current Medications Generic Name Dose Route Start Last Admin Trade Name Freq PRN Reason Stop Dose Admin Famotidine 20 mg 07/13/17 09:00 07/13/17 09:14 Pepcid PO 20 mg DAILY LORNA Administration Hydromorphone HCl 1 mg 07/13/17 03:34 07/13/17 09:15 Dilaudid Inj Syringe IVP 1 mg Q2H PRN Administration Pain 8 to 10 Ibuprofen 600 mg 07/13/17 03:34 07/13/17 09:15 Motrin PO 600 mg Q6HR PRN Administration Pain 1 to 4 Polyethylene Glycol 17 gm 07/13/17 09:00 07/13/17 11:17 Miralax PO Not Given DAILY LORNA Sodium Chloride 10 ml 07/13/17 03:34 07/13/17 04:29 Normal Saline Flush 0.9% IVP 10 ml PRN PRN Administration NEEDED PER PROVIDER ORDERS Sodium Chloride 10 ml 07/13/17 09:00 07/13/17 09:15 Normal Saline Flush 0.9% IVP 10 ml [id number],[id number],1700 LORNA Administration - Lab Result Fish Bone Diagrams: 07/14/17 06:05 07/14/17 06:05 - EKG Results EKG Interpreted Independently: Yes EKG Comparison: Changed from prior EKG - Diagnostic Imaging Results Diagnostic Imaging Results: Prelim report reviewed, Final report reviewed - Additional Planning Condition/Complexity: Guarded My Orders: My Active Orders 07/13/17 11:35 Acetaminophen [Tylenol] 650 mg PO Q4HR PRN 07/13/17 14:39 Admit [Admit \\ Transfer \\ Status] [RC] .ONCE 07/13/17 15:33 Sodium Chloride 0.9% [Normal Saline 0.9%] 500 ml IV ONCE 07/13/17 16:00 Levothyroxine [Synthroid] 150 mcg PO QDAC 07/13/17 Lunch Dysphagia Puree Diet [DIET] 07/14/17 09:00 Metoprolol Succinate [Toprol Xl] 50 mg PO DAILY hydroCHLOROthiazide [Hydrodiuril] 25 mg PO DAILY Plan Discussed with:: Patient Time Spent: 15-30 minutes Subjective - Subjective Patient Reports: Cough, Fatigue, Shortness of Breath Nursing Reports: Shortness of Breath, Other (activity intolerance, not at baseline.) Objective Vital Signs: Vital Signs - 24 hr 07/13/17 07/13/17 07/13/17 04:47 08:00 10:10 Temperature 36.4 C L 36.2 C L Heart Rate [ 77 79 Brachial] Heart Rate [ 80 Sitting] Heart Rate [ 73 Supine] Respiratory 20 18 Rate Blood Pressure 124/75 [Left Brachial artery] Blood Pressure 103/61 [Right Brachial artery] Blood Pressure 111/60 [Sitting] Blood Pressure 103/56 L [Supine] O2 Saturation 93 90 L 07/13/17 07/13/17 12:04 12:59 Temperature 36.3 C L Heart Rate [ 73 Brachial] Heart Rate [ Sitting] Heart Rate [ Supine] Respiratory 16 Rate Blood Pressure [Left Brachial artery] Blood Pressure 83/47 L [Right Brachial artery] Blood Pressure [Sitting] Blood Pressure 84/59 L [Supine] O2 Saturation 97 Oxygen O2 Source Nasal cannula I&O (Last 24 Hrs): Intake and Output Totals x24h 07/11/17 07/12/17 07/13/17 23:59 23:59 23:59 Intake Total 1600 Balance 1600 - Results Results: Laboratory Results WBC 12.0 x10^3/uL (4.8-10.8) H 07/13/17 03:24 RBC 4.07 10^6/uL (4.70-6.10) L 07/13/17 03:24 Hgb 11.9 g/dL (14.0-18.0) L 07/13/17 03:24 Hct 35.9 % (42.0-52.0) L 07/13/17 03:24 MCV 88.2 fL (80.0-94.0) 07/13/17 03:24 MCH 29.3 pg (27.0-31.0) 07/13/17 03:24 MCHC 33.3 g/dL (32.0-36.0) 07/13/17 03:24 RDW 17.4 % (12.0-15.0) H 07/13/17 03:24 Plt Count 194 10^3/uL (130-450) 07/13/17 03:24 MPV 6.5 fL (7.4-11.4) L 07/13/17 03:24 Neut # 10.2 10^3/uL (1.5-6.6) H 07/13/17 03:24 Lymph # 1.1 10^3/uL (1.5-3.5) L 07/13/17 03:24 [place] # 0.7 10^3/uL (0.0-1.0) 07/13/17 03:24 Eos # 0.0 10^3/uL (0.0-0.7) 07/13/17 03:24 Baso # 0.0 10^3/uL (0.0-0.1) 07/13/17 03:24 Absolute Nucleated RBC 0.00 x10^3/uL 07/13/17 03:24 Nucleated RBC % 0.0 /100WBC 07/13/17 03:24 Sodium 136 mmol/L (135-145) 07/13/17 03:24 Potassium 4.1 mmol/L (3.5-5.0) 07/13/17 03:24 Chloride 99 mmol/L (101-111) L 07/13/17 03:24 Carbon Dioxide 23 mmol/L (21-32) 07/13/17 03:24 Anion Gap 14.0 (6-13) H 07/13/17 03:24 BUN 54 mg/dL (6-20) H 07/13/17 03:24 Creatinine 1.3 mg/dL (0.6-1.2) H 07/13/17 03:24 Estimated GFR (MDRD) 53 (>89) L 07/13/17 03:24 Glucose 222 mg/dL (70-100) H 07/13/17 03:24 Calcium 9.0 mg/dL (8.5-10.3) 07/13/17 03:24 - Procedures Procedures: Procedures CARPAL TUNNEL RELEASE (02/09/14) DRAINAGE OF LEFT PLEURAL CAVITY, PERCUTANEOUS APPROACH (04/27/17) EXCISION OF CECUM, ENDO, DIAGN (09/13/16) EXCISION OF DESCENDING COLON, ENDO, DIAGN (09/13/16) EXCISION OF STOMACH, PYLORUS, ENDO, DIAGN (09/13/16) LAPAROSCOPIC CHOLECYSTECTOMY (09/19/14) PARTIAL SHOULDER REPLACEMENT (02/09/14)
[2017-07-13] MEDS ORDERED: LEVALBUTEROL 1.25 MG/3 ML NEB INH PRN (15:47)
[2017-07-13 16:21] LABS: CALCIUM 8.5 mg/dL (8.5-10.3); CREATININE 1.5 mg/dL (0.6-1.2)
[2017-07-13 16:22] LABS: HB2 TOTAL 11.9 g/dL; HEMOGLOBIN A1C 0.64 g/dL; HEMOGLOBIN A1C % 7.1 % (4.6-6.2)
[2017-07-13] MEDS: LEVOTHYROXINE 75 MCG TABLET PO SCH (16:28)
[2017-07-13] MEDS: LEVALBUTEROL 1.25 MG/3 ML NEB INH SCH ×2 (16:37→20:30)
[2017-07-13] MEDS: OXYMETAZOLINE NASAL SPRAY NAS SCH ×2 (18:40→21:53)
[2017-07-13] MEDS: SODIUM CHLORIDE 0.65% NASAL SPRAY NAS SCH ×2 (19:48→21:53)
[2017-07-13] MEDS: MAGNESIUM OXIDE 400 MG TABLET PO SCH ×2 (19:48→21:53)
[2017-07-14] MEDS: SODIUM CHLORIDE FLUSH 0.9% 10 ML SYRINGE IVP SCH ×3 (00:28→21:34)
[2017-07-14] MEDS: MAGNESIUM OXIDE 400 MG TABLET PO SCH ×3 (05:45→21:37)
[2017-07-14] MEDS: SODIUM CHLORIDE 0.65% NASAL SPRAY NAS SCH ×3 (05:45→23:05)
[2017-07-14] MEDS: LEVOTHYROXINE 75 MCG TABLET PO SCH (06:08)
[2017-07-14 06:22] LABS: ALBUMIN 3.8 g/dL (3.2-5.5); ALBUMIN/GLOBULIN RATIO 1.1 (1.0-2.2); BILIRUBIN,TOTAL 2.2 mg/dL (0.2-1.0); CALCIUM 8.5 mg/dL (8.5-10.3); CREATININE 1.7 mg/dL (0.6-1.2); TOTAL PROTEIN 7.3 g/dL (6.7-8.2)
[2017-07-14 06:24] LABS: BASOPHILS % (AUTO) 0.5 %; EOSINOPHILS # (AUTO) 0.2 10^3/uL (0.0-0.7); EOSINOPHILS % (AUTO) 2.1 %; HGB - HEMOGLOBIN 11.1 g/dL (14.0-18.0); LYMPHOCYTES # (AUTO) 1.9 10^3/uL (1.5-3.5); LYMPHOCYTES % (AUTO) 22.5 %; MEAN CORPUSCULAR HEMOGLOBIN 29.3 pg (27.0-31.0); MEAN CORPUSCULAR VOLUME 88.8 fL (80.0-94.0); MEAN PLATELET VOLUME 6.7 fL (7.4-11.4); MONOCYTES # (AUTO) 0.8 10^3/uL (0.0-1.0); MONOCYTES % (AUTO) 9.7 %; NEUTROPHILS # (AUTO) 5.6 10^3/uL (1.5-6.6); NEUTROPHILS % (AUTO) 65.2 %; PLT - PLATELET COUNT 150 10^3/uL (130-450); RED BLOOD COUNT 3.78 10^6/uL (4.70-6.10); RED CELL DISTRIBUTION WIDTH 18.3 % (12.0-15.0); WHITE BLOOD COUNT 8.5 x10^3/uL (4.8-10.8)
[2017-07-14] MEDS: HYDROmorphone 1 MG/ML SYRINGE IVP PRN (08:00)
[2017-07-14] MEDS ORDERED: hydroCHLOROthiazide 25 MG TABLET PO SCH (09:00)
[2017-07-14] MEDS ORDERED: METOPROLOL SUCCINATE 50 MG TABLET PO SCH ×2 (09:00)
[2017-07-14] MEDS: SPIRONOLACTONE 25 MG TABLET PO SCH (09:05)
[2017-07-14] MEDS: METOPROLOL SUCCINATE 25 MG TABLET PO SCH (09:05)
[2017-07-14] MEDS: FAMOTIDINE 20 MG TABLET PO SCH (09:05)
[2017-07-14] MEDS: OXYMETAZOLINE NASAL SPRAY NAS SCH ×2 (09:05→21:37)
--- NOTE | 2017-07-14 09:22 | PROVIDER PROGRESS NOTE ---
Subjective - Prog Note Date Prog Note Date: 07/14/17 Prog Note Time: 09:22 - Subjective Pt reports feeling: Improved Subjective: Buck wishes to go home. He denies N/V or a new cough. Objective - Vital Signs/Intake & Output Reviewed Vital Signs: Yes Vital Signs: Vital Signs x48h Temp Pulse Pulse Pulse Pulse Resp BP 07/14/17 08:30 79 72 72 07/14/17 08:29 36.6 C 72 20 105/65 07/14/17 05:00 36.6 C 69 16 113/68 07/14/17 02:00 83 82 BP BP BP Pulse Ox 07/14/17 08:30 112/62 107/60 105/65 07/14/17 08:29 94 07/14/17 05:00 93 07/14/17 02:00 114/61 119/62 Intake & Output: Intake & Output 07/11/17 07/12/17 07/13/17 07/14/17 23:59 23:59 23:59 23:59 Intake Total 820 500 Output Total 1100 Balance -280 500 - Objective General Appearance: positive: No acute distress, Alert Eyes Bilateral: positive: Normal inspection, PERRL ENT: positive: ENT inspection nml, Pharynx nml Neck: positive: Nml inspection, Thyroid nml, No JVD Respiratory: positive: Chest non-tender, No respiratory distress Cardiovascular: positive: Regular rate & rhythm, No gallop Peripheral Pulses: 1+ Radial (R), 1+ Radial (L) Abdomen: positive: Non-tender, Nml bowel sounds Back: positive: Nml inspection Skin: positive: No rash, Warm, Dry Extremities: positive: Non-tender, Full ROM, Nml appearance, No pedal edema Neurologic/Psychiatric: positive: Oriented x3, CN's nml (2-12), Motor nml, Sensation nml, Weakness, Depressed mood/affect Reflexes: Bicep (R): 3+, Bicep (L): 3+ - Lab Results Fish Bones: 07/15/17 06:15 07/15/17 06:15 Other Labs: Lab Results x24hrs 07/14/17 07/14/17 07/14/17 Range/Units 06:05 06:05 06:05 WBC 8.5 (4.8-10.8) x10^3/uL RBC 3.78 L (4.70-6.10) 10^6/uL Hgb 11.1 L (14.0-18.0) g/dL Hct 33.6 L (42.0-52.0) % MCV 88.8 (80.0-94.0) fL MCH 29.3 (27.0-31.0) pg MCHC 33.0 (32.0-36.0) g/dL RDW 18.3 H (12.0-15.0) % Plt Count 150 (130-450) 10^3/uL MPV 6.7 L (7.4-11.4) fL Neut # 5.6 (1.5-6.6) 10^3/uL Lymph # 1.9 (1.5-3.5) 10^3/uL Allen # 0.8 (0.0-1.0) 10^3/uL Eos # 0.2 (0.0-0.7) 10^3/uL Baso # 0.0 (0.0-0.1) 10^3/uL Absolute Nucleated RBC 0.00 x10^3/uL Nucleated RBC % 0.0 /100WBC Sodium 134 L (135-145) mmol/L Potassium 4.6 (3.5-5.0) mmol/L Chloride 98 L (101-111) mmol/L Carbon Dioxide 24 (21-32) mmol/L Anion Gap 12.0 (6-13) BUN 58 H (6-20) mg/dL Creatinine 1.7 H (0.6-1.2) mg/dL Estimated GFR (MDRD) 39 L (>89) Glucose 207 H (70-100) mg/dL Glycated Hemoglobin (4.6-6.2) % Estim Average Glucose (70-100) Calcium 8.5 (8.5-10.3) mg/dL Magnesium (1.7-2.8) mg/dL Total Bilirubin 2.2 H (0.2-1.0) mg/dL AST 33 (10-42) IU/L ALT 21 (10-60) IU/L Alkaline Phosphatase 56 (42-121) IU/L Total Creatine Kinase (22-269) IU/L Troponin I 0.20 (<0.49) ng/mL B-Natriuretic Peptide (5-100) pg/mL Total Protein 7.3 (6.7-8.2) g/dL Albumin 3.8 (3.2-5.5) g/dL Globulin 3.5 (2.1-4.2) g/dL Albumin/Globulin Ratio 1.1 (1.0-2.2) TSH (0.34-5.60) uIU/mL 07/13/17 07/13/17 07/13/17 Range/Units 21:13 15:58 15:58 WBC (4.8-10.8) x10^3/uL RBC (4.70-6.10) 10^6/uL Hgb (14.0-18.0) g/dL Hct (42.0-52.0) % MCV (80.0-94.0) fL MCH (27.0-31.0) pg MCHC (32.0-36.0) g/dL RDW (12.0-15.0) % Plt Count (130-450) 10^3/uL MPV (7.4-11.4) fL Neut # (1.5-6.6) 10^3/uL Lymph # (1.5-3.5) 10^3/uL Allen # (0.0-1.0) 10^3/uL Eos # (0.0-0.7) 10^3/uL Baso # (0.0-0.1) 10^3/uL Absolute Nucleated RBC x10^3/uL Nucleated RBC % /100WBC Sodium (135-145) mmol/L Potassium (3.5-5.0) mmol/L Chloride (101-111) mmol/L Carbon Dioxide (21-32) mmol/L Anion Gap (6-13) BUN (6-20) mg/dL Creatinine (0.6-1.2) mg/dL Estimated GFR (MDRD) (>89) Glucose (70-100) mg/dL Glycated Hemoglobin 7.1 H (4.6-6.2) % Estim Average Glucose 157 H (70-100) Calcium (8.5-10.3) mg/dL Magnesium (1.7-2.8) mg/dL Total Bilirubin (0.2-1.0) mg/dL AST (10-42) IU/L ALT (10-60) IU/L Alkaline Phosphatase (42-121) IU/L Total Creatine Kinase 175 (22-269) IU/L Troponin I 0.19 (<0.49) ng/mL B-Natriuretic Peptide (5-100) pg/mL Total Protein (6.7-8.2) g/dL Albumin (3.2-5.5) g/dL Globulin (2.1-4.2) g/dL Albumin/Globulin Ratio (1.0-2.2) TSH (0.34-5.60) uIU/mL 07/13/17 07/13/17 07/13/17 Range/Units 15:58 15:58 15:58 WBC (4.8-10.8) x10^3/uL RBC (4.70-6.10) 10^6/uL Hgb (14.0-18.0) g/dL Hct (42.0-52.0) % MCV (80.0-94.0) fL MCH (27.0-31.0) pg MCHC (32.0-36.0) g/dL RDW (12.0-15.0) % Plt Count (130-450) 10^3/uL MPV (7.4-11.4) fL Neut # (1.5-6.6) 10^3/uL Lymph # (1.5-3.5) 10^3/uL Allen # (0.0-1.0) 10^3/uL Eos # (0.0-0.7) 10^3/uL Baso # (0.0-0.1) 10^3/uL Absolute Nucleated RBC x10^3/uL Nucleated RBC % /100WBC Sodium (135-145) mmol/L Potassium (3.5-5.0) mmol/L Chloride (101-111) mmol/L Carbon Dioxide (21-32) mmol/L Anion Gap (6-13) BUN (6-20) mg/dL Creatinine (0.6-1.2) mg/dL Estimated GFR (MDRD) (>89) Glucose (70-100) mg/dL Glycated Hemoglobin (4.6-6.2) % Estim Average Glucose (70-100) Calcium (8.5-10.3) mg/dL Magnesium 1.4 L (1.7-2.8) mg/dL Total Bilirubin (0.2-1.0) mg/dL AST (10-42) IU/L ALT (10-60) IU/L Alkaline Phosphatase (42-121) IU/L Total Creatine Kinase (22-269) IU/L Troponin I (<0.49) ng/mL B-Natriuretic Peptide 1356 H (5-100) pg/mL Total Protein (6.7-8.2) g/dL Albumin (3.2-5.5) g/dL Globulin (2.1-4.2) g/dL Albumin/Globulin Ratio (1.0-2.2) TSH 3.69 (0.34-5.60) uIU/mL 07/13/17 Range/Units 15:58 WBC (4.8-10.8) x10^3/uL RBC (4.70-6.10) 10^6/uL Hgb (14.0-18.0) g/dL Hct (42.0-52.0) % MCV (80.0-94.0) fL MCH (27.0-31.0) pg MCHC (32.0-36.0) g/dL RDW (12.0-15.0) % Plt Count (130-450) 10^3/uL MPV (7.4-11.4) fL Neut # (1.5-6.6) 10^3/uL Lymph # (1.5-3.5) 10^3/uL Allen # (0.0-1.0) 10^3/uL Eos # (0.0-0.7) 10^3/uL Baso # (0.0-0.1) 10^3/uL Absolute Nucleated RBC x10^3/uL Nucleated RBC % /100WBC Sodium 131 L (135-145) mmol/L Potassium 4.3 (3.5-5.0) mmol/L Chloride 96 L (101-111) mmol/L Carbon Dioxide 23 (21-32) mmol/L Anion Gap 12.0 (6-13) BUN 52 H (6-20) mg/dL Creatinine 1.5 H (0.6-1.2) mg/dL Estimated GFR (MDRD) 45 L (>89) Glucose 292 H (70-100) mg/dL Glycated Hemoglobin (4.6-6.2) % Estim Average Glucose (70-100) Calcium 8.5 (8.5-10.3) mg/dL Magnesium (1.7-2.8) mg/dL Total Bilirubin (0.2-1.0) mg/dL AST (10-42) IU/L ALT (10-60) IU/L Alkaline Phosphatase (42-121) IU/L Total Creatine Kinase (22-269) IU/L Troponin I (<0.49) ng/mL B-Natriuretic Peptide (5-100) pg/mL Total Protein (6.7-8.2) g/dL Albumin (3.2-5.5) g/dL Globulin (2.1-4.2) g/dL Albumin/Globulin Ratio (1.0-2.2) TSH (0.34-5.60) uIU/mL - Diagnostic Imaging Diagnostic Imaging Results: positive: Final report reviewed Assessment/Plan - Problem List (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 He states that he recently discontinued his insulin and just takes Metformin. He cannot recall recent blood sugar values. Hemoglobin A1C was 7.1 today, which is appropriate for his age as guidelines are more lenient over age 80. Low dose lantus was added today to account for the absence of Metformin. Plan: Continue to monitor blood sugar checks, SSI ACHS. (2) Multiple rib fractures involving four or more ribs Impression: Patient states that he tripped and fell to the ground in his apartment and laid there for " a while" before he got help. This is concerning for rhabdomyolysis , which was ruled out as his CK was only 175. This is also concerning for a potential high risk for pneumonia in ~24 hours. The patient does not use oxygen at home, and has required 4-5L per nasal cannula while at the hospital. PT will see daily to encourage ambulation and trips to the chair. Plan: Continue lidocaine patches for right upper posterior rib pain, encourage ambulation, encourage incentive spirometry, may consider a repeat chest x-ray since patient has not been able to wean off O2, and provide oxygen to keep O2 greater than 92%. (3) CHF (congestive heart failure) Impression: Patient's most recent echocardiogram from 04/28/2017 shows mild LV hypertrophy with an EF of 55%, LA moderately dilated, moderate aortic stenosis with regurg, moderate mitral regurg, and moderate pulmonary hypertension with a RVSP at rest of 46mmHg. So this is combined acute on chronic heart failure with a likely exacerbation from fall and now lung injury. Plan: Order echo, hold lasix in the setting of hypotension, and give 500ml NS bolus x1. Check BNP, electrolytes. Qualifiers: Congestive heart failure type: combined Congestive heart failure chronicity : acute on chronic Qualified Code(s): I50.43 - Acute on chronic combined systolic (congestive) and diastolic (congestive) heart failure (4) Hypoxia Impression: Patient does not have a history of oxygen use, but now requires 5L nasal cannula due to recent lung injury. The patient has a history of moderate pulmonary hypertension, but he will likely need oxygen going forward. Plan: Order echo, provide oxygen to keep O2 greater than 92%, and attempt to wean after the acute injury is resolved. (5) Hypotension Impression: Hypotension at rest with values of 83/47 and 84/59 without tachycardia. Patient normally takes lasix at home, but states that he has been weaned from his usual dose. He is also noted to have low urinary output. Plan: Give a 500ml NS bolus, recheck vital signs and continue to hold lasix. Qualifiers: Hypotension type: unspecified hypotension type Qualified Code(s): I95.9 - Hypotension, unspecified
[2017-07-14] MEDS: LEVALBUTEROL 1.25 MG/3 ML NEB INH SCH ×2 (10:19→19:10)
[2017-07-14] MEDS: oxyCOD/ACETAMIN 5 MG/325 MG TABLET PO PRN (13:30)
[2017-07-14] MEDS: GABAPENTIN 100 MG CAPSULE PO SCH ×2 (13:30→21:37)
[2017-07-14] MEDS: POLYETHYLENE GLYCOL 3350 17 GM PACKET PO SCH (13:31)
[2017-07-15] MEDS: SODIUM CHLORIDE FLUSH 0.9% 10 ML SYRINGE IVP SCH ×2 (00:10→08:28)
[2017-07-15] MEDS: HYDROmorphone 1 MG/ML SYRINGE IVP PRN (00:10)
[2017-07-15] MEDS: MAGNESIUM OXIDE 400 MG TABLET PO SCH ×2 (06:26→12:50)
[2017-07-15] MEDS: SODIUM CHLORIDE 0.65% NASAL SPRAY NAS SCH ×2 (06:26→12:51)
[2017-07-15] MEDS: LEVOTHYROXINE 75 MCG TABLET PO SCH (06:27)
[2017-07-15 06:47] LABS: BASOPHILS # (AUTO) 0.1 10^3/uL (0.0-0.1); BASOPHILS % (AUTO) 0.6 %; EOSINOPHILS # (AUTO) 0.3 10^3/uL (0.0-0.7); HGB - HEMOGLOBIN 10.9 g/dL (14.0-18.0); LYMPHOCYTES # (AUTO) 1.5 10^3/uL (1.5-3.5); LYMPHOCYTES % (AUTO) 19.5 %; MEAN CORPUSCULAR HEMOGLOBIN 29.2 pg (27.0-31.0); MEAN CORPUSCULAR HGB CONC 32.8 g/dL (32.0-36.0); MONOCYTES # (AUTO) 0.7 10^3/uL (0.0-1.0); MONOCYTES % (AUTO) 9.5 %; NEUTROPHILS # (AUTO) 5.2 10^3/uL (1.5-6.6); NEUTROPHILS % (AUTO) 66.4 %; PLT - PLATELET COUNT 158 10^3/uL (130-450); RED BLOOD COUNT 3.73 10^6/uL (4.70-6.10); RED CELL DISTRIBUTION WIDTH 17.9 % (12.0-15.0); WHITE BLOOD COUNT 7.9 x10^3/uL (4.8-10.8)
[2017-07-15 06:55] LABS: ALBUMIN 3.7 g/dL (3.2-5.5); ALBUMIN/GLOBULIN RATIO 1.1 (1.0-2.2); CALCIUM 8.6 mg/dL (8.5-10.3); CREATININE 1.2 mg/dL (0.6-1.2)
[2017-07-15 08:06] VITALS: BP 104/57
[2017-07-15] MEDS: FAMOTIDINE 20 MG TABLET PO SCH (08:27)
[2017-07-15] MEDS: GABAPENTIN 100 MG CAPSULE PO SCH (08:27)
[2017-07-15] MEDS: SPIRONOLACTONE 25 MG TABLET PO SCH (08:27)
[2017-07-15] MEDS: oxyCOD/ACETAMIN 5 MG/325 MG TABLET PO PRN ×2 (08:28→12:49)
[2017-07-15] MEDS: OXYMETAZOLINE NASAL SPRAY NAS SCH (08:29)
[2017-07-15] MEDS: METOPROLOL SUCCINATE 25 MG TABLET PO SCH (08:32)
[2017-07-15] MEDS: POLYETHYLENE GLYCOL 3350 17 GM PACKET PO SCH (08:32)
[2017-07-15] MEDS: LEVALBUTEROL 1.25 MG/3 ML NEB INH SCH (10:15)
--- NOTE | 2017-07-15 12:08 | Discharge Plan ---
"Discharge Plan for SNF / [facility] - DC Plan and Transition Orders Disposition: SNF DC/Xfer Condition: Good SNF Transition Orders: Admit to: Care Age under the care of Dr. White Discharge Diagnosis: CHF, DM type 2, multiple rib fractures right upper, hypoxia , CKD stage 3, debility. Medicare Certification: I certify that [facility] home care is medically necessary on a continuing basis for any of the conditions for which she/he is receiving care during hospitalization. Notify PCP of admission and forward orders to primary provider for signature. Weight on admission and weekly. Call PCP immediately if weight increases by 10 pounds or if patient develops dyspnea, chest pain/tightness or edema. House Bowel Program: yes If no BM after 2 days, nurse may give M.O.M. 30ml PO PRN and /or ducolax Supp 1 NV and /or SANDRA 250mg P.O., and/or senna 1-2 tabs PO. On day 3 nurse may give repeat above order until residents constipation is resolved. Immunizations: Annual Influenza Vaccine: yes. (between Dec 29 and July 28. ) Unless allergy or already given Two-Step PPD: yes; per [facility] [phone] or appropriate documentation of approved exceptions Treatments & Other Orders: PT/OT and speech therapy or per protocol. Oxygen Orders: 2-5L per nasal cannula to keep oxygen greater than 90%. Lab Tests or X-Rays Orders: May need follow up chest x-ray, but one will be checked today for rib fractures. Medications: PLEASE REFER TO THE DISCHARGE MEDICATION LIST. Insulin Orders? No, continue with Metformin PO BID. Diagnosis: Diabetes; Initiate hypo and hyperglycemia protocols for BG <70 and BG >375. May check BG prn for signs/symptoms of dysglycemia. Allergies and Adverse Reactions: Allergies Allergy/AdvReac Type Severity Reaction Status Date / Time No Known Drug Allergies Allergy Verified 07/13/17 00:48 - Medications New Prescriptions: oxyCODONE/ACET 5/325 [Percocet 5 mg/325 mg] 1 tab PO Q4HR PRN #30 tablet PRN Reason: Pain Gabapentin [Neurontin] 100 mg PO BID #60 capsule Levalbuterol [Xopenex] 1.25 mg INH RTQ4H PRN #180 neb PRN Reason: Wheezing Levalbuterol [Xopenex] 1.25 mg INH RTBID #60 neb Spironolactone [Aldactone] 25 mg PO DAILY #30 tablet - Diet Type: Geriatric Texture: Regular Liquids: Thin May have monthly special meal: Yes - Therapies | Activity Therapy: Evaluation | Treat if indicated: Speech, PT, OT Rehabilitation Potential: Maximize functional status, Return to independent living, Maintain present ADL Functional Activity: Activity as Tolerated Weight Bearing: Full Weight Assistance Devices: Walker"
--- NOTE | 2017-07-15 12:19 | DISCHARGE SUMMARY ---
Discharge Summary Discharge Date: 07/15/17 Discharging Provider: LETICIA Titus Primary Care Provider: Dr White Code Status: Do Not Attempt Resuscitation Condition at Discharge: Good Discharge Disposition: SNF DC/Xfer Discharge Facility Name: Care Age - DIAGNOSES Admission Diagnoses: Fracture, ribs (S22.39XA) Unspecified fall, initial encounter (W19.XXXA) Type 2 diabetes mellitus without complications (E11.9) Essential (primary) hypertension (I10) Nonrheumatic aortic (valve) stenosis (I35.0) Acute kidney failure, unspecified (N17.9) Other specified abnormal findings of blood chemistry (R79.89) Discharge Diagnoses with Status of Each Condition: Fracture, ribs (S22.39XA) Diabetes mellitus type 2 with complications (E11.8) Hypotension (I95.9) Hypoxia (R09.02) Acute on chronic combined systolic and diastolic CHF, 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 He states that he recently discontinued his insulin and just takes Metformin. He cannot recall recent blood sugar values. Plan: Check A1C and order blood sugar checks, SSI ACHS. (2) Multiple rib fractures involving four or more ribs Assessment/Plan: Patient states that he tripped and fell to the ground in his apartment and laid there for " a while" before he got help. This is concerning for rhabdomyolysis and an extremely high risk for pneumonia in ~24 hours. The patient does not use oxygen at home, and has required 5L per nasal cannula while at the hospital. Plan: Continue lidocaine patches for right upper posterior rib pain, encourage ambulation, encourage incentive spirometry, may consider a repeat chest x-ray since patient has not been able to wean off O2, and provide oxygen to keep O2 greater than 92%. (3) CHF (congestive heart failure) Qualifiers: Congestive heart failure type: combined Congestive heart failure chronicity : acute on chronic Qualified Code(s): I50.43 - Acute on chronic combined systolic (congestive) and diastolic (congestive) heart failure Assessment/Plan: Patient's most recent echocardiogram from 04/28/2017 shows mild LV hypertrophy with an EF of 55%, LA moderately dilated, moderate aortic stenosis with regurg, moderate mitral regurg, and moderate pulmonary hypertension with a RVSP at rest of 46mmHg. So this is combined acute on chronic heart failure with a likely exacerbation from fall and now lung injury. Plan: Order echo, hold lasix in the setting of hypotension, and give 500ml NS bolus x1. Check BNP, electrolytes. (4) Hypoxia Assessment/Plan: Patient does not have a history of oxygen use, but now requires 5L nasal cannula due to recent lung injury. The patient has a history of moderate pulmonary hypertension, but he will likely need oxygen going forward. Plan: Order echo, provide oxygen to keep O2 greater than 92%, and attempt to wean after the acute injury is resolved. (5) Hypotension Qualifiers: Hypotension type: unspecified hypotension type Qualified Code(s): I95.9 - Hypotension, unspecified Assessment/Plan: Hypotension at rest with values of 83/47 and 84/59 without tachycardia. Patient normally takes lasix at home, but states that he has been weaned from his usual dose. He is also noted to have low urinary output. Plan: Give a 500ml NS bolus, recheck vital signs and continue to hold lasix. (6) CKD (chronic kidney disease), stage III Assessment/Plan: Patient has had this condition for several years and has a GFR of 39, and a creatinine of 1.7. This could be worsened due to being slightly dehydrated at the time of admission. Plan: Monitor labs and avoid nephrotoxins. - ALLERGIES Allergies/Adverse Reactions: Allergies Allergy/AdvReac Type Severity Reaction Status Date / Time No Known Drug Allergies Allergy Verified 07/13/17 00:48 - MEDICATIONS Home Medications: Ambulatory Orders Medication Instructions Recorded Confirmed Metformin HCl 1,000 mg PO BIDWM 02/05/14 07/13/17 hydroCHLOROthiazide 25 mg PO DAILY 02/05/14 07/13/17 [Hydrochlorothiazide] Metoprolol Succinate [Toprol Xl] 50 mg PO DAILY 02/16/17 07/13/17 Levothyroxine Sodium 150 mcg PO QDAC 02/17/17 07/13/17 Vitamin B Complex 1 each PO DAILY 04/28/17 07/13/17 Furosemide [Lasix] 20 mg PO DAILY 06/08/17 07/13/17 Gabapentin [Neurontin] 100 mg PO BID #60 capsule 07/15/17 Levalbuterol [Xopenex] 1.25 mg INH RTBID #60 neb 07/15/17 Levalbuterol [Xopenex] 1.25 mg INH RTQ4H PRN #180 neb 07/15/17 Spironolactone [Aldactone] 25 mg PO DAILY #30 tablet 07/15/17 oxyCODONE/ACET 5/325 [Percocet 5 1 tab PO Q4HR PRN #30 tablet 07/15/17 mg/325 mg] - PHYSICAL EXAM AT DISCHARGE General Appearance: positive: No acute distress, Alert Eyes Bilateral: positive: Normal inspection, PERRL ENT: positive: ENT inspection nml, Pharynx nml, No signs of dehydration Neck: positive: Nml inspection, Thyroid nml, No JVD, Trachea midline Respiratory: positive: Chest non-tender, No respiratory distress, Breath sounds nml Cardiovascular: positive: Regular rate & rhythm, No murmur, No gallop Peripheral Pulses: positive: 1+ Abdomen: positive: Non-tender, No organomegaly, Nml bowel sounds Back: positive: Nml inspection Skin: positive: No rash, Warm, Dry Extremities: positive: Non-tender, Full ROM, Nml appearance, Pedal edema Neurologic/Psychiatric: positive: Disoriented to time, Weakness, Sensory loss, Depressed mood/affect Reflexes: Bicep (R): 2+, Bicep (L): 2+ - LABS Result Diagrams: 07/15/17 06:15 07/15/17 06:15 - DIAGNOSTIC IMAGING Diagnostic Imaging Results: Prelim report reviewed, Final report reviewed Diagnostic Imaging Results Comments: EXAM: RIGHT SHOULDER RADIOGRAPHY EXAM DATE: 07/13/2017 02:02 AM. CLINICAL HISTORY: Fall, right-sided pain. COMPARISON: None. TECHNIQUE: 3 views. FINDINGS: Bones: Right total shoulder prosthesis. No evidence of a fracture or periprosthesis loosening demonstrated. Mottled appearance of the humerus. Rib fractures are described on the rib series report. Joints: No dislocation. Soft tissues: Findings about the chest are dictated separately on the chest radiograph report. IMPRESSION: 1. Please refer to the report of the chest radiograph and rib series. 2. Right total shoulder prosthesis without definite acute bony abnormality. 3. 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 Marrow replacing process difficult to exclude. EXAM: RIGHT RIB RADIOGRAPHY EXAM DATE: 07/13/2017 02:01 AM. CLINICAL HISTORY: Fall, right-sided pain. COMPARISON: 06/11/2017 (report not available at this time). TECHNIQUE: 1 view of the chest and 5 views of the ribs. FINDINGS: Bones: Acute-appearing displaced fractures of the lateral portions of the right first, second, third, and fourth ribs noted. This is far above the laterally placed BB, reportedly at the patient-described site of pain. Lungs and pleura: There is right lateral upper hemithorax pleural thickening, related to the rib fractures. Chronic bilateral costophrenic sulcus region blunting. This is left greater than right. Mediastinum: Mild enlargement of the cardiac silhouette. Other: Left subclavian pacemaker device tip at the right ventricle apex. Right shoulder prosthesis. Nonspecific mottled appearance of the right humerus, potentially from aggressive osteoporosis. Bone marrow infiltrative process difficult to exclude with certainty. IMPRESSION: 1. Acute-appearing mildly displaced fractures of the lateral portions of the right first, second, third, and fourth ribs. There is no definite evidence of a pneumothorax. Small associated extrapleural hematoma. 2. Left basilar pleural and parenchymal abnormality is stable. Stable blunting of the right lateral costophrenic sulcus region. EXAM: RIGHT HIP AND PELVIS RADIOGRAPHY EXAM DATE: 07/13/2017 01:55 AM. HISTORY: Fall, right-sided pain. COMPARISONS: None. TECHNIQUE: 1 view of the pelvis and 2 view of the hip. FINDINGS: Bones: There is no definite acute displaced fracture or suspicious bony lesion. Osteopenia reduces sensitivity and specificity. Joints: Bilateral hip replacements have been performed. No evidence of loosening or infection of the right hip prosthesis and of the left hip prosthesis as visualized. Soft Tissues: Calcific atherosclerosis. IMPRESSION: Bilateral hip replacement. No definite acute bony abnormality. - FOLLOW UP Follow Up: Disposition: 03 SNF DC/Xfer Condition: Good SNF Transition Orders: Admit to: Care Age under the care of Dr. White Discharge Diagnosis: CHF, DM type 2, multiple rib fractures right upper, hypoxia , CKD stage 3, debility. - TIME SPENT Time Spent in Discharge (Minutes): 45
[2017-07-15] MEDS ORDERED: HYDROmorphone 1 MG/ML CARPUJECT IVP PRN (13:12)
== END 2017-07-15 14:25 | DRG 183 ==
LOC: EDUNIT# → ED 00:41 → OBS 03:34 → OBSVTOIN 14:39 → MS2 15:19
PROVIDERS: ADMIT Internal Medicine; ATTEND Nurse Practitioner
DX: S22.41XA Multiple fractures of ribs, right side, initial encounter for closed fracture (principal); I50.43 Acute on chronic combined systolic (congestive) and diastolic (congestive) heart failure; I13.0 Hypertensive heart and chronic kidney disease with heart failure and stage 1 through stage 4 chronic kidney disease, or unspecified chronic kidney disease; W01.0XXA Fall on same level from slipping, tripping and stumbling without subsequent striking against object, initial encounter; I95.9 Hypotension, unspecified; R09.02 Hypoxemia; I12.9 Hypertensive chronic kidney disease with stage 1 through stage 4 chronic kidney disease, or unspecified chronic kidney disease; E11.22 Type 2 diabetes mellitus with diabetic chronic kidney disease; N18.3 Chronic kidney disease, stage 3 (moderate); N18.9 Chronic kidney disease, unspecified; I08.0 Rheumatic disorders of both mitral and aortic valves; I27.20 Pulmonary hypertension, unspecified; I35.0 Nonrheumatic aortic (valve) stenosis; I48.91 Unspecified atrial fibrillation; E03.9 Hypothyroidism, unspecified; N40.0 Benign prostatic hyperplasia without lower urinary tract symptoms; M19.90 Unspecified osteoarthritis, unspecified site; Y92.099 Unspecified place in other non-institutional residence as the place of occurrence of the external cause; Z79.84 Long term (current) use of oral hypoglycemic drugs; Z85.828 Personal history of other malignant neoplasm of skin; Z95.0 Presence of cardiac pacemaker; Z87.01 Personal history of pneumonia (recurrent); Z96.643 Presence of artificial hip joint, bilateral; Z96.611 Presence of right artificial shoulder joint
CPT/HCPCS: 36415; 80048; 80053; 82550; 83036; 83735; 83880; 84443; 84484; 85025; 93005; 93306; 94640; 96374; 96376; 99283; 99285

== ENCOUNTER 2017-07-17 11:00 | Outpatient (CLI) | payer MEDICARE ==
--- NOTE | 2017-07-17 19:32 | CONSULTATION NOTE ---
Palliative Care Follow Up - Referral Referring Provider: Dr. 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 The goal had been to diurese him of 15 pounds, which was met, unfortunately over the weekend he did have a fall with fractured ribs, and now is receiving rehab at the [facility]. Patient does present with ongoing hypoxia, this is a new symptom for him , concern for risk for pneumonia. Patient does describe pain in his right neck area, increased pain with movement , he does report he is has a fairly high pain tolerance but is moving quite slow. He does have difficulty taking a deep breath, as well as moving his right arm. He has used some intermittent oxycodone with acetaminophen, but is having difficulty identifying when to take his medication. He also presents with hypoxia, on O2 at 3-1/2 L oxygen was measuring 89% patient had taken off prior to my arrival readings were in the high 70s. Patient's oxygen titrated up to 4 L and remained at 90%. Patient does not perceive significant breathlessness, but does admit to deep breathing escalating his pain. Patient' s weight prior to admit was 215 at facility, to 212.3 at hospital, and weight as of 07/15 223 pounds here at facility. Does present with some lower extremity edema, quite doughy in nature, blood pressure is running low for him. Other presenting problem new for him was urinary retention, patient also has Dallas catheter.Patient is quite discouraged over series of events, was hoping to meet with surgeon to proceed with surgery today, appointment has been moved to 2 weeks out. He is hoping to be able to move forward as far as a goal and get past this. Social History - Living Situation Living arrangement: Assisted living Living Situation: Alone Support System: Patient lives at [facility], his Lula is in [facility]. His daughter Anuj oversees his care she lives in [place]. [place] Medications/Allergies - Medications Home Medications: Ambulatory Orders Medication Instructions Recorded Confirmed Metformin HCl 1,000 mg PO BIDWM 02/05/14 07/18/17 Metoprolol Succinate [Toprol Xl] 50 mg PO DAILY 02/16/17 07/18/17 Levothyroxine Sodium 150 mcg PO QDAC 02/17/17 07/18/17 Vitamin B Complex 1 each PO DAILY 04/28/17 07/18/17 Furosemide [Lasix] 20 mg PO DAILY 06/08/17 07/18/17 Gabapentin [Neurontin] 100 mg PO BID #60 capsule 07/15/17 07/18/17 Levalbuterol [Xopenex] 1.25 mg INH RTBID #60 neb 07/15/17 07/18/17 Levalbuterol [Xopenex] 1.25 mg INH RTQ4H PRN #180 neb 07/15/17 07/18/17 Spironolactone [Aldactone] 25 mg PO DAILY #30 tablet 07/15/17 07/18/17 Lidocaine Patch 5% [Lidoderm Patch] 1 patch TOP DAILY 07/18/17 07/18/17 oxyCODONE/ACET 5/325 [Percocet 5 1 - 2 tab PO Q4HR PRN 07/18/17 07/18/17 mg/325 mg] - Allergies Allergies/Adverse Reactions: Allergies Allergy/AdvReac Type Severity Reaction Status Date / Time No Known Drug Allergies Allergy Verified 07/13/17 00:48 Review of Systems - Constitutional Constitutional: reports: Fatigue, Weakness, Poor appetite - Eyes Eyes: reports: Vision loss, Corrective lenses - Ears, Nose & Throat Ears, Nose & Throat: reports: Hearing loss (mild), Dry mouth - Cardiovascular Cardiovascular: reports: Edema, Exertional dyspnea, Decr. exercise tolerance. denies: Palpitations, Chest pain - Respiratory Respiratory: reports: SOB with exertion, Other (hypoxia) - Gastrointestinal Gastrointestinal: reports: Constipation (no bm since prioir to the fall), Poor appetite, Early satiety - Genitourinary Genitourinary: reports: Other (dallas catheter; had no prior retention problems per report) - Musculoskeletal Musculoskeletal: reports: Muscle pain, Stiffness, Limited range of motion, Muscle weakness, Transfer issues (needs assist to transfer to wheelchair related to pain/weakness) - Integumentary Integumentary: reports: Dryness, Other (LE venous stasis) - Neurological Neurological: reports: General weakness, Focal weakness, Numbness - Psychiatric Psychiatric: reports: Depression, Anxiety - Endocrine Endocrine: reports: Diabetes type 2 (blood sugars elevated; has just discontnued lantus secondary to low blood sugars at facililty; increased with hospitalization) - Hematologic/Lymphatic Hematologic/Lymphatic: reports: Anemia (recent iron transfusion) - All Other Systems All Other Systems: reports: Reviewed and negative Physical Exam - Vital Signs Temperature: 98.6 C Pulse Rate: 72 Respiratory Rate: 20 O2 Saturation: 90 (4 liters) Blood Pressure: 112/64 - Physical Exam General Appearance: positive: Mild distress Eyes Bilateral: positive: Normal inspection ENT: positive: ENT inspection nml Neck: positive: No JVD, Trachea midline Cardiovascular: positive: Regular rate & rhythm Respiratory: positive: Diminished in bases, Other Abdomen: positive: Non-tender, Soft, Abnml bowel sounds (decreased), Obese Skin: positive: Pallor, Dryness, Other (venous stasis bilat. no s/s cellulitis) Extremities: positive: Pedal edema (doughy) Neurologic/Psychiatric: positive: Oriented x3, Weakness, Depressed mood/affect, Flat affect Palliative Care - POLST Patient has POLST: Yes POLST Status: DNR, Selective Treatment (POLST completed during visit) Pain: Pain worsening, Location Tiredness/Fatigue: Moderate (4-6) Drowsiness/Sedation: Mild (1-3) Nausea: None Depression: Moderate (4-6) Anxiety: Mild (1-3) Dyspnea: Severe (7-10) Anorexia: Moderate (4-6) Sleep: Variable sleep pattern Constipation: Yes, Opoid induced, Intermittent constipation Feelings of wellbeing/Perceived Quality of Life: Fair, Worsening Performance Status: Patient at baseline only walks short distances in his apartment, he was dependent on his 4 wheeled walker with frequent stops. He is currently needing assistance in and out of bed, able to stand and pivot and weight-bear. Is dependent for bathing. Would put him at a PPS at 60%. - Palliative Care Discussion: Patient's goal today was to complete his [address], counseling regarding goals of care, patient does understand the seriousness of his illness and the fragility of his situation with multiple comorbidities and his ongoing failing health. He is hopeful to be able to "outlast his " who has dementia, as this would be financially detrimental if he were to first. He though himself though wants to focus on quality of life, hospitalization at this point is still okay including surgery for his colon cancer, but he would not want to be put on a ventilator or life support. So DNAR and selective treatments were selected, we did discuss at this point in time he would accept antibiotics and treatment for infection as well as weigh the benefits and burdens for any kind of nutritional support depending on the situation. This is completed, as well as anticipatory guidance provided. Copy to [facility], primary care, and a HIM Results - Lab Results Lab results reviewed: Yes Impression and Recommendations - Palliative Care Impression: This is an 86-year-old gentleman with recent hospitalization 07/13 through related to a fall, resulting in multiple rib fractures. He does present today with ongoing symptoms of hypoxia, has underlying CHF, diabetes mellitus type 2, and chronic kidney stage III. He is awaiting follow-up for pending surgery for his adenocarcinoma of colon. Patient at high risk for sequela and at risk for pneumonia, patient already with underlying debility and poor activity tolerance. Palliative care providing ongoing support regarding goals of care and symptom management. Recommendations/Counseling Done: 1. Diabetes type 2. Will reinitiate Lantus 10 units, they are continuing to monitor blood sugars. Has restarted metformin from hospitalization. Expect will take a few days to even out. A1c actually was 7.1 in the hospital. Patient is fairly noncompliant with diabetic diet and caloric intake. 2. CHF. Patient currently on Spironolactone, and furosemide at 20 mg. At this point he does have some lower extremity edema, he did actually appreciate the SCDs at the hospital, we did discuss initiating LEXIE jhon he was in favor of this. Patient should be on daily weights, as unclear what his baseline weight will be at the facility. Had diuresed his goal of 15 pounds plus, will need to be monitored on a regular basis. BMP and CBC ordered. 4. Hypoxia. Consult with Dr. White attending physician, discussed concern regarding hypoxia new symptom. Patient at high risk with rib fractures and underlying comorbidities for pneumonia. Will get follow-up chest x-ray, preferences at [facility] given past history of comparisons versus portable chest x-ray. 5. Colon cancer. Patient has rescheduled appointment for surgeon in 2 weeks. Will provide note. 6. Venous stasis lower extremity. Patient without signs or symptoms of cellulitis, though skin continues to be flaky and dry. Will have them apply lotion daily. 7. Acute on chronic pain. This is multifactorial in origin. Patient has been initiated on gabapentin 100 mg twice daily, is unclear if Lidoderm patches are providing any relief. We did discuss needs to have pain control so can move a little bit easier and participate in incentive spirometer. Agreed to scheduled acetaminophen 650 mg 3 times daily, will use the Percocet 1-2 tabs for breakthrough pain. Hopefully this will allow him to participate more in activities with better pain control. 8. Constipation. Patient reports no bowel movement noted and till prior of fall. Patient has intermittent constipation and diarrhea, he is fearful of obstructing related to his cancer. Did agree to take senna 1 tab today. Encourage staff to follow-up with house bowel program to aggressively manage patient's current constipation if no result 9. Advanced care planning. Counseling provided and [facility] [facility] completed, provided anticipatory guidance. Clarification of goals. Time Spent: 60 minutes with greater than 50% of this done in counseling coordination of care , completing [address] and evaluation of pain management.
== END 2017-07-17 11:01 | disposition home or self-care (01) ==
LOC: PC 11:00
PROVIDERS: ATTEND Nurse Practitioner Adult Health
DX: Z51.5 Encounter for palliative care (principal); E11.22 Type 2 diabetes mellitus with diabetic chronic kidney disease; N18.3 Chronic kidney disease, stage 3 (moderate); Z79.84 Long term (current) use of oral hypoglycemic drugs; I50.9 Heart failure, unspecified; R09.02 Hypoxemia; C18.4 Malignant neoplasm of transverse colon; I87.8 Other specified disorders of veins; K59.03 Drug induced constipation; T40.2X5D Adverse effect of other opioids, subsequent encounter; G89.29 Other chronic pain; M54.2 Cervicalgia; Z99.81 Dependence on supplemental oxygen; Z79.891 Long term (current) use of opiate analgesic; R60.0 Localized edema; Z66 Do not resuscitate
CPT/HCPCS: 99310

== ENCOUNTER 2017-07-18 17:40 | Outpatient (CLI) | payer OTHER, MEDICARE ==
[2017-07-18 18:27] LABS: BASOPHILS % (AUTO) 0.3 %; EOSINOPHILS # (AUTO) 0.2 10^3/uL (0.0-0.7); EOSINOPHILS % (AUTO) 1.8 %; HGB - HEMOGLOBIN 10.2 g/dL (14.0-18.0); LYMPHOCYTES # (AUTO) 1.2 10^3/uL (1.5-3.5); LYMPHOCYTES % (AUTO) 13.5 %; MEAN CORPUSCULAR HEMOGLOBIN 28.7 pg (27.0-31.0); MEAN CORPUSCULAR HGB CONC 32.2 g/dL (32.0-36.0); MEAN CORPUSCULAR VOLUME 89.2 fL (80.0-94.0); MEAN PLATELET VOLUME 7.3 fL (7.4-11.4); MONOCYTES % (AUTO) 11.2 %; NEUTROPHILS # (AUTO) 6.5 10^3/uL (1.5-6.6); NEUTROPHILS % (AUTO) 73.2 %; PLT - PLATELET COUNT 227 10^3/uL (130-450); RED BLOOD COUNT 3.57 10^6/uL (4.70-6.10); WHITE BLOOD COUNT 8.9 x10^3/uL (4.8-10.8)
[2017-07-18 18:40] LABS: CALCIUM 8.9 mg/dL (8.5-10.3); CREATININE 1.8 mg/dL (0.6-1.2)
== END 2017-07-18 17:41 | disposition home or self-care (01) ==
LOC: LAB.R 17:40 → EDSTATUS 20:39
DX: Z79.899 Other long term (current) drug therapy (principal); D50.9 Iron deficiency anemia, unspecified
CPT/HCPCS: 80048; 82728; 85025

== ENCOUNTER 2017-07-20 09:41 | Outpatient (CLI) | payer MEDICARE ==
--- NOTE | 2017-07-20 11:55 | XRAY Report ---
TWO VIEW CHEST: 07/20/2017 CLINICAL INDICATION: Hypoxia. COMPARISON: 07/13/2017. FINDINGS: Frontal and lateral views of the chest demonstrate a mildly enlarged cardiac silhouette. Left subclavian pacemaker is stable. Small effusions and basilar atelectasis are again noted. No pneumothorax is seen. IMPRESSION: SMALL EFFUSIONS WITH BASILAR ATELECTASIS. TD: 07/20/2017 11:53
== END 2017-07-20 09:42 | disposition home or self-care (01) ==
LOC: DI 09:41
PROVIDERS: ATTEND Nurse Practitioner Adult Health
DX: J90 Pleural effusion, not elsewhere classified (principal); J98.11 Atelectasis
CPT/HCPCS: 71046

== ENCOUNTER 2017-07-23 16:15 | Outpatient (CLI) | payer MEDICARE ==
--- NOTE | 2017-07-23 21:05 | CONSULTATION NOTE ---
Palliative Care Follow Up - Referral Referring Provider: Dr. Da Rahman Time of Visit: [id number] Referral setting: Residential Facility Referral Reason: CHF/Colon Cancer - Information Sources Records reviewed: RN notes reviewed, Previous records reviewed History/Review of Systems obtained from: Patient, Family (son Nico at visit) Exam limitations: No limitations - History of Present Illness Update Brief HPI Update: This is an 86-year-old gentleman is currently at the intermediate facility following a fall, resulting in right rib fractures. He was hospitalized from to 07/16/2017. 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 Complicating factor has been new symptom of hypoxia, patient though did have a chest x-ray on 07/20/2017 (though was ordered for completion on 07/17/17 (that only showed small effusions with basilar atelectasis. Today he presents at rest on 2 L at 96%, after being off oxygen for 15 minutes, he is staying stable at 96%. His breath sounds are diminished in the bases, of note on his inspirometer, he is only able to take it up to his 500-750, whereas last week he was hitting about 1500. His labs also last week 07-18-17 continued to show anemia with a hemoglobin of 10.2, hematocrit 31.8, he did have a ferritin of 310.3. He had received an iron transfusion about 3 weeks ago. Am concerned was his BUN of 62, and creatinine of 1.8, and GFR of 36. His metformin was discontinued, we will recheck tomorrow morning as well. He was to be able to get daily weights, unfortunately the only weight I have currently is from this morning which was 216.4, and there is some concern about accuracy. His weight on admission was 07/15 at 223. His lower extremity edema has diminished significantly, he still has some doughy pitting edema up to mid calf, right greater than left. He still does not have his LEXIE stockings on. It was reported he was confused this a.m., of note he did have an oxycodone early in the a.m., was unable to participate or follow through with physical therapy. I do find them today with some delay, but no confusion. He was aware he had some alteration in consciousness this a.m., but is alert and oriented 3 right now. In his chart the mental status examination ANGEL, On 07/17 measured him at 17, which would define him as "dementia". 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 I would say this is more consistent with my findings of him both now and in the past. Social History - Living Situation Living arrangement: Assisted living, Other (currently at SNF under skilled care) Living Situation: Alone Support System: daughter Pricilla oversees patient care; son Nico provides transportation and support; daughter out of town for few days. Lula recently moved to [facility] for her dementia. Medications/Allergies - Medications Home Medications: Ambulatory Orders Medication Instructions Recorded Confirmed Metoprolol Succinate [Toprol Xl] 50 mg PO DAILY 02/16/17 07/23/17 Levothyroxine Sodium 150 mcg PO QDAC 02/17/17 07/23/17 Vitamin B Complex 1 each PO DAILY 04/28/17 07/23/17 Furosemide [Lasix] 20 mg PO DAILY 06/08/17 07/23/17 Levalbuterol [Xopenex] 1.25 mg INH RTBID #60 neb 07/15/17 07/23/17 Levalbuterol [Xopenex] 1.25 mg INH RTQ4H PRN #180 neb 07/15/17 07/23/17 Spironolactone [Aldactone] 25 mg PO DAILY #30 tablet 07/15/17 07/23/17 Lidocaine Patch 5% [Lidoderm Patch] 1 patch TOP DAILY 07/18/17 07/23/17 oxyCODONE/ACET 5/325 [Percocet 5 1 - 2 tab PO Q4HR PRN 07/18/17 07/23/17 mg/325 mg] Acetaminophen [Tylenol] 650 mg PO TID 07/23/17 07/24/17 Insulin Glargine [Lantus Solostar] 12 unit SQ DAILY 07/23/17 07/23/17 Fluticasone [Flonase] 1 spray INH BID 07/24/17 07/24/17 House Bowel Program 1 applic PO DAILY 07/24/17 hydroCHLOROthiazide 25 mg PO DAILY 07/24/17 07/24/17 [Hydrochlorothiazide] - Allergies Allergies/Adverse Reactions: Allergies Allergy/AdvReac Type Severity Reaction Status Date / Time No Known Drug Allergies Allergy Verified 07/13/17 00:48 Review of Systems - Constitutional Constitutional: reports: Fatigue, Weight loss - Eyes Eyes: reports: Vision loss, Corrective lenses - Ears, Nose & Throat Ears, Nose & Throat: reports: Hearing loss (mild), Dry mouth - Cardiovascular Cardiovascular: reports: Edema, Exertional dyspnea, Decr. exercise tolerance. denies: Chest pain - Respiratory Respiratory: reports: SOB with exertion - Gastrointestinal Gastrointestinal: reports: Constipation (intermittent; poor recall is charted but patient unable to recall), Early satiety, Good appetite (reports improved) - Genitourinary Genitourinary: reports: Incontinence (slight; decreased intake because doesn't want to call for help), Other (dallas catheter was discontinued) - Musculoskeletal Musculoskeletal: reports: Stiffness, Limited range of motion (right shoulder- exacerbated by fall), Muscle weakness, Assistive devices (ambulating 15 feet with PT), Transfer issues (mostly wheelchair bound;) - Integumentary Integumentary: reports: Dryness, Other (venous statsis) - Neurological Neurological: reports: General weakness, Memory problems (SLUMS documented 07/17 16; patient has improved) - Psychiatric Psychiatric: reports: Other (frustration with concern about speed of progress) - Endocrine Endocrine: reports: Diabetes type 2 (off metformin secondary to kidney function ; blood sugarsA.m. blood sugars running when 48-173; prior to meals lunch 156- 277; prior to dinner 155-221; and bedtime blood sugars 156-207) - Hematologic/Lymphatic Hematologic/Lymphatic: reports: Anemia (recent iron transfusion) - All Other Systems All Other Systems: reports: Reviewed and negative Physical Exam - Vital Signs Temperature: 97.8 C Pulse Rate: 73 Respiratory Rate: 18 O2 Saturation: 96 (see HPI) Blood Pressure: 98/68 - Physical Exam General Appearance: positive: Mild distress Eyes Bilateral: positive: Normal inspection ENT: positive: Dry mucous membranes Neck: positive: No JVD, Trachea midline Cardiovascular: positive: Regular rate & rhythm Respiratory: positive: Diminished in bases, Other (750 on inspirometer; less than last week though 02 sats improved as well as breath sounds from last visit) . negative: Wheezes, Rales, Rhonchi Abdomen: positive: Non-tender, Soft, Nml bowel sounds, Distended, Obese Skin: positive: Pallor, Other (venous statsis) Extremities: positive: Pedal edema (right greater than left; less edema than last week; LEXIE hose at bedside; feet and hands cool to touch) Neurologic/Psychiatric: positive: Oriented x3, Weakness, Depressed mood/affect, Flat affect, Other (had noted confusion this am; received oxycodone; slower response from baseline last couple of weeks;) Palliative Care - POLST Patient has POLST: Yes POLST Status: DNR, Selective Treatment Pain: Pain improved, Location (rib pain improving; right shoulder pain not back to baseline; c/o pain in back in between shoulder blades) Tiredness/Fatigue: Moderate (4-6) Drowsiness/Sedation: Mild (1-3) Nausea: None Depression: Mild (1-3) Anxiety: Mild (1-3) Dyspnea: Mild (1-3) Anorexia: Mild (1-3) Sleep: Sleeps well Constipation: Intermittent constipation Feelings of wellbeing/Perceived Quality of Life: Fair, Improved Performance Status: Patient's goal is to independently toilet, was able to do this previous to fall. Currently reported is able to ambulate 15 feet with walker with assistance. Patient reports decreased activity tolerance, and fatigue. Patient at baseline was fairly sedentary, walking short distances with 4 wheeled walker with frequent rest stops. He was so able to maneuver and manage independently in his apartment - Palliative Care Discussion: Patient remains discouraged at perception of continued slow recovery, his goal is to return to [facility] as soon as possible. He does recognize currently is unable to manage independently, would need to be able to toilet self, as well as tolerate going to dining room. Short-term goal is to have Laurence zeng with his at [facility], son at visit discussed need for training on car transfers. Patient has completed [address], again remains anxious to pursue surgery, has had multiple delays as far as his underlying health issues. He remains quite frail, and with concern related to balancing his multiple co- morbidities. Results - Lab Results Lab results reviewed: Yes Impression and Recommendations - Palliative Care Impression: This is an 86-year-old gentleman currently residing in intermediate facility , as a result of a fall with the sequela of multiple rib fractures. Today his hypoxia is improved, remains with symptoms of dehydration, concern for underlying CHF, chronic kidney stage III, continue adjustments regarding his diabetes type 2. He is awaiting follow-up for pending surgery for adenocarcinoma of the transverse colon. Patient does remain high risk for sequela attributed to his multiple comorbidities, he does have underlying debility, and poor activity tolerance. Palliative care providing ongoing support regarding goals of care and symptom management. Recommendations/Counseling Done: 1. Hypotension. Patient reports taking in less fluids secondary to needing assistance to the bathroom, reviewed this is counterproductive to his current recovery, encouraged to continue with at least 1500 mls, Patient does have on depends, encouraged to not take any risks as far as transferring without assistance, patient understands instructions and verbal teach back. 2. CHF. Patient currently on baseline hydrochlorothiazide (did not have on my previous list of meds on discharge), and discharged from hospital was put on Spironolactone 25 mg, as well as on baseline furosemide 20 mg daily which is up from his previous baseline dose of 3 times a week. He had been diuresed via his plastic products sales representative prior to fall, and has lost around 15 pounds, has been a delicate balance with his kidney failure. Will have BMP drawn tomorrow, follow- up with Dr. White is probably needs diuretics adjusted. Requested previously ordered LEXIE hose be applied, at bedside. Requested follow up with daily weights , and concerns for scale accuracy. 3. Hypoxia. Patient does present with decreased inspirometer readings, but improved oxygen saturations. O2 sats at rest during our visit off oxygen were at 96%. Would recommend continued evaluation but weaning off oxygen as tolerated. Did not have patient ambulate, this will be dependent on rehab evaluation and readings. 4. Colon cancer. Patient does have rescheduled visit with surgeon next Sunday afternoon. /3. Patient remains hopeful will be able to move forward with surgery. 5. Mild cuff cognitive deficits. Patient currently on gabapentin 100 mg twice daily, this was initiated on hospitalization most likely for pain management. Patient without any neuropathic symptoms, pain has improved, will discontinue as looking at things that might improve his cognition. Did follow up with speech therapist Violet, to repeat the SLUMS, she did report later with improvement. They will continue to monitor. 6. Acute on chronic pain. This is multifactorial in origin, does report with pain is improving, reports has some residual back pain. Denies any lower extremity pain, some mild numbness, but no tingling are sharp shooting. Does have ongoing chronic right shoulder pain, this is exacerbated with the fall. Will continue with acetaminophen 650 mg 3 times daily, given patient's alteration on Percocet, encouraged to use only 1 tab, and sparingly. Patient's pain tends to be exacerbated with right shoulder movement, and transfers only. 7. Constipation. Patient's bowel log does show intermittent small bowel movements, patient with poor recall of frequency or consistency. Currently on house bowel program, encouraged to ask for senna as needs. He does continue to feel bloated. Does not want scheduled senna at this point in time as fears incontinence. 8. Diabetes type 2. Patient currently off metformin, will increase baseline Lantus to 12 units and continue to monitor. 9. Advanced care planning. Patient remains quite fragile, with multiple competing comorbidities. GHANSHYAM in place. Short-term goal is to go to [facility] with his at [facility]. Son at visit, encouraged to do car transfer training in preparation not only for short-term goal of visit to [facility], but also doctor's appointment on Sunday. If unable to tolerate will need arrangements for transportation for MD visit Sunday, this is reviewed with son and may need further follow-up Time Spent: 45 minutes with greater than 50% of this done in counseling regarding goals, symptoms, and follow up on CHF/CKD, as well as coordination of care with clinical staff
== END 2017-07-23 16:16 | disposition home or self-care (01) ==
LOC: PC 16:15
PROVIDERS: ATTEND Nurse Practitioner Adult Health
DX: Z51.5 Encounter for palliative care (principal); I95.9 Hypotension, unspecified; I50.9 Heart failure, unspecified; R09.02 Hypoxemia; C18.4 Malignant neoplasm of transverse colon; E11.22 Type 2 diabetes mellitus with diabetic chronic kidney disease; N18.3 Chronic kidney disease, stage 3 (moderate); Z79.4 Long term (current) use of insulin; G89.29 Other chronic pain; M25.511 Pain in right shoulder; S22.49XD Multiple fractures of ribs, unspecified side, subsequent encounter for fracture with routine healing; D64.9 Anemia, unspecified; Z79.891 Long term (current) use of opiate analgesic; Z66 Do not resuscitate
CPT/HCPCS: 99310

== ENCOUNTER 2017-07-24 09:55 | Outpatient (CLI) | payer MEDICARE ==
[2017-07-24 12:00] LABS: CALCIUM 8.5 mg/dL (8.5-10.3); CREATININE 1.6 mg/dL (0.6-1.2)
== END 2017-07-24 09:56 | disposition home or self-care (01) ==
LOC: LAB.R 09:55
PROVIDERS: ATTEND Family Medicine
DX: N18.3 Chronic kidney disease, stage 3 (moderate) (principal)
CPT/HCPCS: 80048

== ENCOUNTER 2017-07-30 10:15 | Outpatient (CLI) | payer MEDICARE ==
--- NOTE | 2017-07-30 20:49 | CONSULTATION NOTE ---
Palliative Care Follow Up - Referral Referring Provider: Dr. Da Rahman Time of Visit: [id number] Referral setting: [facility] Facility Referral Reason: CHF/Colon Cancer - Information Sources Records reviewed: RN notes reviewed, Previous records reviewed History/Review of Systems obtained from: Patient Exam limitations: No limitations - History of Present Illness Update Brief HPI Update: This is an 86-year-old gentleman who is currently at the [facility] facility following a fall, he was hospitalized from 07/15 to 07/16/2017. He has continued to improve, he is participating in rehab therapies, he is able to ambulate with contact guard 150 feet. 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 He is hopeful that this will happen soon, is due to see the surgeon tomorrow. His respiratory status has improved, he is off oxygen, his O2 sats at rest are 92%. His breath sounds are diminished in the bases but clear. No longer needs his nebulizers, and his pain from his fractured ribs is improved. His mental status is cleared, with a discontinue the gabapentin. He does return back to his baseline, which is some short-term memory issues, but alert and oriented 3 , able to track and engage in conversation. He continued to lose weight, this is multifactorial in origin. He has been diuresed, he weighed 211 yesterday. He also is having some early satiety, and attributes some of it to the food at the alf. His a.m. blood sugars have run 110-139, with somewhat more elevated during the day, this last week, His metformin is currently on hold pending his surgery, and recheck of his kidney function. Though this is continued to improve as well. Social History - Living Situation Living arrangement: Assisted living Living Situation: Alone Support System: His daughter Anuj his his advocate, as far as managing healthcare decisions and support, [place] been supportive for [place]. His Lula is at the dementia unit in [place].He is expected to return back to [facility] assisted living on discharge from the alf. Medications/Allergies - Medications Home Medications: Ambulatory Orders Medication Instructions Recorded Confirmed Metoprolol Succinate [Toprol Xl] 50 mg PO DAILY 02/16/17 07/30/17 Levothyroxine Sodium 150 mcg PO QDAC 02/17/17 07/30/17 Vitamin B Complex 1 each PO DAILY 04/28/17 07/30/17 Furosemide [Lasix] 20 mg PO DAILY 06/08/17 07/30/17 Levalbuterol [Xopenex] 1.25 mg INH RTQ4H PRN #180 neb 07/15/17 07/30/17 Spironolactone [Aldactone] 25 mg PO DAILY #30 tablet 07/15/17 07/30/17 Lidocaine Patch 5% [Lidoderm Patch] 1 patch TOP DAILY 07/18/17 07/30/17 oxyCODONE/ACET 5/325 [Percocet 5 1 - 2 tab PO Q4HR PRN 07/18/17 07/30/17 mg/325 mg] Acetaminophen [Tylenol] 650 mg PO TID 07/23/17 07/30/17 Insulin Glargine [Lantus Solostar] 14 unit SQ DAILY 07/23/17 07/30/17 Fluticasone [Flonase] 1 spray INH BID 07/24/17 07/30/17 House Bowel Program 1 applic PO DAILY 07/24/17 07/30/17 - Allergies Allergies/Adverse Reactions: Allergies Allergy/AdvReac Type Severity Reaction Status Date / Time No Known Drug Allergies Allergy Verified 07/13/17 00:48 Review of Systems - Constitutional Constitutional: reports: Fatigue, Weight loss (211) - Eyes Eyes: reports: Vision loss, Corrective lenses - Ears, Nose & Throat Ears, Nose & Throat: reports: Hearing loss, Dry mouth - Cardiovascular Cardiovascular: reports: Exertional dyspnea, Decr. exercise tolerance - Respiratory Respiratory: reports: SOB with exertion. denies: Cough, Wheezing - Gastrointestinal Gastrointestinal: reports: Diarrhea (reports continued loose stool about every two days;), Early satiety. denies: Nausea, Reflux/heartburn - Genitourinary Genitourinary: reports: Frequency - Musculoskeletal Musculoskeletal: reports: Limited range of motion (right shoulder), Muscle weakness, Transfer issues (needs still assist to transfer;), Other (follow up with PT can ambutlate up to 150 ft.; has practiced car transfers) - Integumentary Integumentary: reports: Dryness, Other (venous stasis) - Neurological Neurological: reports: General weakness, Memory problems (much improved off gabapentin) - Psychiatric Psychiatric: denies: Depression, Anxiety - Endocrine Endocrine: reports: Diabetes type 2 - Hematologic/Lymphatic Hematologic/Lymphatic: reports: Anemia - All Other Systems All Other Systems: reports: Reviewed and negative Physical Exam - Vital Signs Temperature: 98.3 C Pulse Rate: 76 Respiratory Rate: 18 O2 Saturation: 92 (ra @ rest) Blood Pressure: 102/64 - Physical Exam General Appearance: positive: No acute distress Eyes Bilateral: positive: Normal inspection ENT: positive: No signs of dehydration Neck: positive: No JVD, Trachea midline Cardiovascular: positive: Regular rate & rhythm Respiratory: positive: Diminished in bases. negative: Wheezes, Rales, Rhonchi Abdomen: positive: Non-tender, Soft, Distended Skin: positive: Pallor, Dryness, Other (venous stasis dry LE; no s/s cellulitis or break down) Extremities: positive: Pedal edema (trace; much improved) Neurologic/Psychiatric: positive: Oriented x3, Mood/affect nml Palliative Care - POLST Patient has POLST: Yes POLST Status: DNR, Selective Treatment Pain: Pain improved (Patient does complain of residual pain in his right hip from the fall, this is increased with weightbearing, but he is able to ambulate. He does have baseline right shoulder pain from multiple surgeries. He is on scheduled acetaminophen 650 mg 3 times daily, is only needed to use occasional oxycodone for breakthrough pain.) Performance Status: Patient able to use the urinal at the bedside, he does need contact assist for toileting, he reports this is more to do with managing incontinent pads. He remains mostly wheelchair bound during the day, is working with therapy daily, has progressed fairly dramatically actually past his baseline from when he was in assisted living. - Palliative Care Discussion: Patient quite anxious to "get on with it". He is hoping for surgery soon, if this were so would return back to the alf for rehab, and then transition on back to [facility] assisted living. He denies depression, but does report he is unhappy with current situation, is hoping for good news tomorrow. Patient does appear to have insight into the fragility of his situation, but feels if he does not move forward at this point, he will lose an opportunity to improve his quality as well as quantity of life. Impression and Recommendations - Palliative Care Impression: This is an 86-year-old gentleman currently residing in [facility] facility as result of a fall, with the sequela of multiple rib fractures. He continues to improve, with his hypoxia resolved, does have underlying CHF, currently with improved lower extremity edema, has chronic kidney stage III, has had ongoing adjustments of his medications and diuretics, as well as his diabetes type 2 which is currently managed with his insulin. He is awaiting follow-up for pending surgery for adenocarcinoma of the transverse colon, he is meeting with the surgeon tomorrow. He remains quite hopeful that he can move forward with this. Palliative care providing ongoing support regarding goals of care and symptom management. Recommendations/Counseling Done: 1. CHF. Patient's most recent echo shows ejection fraction of 55-60%. Has continued to lose weight though this is multifactorial not just fluid, lower extremity edema pretty much resolved. Diuretics adjusted last week, he is currently on Spironolactone 25 mg, as well as baseline furosemide 20 mg daily, will have BMP drawn 4/4, may need to adjust furosemide (baseline prior was 3x a week). 2.Hypoxia. This appears to have resolved. Patient at rest at 92%. Has not had oxygen on except for therapy sessions. Patient no longer needs nebulizers, will discontinue scheduled Xopenex. 3. Colon cancer. Patient does have visit with surgeon tomorrow, remains hopeful will be able to move towards surgery as soon as possible. 4. Mild cognitive deficits. This is improved with the discontinuation of the gabapentin, appears to be back to baseline of short-term memory deficits, but able to participate, alert and oriented, and presents with decision-making capacity. 5. Acute on chronic pain. Patient is currently controlled with acetaminophen 3 times a day, his chronic right shoulder pain which was exacerbated with the falls, remains problematic but improving. 6. Diabetes type 2. Patient currently off metformin secondary to labs, and pending surgery. Will increase baseline Lantus to 14 units and continue to monitor. Fasting blood sugars do appear within good range, though elevated through the day. 7. Advanced care planning. Patient does present with fragility, with multiple competing comorbidities, but is improved from baseline even previous to alf stay. He is anxious to return home to [facility], though at this time still requires some contact assist for toileting, and safety with ambulation. He is hopeful to be moving forward on with surgery, this would necessitate further follow-up and rehab after hospitalization. Will await outcome of surgical appointment, and plan accordingly regarding moving forward. Time Spent: 30 minutes with greater than 50% of this done in counseling regarding symptom management, coordination of care with rehab therapies, Dr. White, will send note on to Dr. Silva, and anticipatory guidance divided.
== END 2017-07-30 10:16 | disposition home or self-care (01) ==
LOC: PC 10:15
PROVIDERS: ATTEND Nurse Practitioner Adult Health
DX: Z51.5 Encounter for palliative care (principal); I50.9 Heart failure, unspecified; C18.4 Malignant neoplasm of transverse colon; G31.84 Mild cognitive impairment of uncertain or unknown etiology; M25.511 Pain in right shoulder; E11.22 Type 2 diabetes mellitus with diabetic chronic kidney disease; N18.3 Chronic kidney disease, stage 3 (moderate); M62.81 Muscle weakness (generalized); Z79.4 Long term (current) use of insulin; Z79.891 Long term (current) use of opiate analgesic; Z66 Do not resuscitate
CPT/HCPCS: 99309

== ENCOUNTER 2017-08-03 16:30 | Outpatient (CLI) | payer MEDICARE ==
[2017-08-03 20:17] LABS: BASOPHILS % (AUTO) 0.6 %; EOSINOPHILS # (AUTO) 0.1 10^3/uL (0.0-0.7); EOSINOPHILS % (AUTO) 2.3 %; HGB - HEMOGLOBIN 11.1 g/dL (14.0-18.0); LYMPHOCYTES # (AUTO) 1.6 10^3/uL (1.5-3.5); LYMPHOCYTES % (AUTO) 28.5 %; MEAN CORPUSCULAR HEMOGLOBIN 29.3 pg (27.0-31.0); MEAN CORPUSCULAR HGB CONC 32.9 g/dL (32.0-36.0); MEAN PLATELET VOLUME 6.5 fL (7.4-11.4); MONOCYTES # (AUTO) 0.4 10^3/uL (0.0-1.0); NEUTROPHILS # (AUTO) 3.4 10^3/uL (1.5-6.6); NEUTROPHILS % (AUTO) 60.6 %; PLT - PLATELET COUNT 282 10^3/uL (130-450); RED BLOOD COUNT 3.79 10^6/uL (4.70-6.10); RED CELL DISTRIBUTION WIDTH 17.8 % (12.0-15.0); WHITE BLOOD COUNT 5.6 x10^3/uL (4.8-10.8)
[2017-08-03 20:28] LABS: CALCIUM 8.5 mg/dL (8.5-10.3); CREATININE 1.3 mg/dL (0.6-1.2)
== END 2017-08-03 16:31 | disposition home or self-care (01) ==
LOC: LAB.R 16:30
DX: I50.9 Heart failure, unspecified (principal); N18.3 Chronic kidney disease, stage 3 (moderate)
CPT/HCPCS: 80048; 83540; 84466; 85025

== ENCOUNTER 2017-08-10 10:10 | Outpatient (CLI) | payer MEDICARE ==
--- NOTE | 2017-08-10 12:45 | CONSULTATION NOTE ---
Palliative Care Follow Up - Referral Referring Provider: Dr. Da Rahman Time of Visit: [id number] Referral setting: Assisted living (Patient is seen in his home setting which is [facility] assisted living; it is a taxing and considerable effort for him to leave the facility related to fatigue, lower extremity weakness, and right hip pain) Referral Reason: CHF/Colon Cancer/Goals of Care - Information Sources Records reviewed: RN notes reviewed, Previous records reviewed History/Review of Systems obtained from: Patient Exam limitations: No limitations - History of Present Illness Update Brief HPI Update: This is an 86-year-old gentleman who has recently been [facility] from jail facility, after a fall the resulted in a hospitalization from 07/15 to . He is actually improved from his baseline prior to this, his underlying acute on chronic heart failure has improved with diuresis of his lower extremity edema, His hypoxia has resolved, his blood sugars have been stable for the last couple days, and his functional status improved from his prior to hospitalization with his therapy at the SNF, he would like to continue to build up his strength and endurance. And follow-up with the surgeon, given his multiple comorbidities, and quoted high mortality rates for this surgery, patient at this point in time has put off pursuing further intervention for his known adenocarcinoma of the transverse colon. He has not had any obstructive symptoms, his CT done in the last couple months did not show any metastatic disease, and his labs have remained somewhat stable. In pursuing information regarding this, he is to follow-up with the oncologist, and may or may not follow up with the second opinion. He does understand he would not be able to have the surgery at [facility] given the need for access to specialists. Today he presents with improved spirits, has been down to meals, and is transitioning back to his assisted living facility without any problems. Visit focus on reconciling plan of care and medications. Social History - Living Situation Living arrangement: Assisted living Living Situation: Alone (spouse lives across in the dementia unit from facility ; reports memory is worsening;His daughter Anuj oversees and advocates for his treatment plan, [place] and [place] support) Medications/Allergies - Medications Home Medications: Ambulatory Orders Medication Instructions Recorded Confirmed Metoprolol Succinate [Toprol Xl] 50 mg PO DAILY 02/16/17 08/10/17 Levothyroxine Sodium 150 mcg PO QDAC 02/17/17 08/10/17 Vitamin B Complex 1 each PO DAILY 04/28/17 08/10/17 Furosemide [Lasix] 20 mg PO .EVERY OTHER DAY 06/08/17 08/10/17 Acetaminophen [Tylenol] 650 mg PO Q6HR PRN 07/23/17 08/10/17 Insulin Glargine [Lantus Solostar] 14 unit SQ DAILY 07/23/17 08/10/17 Fluticasone [Flonase] 1 spray INH DAILY 07/24/17 08/10/17 Spironolactone [Aldactone] 25 mg PO .EVERY OTHER DAY 08/10/17 08/10/17 - Allergies Allergies/Adverse Reactions: Allergies Allergy/AdvReac Type Severity Reaction Status Date / Time No Known Drug Allergies Allergy Verified 07/13/17 00:48 Review of Systems - Constitutional Constitutional: reports: Fatigue, Weakness, Weight loss - Eyes Eyes: reports: Vision loss, Corrective lenses - Ears, Nose & Throat Ears, Nose & Throat: reports: Hearing loss, Nasal congestion - Cardiovascular Cardiovascular: reports: Edema, Exertional dyspnea, Decr. exercise tolerance. denies: Chest pain, Lightheadedness - Respiratory Respiratory: reports: SOB with exertion. denies: Cough, Wheezing, Orthopnea, SOB at rest - Gastrointestinal Gastrointestinal: reports: Abdominal distention, Good appetite, Other (bowels moving daily soft; no diarrhea for several days). denies: Nausea - Genitourinary Genitourinary: reports: Urgency, Incontinence (mild) - Musculoskeletal Musculoskeletal: reports: Stiffness, Limited range of motion (shoulders right greater than left;), Joint pain ( right hip pain;) - Integumentary Integumentary: reports: Dryness (venous stasis lower extremities) - Neurological Neurological: reports: General weakness, Memory problems (mild STM;). denies: Headache - Psychiatric Psychiatric: reports: Depression (denies depression but has feelings of "sadness "; expressing grief and loss). denies: Anxiety - Endocrine Endocrine: reports: Diabetes type 2 (FBS good on Lantus 14 units; off metformin with renal function-appears to improve diarrhea as well), Hypothyroidism - Hematologic/Lymphatic Hematologic/Lymphatic: reports: Anemia - All Other Systems All Other Systems: reports: Reviewed and negative Physical Exam - Vital Signs Temperature: 96.9 C Pulse Rate: 78 Respiratory Rate: 16 O2 Saturation: 99 (ra @ rest) Blood Pressure: 92/68 - Physical Exam General Appearance: positive: No acute distress, Alert Eyes Bilateral: positive: Normal inspection ENT: positive: No signs of dehydration Neck: positive: No JVD, Trachea midline, Stiff neck (some extension/stiffness at baseline) Respiratory: positive: Breath sounds nml. negative: Rales Abdomen: positive: Non-tender, Soft, Nml bowel sounds, Distended Skin: positive: Other (venous stasis changes dry; no open areas) Extremities: positive: Pedal edema (1+; right greater than left; much improved from baseline; dislikes LEXIE hose requests to discontinue) Neurologic/Psychiatric: positive: Oriented x3, Mood/affect nml, Flat affect Palliative Care - POLST Patient has POLST: Yes POLST Status: DNR, Selective Treatment Pain: Location (new pain right hip; worsens with walking; able to "stretch" out with ambulation and improves; no pain at rest; reports it is chronic; currently controlled with intermittent acetaminophen; does not want anything scheduled; worse at night) Tiredness/Fatigue: Mild (1-3) Drowsiness/Sedation: None Nausea: None Depression: Mild (1-3) Anxiety: Mild (1-3) Dyspnea: Moderate (4-6) (with ambulation) Anorexia: Mild (1-3) Sleep: Sleep improved Constipation: No Feelings of wellbeing/Perceived Quality of Life: Good, Acceptable, Improved Performance Status: Patient is able to ambulate short distances with front wheeled walker, does need to pace himself. Today he is able to dress output slowly. He does have a lift chair, need some assistance from sitting to standing, but has improved to the point he can get out of bed independently. He does call for assistance as needed for bathing or other activities. I would put him at a PPS of 60% - Palliative Care Discussion: Patient today does express relief at being able to transition back to assisted living. He continues to weigh the consideration about returning home, and given especially the ongoing expense for pain for both [facility] and [facility]. He is wondering about home assistance for this. He denies that he is feeling depressed, he is of course concerned about the future and implications about his cancer. He does express feelings of loss and grief, increasing perplexity regarding how best to respond to his Lula who has dementia and is deteriorating, and just his feelings of vulnerability given his advancing age and illness Impression and Recommendations - Palliative Care Impression: This is an 86-year-old gentleman who has recently had a setback as a result of a fall, including a jail facility stay. He has though improved at baseline his functional status, currently his acute on chronic heart failure is controlled, he remains frail as far as his comorbidities of renal insufficiency , diabetes 2, and adenocarcinoma of the colon. Palliative care to continue provide support for symptom management and clarifying goals of care. Recommendations/Counseling Done: 1.Acute on chronic heart failure. Patient's recent diuretics have been changed to every other day, patient is somewhat hypotensive today, but without symptoms of dizziness and does appear to be tolerating this currently. Facility has been instructed on 3 times a week blood pressures, as well as daily weights to be checked on weekly. Patient to see Dr. Rahman his PCP next week, will need labs in the next week or 2. 2. Colon cancer. Patient at this point in time will further follow-up with oncologist regarding recommendations and trajectory of disease, may or may not pursue second opinion given his multiple comorbidities and high mortality quoted from his appointment. He is content currently with his current state of health and without any symptoms of obstruction currently. His diarrhea has improved off the metformin, and bowels are moving with soft consistency at least daily. 3. Diabetes type 2. Patient currently on Lantus 14 units daily, currently his fasting blood sugars appear within good range, will continue to monitor. 4. Right hip pain. Patient without pain at rest, this is mostly with ambulation. Patient would benefit from ongoing support for strengthening and endurance. Patient reports currently response to intermittent acetaminophen, patient had been restarted on gabapentin this was discontinued secondary to cognitive deficits. Will discontinue at this point in time. Patient declined to have regular scheduled acetaminophen. 5. Generalized muscle weakness. Patient is encouraged by the progress he made with rehab at the jail facility. He is hopeful to continue with this , home physical therapy has been ordered. Son Nico, is working on obtaining a wheelchair to be able to go across the street to visit his , did review if unable to find properly fitted 1, PT could help facilitate ordering one from [employer] for rent. Patient does not qualify under Medicare guidelines to have it paid for. 6. Depression. Normalize feelings of grief and loss and concern for the future. Does feel it does assist him to talk to myself about this, we discussed having the palliative medical director occupational health available for counseling. He was very open and excited about this idea, as well as being able to explore the possibility of perhaps returning home and what resources were available. 7. Advanced care planning. Patient is very frail, has multiple comorbidities that carry with that concerns for sequela that may impact his ability to remain independent. At this point in time his goal is to remain at assisted living, be able to visit his on a regular basis, and work towards improving his underlying health and functional status. [id number]. Patient is unable to pursue outpatient physical therapy as it is a taxing considerable effort for the patient to leave the home given his right hip pain, generalized weakness, and fatigue. Physical therapy is need to progress his home exercise program, gait training, and address right hip pain. Patient would benefit from review of fall precautions, equipment needed in his apartment, and proper training on his walker. Time Spent: 30 minutes with greater than 50% of this done in counseling and coordination of care with clinical staff at [facility], follow-up with home health, and reconciliation of medications.
== END 2017-08-10 10:11 | disposition home or self-care (01) ==
LOC: PC 10:10
PROVIDERS: ATTEND Nurse Practitioner Adult Health
DX: Z51.5 Encounter for palliative care (principal); I50.9 Heart failure, unspecified; C18.4 Malignant neoplasm of transverse colon; E11.9 Type 2 diabetes mellitus without complications; Z79.4 Long term (current) use of insulin; M25.551 Pain in right hip; M62.81 Muscle weakness (generalized); F32.9 Major depressive disorder, single episode, unspecified; F41.9 Anxiety disorder, unspecified; Z66 Do not resuscitate

== ENCOUNTER 2017-09-05 11:00 | Outpatient (CLI) | payer MEDICARE ==
--- NOTE | 2017-09-05 13:12 | CONSULTATION NOTE ---
Palliative Care Follow Up - Referral Referring Provider: Dr. Da Rahman Time of Visit: 03-11 Referral setting: [facility] Referral Reason: Colon CA/CHF/DM/Goals of Care - Information Sources Records reviewed: Previous records reviewed History/Review of Systems obtained from: Patient Exam limitations: No limitations - History of Present Illness Update Brief HPI Update: This is an 86-year-old gentleman who has known adenocarcinoma of the transverse colon, continues to struggle with further intervention. He did see the oncologist this last week, who recommended he get a second opinion with the colon cancer specialist and is making that referral. How he interpreted the consult our recommendation was "to cut it out and get it over with", is concerned about continuous bleeding or worsening of this as well as original concern about obstruction. Patient is currently receiving iron transfusion, does complain of fatigue, has started home physical therapy, but remains quite functionally impaired. Patient has multiple comorbidities including congestive heart failure, and severe chronic kidney disease, his labs actually look fairly good for him with his BUN 26, creatinine 1.3, GFR 53. He has been on decreased doses and trying to find a balance between his weight and kidney function. Unfortunately today he has increased his weight by several pounds, and does have some increased lower extremity swelling with his right greater than left, but does not have any crackles. The other concern he has is recently they switched the timing of his Lantus, from a.m. to p.m., this is caused him quite a bit of distress, and follow-up there is really no rationale for changing this and will resume a.m. dosing. His PCP did increase his Lantus to 10 units, he is tolerating this fine his blood sugars have been running between 97 and 117. Social History - Living Situation Living arrangement: Assisted living Living Situation: Alone (When the patient's main concern is his Lula who is over at [facility], she continues to be quite unhappy with her new setting, he does visit her every other day. His daughter Anuj continues provide oversight and coordination of care for his medical appointments and needs, his son Nico is providing transportation. He does feel quite supported has continued to struggle with numerous complaints regarding [facility], but for the most part feels like he is getting good care) Medications/Allergies - Medications Home Medications: Ambulatory Orders Medication Instructions Recorded Confirmed Metoprolol Succinate [Toprol Xl] 50 mg PO DAILY 02/16/17 09/05/17 Levothyroxine Sodium 150 mcg PO QDAC 02/17/17 09/05/17 Vitamin B Complex 1 each PO DAILY 04/28/17 09/05/17 Furosemide [Lasix] 20 mg PO DAILY MDD for 10 days 06/08/17 09/05/17 then return to QOD Acetaminophen [Tylenol] 650 mg PO Q6HR PRN 07/23/17 09/05/17 Insulin Glargine [Lantus Solostar] 10 unit SQ QDBREAKFAST 07/23/17 09/05/17 Fluticasone [Flonase] 1 spray INH DAILY 07/24/17 09/05/17 Spironolactone [Aldactone] 25 mg PO .EVERY OTHER DAY 08/10/17 09/05/17 Acetaminophen 1,000 mg PO 09/05/17 - Allergies Allergies/Adverse Reactions: Allergies Allergy/AdvReac Type Severity Reaction Status Date / Time No Known Drug Allergies Allergy Verified 07/13/17 00:48 Review of Systems - Constitutional Constitutional: reports: Fatigue, Weight gain (224 today; has been staying about ). denies: Fever, Chills - Eyes Eyes: reports: Vision loss, Corrective lenses - Ears, Nose & Throat Ears, Nose & Throat: reports: Nasal congestion, Dry mouth - Cardiovascular Cardiovascular: reports: Edema (LE worsening), Decr. exercise tolerance. denies : Chest pain - Respiratory Respiratory: reports: SOB with exertion. denies: Cough, SOB at rest - Gastrointestinal Gastrointestinal: reports: Abdominal distention, Good appetite, Other (bowel pattern remains erratic with alternating constipation and loose stools; often without warning-gets very anxious about incontinence). denies: Reflux/heartburn - Genitourinary Genitourinary: reports: Frequency - Musculoskeletal Musculoskeletal: reports: Stiffness (right hip and side/residual since fall in June), Muscle weakness, Assistive devices (using walker consistently) - Integumentary Integumentary: reports: Dryness, Other (venous stasis) - Neurological Neurological: reports: General weakness, Memory problems (some forgetfulness) - Psychiatric Psychiatric: denies: Depression, Anxiety - Endocrine Endocrine: reports: Diabetes type 2 - Hematologic/Lymphatic Hematologic/Lymphatic: reports: Anemia (iron low 33; saturation 10%) - All Other Systems All Other Systems: reports: Reviewed and negative Physical Exam - Physical Exam General Appearance: positive: No acute distress Eyes Bilateral: positive: Normal inspection ENT: positive: Dry mucous membranes (no s/s of candidiasis) Neck: positive: No JVD, Trachea midline, Other (some forward extension) Cardiovascular: positive: Regular rate & rhythm Respiratory: positive: Diminished in bases (left greater than right). negative : Wheezes, Rales, Rhonchi Abdomen: positive: Non-tender, Soft, Nml bowel sounds, Distended Skin: positive: Pallor, Dryness, Other (venous stasis; dryness and flaking worse ; admits to not following through with LE lotioning) Extremities: positive: Pedal edema (taut up to knees; worse than previously noted; but also noted fill in upper arms/face with weight gain no just fluid) Neurologic/Psychiatric: positive: Oriented x3, Mood/affect nml, Weakness Palliative Care - POLST Patient has POLST: Yes POLST Status: DNR, Selective Treatment Pain: Pain unchanged, Location (right hip; worse at night; finds 1000 mg APAP satifactory; reminded can have another dose;) Tiredness/Fatigue: Moderate (4-6) Drowsiness/Sedation: None Nausea: None Depression: Mild (1-3) Anxiety: Mild (1-3) Dyspnea: Moderate (4-6) (with activity) Anorexia: None Sleep: Variable sleep pattern (up one to two times to void) Constipation: Intermittent constipation Feelings of wellbeing/Perceived Quality of Life: Fair, Acceptable, No change Performance Status: Patient is ambulating down to meals, with his 4 wheeled walker. He does report he has to rest frequently because of activity intolerance. He has only been sponge bathing, as he cannot really manage the shower, particularly related to mopping up water and have this set up is. Did say he would accept assistance, will follow up with home health and facility. Patient currently I would put as a PPS of 60% - Palliative Care Discussion: Patient's biggest worry and concern continues to be the focus on his , who is living with dementia. He does have a lot of guilty feelings as far as having to have her where she is, she is quite unhappy. He is visiting her every other day, continues to be concerned if he happens to first. Patient himself reports he is "not afraid for the end", is unclear how he feels either way, but is willing to explore further options. His biggest concern is that it is hard for him to accept help, this very much important for him to remain independent. He very much would like to actually return home, recognizing he would need some assistance in this, but it is unclear if this is a realistic goal. Patient does have some insight into the seriousness of his illness, though I expect he does not understand with his advanced age and multiple comorbidities his fragile status. His goals remain as independent as possible. Results - Lab Results Lab results reviewed: Yes Impression and Recommendations - Palliative Care Impression: This is a 86-year-old gentleman who has multiple comorbidities including acute on chronic heart failure, renal insufficiency, diabetes type 2, adenocarcinoma of the colon, and ongoing functional decline. Patient is struggling again about whether to proceed with intervention regarding his colon cancer, but is willing to explore possibilities. His biggest worry continues to be his with dementia. Palliative care to continue to provide support and oversight given his fragile status and support in his setting of assisted living. Recommendations/Counseling Done: 1. Acute on chronic heart failure. Patient's weight up to dated 06/23, with increased lower extremity edema. Patient's kidney functions actually look fairly good for him, will go ahead and give him an extra dose of Lasix 20 mg now as he is not due to have one today, and generally increased for 10 days 20 mg daily (vs every other day) and result return to previous dosing. 2.Diabetes type 2. Follow-up with hospital educator, no reason to do nighttime Lantus dosing, actually may put her risk with small bump, for hypoglycemia at nighttime. Will go ahead and change to Lantus 10 units in a.m., will have staff give 10 units on return to facility to accommodate change in timing. Have requested to send weekly blood sugar logs for 3 weeks to monitor for any trends. #3 generalized weakness. Patient has initiated physical therapy, he is quite deconditioned. We will ask them to add home health aide for assistance with bathing, did check with facility he does not have that is a covered service. If this is of help he can add it at the time of discharge from home health. 4. Adenocarcinoma of the transverse colon. Patient currently willing to pursue second opinion with specialist: Surgeon, remains quite ambivalent about what he might do in the end. Patient is currently receiving iron transfusions, does have some intermittent constipation and loose stool, no acute pain or discomfort, and is eating without problems. We will continue to support patient through the decision-making process. 5. Depression. Patient is doing quite well actually with his mood, continues to struggle in his journey with his who has dementia, counseling regarding normalizing grief and loss processes regarding this. 6. Advanced care planning. Patient does have a [address] in place, is coming to another [facility] again around decisions about whether to intervene with his cancer. Patient does not have any anxiety, and is fairly pragmatic, does have good support from family. Did leave update for daughter Anuj Deal regarding changes made and findings. Time Spent: 60 minutes was given 50% of this done in counseling regarding depression, anticipatory guidance, and [facility].
== END 2017-09-05 11:01 | disposition home or self-care (01) ==
LOC: PC 11:00
PROVIDERS: ATTEND Nurse Practitioner Adult Health
DX: Z51.5 Encounter for palliative care (principal); I50.9 Heart failure, unspecified; E11.22 Type 2 diabetes mellitus with diabetic chronic kidney disease; N18.9 Chronic kidney disease, unspecified; Z79.4 Long term (current) use of insulin; C18.4 Malignant neoplasm of transverse colon; F32.9 Major depressive disorder, single episode, unspecified; R63.5 Abnormal weight gain; R60.0 Localized edema; M62.81 Muscle weakness (generalized); D64.9 Anemia, unspecified; R06.00 Dyspnea, unspecified; Z66 Do not resuscitate
CPT/HCPCS: 99215

== ENCOUNTER 2017-09-26 13:35 | Outpatient (CLI) | payer MEDICARE ==
--- NOTE | 2017-09-26 14:09 | CONSULTATION NOTE ---
Palliative Care Follow Up - Referral Referring Provider: Dr. Da Rahman Time of Visit: 02-07 Referral setting: Assisted living Referral Reason: Colon Cancer/CHF - Information Sources Records reviewed: Previous records reviewed History/Review of Systems obtained from: Patient Exam limitations: No limitations - History of Present Illness Update Brief HPI Update: This is an 86-year-old gentleman who has known adenocarcinoma of the transverse colon, did get his follow-up consult with GI surgeon regarding weighing benefits and burdens of moving forward. Her recommendation was to enjoy life as it is, the patient's understanding was that "she cannot recall guarantee any kind of meaningful recovery", and that there were multiple issues going either way. He decided at this point to take his chances on living day to day. And follow-up with oncologist, reports there is no known prognostic component in the context of previous experiences, patient is already had no disease for greater than a year, without any complications. So could be days to weeks, or further extended period of time. Would just be monitoring for complications and progressive disease. Patient's understanding is he will get a serial of scans. Patient does seem at peace with his current decision, but continues to struggle with his ongoing chronic health issues including CHF, renal insufficiency, diabetes, and ongoing functional decline. Patient's most significant symptom actually is fatigue, he does have decreased activity tolerance, he is working with home health physical therapy. He does admit to being sedentary, he denies depression though he does present with some depressive symptoms. He does have significant candidiasis under his abdominal fold and groin today, this is adding to his discomfort. Otherwise his pain is quite controlled, he is sleeping well, and his appetite is back to his baseline. Social History - Living Situation Living arrangement: Assisted living Living Situation: Alone Support System: Spouse Lula at dementia unit across the street; son Nico [place] living in his home, provides transportation and support; daughter Anuj in [place] provides oversight and advocacy for medical care/finances Medications/Allergies - Medications Home Medications: Ambulatory Orders Medication Instructions Recorded Confirmed Metoprolol Succinate [Toprol Xl] 50 mg PO DAILY 02/16/17 09/27/17 Levothyroxine Sodium 150 mcg PO QDAC 02/17/17 09/27/17 Vitamin B Complex 1 each PO DAILY 04/28/17 09/27/17 Furosemide [Lasix] 20 mg PO .Q2 DAYS 06/08/17 09/05/17 Acetaminophen [Tylenol] 650 mg PO Q6HR PRN 07/23/17 09/05/17 Insulin Glargine [Lantus Solostar] 10 unit SQ QDBREAKFAST 07/23/17 09/27/17 Fluticasone [Flonase] 1 spray INH DAILY 07/24/17 09/27/17 Spironolactone [Aldactone] 25 mg PO .EVERY OTHER DAY 08/10/17 09/27/17 Acetaminophen 1,000 mg PO 09/05/17 Nystatin 1 applic TOP DAILY 09/27/17 09/27/17 - Allergies Allergies/Adverse Reactions: Allergies Allergy/AdvReac Type Severity Reaction Status Date / Time No Known Drug Allergies Allergy Verified 07/13/17 00:48 Review of Systems - Constitutional Constitutional: reports: Fatigue, Weight stable (range avg about 222-225) - Eyes Eyes: reports: Vision loss, Corrective lenses (feels some vision changes) - Ears, Nose & Throat Ears, Nose & Throat: reports: Hearing loss, Dry mouth - Cardiovascular Cardiovascular: reports: Edema (LE feels at good baseline), Lightheadedness ( occasional), Exertional dyspnea, Decr. exercise tolerance. denies: Chest pain - Respiratory Respiratory: reports: SOB with exertion. denies: Cough - Gastrointestinal Gastrointestinal: reports: Other (bowels continue with fluctuating status; has urgency and soft stool sometimes incontinence) - Genitourinary Genitourinary: reports: Frequency, Urgency - Musculoskeletal Musculoskeletal: reports: Muscle aches, Stiffness, Limited range of motion ( right shoulder), Muscle weakness, Assistive devices (uses front wheel rolling walker; is working with home PT for strengthening) - Integumentary Integumentary: reports: Rash (reports worsening), Dryness - Neurological Neurological: reports: General weakness, Memory problems (STM but not problematic; concentration difficult at times) - Psychiatric Psychiatric: reports: Depression (mild) - Endocrine Endocrine: reports: Diabetes type 2 (BS good range; happier with AM administration) - Hematologic/Lymphatic Hematologic/Lymphatic: reports: Anemia - All Other Systems All Other Systems: reports: Reviewed and negative Physical Exam - Vital Signs Temperature: 96.9 C Pulse Rate: 80 Respiratory Rate: 18 O2 Saturation: 93 (ra@ rest) Blood Pressure: 112/68 - Physical Exam General Appearance: positive: No acute distress Eyes Bilateral: positive: Normal inspection ENT: positive: No signs of dehydration Neck: positive: No JVD, Trachea midline Cardiovascular: positive: Regular rate & rhythm Respiratory: positive: Diminished in bases (right greater than left) Abdomen: positive: Non-tender, Nml bowel sounds, Distended Skin: positive: Other (foul smelling excoriation and candidiais under abdominal fold; groin folds reddened. Has only had bathing one time so far; found it very helpful) Extremities: positive: Pedal edema (1-2+ right greater than left), Other ( ambulating to meals with 4WW; reports very sedentary;) Neurologic/Psychiatric: positive: Oriented x3, Mood/affect nml Palliative Care - POLST Patient has POLST: Yes POLST Status: DNR, Selective Treatment Pain: Pain improved (right hip pain better; right shoulder pain chronic) Tiredness/Fatigue: Moderate (4-6) (reports sleeps easily in chair during day; fatigue remains problematic) Drowsiness/Sedation: Mild (1-3) Nausea: None Depression: Mild (1-3) Anxiety: Mild (1-3) Dyspnea: Moderate (4-6) (with exertion; denies at rest) Anorexia: None Sleep: Sleeps well Constipation: No Feelings of wellbeing/Perceived Quality of Life: Good, Acceptable Performance Status: Patient is ambulating short distances 2 the bathroom, he is going down for meals with his 4 wheeled walker. He does take frequent breaks and sits on the seat. He does admit to being quite sedentary. He has had 1 home health aide bath with much improvement, he does find this quite helpful. He has not been bathing or attending to personal hygiene very attentively. He does admit to some functional decline, he does attribute this to some increased fatigue - Palliative Care Discussion: Patient continues to struggle in his support of his who has dementia, he does find her cognitive decline distressing. He continues to struggle with whether to return home or not, is running no resources. It does seem to be some discontent as far as his perception about what should happen, he believes his son does want him home, his daughter wants him to stay at assisted living. We did discuss in the continuum particularly unknown what his journey is going to be, that might be better to be some place where he can have more support. He does feel quite lonely, and does feel like he could hire assistance at home. Did agree to a medical palliative care social service director to explore this further, as well as counseling for adjustment to his sadness and illness. Did answer clarifying questions regarding the [address], will continue to explore as patient declines his wishes around end-of-life. Impression and Recommendations - Palliative Care Impression: This is a 86-year-old gentleman has multiple comorbidities including a chronic heart failure, renal insufficiency, diabetes type 2, and ongoing functional decline. At this point in time the decision around his adenocarcinoma of the colon is to watch, but will follow up with oncologist regarding next labs, he had find some improvement in his energy with iron transfusions. Palliative care to continue providing support and oversight given his fragile status and transition to hospice when appropriate. Recommendations/Counseling Done: 1. Chronic heart failure. Patient is at baseline weight between 223 and 225, has had no increase in shortness of breath. Patient continues to have lower extremity edema, but is well managed compared to his baseline. Will get BMP with pending labs, no changes in his diuretics to be made. We did try a trial of increased Lasix for 10 days, without much results. He does feel currently he can manage his lower extremity edema. 2. Diabetes type 2. Patient's blood sugars continue to run within acceptable range. No changes, patient is liking his Lantus in the a.m. 3. Generalized weakness. Patient has continued with physical therapy, will continue to work on functional ambulation and endurance. Have added home health aide to assist with bathing and address skin issues. Will look at continuing this on discharge from home health. Have also requested [employer] for counseling and long-term planning. 4. Adenocarcinoma of the transverse colon. Patient has received a second opinion, recommendation was to not proceed with this surgery given risks and benefits. Patient does seem at peace with current decision. 5. Candidiasis. Patient will use antifungal cream, nystatin 100,000 U/g topical ordered to be applied daily by staff and after bathing. Instructed patient to wash daily under pannus and in groin folds and pat dry prior to application. 6. Depression. Patient continues to struggle with fluctuating mood, has agreed to medical palliative care social service director. 7. Advanced care planning. Patient does have [address] in place, patient is quite fragile, has multiple comorbidities adding to his poor prognostic indicators. Will continue to follow for symptom burden and support, did introduce the concept of hospice in the continuum of care. Time Spent: 60 minutes was given 50% of this done in counseling regarding anticipatory guidance, continuum of care, management of multiple comorbidities, coordination of care with facility regarding care plan.
== END 2017-09-26 13:36 | disposition home or self-care (01) ==
LOC: PC 13:35
PROVIDERS: ATTEND Nurse Practitioner Adult Health
DX: Z51.5 Encounter for palliative care (principal); I50.9 Heart failure, unspecified; E11.9 Type 2 diabetes mellitus without complications; M62.81 Muscle weakness (generalized); C18.4 Malignant neoplasm of transverse colon; B37.2 Candidiasis of skin and nail; Z66 Do not resuscitate

== ENCOUNTER 2017-10-08 15:15 | Outpatient (CLI) | payer MEDICARE ==
--- NOTE | 2017-10-08 21:12 | CONSULTATION NOTE ---
Palliative Care Follow Up - Referral Referring Provider: Dr. Da Rahman Time of Visit: [id number] Referral setting: Assisted living Referral Reason: CHF/Colon CA - Information Sources Records reviewed: Previous records reviewed History/Review of Systems obtained from: Patient Exam limitations: Clinical condition (patient with STM issues) - History of Present Illness Update Brief HPI Update: This is a 86-year-old gentleman has known adenocarcinoma of the transverse colon , currently is not pursuing any further treatment in the context of his underlying comorbidities and risk for mortality/morbidity. This point in time we are monitoring for complications of progressive disease. Patient also has underlying CHF, his weight has been creeping up, his last weight was 227. He does feel his lower extremity edema has increased, with some increased tightness particularly across the top of his feet, he would like to address increase aggressiveness as of his diuresis, unfortunately he did not get his labs done this last week, he reports he forgot. He does report some increased shortness of breath and decreased activity tolerance, he has a history of left pleural effusion, he does have diminished breath sounds in about a quarter the way up on the left side, agreed will see the results of his labs and can follow- up with chest x-ray. There is also some concern with increased swelling in his right leg greater than his left, no warmth redness or pain, the patient does remain at high risk for DVT. Patient still continues to struggle with fatigue, he is working with home health physical therapy, he does use a 4 wheeled walker for baseline. He is also receiving services for bathing assist, and has had some improvement with his personal hygiene and his candidiasis in his skin folds. Social History - Living Situation Living arrangement: Assisted living Living Situation: Alone Support System: His Lula who has advanced dementia is in the memory unit across the street, he does visit her every other day. He does have a son who helps with transportation and appointments, and his daughter assist with overseeing his plan of care Medications/Allergies - Medications Home Medications: Ambulatory Orders Medication Instructions Recorded Confirmed Metoprolol Succinate [Toprol Xl] 50 mg PO DAILY 02/16/17 09/27/17 Levothyroxine Sodium 150 mcg PO QDAC 02/17/17 09/27/17 Vitamin B Complex 1 each PO DAILY 04/28/17 09/27/17 Furosemide [Lasix] 20 mg PO .Q2 DAYS 06/08/17 09/05/17 Acetaminophen [Tylenol] 650 mg PO Q6HR PRN 07/23/17 09/05/17 Insulin Glargine [Lantus Solostar] 10 unit SQ QDBREAKFAST 07/23/17 09/27/17 Fluticasone [Flonase] 1 spray INH DAILY 07/24/17 09/27/17 Spironolactone [Aldactone] 25 mg PO .EVERY OTHER DAY 08/10/17 09/27/17 Acetaminophen 1,000 mg PO 09/05/17 Nystatin 1 applic TOP DAILY 09/27/17 09/27/17 - Allergies Allergies/Adverse Reactions: Allergies Allergy/AdvReac Type Severity Reaction Status Date / Time No Known Drug Allergies Allergy Verified 07/13/17 00:48 Review of Systems - Constitutional Constitutional: reports: Fatigue, Weight gain - Eyes Eyes: reports: Vision loss, Corrective lenses - Ears, Nose & Throat Ears, Nose & Throat: reports: Hearing loss, Dry mouth - Cardiovascular Cardiovascular: reports: Edema, Decr. exercise tolerance - Respiratory Respiratory: reports: SOB with exertion, Other (reports concern reaccumulating pleuarl effusion; orthopnea) - Gastrointestinal Gastrointestinal: reports: Good appetite, Other (intermittent loose stool;). denies: Nausea - Genitourinary Genitourinary: reports: Frequency - Musculoskeletal Musculoskeletal: reports: Stiffness, Muscle weakness, Assistive devices (uses 4WW for ambulation) - Integumentary Integumentary: reports: Dryness - Neurological Neurological: reports: General weakness, Memory problems (mild) - Endocrine Endocrine: reports: Diabetes type 2 (BS in good range) - All Other Systems All Other Systems: reports: Reviewed and negative Physical Exam - Vital Signs Temperature: 97.2 C Pulse Rate: 76 Respiratory Rate: 18 O2 Saturation: 97 (ra @ rest) Blood Pressure: 112/64 - Physical Exam General Appearance: positive: No acute distress, Alert Eyes Bilateral: positive: Normal inspection ENT: positive: Dry mucous membranes Neck: positive: No JVD, Trachea midline Cardiovascular: positive: Regular rate & rhythm Respiratory: positive: Other (decreased LLL;). 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 He is receiving assistance with bathing. He is able to make it down for meals, and is participating in physical therapy. He does spend quite a bit of time sedentary in his recliner, and in front of his computer. I would put him at a PPS of 60% - Palliative Care Discussion: Patient continues to struggle with whether to return home, including bringing his home, am concerned regarding his future prognosis and his plans. He would need to oversee his 's care, including her medications. She does have fluctuating mood, and he did get overwhelmed prior. I did gently remind him there is also the concern for his future prognosis, with is some poor health and activity intolerance, worried the stress may exacerbate his current condition. He has done better with medication oversight by facility as well, though he perceives he could do this independently. He continues to try and focus on the here and now, does participate in some facility activities, and does have some relationships that he identifies as enjoyable at the facility. Finances to play a big part in this, and he continues to be concerned about his prior to choices far as their financial stability Results - Lab Results Lab results reviewed: Yes Lab and Imaging Results: CBC and BMP drawn and delivered to [facility] lab: WBC 6.9, hemoglobin 11.9, hematocrit 35.6; sodium 133, potassium 5.2, BUN 30, creatinine 1.2, GFR 58 Impression and Recommendations - Palliative Care Impression: This is a 86-year-old gentleman with multiple comorbidities including chronic heart failure with increased lower extremity edema today, renal insufficiency, diabetes type 2, and adenocarcinoma of the transverse colon. He does have some increased shortness of breath, concern for recurrent pleural effusion, it is a fine balance with his poor renal failure. Labs drawn will adjust meds accordingly, palliative care to continue provide support and oversight given his fragile status and transition to hospice when appropriate Recommendations/Counseling Done: 1.Chronic heart failure. Patient's baseline weight is up by about 5 pounds, does have increased lower extremity edema, and some shortness of breath though no crackles. Patient reports he is more comfortable at lower weight. He does not perceive he is eating better, Kidney function the presents with insufficiency is not worsened. Will go ahead and increase Lasix to 40 mg 5 days, then 20 mg daily for 11 days, no changes Spironolactone his potassium is up to 5.2 will have them do daily weights and 3 times a week blood pressures. Will follow up next week if no improvement in shortness of breath, will have patient get a chest x-ray. Though his last x-ray in June just showed small pleural effusions and he has not been acutely ill I suspect he still is at risk. He does have diminished breath sounds in his left lower lobe. 2. Diabetes type 2. Patient's blood sugars continue to run within acceptable range no changes. 3. Generalized weakness patient is continued to have physical therapy and working on functional ambulation and endurance. He is benefiting from having the home health aide to assist him twice a week, 4. Candidiasis in skin folds. Patient is using the nystatin powder, is getting improvement and healing. His personal hygiene has improved. 5. Adenocarcinoma of the transverse colon. Patient at this point in time is not having any further surgery plans, does not present with any symptoms of obstruction. His CBC looks stable. 6. Depression. Patient continues to struggle with fluctuating mood though he does not call this depression. He still continues to struggle with the journey with his with Alzheimer's, is scheduled to see the medical palliative care social psychologist. 7. Advanced care planning. Patient does have POLST in place, Patient is quite fragile, has multiple comorbidities adding to his poor prognostic indicators. Palliative care to continue to follow for symptom burden and support, will transition to hospice when evidence of decline are disease symptoms from adenocarcinoma. Time Spent: 45 minutes with greater than 50% of this done in counseling regarding symptom management, management of CHF, and anticipatory guidanceCoordination of care with clinical staff, labs drawn and follow-up with CC to PCP
== END 2017-10-08 15:16 | disposition home or self-care (01) ==
LOC: PC 15:15
PROVIDERS: ATTEND Nurse Practitioner Adult Health
DX: Z51.5 Encounter for palliative care (principal); I50.9 Heart failure, unspecified; E11.9 Type 2 diabetes mellitus without complications; M62.81 Muscle weakness (generalized); B37.2 Candidiasis of skin and nail; C18.4 Malignant neoplasm of transverse colon; F32.9 Major depressive disorder, single episode, unspecified; R60.0 Localized edema; Z79.4 Long term (current) use of insulin; R06.09 Other forms of dyspnea; Z66 Do not resuscitate

== ENCOUNTER 2017-10-09 13:40 | Outpatient (CLI) | payer MEDICARE ==
[2017-10-09 14:46] LABS: CALCIUM 8.7 mg/dL (8.5-10.3); CREATININE 1.2 mg/dL (0.6-1.2)
[2017-10-09 14:49] LABS: BASOPHILS % (AUTO) 0.5 %; EOSINOPHILS # (AUTO) 0.2 10^3/uL (0.0-0.7); EOSINOPHILS % (AUTO) 2.5 %; HGB - HEMOGLOBIN 11.9 g/dL (14.0-18.0); LYMPHOCYTES # (AUTO) 1.6 10^3/uL (1.5-3.5); LYMPHOCYTES % (AUTO) 23.6 %; MEAN CORPUSCULAR HEMOGLOBIN 32.1 pg (27.0-31.0); MEAN CORPUSCULAR HGB CONC 33.4 g/dL (32.0-36.0); MEAN CORPUSCULAR VOLUME 96.2 fL (80.0-94.0); MONOCYTES # (AUTO) 0.4 10^3/uL (0.0-1.0); MONOCYTES % (AUTO) 6.4 %; NEUTROPHILS # (AUTO) 4.6 10^3/uL (1.5-6.6); PLT - PLATELET COUNT 180 10^3/uL (130-450); RED CELL DISTRIBUTION WIDTH 15.8 % (12.0-15.0); WHITE BLOOD COUNT 6.9 x10^3/uL (4.8-10.8)
== END 2017-10-09 13:41 ==
LOC: LAB.R 13:40
PROVIDERS: ATTEND Internal Medicine
DX: I13.0 Hypertensive heart and chronic kidney disease with heart failure and stage 1 through stage 4 chronic kidney disease, or unspecified chronic kidney disease (principal)
CPT/HCPCS: 80048; 85025

== ENCOUNTER 2017-10-25 09:19 | Outpatient (CLI) | payer MEDICARE | END 2017-10-25 09:20 | disposition critical access hospital (66) | LOC: EMS 09:19 | PROVIDERS: ATTEND Surgery | DX: R11.10 Vomiting, unspecified (principal) | CPT/HCPCS: A0425; A0429 ==

== ENCOUNTER 2017-10-25 09:31 | Emergency (ER) | payer MEDICARE ==
--- NOTE | 2017-10-25 09:45 | ED Physician Documentation ---
PD HPI [facility]OCAL NEURO - Stated complaint Stated Complaint: POSS STROKE - History obtained from History obtained from: Patient, EMS - History of Present Illness Timing - onset: Today (reportedly had trouble holding his cup at breakfast between 8 and 8:30 am. Some facial droop noted. He says he is feeling okay.) Timing - duration: Hours (05/01) Timing - details: Abrupt onset Severity of deficit: Moderate Weakness: Face, Hand, Left. No: Arm, Leg, Foot Numbness: Face, Left. No: Arm, Leg, Foot Associated symptoms: No: Headache, Nausea / vomiting, Syncope, Fall, Chest pain Contributing factors: negative: Anticoagulated, Atrial fibrillation Baseline status: positive: A&OX3, ambulatory, indep, Walker Similar symptoms before: Has not had sx before Recently seen: Not recently seen Review of Systems Ten Systems: 10 systems reviewed and negative Constitutional: denies: Fever, Chills Nose: denies: Rhinorrhea / runny nose, Congestion Throat: denies: Sore throat Cardiac: denies: Chest pain / pressure, Palpitations Respiratory: denies: Dyspnea, Cough GI: denies: Abdominal Pain, Abdominal Swelling, Nausea, Vomiting, Constipation, Diarrhea : denies: Dysuria, Frequency Skin: denies: Rash, Lesions Neurologic: reports: Focal weakness, Numbness. denies: Generalized weakness, Near syncope, Headache, Head injury Psychiatric: denies: Depressed Endocrine: denies: Weight loss, Easy bruising / bleeding Immunocompromised: denies: Immunocompromised PD PAST MEDICAL HISTORY - Past Medical History Cardiovascular: Hypertension, High cholesterol, Atrial fibrillation, Valve disorder, Other Respiratory: Pneumonia, Shortness of breath Endocrine/Autoimmune: Type 2 diabetes, HyPOthyroidism GI: Colon polyps, Chronic diarrhea, Cholelithiasis, Other : Benign prostate hypertrophy, Renal insuffiency HEENT: None Psych: Depression Musculoskeletal: Osteoarthritis Derm: Other - Past Surgical History Past Surgical History: Yes General: Cholecystectomy, Gastric surgery, Colonoscopy Ortho: Hip replacement, Rotator cuff repair, Shoulder arthroplasty, Carpal Tunnel surgery, Other Cardiovascular: Pacemaker HEENT: Other Derm: Skin cancer surgery - Present Medications Home Medications: Ambulatory Orders Medication Instructions Recorded Confirmed Metoprolol Succinate [Toprol Xl] 50 mg PO DAILY 02/16/17 09/27/17 Levothyroxine Sodium 150 mcg PO QDAC 02/17/17 09/27/17 Vitamin B Complex 1 each PO DAILY 04/28/17 09/27/17 Furosemide [Lasix] 20 mg PO .Q2 DAYS 06/08/17 09/05/17 Acetaminophen [Tylenol] 650 mg PO Q6HR PRN 07/23/17 09/05/17 Insulin Glargine [Lantus Solostar] 10 unit SQ QDBREAKFAST 07/23/17 09/27/17 Fluticasone [Flonase] 1 spray INH DAILY 07/24/17 09/27/17 Spironolactone [Aldactone] 25 mg PO .EVERY OTHER DAY 08/10/17 09/27/17 Acetaminophen 1,000 mg PO 09/05/17 Nystatin 1 applic TOP DAILY 09/27/17 09/27/17 - Allergies Allergies/Adverse Reactions: Allergies Allergy/AdvReac Type Severity Reaction Status Date / Time No Known Drug Allergies Allergy Verified 07/13/17 00:48 - Social History Does the pt smoke?: No Smoking Status: Never smoker Does the pt drink ETOH?: Yes Does the pt have substance abuse?: No - Family History Family history: reports: Non contributory - Immunizations Immunizations are current?: Yes - POLST Patient has POLST: Yes POLST Status: DNR PD ED PE NORMAL - Vitals Vital signs reviewed: Yes - General General: Alert and oriented X 3, No acute distress, Well developed/nourished - HEENT HEENT: Ears normal, Moist mucous membranes, Pharynx benign - Neck Neck: Supple, no meningeal sign, No adenopathy, No JVD, No bruit - Cardiac Cardiac: RRR, No murmur - Respiratory Respiratory: Clear bilaterally - Abdomen Abdomen: Normal bowel sounds, Soft, Non tender, Non distended - Male Male : Deferred - Rectal Rectal: Deferred - Back Back: No CVA TTP - Derm Derm: Normal color, Warm and dry, No rash - Extremities Extremities: No tenderness to palpate, Normal ROM s pain, No calf tenderness / cord, Other (1+ edema in both legs) - Neuro Neuro: Alert and oriented X 3 (seems slightly sleepy, but opens eyes to verbal.) , Normal speech, Other (left facial droop) Eye Opening: To Voice Motor: Obeys Commands Verbal: Oriented GCS Score: 14 - Psych Psych: Normal mood, Normal affect NIHSS - Level of Consciousness Level of consciousness: (1) Not alert, but arousable by minor stimulation to obey, or answer LOC Questions: (0) Answers both Q's correct LOC Commands: (0) Performs both correctly - Gaze Best Gaze: (0) Normal - Visual Visual: (0) No loss - Facial Palsy Facial Palsy: (1) Minor paralysis - Motor Arms (both separate) Motor Arm (right): (0) No drift Motor Arm (left): (0) No drift - Motor Legs (both separate) Motor Leg (right): (0) No drift Motor Leg (left): (0) No drift - Limb Ataxia Limb Ataxia: (1) Present in 1 limb - Sensory Sensory: (0) Normal - Best Language Best Language: (0) No aphasia - Dysarthria Dysarthria: (0) Normal - Extinction and Inattention (formally neg Extinction and inattention: (0) No abnormality (just seems sleepy) - Total Score/Results Total Score/Result: 3 Results - Vitals Vitals: Vital Signs - 24 hr 10/25/17 10/25/17 10/25/17 09:32 10:04 10:05 Temperature 36.9 C 36.9 C Heart Rate 80 80 78 Respiratory 18 18 20 Rate Blood Pressure 128/75 128/75 126/77 O2 Saturation 90 L 90 L 93 10/25/17 10/25/17 10/25/17 10:15 10:30 11:00 Temperature Heart Rate 79 79 79 Respiratory 20 20 20 Rate Blood Pressure 129/80 122/81 H 134/98 H O2 Saturation 94 95 96 10/25/17 10/25/17 10/25/17 12:13 12:28 12:30 Temperature Heart Rate 78 79 79 Respiratory 20 20 20 Rate Blood Pressure 146/92 H 145/89 H 132/107 H O2 Saturation 96 95 95 10/25/17 10/25/17 12:43 12:46 Temperature Heart Rate 79 79 Respiratory 24 22 Rate Blood Pressure 144/100 H 141/93 H O2 Saturation 97 97 Oxygen O2 Source [With Activity] Room air O2 Source Nasal cannula Oxygen Flow Rate 3 - Labs Labs: Laboratory Tests 10/25/17 10/25/17 10/25/17 09:40 09:40 09:40 WBC 7.6 RBC 3.65 L Hgb 11.7 L Hct 35.4 L MCV 97.0 H MCH 32.0 H MCHC 32.9 RDW 15.3 H Plt Count 194 MPV 6.7 L Neut # (Auto) 4.9 Lymph # (Auto) 1.8 [place] # (Auto) 0.7 Eos # (Auto) 0.2 Baso # (Auto) 0.1 Absolute Nucleated RBC 0.00 Nucleated RBC % 0.0 Sodium 133 L Potassium 5.0 Chloride 101 Carbon Dioxide 23 Anion Gap 9.0 BUN 35 H Creatinine 1.3 H Estimated GFR (MDRD) 53 L Glucose 194 H Calcium 8.9 Magnesium 1.8 Total Bilirubin 1.5 H AST 26 ALT 17 Alkaline Phosphatase 72 Troponin I B-Natriuretic Peptide 901 H Total Protein 7.9 Albumin 4.1 Globulin 3.8 Albumin/Globulin Ratio 1.1 Lipase 24 10/25/17 09:46 WBC RBC Hgb Hct MCV MCH MCHC RDW Plt Count MPV Neut # (Auto) Lymph # (Auto) [place] # (Auto) Eos # (Auto) Baso # (Auto) Absolute Nucleated RBC Nucleated RBC % Sodium Potassium Chloride Carbon Dioxide Anion Gap BUN Creatinine Estimated GFR (MDRD) Glucose Calcium Magnesium Total Bilirubin AST ALT Alkaline Phosphatase Troponin I 0.04 B-Natriuretic Peptide Total Protein Albumin Globulin Albumin/Globulin Ratio Lipase - Rads (name of study) head CT Radiology: Prelim report reviewed, Discussed with rads (no acute findings) brain angio Radiology: Prelim report reviewed, Discussed with rads (M1 occlusion causeing MCA region hypoperfusion c/w CVA. ) PD MEDICAL DECISION MAKING - ED course Complexity details: reviewed results (brain angio showing MCA occlusion at M1 level. Neurology did consult Telestroke with patient/son as we were mixing Alteplase. Consent given for the TPA and Neurology accepts transfer to [facility]. ), re-evaluated patient, considered differential (initial symptoms are facial droop with mild ataxia left arm and not full hemiparesis. He was also sleepy. So not clearly acute CVA. Talked with Neurology, who said holding TPA makes sense and to get CT-A brain. ), d/w patient - Sepsis Event Vital Signs: Vital Signs - 24 hr 10/25/17 10/25/17 10/25/17 09:32 10:04 10:05 Temperature 36.9 C 36.9 C Heart Rate 80 80 78 Respiratory 18 18 20 Rate Blood Pressure 128/75 128/75 126/77 O2 Saturation 90 L 90 L 93 10/25/17 10/25/17 10/25/17 10:15 10:30 11:00 Temperature Heart Rate 79 79 79 Respiratory 20 20 20 Rate Blood Pressure 129/80 122/81 H 134/98 H O2 Saturation 94 95 96 10/25/17 10/25/17 10/25/17 12:13 12:28 12:30 Temperature Heart Rate 78 79 79 Respiratory 20 20 20 Rate Blood Pressure 146/92 H 145/89 H 132/107 H O2 Saturation 96 95 95 10/25/17 10/25/17 12:43 12:46 Temperature Heart Rate 79 79 Respiratory 24 22 Rate Blood Pressure 144/100 H 141/93 H O2 Saturation 97 97 Oxygen O2 Source [With Activity] Room air O2 Source Nasal cannula Oxygen Flow Rate 3 Departure - Departure Disposition: 02 Transfer Acute Care Hosp Clinical Impression: Facial weakness, Acute CVA (cerebrovascular accident) Altered mental state Qualifiers: Altered mental status type: stupor Qualified Code(s): R40.1 - Stupor Condition: Stable Record reviewed to determine appropriate education?: Yes Discharge Date/Time: 10/25/17 13:07
[2017-10-25] MEDS ORDERED: SODIUM CHLORIDE 0.9% 1,000 ML IV ONE (09:46)
[2017-10-25 09:53] LABS: BASOPHILS # (AUTO) 0.1 10^3/uL (0.0-0.1); BASOPHILS % (AUTO) 0.8 %; EOSINOPHILS # (AUTO) 0.2 10^3/uL (0.0-0.7); EOSINOPHILS % (AUTO) 3.1 %; HGB - HEMOGLOBIN 11.7 g/dL (14.0-18.0); LYMPHOCYTES # (AUTO) 1.8 10^3/uL (1.5-3.5); LYMPHOCYTES % (AUTO) 23.3 %; MEAN CORPUSCULAR HGB CONC 32.9 g/dL (32.0-36.0); MEAN PLATELET VOLUME 6.7 fL (7.4-11.4); MONOCYTES # (AUTO) 0.7 10^3/uL (0.0-1.0); MONOCYTES % (AUTO) 8.6 %; NEUTROPHILS # (AUTO) 4.9 10^3/uL (1.5-6.6); NEUTROPHILS % (AUTO) 64.2 %; PLT - PLATELET COUNT 194 10^3/uL (130-450); RED BLOOD COUNT 3.65 10^6/uL (4.70-6.10); RED CELL DISTRIBUTION WIDTH 15.3 % (12.0-15.0); WHITE BLOOD COUNT 7.6 x10^3/uL (4.8-10.8)
[2017-10-25 10:00] LABS: ALBUMIN 4.1 g/dL (3.2-5.5); ALBUMIN/GLOBULIN RATIO 1.1 (1.0-2.2); BILIRUBIN,TOTAL 1.5 mg/dL (0.2-1.0); CALCIUM 8.9 mg/dL (8.5-10.3); CREATININE 1.3 mg/dL (0.6-1.2); MAGNESIUM 1.8 mg/dL (1.7-2.8); TOTAL PROTEIN 7.9 g/dL (6.7-8.2)
--- NOTE | 2017-10-25 10:06 | CT Report ---
Procedure Date: 10/25/2017 Accession Number: [id number] / [id number] Procedure: CT - Head W/O Stroke Protocol CPT Code: FULL RESULT: EXAM: CT HEAD EXAM DATE: 10/25/2017 09:51 AM. CLINICAL HISTORY: CVA. COMPARISON: None. TECHNIQUE: Multiaxial CT images were obtained from the foramen magnum to the vertex. Reformats: Coronal. IV contrast: None. In accordance with CT protocol optimization, one or more of the following dose reduction techniques were utilized for this exam: automated exposure control, adjustment of mA and/or KV based on patient size, or use of iterative reconstructive technique. FINDINGS: Parenchyma: No intraparenchymal hemorrhage. No evidence of mass, midline shift, or CT findings of acute infarction. Zapata-white differentiation is distinct. Mild chronic microangiopathic white matter changes are evident. Extraaxial Spaces: Normal for age. No subdural or epidural collections identified. Ventricles: The ventricles and cortical sulci are mildly enlarged, consistent with age-related tissue loss. Sinuses and orbits: Moderate left maxillary sinus soft tissue thickening redemonstrated. Otherwise, the paranasal sinuses, orbits, and mastoids show no significant abnormality. Bones: No evidence of fracture or calvarial defect. Degenerative disease of the visualized upper cervical spine. Other: None. IMPRESSION: Generalized age-related cortical atrophic changes without evidence of acute intracranial abnormality. RADIA The above findings were discussed with ED Physician by Dr. Fran Mcneil at 10:05 hrs on 10/25/17.
[2017-10-25] MEDS ORDERED: IOPAMIDOL-300 100 ML VIAL ONE (10:39)
[2017-10-25] MEDS ORDERED: ALTEPLASE 100 MG in WATER FOR INJECTION,STERILE 100 ML IV STA (11:54)
--- NOTE | 2017-10-25 11:54 | CT Report ---
Procedure Date: 10/25/2017 Accession Number: [id number] / [id number] Procedure: CT - Head Angio CPT Code: FULL RESULT: EXAM: CT ANGIOGRAM HEAD. CT SCAN OF THE HEAD WITHOUT AND WITH CONTRAST. EXAM DATE: 10/25/2017 11:02 AM CLINICAL HISTORY: Facial droop and confused this morning. COMPARISON: None. TECHNIQUE: - CT Scan Head: Using a multidetector scanner, axial images were acquired from the foramen magnum to the skull vertex following contrast administration. - CT Angiogram: Using a multidetector scanner, high-resolution axial images were acquired from the skull base through vertex following rapid infusion of intravenous contrast. Reformats: Multiplanar MIP reformats were reconstructed. Nascet criteria used for stenosis measurement. IV Contrast: Isovue-300 [address] mL. In accordance with CT protocol optimization, one or more of the following dose reduction techniques were utilized for this exam: automated exposure control, adjustment of mA and/or KV based on patient size, or use of iterative reconstructive technique. FINDINGS: CT HEAD: No enhancing mass is identified in the brain parenchyma. CT ANGIOGRAM HEAD: There is occlusion involving the distal M1 segment of the right MCA. On the CTA, there is minimal reconstitution of distal right MCA branches. On the delayed postcontrast head CT, there are prominent vessels in the sylvian fissure on the right felt to reflect luxury perfusion and collateral flow from the distal M1 segment occlusion of the right MCA. No filling defect or high-grade stenosis is seen in the M1 segment of the left MCA or in the basilar trunk. The posterior cerebral arteries and the anterior cerebral arteries are patent. A posterior communicating artery is seen on the left. There is an anterior communicating artery present. Mild narrowing is seen involving the cavernous ICA bilaterally and on the right the paraclinoid ICA due to atherosclerotic plaque. Other: No mass is present in the nasopharynx. Mucosal thickening is present in the maxillary sinuses bilaterally, greater on the left relative to the right. A small effusion is seen in inferior mastoid air cells bilaterally. IMPRESSION: CT Head: 1. No enhancing mass is present. 2. No intracranial hemorrhage CTA Head: 1. 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 2. Mild narrowing is seen in the cavernous ICA bilaterally. On the right, this extends into the paraclinoid ICA. 3. No saccular aneurysm is identified. Report phoned to the ordering physician at 11:39 AM. [email or web address]
[2017-10-25] MEDS ORDERED: ALTEPLASE 81 MG in WATER FOR INJECTION,STERILE 100 ML IV STA (12:08)
[2017-10-25] MEDS ORDERED: ALTEPLASE 81 MG in WATER FOR INJECTION,STERILE 81 ML IV STA (12:13)
[2017-10-25] MEDS ORDERED: IOPAMIDOL-300 100 ML VIAL IVP ONE (12:30)
[2017-10-25 12:47] VITALS: BP 141/93
[2017-10-25] MEDS ORDERED: ALTEPLASE 100 MG VIAL IVP ONE (13:00)
== END 2017-10-25 13:07 | disposition short-term general hospital (02) ==
LOC: EDUNIT# → ED 09:31
DX: I63.9 Cerebral infarction, unspecified (principal); R29.810 Facial weakness; R40.1 Stupor; I66.01 Occlusion and stenosis of right middle cerebral artery; I10 Essential (primary) hypertension; E11.9 Type 2 diabetes mellitus without complications; Z95.0 Presence of cardiac pacemaker; Z79.4 Long term (current) use of insulin
CPT/HCPCS: 36415; 70450; 70496; 80053; 83690; 83735; 83880; 84484; 85025; 93005; 96361; 96365; 96376; 99285; J2997; Q9967

== ENCOUNTER 2017-11-06 11:15 | Outpatient (CLI) | payer MEDICARE ==
--- NOTE | 2017-11-06 20:28 | CONSULTATION NOTE ---
Palliative Care Follow Up - Referral Referring Provider: Dr. Da Rahman Time of Visit: [id number] Referral setting: Shelter Facility (patient discharge to) Referral Reason: CVA/Heart failure/colon cancer - Information Sources Records reviewed: Previous records reviewed History/Review of Systems obtained from: Patient Exam limitations: Clinical condition (patient with some STM issues; slower cognitive observed as well as patient's report) - History of Present Illness Update Brief HPI Update: This is an 87-year-old gentleman with multiple comorbidities, who has continued to have progressive functional and cognitive decline. He most acutely was admitted to [facility] 10/25 through 11/01 for an acute right MCA infarct, had received TPA with clinical improvement. Patient does have history of atrial flutter, etiology was thought to be cardioembolism with a concern for hypocoagulability state his underlying colon cancer. He reports no residual left -sided weakness, but decreased ability to ambulate overall, and some mild cognitive slowing. He is also on a dysphagia diet, which he dislikes secondary to concern regarding swallowing. He was admitted on 11/01 to [facility], for rehab services with goal to improve functional status and independence to return to assisted living at [facility]. Patient does have CHF, it was found his LVEF was 30-35% which had worsened since last evaluated. Patient's aortic stenosis was found to be worsening from moderate to severe. This is thought to have contributed to his worsening CHF Patient has had intermittent shortness of breath and edema, titrating Lasix and Spironolactone previous to admit trying to find a balance with his kidney function. He has not been discharged on his baseline Spironolactone which was at 25 mg every other day, and had a significant increase in his furosemide now at 20 mg twice daily, it had been recently increased from every other day to 20 mg daily. Patient's weight prior to [facility] admit had been sitting around 219, his weight today is 209. He does have significant improvement in his lower extremity edema, he does have fluctuating intermittent shortness of breath, but am concerned regarding his renal status and history. Will order BMP. Patient also has known adenocarcinoma of the transverse colon, had been in a "watch and see", given patient's above significant comorbidities his surgical risk outweighed the benefit. Patient's original colonoscopy and diagnosis was back in 08/2016, his most significant symptom has been just iron deficiency anemia. The decision of been to focus on quality, recognizing he would have progressive disease, but it was unclear how quickly are problematic this will be. He is being followed by oncology with survellience and iron treatments as needed. 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 It was biopsied 11/2016 at that time was negative for malignancy Palliative care is been following on a regular basis given patient's mostly homebound status, complex history, and expected ongoing decline. Patient's goals have been to remain as independent as long as possible, he had been hoping to return home, unfortunately with his decline in functional status most likely will need to stay at assisted living on discharge. He presents with moderate symptom burden today right-sided acute on chronic pain, fatigue, mild depression, and fluctuating dyspnea. Social History - Living Situation Living arrangement: Assisted living Living Situation: Alone (patient at [facility]; had been exploring transitioning home; [facility] at Memory care unit across from [facility]; daughter Liz assists with patient appts./son Nico supportive [facility]) Medications/Allergies - Medications Home Medications: Ambulatory Orders Medication Instructions Recorded Confirmed Levothyroxine Sodium 150 mcg PO QDAC 02/17/17 11/06/17 Furosemide [Lasix] 20 mg PO BID 06/08/17 11/06/17 Acetaminophen [Tylenol] 650 mg PO TID 07/23/17 09/05/17 Insulin Glargine [Lantus Solostar] 10 unit SQ QDBREAKFAST 07/23/17 11/06/17 Fluticasone [Flonase] 1 spray INH BID 07/24/17 09/27/17 Nystatin 1 applic TOP DAILY MDD groin raash 09/27/17 11/06/17 Aspirin [Adult Aspirin] 81 mg PO DAILY 11/06/17 11/06/17 Atorvastatin [Lipitor] 10 mg PO DAILY 11/06/17 11/06/17 Metoprolol Succinate 25 mg PO DAILY 11/06/17 11/06/17 Multivitamin [Multiple Vitamins] 1 tab PO DAILY 11/06/17 11/06/17 Polyvinyl Alcohol [Artificial 1 drops EACHEYE BID 11/06/17 11/06/17 Tears] Senna [Senokot] 8.6 mg PO DAILY PRN 11/06/17 11/06/17 - Allergies Allergies/Adverse Reactions: Allergies Allergy/AdvReac Type Severity Reaction Status Date / Time No Known Drug Allergies Allergy Verified 07/13/17 00:48 Review of Systems - Constitutional Constitutional: reports: Fatigue, Weakness, Weight loss (11/04 209.8) - Eyes Eyes: reports: Vision loss, Other (reports double vision; right eye blurry; tired and closes eyes often; reports dry eyes bothersome) - Ears, Nose & Throat Ears, Nose & Throat: reports: Hearing loss (mils), Nasal congestion, Dry mouth - Cardiovascular Cardiovascular: reports: Irregular heart rate, Edema, Exertional dyspnea, Decr. exercise tolerance - Respiratory Respiratory: reports: SOB at rest (intermittent), SOB with exertion - Gastrointestinal Gastrointestinal: reports: Constipation (had supp yesterday; more problems recently; pattern usually explosive every few days;), Good appetite. denies: Nausea, Reflux/heartburn - Genitourinary Genitourinary: reports: Frequency, Incontinence - Musculoskeletal Musculoskeletal: reports: Muscle aches, Stiffness, Limited range of motion, Muscle weakness, Transfer issues (mostly wheelchair bound; working on ambulation ) - Integumentary Integumentary: reports: Rash (groin candidiasis), Dryness - Neurological Neurological: reports: General weakness (denies any left side weakness), Headache (c/o right side head and neckpain radiates down right shoulder; into hand and elbow numbness; worsened since stroke), Memory problems (feels some cognitive changes; denies confusion; just feels "slow"), Slurred speech - Psychiatric Psychiatric: reports: Depression, Anxiety - Endocrine Endocrine: reports: Diabetes type 2 (BS running high for patient but trending down 11/03 222; 11/04 205; 11/05 190; 11/06 163) - Hematologic/Lymphatic Hematologic/Lymphatic: reports: Anemia (10/29 hgb 11.5; hct 34.5), Bruising - All Other Systems All Other Systems: reports: Reviewed and negative Physical Exam - Vital Signs Temperature: 97.2 C Pulse Rate: 96 Respiratory Rate: 18 O2 Saturation: 97 (ra @ rest) Blood Pressure: 92/64 - Physical Exam General Appearance: positive: No acute distress, Alert Eyes Bilateral: positive: Other (slightly reddened conjunctivae; tends to close eyes through visit but did make eye contact in conversation) ENT: positive: Dry mucous membranes Neck: positive: No JVD, Trachea midline, Stiff neck (bent forward posture; effort to straighten up; drift to right side) Cardiovascular: positive: Irregularly irregular, Systolic murmur Respiratory: positive: Other (decreased LLL; clear) Abdomen: positive: Non-tender, Soft, Nml bowel sounds, Distended, Taut. negative: Tenderness, Mass Skin: positive: Pallor, Dryness Extremities: positive: Pedal edema (less than baseline; right greater than left) , Other (needing assistance for transfers;) Neurologic/Psychiatric: positive: Mood/affect nml, Disoriented to time, Facial droop (left sided) Palliative Care - POLST Patient has POLST: Yes POLST Status: DNR, Selective Treatment Pain: Location (reports increase right sided pain; would like to try scheduled APAP does think it helps; feels may make it more comfortable for PT) Tiredness/Fatigue: Severe (7-10) Drowsiness/Sedation: Moderate (4-6) Nausea: None Depression: Mild (1-3) Anxiety: Mild (1-3) Dyspnea: Moderate (4-6) (fluctuating; intermittent) Anorexia: None Sleep: Variable sleep pattern Constipation: Intermittent constipation Feelings of wellbeing/Perceived Quality of Life: Fair, Acceptable, Worsening Performance Status: Patient prior to acute hospitalization, had been working with home health physical therapy and making some progress with endurance, ambulation with walker , was able to ambulate to meals. He was receiving home health aide services as bathing was more difficult for him, but is able to self dress.New baseline appears patient has done some ambulation with therapies, he is mostly wheelchair -bound at this point, needing some assistance with transfers and bed mobility. Is reporting some activity intolerance and fatigue. - Palliative Care Discussion: Patient is feeling somewhat discouraged, though remains somewhat pragmatic in his approach, reports "what am I supposed to do" just need to "go with it". He was quite disappointed as he was moving towards perhaps transitioning home, is somewhat resigned that he will need to continue with assisted living most likely long-term. His daughter's goals are at the point patient chooses are transitions to hospice, to consider returning back to his home setting. When asked what patient understood regarding his current status, he has very little insight into the seriousness of his illness as well as his decline. Is hoping for some improvement, though with his complex history and multiple comorbidities , aware and precarious position. Results - Lab Results Lab results reviewed: Yes Lab and Imaging Results: 10/29 Ceat 1.32; BUN 39; K 4.3 Impression and Recommendations - Palliative Care Impression: This is an 86-year-old gentleman with a complex history, now admitted for rehab post acute R MCA infarct, and continued difficulty with acute on chronic heart failure. He has known renal Insufficiency, diabetes type 2, chronic iron deficiency anemia attributed to his adenocarcinoma of the transverse colon, and now with functional and mild cognitive decline. He remains quite fragile, his goals have been to focus on quality of life, hoping to return to some level of independence and return to [facility] to be closer to support his with dementia. Palliative care has been providing ongoing support and symptom management, will continue to follow until appropriate to transition to hospice. Recommendations/Counseling Done: 1. Acute on chronic heart failure. Patient has had multiple medication adjustments, from his baseline. Patient has had significant CKD, will add BMP to labs for tomorrow. Patient previously was on Spironolactone 25 mg every other day, he has also had a significant increase in his furosemide from 20 mg daily recently up from every other day dosing , to twice daily. Patient with known most likely event in the last few months, as well as worsening aortic stenosis, is to follow-up with cardiology. Is being monitored by SNF medical team, will defer but will confer regarding previous issues. 2. Acute on chronic right-sided pain. Patient does have residual right head pain, this is been more persistent since his stroke, also has chronic shoulder issues, this has exacerbated with his recent hospitalization. Patient with forgetfulness, does find acetaminophen helpful. Agreed to trial 650 mg 3 times a day for a week to see if there is improvement, also to increase comfort to be able to participate in therapies. 3. Dry eyes. Patient having intermittent vision issues, reports he is much more comfortable with his eyes closed. Will go ahead and order eyedrops twice a day. 4. Constipation. Patient does have irregular bowel patterns, but is prone to constipation. Patient forgets to ask for bowel meds, at home uses intermittent senna. Will have them offer him senna daily as he did have to have a suppository. 5. Diabetes type 2. His blood sugars are drifting down, previously they have been running around 130-140. 6. Generalized weakness. Patient had been making progress at home with home health on functional ambulation on improving endurance. He has benefited from bathing assistance twice a week and his assisted living situation. Patient's goal is to return back to previous level of functioning, he does appear though much more frail. 7. Adenocarcinoma of the transverse colon. He is due to follow-up with oncology next month, his CBC previously had been stable. 8. Advanced care planning. Patient does have a [address] in place, remains quite fragile has multiple poor prognostic indicators, will continue to follow and transition to hospice as appropriate. Time Spent: 60 minutes was given 50% of this done in counseling and adjustment of treatment plan for symptom management and coordination of care with clinical staff, will follow up on labs tomorrow and coordinate with Dr. White/Cece KELLY.
== END 2017-11-06 11:16 | disposition home or self-care (01) ==
LOC: PC 11:15
PROVIDERS: ATTEND Nurse Practitioner Adult Health
DX: Z51.5 Encounter for palliative care (principal); I50.9 Heart failure, unspecified; E11.22 Type 2 diabetes mellitus with diabetic chronic kidney disease; N18.9 Chronic kidney disease, unspecified; G89.29 Other chronic pain; R51 Headache; M25.511 Pain in right shoulder; H57.8 Other specified disorders of eye and adnexa; K59.00 Constipation, unspecified; R53.1 Weakness; I48.92 Unspecified atrial flutter; I69.311 Memory deficit following cerebral infarction; I69.398 Other sequelae of cerebral infarction; I69.328 Other speech and language deficits following cerebral infarction; R47.81 Slurred speech; I35.0 Nonrheumatic aortic (valve) stenosis; C18.4 Malignant neoplasm of transverse colon; D50.9 Iron deficiency anemia, unspecified; D63.0 Anemia in neoplastic disease; F32.9 Major depressive disorder, single episode, unspecified; Z79.4 Long term (current) use of insulin; Z99.3 Dependence on wheelchair; Z79.899 Other long term (current) drug therapy; Z66 Do not resuscitate
CPT/HCPCS: 99310

== ENCOUNTER 2017-11-07 11:00 | Outpatient (CLI) | payer MEDICARE ==
[2017-11-07 16:43] LABS: CALCIUM 8.8 mg/dL (8.5-10.3); CREATININE 1.3 mg/dL (0.6-1.2)
[2017-11-07 17:24] LABS: BASOPHILS # (AUTO) 0.1 10^3/uL (0.0-0.1); EOSINOPHILS # (AUTO) 0.3 10^3/uL (0.0-0.7); EOSINOPHILS % (AUTO) 2.9 %; HGB - HEMOGLOBIN 12.1 g/dL (14.0-18.0); LYMPHOCYTES # (AUTO) 1.9 10^3/uL (1.5-3.5); MEAN CORPUSCULAR HEMOGLOBIN 31.9 pg (27.0-31.0); MEAN CORPUSCULAR HGB CONC 32.7 g/dL (32.0-36.0); MEAN CORPUSCULAR VOLUME 97.5 fL (80.0-94.0); MONOCYTES # (AUTO) 0.6 10^3/uL (0.0-1.0); MONOCYTES % (AUTO) 5.5 %; NEUTROPHILS # (AUTO) 8.7 10^3/uL (1.5-6.6); NEUTROPHILS % (AUTO) 74.6 %; RED BLOOD COUNT 3.81 10^6/uL (4.70-6.10); RED CELL DISTRIBUTION WIDTH 14.4 % (12.0-15.0); WHITE BLOOD COUNT 11.7 x10^3/uL (4.8-10.8)
[2017-11-07 17:25] LABS: PLATELET ESTIMATE, MANUAL NORMAL (130-450,000) (NORMAL); PLATELET MORPHOLOGY PLATELET CLUMPING (NORMAL)
== END 2017-11-07 11:01 | disposition home or self-care (01) ==
LOC: LAB.R 11:00
DX: I50.9 Heart failure, unspecified (principal); E03.9 Hypothyroidism, unspecified; I48.91 Unspecified atrial fibrillation
CPT/HCPCS: 80048; 85025

== ENCOUNTER 2017-11-14 09:00 | Outpatient (CLI) | payer MEDICARE ==
--- NOTE | 2017-11-14 11:11 | CONSULTATION NOTE ---
Palliative Care Follow Up - Referral Referring Provider: Dr. Da Rahman Time of Visit: 2101-1709 Referral setting: [facility] Facility Referral Reason: CHF/CVA/Adeno CA of Transverse Colon - Information Sources Records reviewed: RN notes reviewed, Previous records reviewed History/Review of Systems obtained from: Patient Exam limitations: Clinical condition (mild STM issues with recall) - History of Present Illness Update Brief HPI Update: This is an 87-year-old gentleman with multiple comorbidities, who has continued to have progressive functional and cognitive decline. He most acutely was admitted to [facility] 10/25 through 11/01 for an acute right MCA infarct, had received TPA with clinical improvement. Patient does have history of atrial flutter, etiology was thought to be cardioembolism with a concern for hypocoagulability state his underlying colon cancer. He reports no residual left -sided weakness, but decreased ability to ambulate overall, and some mild cognitive slowing. He is also on a dysphagia diet, which he dislikes secondary to concern regarding swallowing. He was admitted on 11/01 to [facility], for rehab services with goal to improve functional status and independence to return to assisted living at [facility]. He has made some improvements as far as his ability to ambulate, has some increased activity tolerance but overall fatigues quite easily. He is still not quite steady as far as pivots and turns, he is unable to assist himself totally with dressing yet, but is making progress. Patient will need to be independent in his new setting of assisted living, my biggest worry is that he will fall in trying to do things beyond his current capabilities, and needs more time to gather strength and endurance. He reports he is at about 60% of his baseline prior to the stroke. Balance continues to be a significant concern for him. Patient does have CHF, it was found his LVEF was 30-35% which had worsened since last evaluated. Patient's aortic stenosis was found to be worsening from moderate to severe. This is thought to have contributed to his worsening CHF. Currently his weight is remaining stable at about 212, his edema is much improved, his blood pressures do remain somewhat on the low side but denies dizziness. Will recheck his labs at end of week, as it is difficult for him to leave this setting at [facility] for appointments Patient also has known adenocarcinoma of the transverse colon, had been in a "watch and see", given patient's above significant comorbidities his surgical risk outweighed the benefit. Patient's original colonoscopy and diagnosis was back in 08/2016, his most significant symptom has been just iron deficiency anemia. The decision of been to focus on quality, recognizing he would have progressive disease, but it was unclear how quickly are problematic this will be. He is being followed by oncology with survellience and iron treatments as needed. 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 It was biopsied 11/2016 at that time was negative for malignancy Social History - Living Situation Living arrangement: Assisted living Living Situation: Alone Support System: His daughter Anuj and son Nico providing support, they discovered patient is no longer able to manage his finances. Daughter reports that obviously is been problematic for a while, when they were going to his checkbook and information found that there are several things that need to be addressed. Patient's Lula is in the dementia unit, this is across from his that assisted living facility, he reports she continues to have quite a bit of fluctuation but continues to recognize him. Medications/Allergies - Medications Home Medications: Ambulatory Orders Medication Instructions Recorded Confirmed Levothyroxine Sodium 150 mcg PO QDAC 02/17/17 11/14/17 Furosemide [Lasix] 20 mg PO BID 06/08/17 11/14/17 Acetaminophen [Tylenol] 650 mg PO TID 07/23/17 11/14/17 Insulin Glargine [Lantus Solostar] 10 unit SQ QDBREAKFAST 07/23/17 11/14/17 Fluticasone [Flonase] 1 spray INH BID 07/24/17 11/14/17 Aspirin [Adult Aspirin] 81 mg PO DAILY 11/06/17 11/14/17 Atorvastatin [Lipitor] 10 mg PO DAILY 11/06/17 11/14/17 Metoprolol Succinate 25 mg PO DAILY 11/06/17 11/14/17 Multivitamin [Multiple Vitamins] 1 tab PO DAILY 11/06/17 11/14/17 Senna [Senokot] 8.6 mg PO DAILY PRN 11/06/17 11/14/17 Lisinopril 5 mg PO DAILY 11/14/17 11/14/17 Polyvinyl Alcohol [Artificial 1 drops EACHEYE BID 11/14/17 11/14/17 Tears] - Allergies Allergies/Adverse Reactions: Allergies Allergy/AdvReac Type Severity Reaction Status Date / Time No Known Drug Allergies Allergy Verified 07/13/17 00:48 Review of Systems - Constitutional Constitutional: reports: Fatigue, Weight stable (212). denies: Fever, Chills - Eyes Eyes: reports: Vision loss (right eye "more tired"), Corrective lenses (needs new RX per patient; has 5 sets at bedside) - Ears, Nose & Throat Ears, Nose & Throat: reports: Hearing loss (mild), Nasal congestion (controlled with flonase), Dry mouth - Cardiovascular Cardiovascular: reports: Irregular heart rate, Edema (improved), Decr. exercise tolerance - Respiratory Respiratory: reports: SOB at rest (fluctuates), SOB with exertion. denies: Cough - Gastrointestinal Gastrointestinal: reports: Good appetite (still on modified diet; reports no choking). denies: Constipation, Nausea - Genitourinary Genitourinary: reports: Frequency, Incontinence (some dribbling) - Musculoskeletal Musculoskeletal: reports: Muscle aches, Stiffness, Limited range of motion (r > l shoulders), Muscle weakness, Assistive devices (using walker; needing supervision), Transfer issues (up in wheelchair) - Integumentary Integumentary: reports: Rash (groin candidiasis "working on it") - Neurological Neurological: reports: General weakness, Headache (right sided discomfort/ numbness better controlled with APAP) - Psychiatric Psychiatric: reports: Anxiety (related to transition back to new setting) - Endocrine Endocrine: reports: Diabetes type 2 (BS in better range FBS 136 today), Hypothyroidism - Hematologic/Lymphatic Hematologic/Lymphatic: reports: Anemia (followed by Dr. Navarro) - All Other Systems All Other Systems: reports: Reviewed and negative Physical Exam - Vital Signs Temperature: 97.1 C Pulse Rate: 70 Respiratory Rate: 18 O2 Saturation: 90 (ra @ rest) Blood Pressure: 102/64 - Physical Exam General Appearance: positive: No acute distress, Alert Eyes Bilateral: positive: Normal inspection ENT: positive: No signs of dehydration, Dry mucous membranes Neck: positive: No JVD, Trachea midline, Stiff neck (more pronounce extension; sitting with head down more so since stroke; getting some pressure on cervical nerves with increased numbness) Cardiovascular: positive: Irregular, Diastolic murmur Respiratory: positive: Diminished in bases. negative: Wheezes, Rales, Rhonchi Abdomen: positive: Soft, Nml bowel sounds, Distended, Obese Skin: positive: Pallor, Dryness, Rash (groin not observed), Other (venous stasis no open areas; dryness and skin integrity improved) Extremities: positive: Pedal edema (pitting but much improved; less than has been in past) Neurologic/Psychiatric: positive: Oriented x3, Mood/affect nml, Weakness, Other (patient reports some slowness from baseline; denies confusion) Palliative Care - POLST Patient has POLST: Yes POLST Status: DNR, Selective Treatment Pain: Pain improved, Location (right sided in head traveling down neck/shoulder ; improved with scheduled APAP) Tiredness/Fatigue: Moderate (4-6) Drowsiness/Sedation: Moderate (4-6) Nausea: None Depression: Mild (1-3) Anxiety: Moderate (4-6) Dyspnea: Moderate (4-6) (fluctuating) Anorexia: None Sleep: Sleeps well Constipation: Intermittent constipation (currently controlled on the senna) Feelings of wellbeing/Perceived Quality of Life: Fair, Acceptable, Improved Performance Status: Patient still needs supervised assist for ambulation, contact assist for transfers and assist for lower extremity dressing. He will need to continue to have ongoing support for bathing, will reinitiate home health services on discharge. Patient is able to self-feed. - Palliative Care Discussion: Patient is hoping to improve enough to return back to [facility], aware needs to be fairly independent though they will do some assistance. Encouraged patient to stay as long as possible in the assisted, to improve his underlying functional status in hopes to make a successful transition. Patient continues to be fairly pragmatic, is pleasantly surprised he has made it this far, does have limited insight into the seriousness of his illness and discussed my concern about his ability to return back to previous level of functioning. He is going to give it his best try though. Results - Lab Results Lab results reviewed: Yes Impression and Recommendations - Palliative Care Impression: This is an 86-year-old gentleman with a complex history, now admitted for rehab post acute right MCA infarct, and continued difficulty with acute on chronic heart failure. He remains quite fragile, his goals have been to focus on quality of life, is hoping to return back to improved level of independence from him his current status, with the hopes to be successful and transitioning back to assisted living. Palliative care is provided ongoing support and symptom management, will continue to follow until appropriate to transition to hospice Recommendations/Counseling Done: 1. Acute on chronic heart failure. Patient has had multiple medication adjustments, his weight is remaining stable at 212. He has not had any increase in his lower extremity edema, his most recent labs were within baseline. Given though the fragility of the situation, will have them redrawn at the end of week. Patient's blood pressures have been drifting downward, may need to adjust furosemide dosing. 2. Acute on chronic right-sided pain. Trial of acetaminophen 650 mg 3 times a day is working, patient would like to continue. 3. Constipation. Patient is having regular bowel movements, they are offering the senna on a regular basis. 4. Diabetes type 2. His blood pressures are within normal range, will leave him on his current dosing. 5. General weakness. Patient still is open to home health physical therapy and home health aide services, will resume on discharge. There is a pending evaluation, patient continues with balance issues, activity intolerance related to his underlying comorbidities, will continue to benefit from ongoing daily physical therapy and OT for as long as possible. Patient still has diet limitations, he is having some improvement, may also benefit from some cognitive support, patient does report some changes in his underlying mentation as well as changes in his balance. 6. Adenocarcinoma of the transverse colon. He is due for oncology follow-up next week, his CBC has been stable. 7. Advanced care planning patient has a GHANSHY[address] ST in place, remains quite fragile , has multiple poor prognostic indicators, will continue follow and transition to hospice as appropriate. Patient's goals are to regain independence, improve his underlying functional status, and be able to visit his on a regular basis. Time Spent: Time spent 45 minutes with greater than 50% of this done in counseling regarding goals of care, pain and symptom management, and anticipatory guidance
== END 2017-11-14 09:01 | disposition home or self-care (01) ==
LOC: PC 09:00
PROVIDERS: ATTEND Nurse Practitioner Adult Health
DX: Z51.5 Encounter for palliative care (principal); I50.9 Heart failure, unspecified; G89.29 Other chronic pain; R51 Headache; M54.2 Cervicalgia; M25.511 Pain in right shoulder; K59.00 Constipation, unspecified; E11.9 Type 2 diabetes mellitus without complications; R53.1 Weakness; C18.4 Malignant neoplasm of transverse colon; D63.0 Anemia in neoplastic disease; D50.9 Iron deficiency anemia, unspecified; I69.311 Memory deficit following cerebral infarction; I69.398 Other sequelae of cerebral infarction; R26.89 Other abnormalities of gait and mobility; I48.92 Unspecified atrial flutter; I35.0 Nonrheumatic aortic (valve) stenosis; Z91.81 History of falling; Z79.4 Long term (current) use of insulin; Z79.899 Other long term (current) drug therapy; Z66 Do not resuscitate
CPT/HCPCS: 99310

== ENCOUNTER 2017-11-19 08:00 | Outpatient (CLI) | payer MEDICARE, OTHER ==
[2017-11-19 13:35] LABS: BASOPHILS # (AUTO) 0.1 10^3/uL (0.0-0.1); BASOPHILS % (AUTO) 0.7 %; EOSINOPHILS # (AUTO) 0.2 10^3/uL (0.0-0.7); EOSINOPHILS % (AUTO) 3.1 %; HGB - HEMOGLOBIN 11.9 g/dL (14.0-18.0); LYMPHOCYTES # (AUTO) 1.6 10^3/uL (1.5-3.5); LYMPHOCYTES % (AUTO) 20.7 %; MEAN CORPUSCULAR HEMOGLOBIN 31.3 pg (27.0-31.0); MEAN CORPUSCULAR HGB CONC 32.9 g/dL (32.0-36.0); MEAN CORPUSCULAR VOLUME 95.3 fL (80.0-94.0); MEAN PLATELET VOLUME 7.3 fL (7.4-11.4); MONOCYTES # (AUTO) 0.7 10^3/uL (0.0-1.0); MONOCYTES % (AUTO) 8.6 %; NEUTROPHILS # (AUTO) 5.2 10^3/uL (1.5-6.6); NEUTROPHILS % (AUTO) 66.9 %; PLT - PLATELET COUNT 247 10^3/uL (130-450); RED BLOOD COUNT 3.81 10^6/uL (4.70-6.10); RED CELL DISTRIBUTION WIDTH 13.9 % (12.0-15.0); WHITE BLOOD COUNT 7.7 x10^3/uL (4.8-10.8)
[2017-11-19 13:46] LABS: ALBUMIN 3.6 g/dL (3.2-5.5); BILIRUBIN,TOTAL 1.6 mg/dL (0.2-1.0); CALCIUM 8.7 mg/dL (8.5-10.3); CREATININE 1.4 mg/dL (0.6-1.2); TOTAL PROTEIN 7.2 g/dL (6.7-8.2)
== END 2017-11-19 08:01 | disposition home or self-care (01) ==
LOC: LAB.R 08:00
DX: I10 Essential (primary) hypertension (principal); I50.9 Heart failure, unspecified; D64.9 Anemia, unspecified
CPT/HCPCS: 80053; 83880; 85025

== ENCOUNTER 2017-11-20 11:40 | Outpatient (CLI) | payer MEDICARE ==
--- NOTE | 2017-11-20 18:59 | CONSULTATION NOTE ---
Palliative Care Follow Up - Referral Referring Provider: Dr. Da Rahman Time of Visit: 9161-9324 Referral setting: Group Home Facility Referral Reason: CHF/Colon CA/Goals of Care - Information Sources Records reviewed: RN notes reviewed, Previous records reviewed History/Review of Systems obtained from: Patient Exam limitations: No limitations - History of Present Illness Update Brief HPI Update: This is an 87-year-old gentleman with multiple comorbidities, who has is currently at [facility] for rehab. He most acutely was admitted to [facility] 10/25 through 11/01 for an acute right MCA infarct, had received TPA with clinical improvement. Patient does have history of atrial flutter, etiology was thought to be cardioembolism with a concern for hypercoagulable state with his underlying colon cancer. He reports no residual left-sided weakness, but decreased ability to ambulate overall but has shown some improvement but not back to baseline over this last week, and some mild cognitive slowing with some improvement but delayed and slow responses. He is also on a mechanical soft diet, his taste changes are improving, and he is being trialed on thin liquids. He was admitted on 11/01 to [facility], for rehab services with goal to improve functional status and independence to return to assisted living at [facility]. He has made some improvements but still remains dependent for assistance for safety and related to activity tolerance. Patient does have CHF, it was found his LVEF was 30-35% which had worsened since last evaluated. Patient's aortic stenosis was found to be worsening from moderate to severe. This is thought to have contributed to his worsening CHF. Currently his weight is remaining stable at about 209-212, his edema is much improved, his blood pressures have been acceptable. He continues with renal insuffieciency but not worsening with increase in diuretics last labs show potassium at 3.6; BUN 28; Creat 1.4; GFR 48. Patient also has known adenocarcinoma of the transverse colon, had been in a "watch and see", given patient's above significant comorbidities his surgical risk outweighed the benefit. Patient's original colonoscopy and diagnosis was back in 08/2016, his most significant symptom has been just iron deficiency anemia. The decision of been to focus on quality, recognizing he would have progressive disease, but it was unclear how quickly are problematic this will be. He is being followed by oncology with survellience and iron treatments as needed. 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 It was biopsied 11/2016 at that time was negative for malignancy. He is due for follow up with the oncologist 12/03. 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) Medications/Allergies - Medications Home Medications: Ambulatory Orders Medication Instructions Recorded Confirmed Levothyroxine Sodium 150 mcg PO QDAC 02/17/17 11/14/17 Furosemide [Lasix] 20 mg PO BID 06/08/17 11/14/17 Acetaminophen [Tylenol] 650 mg PO TID 07/23/17 11/14/17 Insulin Glargine [Lantus Solostar] 10 unit SQ QDBREAKFAST 07/23/17 11/14/17 Fluticasone [Flonase] 1 spray INH BID 07/24/17 11/14/17 Aspirin [Adult Aspirin] 81 mg PO DAILY 11/06/17 11/14/17 Atorvastatin [Lipitor] 10 mg PO DAILY 11/06/17 11/14/17 Metoprolol Succinate 25 mg PO DAILY 11/06/17 11/14/17 Multivitamin [Multiple Vitamins] 1 tab PO DAILY 11/06/17 11/14/17 Senna [Senokot] 8.6 mg PO DAILY PRN 11/06/17 11/14/17 Lisinopril 5 mg PO DAILY 11/14/17 11/14/17 Polyvinyl Alcohol [Artificial 1 drops EACHEYE BID 11/14/17 11/14/17 Tears] - Allergies Allergies/Adverse Reactions: Allergies Allergy/AdvReac Type Severity Reaction Status Date / Time No Known Drug Allergies Allergy Verified 07/13/17 00:48 Review of Systems - Constitutional Constitutional: reports: Fatigue, Weight loss (209). denies: Fever - Eyes Eyes: reports: Vision loss (c/o right change in vision; more bluriness) - Ears, Nose & Throat Ears, Nose & Throat: reports: Hearing loss (mild) - Cardiovascular Cardiovascular: reports: Decr. exercise tolerance. denies: Chest pain, Edema - Respiratory Respiratory: reports: SOB with exertion. denies: SOB at rest (improved) - Gastrointestinal Gastrointestinal: reports: Abdominal distention, Constipation (intermittent), Good appetite. denies: Nausea, Reflux/heartburn - Genitourinary Genitourinary: reports: Frequency. denies: Incontinence - Musculoskeletal Musculoskeletal: reports: Stiffness, Muscle weakness, Joint pain (right shoulder , recalls injury with transfer last week; improving some but still sore to touch and with ROM;), Assistive devices (walking with 4WW) - Integumentary Integumentary: reports: Dryness, Other (LE venous stasis) - Neurological Neurological: reports: General weakness, Memory problems (A & O but still slow in response: some word finding) - Psychiatric Psychiatric: denies: Depression, Anxiety - Endocrine Endocrine: reports: Diabetes type 2 (numbers in good range) - Hematologic/Lymphatic Hematologic/Lymphatic: denies: Recurrent infections - All Other Systems All Other Systems: reports: Reviewed and negative Physical Exam - Vital Signs Temperature: 96.6 C Pulse Rate: 60 Respiratory Rate: 18 O2 Saturation: 95 (rra @ rest) Blood Pressure: 102/62 - Physical Exam General Appearance: positive: No acute distress Eyes Bilateral: positive: Normal inspection ENT: positive: No signs of dehydration Neck: positive: Trachea midline, Stiff neck (continues with hyperextension and tendency to keep chin down on chest) Cardiovascular: positive: Irregular, Diastolic murmur Respiratory: positive: Breath sounds nml Abdomen: positive: Non-tender, Soft, Nml bowel sounds, Distended Skin: positive: Pallor, Dryness, Other (venous stasis without any redness or s/ s skin breaks) Extremities: positive: Pedal edema (doughy LE up to mid calf left > right; remains improved) Neurologic/Psychiatric: positive: Oriented x3, Weakness, Flat affect, Other ( slow response time; some STM issues with word finding; not confused) Palliative Care - POLST Patient has POLST: Yes POLST Status: DNR, Selective Treatment Pain: Pain unchanged, Location (right shoulder tenderness and discomfort; now reports as result of transfer injury-improving;) Tiredness/Fatigue: Moderate (4-6) Drowsiness/Sedation: Mild (1-3) Nausea: None Depression: None Anxiety: Mild (1-3) Dyspnea: Mild (1-3) Anorexia: Mild (1-3) (on med pass 90 mls BID) Sleep: Variable sleep pattern (related to environment) Constipation: Intermittent constipation (patient with poorly regulated bowels; worried about incontinence unwilling to follow prescribed bowel program; will take laxative if problems) Feelings of wellbeing/Perceived Quality of Life: Fair, Acceptable, Worsening Performance Status: Patient is limited by his fatigue and activity intolerance, he does have some balance issues and is needing assistance with transfers. He is making some progress, but is not back to baseline and will need increased assistance at the assisted living facility. He still has a week for which he is hoping to build some endurance, improve his independence, but does recognize he does have some limitations at this point in time. - Palliative Care Discussion: Patient was reflecting on his recent loss of 2 close friends, putting into perspective given his current advanced age and multiple health problems. Counseling provided regarding disease trajectory, patient most likely not to return to baseline, his goal is been hope to return home, but discuss the realities with his increased care needs and what his family could provide given his fragile status. He does have some insight into the fragility of his situation, and the seriousness of his illness. His short-term goals are to get strong enough and in gain some independence to return back to [facility], we will have him transition to home health PT and bathing assist. He does recognize he will not be able to bathe independently most likely ever again. We did discuss my concerns and worries about his ongoing functional decline, and the continuum of care including hospice. He did say "hospice is a welcome word", Counseling provided regarding the hospice benefit and services provided. We did discuss that in the weeks ahead, there may be an appropriate transition point for this, and he is in agreement. I had explored this in a previous conversation with his daughter, particularly in a bigger picture plan. If patients remain at [facility], and does have functional decline and further deterioration of his health this would be an appropriate option as far as meeting their goals to keep him comfortable and in his current setting at [facility]. There has been some hope of having hospice at [facility] in his own home, but most likely would not have support needed to see this through. Palliative care will continue to follow and provide support for transitions as appropriate. Results - Lab Results Lab results reviewed: Yes Lab and Imaging Results: BNP improved at 434 7/; Hct 36.3; hgb 11.9; wbc 7.7 Impression and Recommendations - Palliative Care Impression: This is an 86-year-old gentleman with complex history, currently in post acute rehab for right MCA infarct, making some progress but remains quite fragile. His short-term goals are to be turned to some level of independence, and transitioning back to [facility], he does understand the seriousness of his condition. Palliative care is providing ongoing support and symptom management , will follow until appropriate transition to hospice. Recommendations/Counseling Done: 1. Acute on chronic heart failure. Patient's current medication adjustments do appear to be managing his heart failure currently, his weight is slightly down at 209, he does have some lower extremity edema, but his dyspnea and breathlessness have improved. 2. Constipation. Patient is having regular bowel movements, it does fluctuate as far as regularity, he does remain resistant to any kind of regular regimen. 3. Diabetes type 2. His blood sugars are in acceptable range. 4. Generalized weakness. Patient will have another week, hopefully will make further progress, and decrease his fall risk. He does have slow mentation, he does have a wheelchair currently is using his own. Does have issues of activity intolerance related to his underlying comorbidities. He has been progressed on his diet. He will resume home health physical therapy and home health aide services on discharge. 5. Adenocarcinoma of the transverse colon. There has been some concern about his abdominal discomfort and constipation, he reports he is back to baseline without any acute symptoms. He is due for oncology follow-up on 86. 6 6. Advanced care planning. Patient does have a [address] in place, long discussion today regarding goals of care, transition points, including the continuum of hospice. Patient goals remain fairly realistic, did introduce transition in the next few weeks to hospice depending on how he does [facility] and with home health services. This conversation is been had with his daughter as well. Have discussed patient with medical community health nursing director, would except when patient's goals align with hospice. Time Spent: 60 minutes with greater than 50% of this done in counseling regarding goals of care, symptom management, and processing of grief and loss issues as well as coordination of care with staff
== END 2017-11-20 11:41 | disposition home or self-care (01) ==
LOC: PC 11:40
PROVIDERS: ATTEND Nurse Practitioner Adult Health
DX: Z51.5 Encounter for palliative care (principal); I50.9 Heart failure, unspecified; E11.9 Type 2 diabetes mellitus without complications; M62.81 Muscle weakness (generalized); C18.4 Malignant neoplasm of transverse colon; I48.92 Unspecified atrial flutter; I35.0 Nonrheumatic aortic (valve) stenosis; Z79.4 Long term (current) use of insulin; Z66 Do not resuscitate
CPT/HCPCS: 99310

== ENCOUNTER 2017-11-30 12:45 | Outpatient (CLI) | payer MEDICARE ==
--- NOTE | 2017-11-30 21:29 | CONSULTATION NOTE ---
Palliative Care Follow Up - Referral Referring Provider: Dr. Da Rahman Time of Visit: [id number] Referral setting: Home Referral Reason: CHF/Colon CA/Post stroke - Information Sources Records reviewed: Previous records reviewed History/Review of Systems obtained from: Patient Exam limitations: No limitations - History of Present Illness Update Brief HPI Update: This is an 87-year-old gentleman who has just returned to [facility], after a stay at the [facility] facility from 11/01 to 11/29. He had been hospitalized at [facility] 10/25 through 11/01 for an acute right MCA infarct for which he received TPA with clinical improvement. He was also found to have diminished ejection fraction 30-35% compared to an ejection fraction of 55% in 2017. With the suspicion of interval ischemic event. He has been stabilized on his recent regimen on hospital discharge. He was also found to have progressive severe aortic stenosis which previously had been moderate when studied in 11/2016. Patient has a known mediastinal mass/adenopathy with a biopsy in 2017 that was negative for malignancy, and has known adenocarcinoma of the transverse colon, for which at this point in time is not receiving treatment. As a result of his stroke, he was having increased dysphagia, seen by speech therapy and progressed to regular diet though with aspiration precautions. Has not shown significant residual left-sided weakness, but has had some functional decline, now is mostly wheelchair bound versus ambulatory with his front wheeled walker. He has returned to [facility] with increased oversight, to be calling for assistance, and does remain at high fall risk. Patient with all his multiple comorbidities, continues to have some mild improvement with his functional status though not back to baseline, he continues to hope to be able to remain independent as possible, the patient's situation is complex and status fragile, with expected continues concern for ongoing decline in the future. Social History - Living Situation Living arrangement: Assisted living Living Situation: Alone Support System: Patient has just returned to [facility], he does have an increased level of care, he is supposed to be calling for assistance for any kind of transfers or toileting. His daughter Anuj Deal oversees his medical care and advocates for him as patient is easily overwhelmed. [place] , provides transportation and support as well. His Lula is at [facility] in the dementia unit. Medications/Allergies - Medications Home Medications: Ambulatory Orders Medication Instructions Recorded Confirmed Levothyroxine Sodium 150 mcg PO QDAC 02/17/17 12/02/17 Insulin Glargine [Lantus Solostar] 10 unit SUBQ DAILY 07/23/17 12/02/17 Fluticasone [Flonase] 1 spray INH QPM 07/24/17 12/02/17 Aspirin [Adult Aspirin] 81 mg PO DAILY 11/06/17 12/01/17 Acetaminophen 1,000 mg PO QPM 12/02/17 12/02/17 Acetaminophen 500 mg PO Q4H PRN 12/02/17 12/02/17 Acetaminophen 650 mg PO TID PRN 12/02/17 Aspirin 81 mg PO DAILY 12/02/17 12/02/17 Atorvastatin Calcium 10 mg PO DAILY 12/02/17 12/02/17 Furosemide 20 mg PO 0800,1200 12/02/17 12/02/17 Levalbuterol HCl 3 ml INH QID 12/02/17 Lisinopril 5 mg PO DAILY 12/02/17 12/02/17 Melatonin 3 mg PO QPM 12/02/17 Metoprolol Succinate 25 mg PO DAILY 12/02/17 12/02/17 Multivitamin [Theragran] 1 tab PO DAILY 12/02/17 12/02/17 Nystatin [Nystop] 1 applic TOP QPM 12/02/17 12/02/17 Oxycodone HCl/Acetaminophen 1 tab PO Q4H PRN 12/02/17 [Oxycodone-Acetaminophen 5-325] Sennosides [Senna] 8.6 mg PO DAILY PRN 12/02/17 12/02/17 Spironolactone 25 mg PO DAILY 12/02/17 - Allergies Allergies/Adverse Reactions: Allergies Allergy/AdvReac Type Severity Reaction Status Date / Time No Known Drug Allergies Allergy Verified 07/13/17 00:48 Review of Systems - Constitutional Constitutional: reports: Fatigue, Weight loss (210). denies: Fever, Chills - Eyes Eyes: reports: Vision loss (right eye still problematic from baseline) - Ears, Nose & Throat Ears, Nose & Throat: reports: Hearing loss (mild; new for patient), Nasal congestion (allergies; improved request decrease flonase), Dry mouth - Cardiovascular Cardiovascular: reports: Edema (improved), Exertional dyspnea, Decr. exercise tolerance. denies: Chest pain - Respiratory Respiratory: reports: SOB with exertion. denies: Cough, Wheezing, SOB at rest - Gastrointestinal Gastrointestinal: reports: Diarrhea (intermittent; no predictable bowel pattern ; frustrating to patient; no new), Good appetite. denies: Nausea, Reflux/ heartburn - Genitourinary Genitourinary: reports: Frequency, Other (increase distress now that needs assistance to void; hoping to get cleared soon) - Musculoskeletal Musculoskeletal: reports: Stiffness, Muscle weakness, Joint pain (right shoulder ), Transfer issues (using wheelchair mostly now; has walker and would like to be cleared to use it independently) - Integumentary Integumentary: reports: Dryness, Other (venous stasis) - Neurological Neurological: reports: Headache (right side of head with pressure/discomfort not acute), Memory problems (STM; has improved some since hospitalization; but notices some decline) - Psychiatric Psychiatric: reports: Anxiety. denies: Depression - Endocrine Endocrine: reports: Diabetes type 2 (FBS this am 132), Hyperthyroidism - Hematologic/Lymphatic Hematologic/Lymphatic: reports: Anemia (due to see Dr. Navarro) - All Other Systems All Other Systems: reports: Reviewed and negative Physical Exam - Vital Signs Temperature: 96.7 C Pulse Rate: 58 Respiratory Rate: 18 O2 Saturation: 98 (ra @ rest) Blood Pressure: 98/54 - Physical Exam General Appearance: positive: No acute distress Eyes Bilateral: positive: Normal inspection ENT: positive: No signs of dehydration Neck: positive: No JVD, Trachea midline, Other (still has forward positioning of neck; tends to look down) Cardiovascular: positive: Regular rate & rhythm Respiratory: positive: Diminished in bases. negative: Wheezes, Rales, Rhonchi Abdomen: positive: Non-tender, Soft, Nml bowel sounds, Distended Skin: positive: Pallor, Other (venous stasis; skin dry no open areas; declined examination of groin rash-will have [employer] report back to me; he feels it has improved) Extremities: positive: Pedal edema (less than previous baseline 1+ up to mid calf) Neurologic/Psychiatric: positive: Oriented x3, Mood/affect nml, Weakness, Flat affect Palliative Care - POLST Patient has POLST: Yes POLST Status: DNR, Selective Treatment Pain: Pain improved, Location (right shoulder chronic; right side of head-dull ache since stroke has improved) Tiredness/Fatigue: Moderate (4-6) Drowsiness/Sedation: Mild (1-3) Nausea: None Depression: None Anxiety: Mild (1-3) Dyspnea: None Anorexia: Mild (1-3) Sleep: Sleeps well (glad to be home in own bed) Constipation: No, Comment (irregular bowel pattern every 1-2 days; "unpredicatable" and usually loose) Feelings of wellbeing/Perceived Quality of Life: Fair, Improved Performance Status: Patient is able to get from sit to stand with contact assist, ambulate short distances though is not encouraged to without supervision. Does report increased fatigue. Is excepting bathing assistance, is still able to assist with dressing. Does spend most of his time sitting in his wheelchair since he has been back from [facility]. Can eat independently, has not come back on a modified diet though is aware of aspiration precautions - Palliative Care Discussion: Patient remains fairly pragmatic about his current situation, he is quite disappointed as he had been working on a goal to return home. Patient does seem to have limited insight into the seriousness of his illness, though he does understand that he is on "borrowed time". He is happy to be back into his own living situation and is hoping to increase his independence. He does understand at this point in time, it would not be practical for him to return home. He is looking forward to working with home health which is to start on Sunday Impression and Recommendations - Palliative Care Impression: This is an 87-year-old gentleman who has had a recent acute hospitalization with stroke, worsening cardiac status, and decreased functional abilities. He had a post acute stay at [facility], with improvement in is functional status and almost back to cognitive baseline though admits to "slowing". Patient remains quite frail, is hoping to be able to regain some independence, and is transition back to assisted living. Palliative care to continue to provide support and coordination of care, until patient transitions to hospice. Recommendations/Counseling Done: 1 CHF. Patient med reconciliation was followed up with assisted living facility. Requested daily weights. Patient is due to see Dr. Fitgzerald on Sunday, will receive labs at that point in time, will follow up on kidney function. There is a pending cardiology appointment, currently patient's edema is well controlled. 2. Generalized weakness. Patient has made some recovery back to functional baseline, is to start home health physical therapy/occupational therapy/speech therapy and his new setting. He will also receive support from home health aide for bathing. Patient is a high fall risk, reports he is being compliant with calling for assistance though he finds this quite frustrating. Will follow up with home health staff regarding threshold to allow patient to be more independent. 3. Right shoulder pain. Patient does report this is improved somewhat, will decrease his acetaminophen from 3 times daily to bedtime only and as needed. Patient in agreement with this plan. 4. Adenocarcinoma the colon. Patient currently not a surgical candidate, unknown prognosis related to this. It is to see Dr. Navarro Sunday. Is receiving iron transfusions as appropriate, and monitoring for progressive disease. 5. Diabetes type 2. His blood sugars are in acceptable range. 6. Advanced care planning. Patient does have a [address] in place. Plan has been to see how he does in transition with home health, may be a candidate for hospice in the future. This is been a conversation with his daughter as well. We will continue to monitor patient's ongoing complex situation, when goals of patient christianne with hospice will make transition. Time Spent: 45 minutes with greater than 50% of this done in counseling coordination of care with [facility] staff, medication reconciliation, and anticipatory guidance. Scripts written for [facility] for daughter to sheepskin pickler this weekend.
== END 2017-11-30 12:46 | disposition home or self-care (01) ==
LOC: PC 12:45
PROVIDERS: ATTEND Nurse Practitioner Adult Health
DX: Z51.5 Encounter for palliative care (principal); I50.9 Heart failure, unspecified; M62.81 Muscle weakness (generalized); M25.511 Pain in right shoulder; C18.9 Malignant neoplasm of colon, unspecified; E11.9 Type 2 diabetes mellitus without complications; I63.511 Cerebral infarction due to unspecified occlusion or stenosis of right middle cerebral artery; R13.10 Dysphagia, unspecified; Z79.4 Long term (current) use of insulin; Z79.82 Long term (current) use of aspirin; Z66 Do not resuscitate; R51 Headache
CPT/HCPCS: 99349

== ENCOUNTER 2017-12-02 09:38 | Outpatient (CLI) | payer MEDICARE | END 2017-12-02 09:39 | disposition critical access hospital (66) | LOC: EMS 09:38 | PROVIDERS: ATTEND Surgery | DX: R46.4 Slowness and poor responsiveness (principal); R53.1 Weakness; R50.9 Fever, unspecified; R11.0 Nausea; R09.89 Other specified symptoms and signs involving the circulatory and respiratory systems | CPT/HCPCS: A0425; A0427 ==

== ENCOUNTER 2017-12-02 09:56 | Inpatient (IN) | payer MEDICARE ==
--- NOTE | 2017-12-02 10:08 | ED Physician Documentation ---
History of Present Illness - Stated complaint Stated Complaint: LETHARGIC - Additonal information Additional information: hx from pt 87 male hx PPM a fib CHF pleural effusion among others recently dc from [facility] found this AM altered hypotensive hypoxic and febrile pt lethargic but able to speak and denies any pain - no GIMENEZ neck pain AP abd pain per EMS his BP was 80 and he was frankly cyanotic receive about 750 ML NS and O2 via NRB en route and is doing better POLSt states DNR limited EMR indicates PMHx a fibm HTN CKD [id number] CHF, AV stenosis recent CVA and HTN I can see that he saw Sally Schultz palliative care consult yesterday but note not available yet - family states palliative not hospice recent heme onc note is helpful as well - pt has colon cancer and resultant anemia but has not yet had surgery, echo = EF 57%, his pleural effusion and mediastinal mass are felt not to be malignant Review of Systems Constitutional: reports: Fever, Fatigue Ears: denies: Ear pain Throat: denies: Sore throat Cardiac: denies: Chest pain / pressure Respiratory: reports: Dyspnea. denies: Cough GI: denies: Abdominal Pain, Nausea, Vomiting, Diarrhea Skin: denies: Rash Neurologic: reports: Altered mental status. denies: Headache Immunocompromised: denies: Immunocompromised PD PAST MEDICAL HISTORY - Past Medical History Cardiovascular: Hypertension, High cholesterol, Atrial fibrillation, Valve disorder, Other Respiratory: Pneumonia, Shortness of breath Endocrine/Autoimmune: Type 2 diabetes, HyPOthyroidism GI: Colon polyps, Chronic diarrhea, Cholelithiasis, Other : Benign prostate hypertrophy, Renal insuffiency HEENT: None Psych: Depression Musculoskeletal: Osteoarthritis Derm: Other - Past Surgical History Past Surgical History: Yes General: Cholecystectomy, Gastric surgery, Colonoscopy Ortho: Hip replacement, Rotator cuff repair, Shoulder arthroplasty, Carpal Tunnel surgery, Other Cardiovascular: Pacemaker HEENT: Other Derm: Skin cancer surgery - Present Medications Home Medications: Ambulatory Orders Medication Instructions Recorded Confirmed Levothyroxine Sodium 150 mcg PO QDAC 02/17/17 12/02/17 Insulin Glargine [Lantus Solostar] 10 unit SUBQ DAILY 07/23/17 12/02/17 Fluticasone [Flonase] 1 spray INH QPM 07/24/17 12/02/17 Aspirin [Adult Aspirin] 81 mg PO DAILY 11/06/17 12/01/17 Acetaminophen 1,000 mg PO QPM 12/02/17 12/02/17 Acetaminophen 500 mg PO Q4H PRN 12/02/17 12/02/17 Acetaminophen 650 mg PO TID PRN 12/02/17 Aspirin 81 mg PO DAILY 12/02/17 12/02/17 Atorvastatin Calcium 10 mg PO DAILY 12/02/17 12/02/17 Furosemide 20 mg PO 0800,1200 12/02/17 12/02/17 Levalbuterol HCl 3 ml INH QID 12/02/17 Lisinopril 5 mg PO DAILY 12/02/17 12/02/17 Melatonin 3 mg PO QPM 12/02/17 Metoprolol Succinate 25 mg PO DAILY 12/02/17 12/02/17 Multivitamin [Theragran] 1 tab PO DAILY 12/02/17 12/02/17 Nystatin [Nystop] 1 applic TOP QPM 12/02/17 12/02/17 Oxycodone HCl/Acetaminophen 1 tab PO Q4H PRN 12/02/17 [Oxycodone-Acetaminophen 5-325] Sennosides [Senna] 8.6 mg PO DAILY PRN 12/02/17 12/02/17 Spironolactone 25 mg PO DAILY 12/02/17 - Allergies Allergies/Adverse Reactions: Allergies Allergy/AdvReac Type Severity Reaction Status Date / Time No Known Drug Allergies Allergy Verified 07/13/17 00:48 - Social History Does the pt smoke?: No Smoking Status: Never smoker Does the pt drink ETOH?: Yes Does the pt have substance abuse?: No - Immunizations Immunizations are current?: Yes - POLST Patient has POLST: Yes POLST Status: DNR PD ED PE NORMAL - Vitals Vital signs reviewed: Yes - General General: No: Alert and oriented X 3 (lethargic, open eyes to touch, mumbles yes no answers) - HEENT HEENT: PERRL - Neck Neck: Supple, no meningeal sign - Cardiac Cardiac: RRR - Respiratory Respiratory: No respiratory distress, Other (dec maryjo) - Abdomen Abdomen: Soft, Non tender - Derm Derm: Other (warm to touch, cyanotic lips) - Extremities Extremities: No deformity, Other (+ maryjo marked symm edema) - Neuro Neuro: No: Alert and oriented X 3 (lethargic) - Psych Psych: No: Normal mood Results - Vitals Vitals: Vital Signs - 24 hr 12/02/17 12/02/17 10:09 11:01 Temperature 37.0 C Heart Rate 73 74 Respiratory 30 H 20 Rate Blood Pressure 100/56 L 102/63 O2 Saturation 98 99 Oxygen O2 Source [With Activity] Room air O2 Source Non-rebreather mask - EKG (time done) 1013 Other comments: Other comments (paced) - Labs Labs: Laboratory Tests 12/02/17 12/02/17 12/02/17 10:10 10:10 10:10 WBC 10.4 RBC 3.45 L Hgb 11.0 L Hct 31.8 L MCV 92.2 MCH 32.0 H MCHC 34.7 RDW 14.0 Plt Count 197 MPV 6.4 L Neut # (Auto) 9.3 H Lymph # (Auto) 0.6 L [place] # (Auto) 0.5 Eos # (Auto) 0.0 Baso # (Auto) 0.0 Absolute Nucleated RBC 0.00 Nucleated RBC % 0.0 Sodium 135 Potassium 3.7 Chloride 102 Carbon Dioxide 25 Anion Gap 8.0 BUN 24 H Creatinine 1.2 Estimated GFR (MDRD) 58 L Glucose 167 H Lactic Acid 0.9 Calcium 8.1 L Total Bilirubin 2.4 H AST 79 H ALT 40 Alkaline Phosphatase 97 Troponin I Total Protein 6.7 Albumin 3.1 L Globulin 3.6 Albumin/Globulin Ratio 0.9 L Lipase 19 L Urine Color Urine Clarity Urine pH Ur Specific [place]ruff Urine Protein Urine Glucose (UA) Urine Ketones Urine Occult Blood Urine Nitrite Urine Bilirubin Urine Urobilinogen Ur Leukocyte Esterase Urine RBC Urine WBC Urine WBC Clumps Ur Squamous Epith Cells Urine Bacteria Ur Microscopic Review Urine Culture Comments 12/02/17 12/02/17 10:10 11:20 WBC RBC Hgb Hct MCV MCH MCHC RDW Plt Count MPV Neut # (Auto) Lymph # (Auto) [place] # (Auto) Eos # (Auto) Baso # (Auto) Absolute Nucleated RBC Nucleated RBC % Sodium Potassium Chloride Carbon Dioxide Anion Gap BUN Creatinine Estimated GFR (MDRD) Glucose Lactic Acid Calcium Total Bilirubin AST ALT Alkaline Phosphatase Troponin I 0.20 Total Protein Albumin Globulin Albumin/Globulin Ratio Lipase Urine Color YELLOW Urine Clarity CLOUDY Urine pH 6.0 Ur Specific [place]ruff 1.015 Urine Protein NEGATIVE Urine Glucose (UA) NEGATIVE Urine Ketones NEGATIVE Urine Occult Blood SMALL H Urine Nitrite NEGATIVE Urine Bilirubin NEGATIVE Urine Urobilinogen 0.2 (NORMAL) Ur Leukocyte Esterase LARGE H Urine RBC 6-10 H Urine WBC >25 H Urine WBC Clumps PRESENT Ur Squamous Epith Cells RARE Squamous Urine Bacteria Many H Ur Microscopic Review INDICATED Urine Culture Comments INDICATED - Rads (name of study) CXR Radiology: See rad report (maryjo basilar oacities and effusions) PD MEDICAL DECISION MAKING - ED course ED course: per transfer paperwork DNR limited pt appears to have maryjo pna and is hypoxic also hypotensive but given CHF and pleural effusion cannot safely give 30 cc /kg his BP is up to 100 with 1 L started cefepime for HAP as pt was just recently dc from SNF will admit will try to reach Cristel Schultz to learn outcome of yesterday's palliative care meeting given hypotension and fever suspect sepsis though lactate is normal - as above pt cannot tolerate 30 cc/kg IVF urine eventually obtained and resulted and + too - cefepime should cover EKG paced obscuring any ischemia, given hypotension got trop which is neg elev bili not new and pt is s/p nubia and denies abd pain called hospitalist at 1125 - Sepsis Event Vital Signs: Vital Signs - 24 hr 12/02/17 12/02/17 10:09 11:01 Temperature 37.0 C Heart Rate 73 74 Respiratory 30 H 20 Rate Blood Pressure 100/56 L 102/63 O2 Saturation 98 99 Oxygen O2 Source [With Activity] Room air O2 Source Non-rebreather mask Departure - Departure Disposition: [facility] DC/Xfer Clinical Impression: Hypoxia Pneumonia Qualifiers: Pneumonia type: due to unspecified organism Laterality: bilateral Lung location : lower lobe of lung Qualified Code(s): J18.1 - Lobar pneumonia, unspecified organism Hypotension Qualifiers: Hypotension type: unspecified hypotension type Qualified Code(s): I95.9 - Hypotension, unspecified Sepsis Qualifiers: Sepsis type: sepsis due to unspecified organism Qualified Code(s): A41.9 - Sepsis, unspecified organism UTI (urinary tract infection) Qualifiers: Urinary tract infection type: site unspecified Hematuria presence: without hematuria Qualified Code(s): N39.0 - Urinary tract infection, site not specified Discharge Date/Time: 12/02/17 14:00
[2017-12-02 10:24] LABS: BASOPHILS % (AUTO) 0.1 %; LYMPHOCYTES # (AUTO) 0.6 10^3/uL (1.5-3.5); LYMPHOCYTES % (AUTO) 6.1 %; MEAN CORPUSCULAR HGB CONC 34.7 g/dL (32.0-36.0); MEAN CORPUSCULAR VOLUME 92.2 fL (80.0-94.0); MEAN PLATELET VOLUME 6.4 fL (7.4-11.4); MONOCYTES # (AUTO) 0.5 10^3/uL (0.0-1.0); MONOCYTES % (AUTO) 4.6 %; NEUTROPHILS # (AUTO) 9.3 10^3/uL (1.5-6.6); NEUTROPHILS % (AUTO) 89.2 %; PLT - PLATELET COUNT 197 10^3/uL (130-450); RED BLOOD COUNT 3.45 10^6/uL (4.70-6.10); WHITE BLOOD COUNT 10.4 x10^3/uL (4.8-10.8)
[2017-12-02 10:33] LABS: ALBUMIN 3.1 g/dL (3.2-5.5); ALBUMIN/GLOBULIN RATIO 0.9 (1.0-2.2); BILIRUBIN,TOTAL 2.4 mg/dL (0.2-1.0); CALCIUM 8.1 mg/dL (8.5-10.3); CREATININE 1.2 mg/dL (0.6-1.2); TOTAL PROTEIN 6.7 g/dL (6.7-8.2)
--- NOTE | 2017-12-02 11:08 | XRAY Report ---
Procedure Date: 12/02/2017 Accession Number: [id number] / [id number] Procedure: XR - Chest 2 View X-Ray CPT Code: 03890 FULL RESULT: EXAM: CHEST RADIOGRAPHY EXAM DATE: 12/02/2017 10:57 AM. CLINICAL HISTORY: Fever hypoxia hypotension. COMPARISON: 07/03/2017. 07/20/2017. TECHNIQUE: 2 views. FINDINGS: Lungs/Pleura: Vascular congestion. Dense left basilar opacity and lobular left midlung opacity. Bilateral pleural effusions, left greater than right. No pneumothorax. Mediastinum: Cardiomegaly. Mild aortic tortuosity. Other: Degenerative changes of the thoracic spine and both shoulders. Moderate anterior wedging of a lower thoracic/upper lumbar vertebral body again seen. IMPRESSION: 1. Cardiomegaly. Vascular congestion. 2. Left greater than right bibasilar opacities and pleural effusions. RADIA
[2017-12-02] MEDS ORDERED: CEFEPIME 2 GM in SODIUM CHLORIDE 0.9% MINIBAG 100 ML IV STA (11:17)
[2017-12-02 11:27] LABS: BILIRUBIN,URINE NEGATIVE (NEGATIVE); GLUCOSE, URINE (UA) NEGATIVE (NEGATIVE); KETONES,URINE (UA) NEGATIVE (NEGATIVE); LEUKOCYTE ESTERASE, URINE LARGE (NEGATIVE); NITRITE,URINE NEGATIVE (NEGATIVE); OCCULT BLOOD,URINE SMALL (NEGATIVE); PROTEIN,URINE NEGATIVE (NEGATIVE); UROBILINOGEN,URINE 0.2 (NORMAL) E.U./dL (NORMAL)
[2017-12-02 11:37] LABS: CLARITY,URINE CLOUDY (CLEAR)
[2017-12-02 11:39] LABS: BACTERIA,URINE Many /HPF (None Seen); SQUAMOUS EPITHELIAL CELL,UR RARE Squamous (<= Few); WBC CLUMPS,URINE PRESENT
[2017-12-02] MEDS ORDERED: SODIUM CHLORIDE FLUSH 0.9% 10 ML SYRINGE IVP PRN (11:44)
[2017-12-02] MEDS ORDERED: VANCOMYCIN PER PHARMACY 100 GM in SODIUM CHLORIDE 0.9% 250 ML IV SCH (13:00)
[2017-12-02] MEDS ORDERED: levoFLOXacin 500 MG/100 ML 500 MG/100 ML BAG IV SCH ×2 (14:00→16:00)
[2017-12-02] MEDS: VANCOMYCIN INJ 1 GM in SODIUM CHLORIDE 0.9% 250 ML IV SCH (14:33)
[2017-12-02] MEDS: D5.45NS W/20 MEQ KCL 1,000 ML IV SCH (14:33)
--- NOTE | 2017-12-02 15:29 | HISTORY & PHYSICAL EXAMINATION ---
Chief Complaint - Chief Complaint Chief Complaint: Shortness of breath History of Present Illness - Admitted From Admitted From:: [facility] - History Obtained From History obtained from: ED physician, patient's family Exam Limitations: Patient is unresponsive - History of Present Illness HPI Comment/Other: Mr. Lowell Deal is an 87 year old white male who has an extensive past medical history significant for inoperable colon cancer, congestive heart failure, diabetes mellitus, hypertension, and excision of a benign lung mass who came to [facility] 1-2 months ago where he was diagnosed with CVA. He was sent to [facility] where he was treated and then sent back to [facility] in [place] for rehab. He completed rehab at [facility] and went back to his home at [facility] but was only there for a day or 2 before he was sent here to the emergency department for shortness of breath. Upon presentation to the emergency department the patient was tachypneic with a respiratory rate in the 30s and oxygen saturation in the low 80s. Chest x-ray showed bilateral basilar opacities and pleural effusions, along with cardiomegaly and vascular congestion. Blood work from the patient have a leukocytes in the high normal range at 10.4 with mild anemia. The patient was placed on a nonrebreather at 15 L/min and his oxygen saturation came up to 100% . His respiratory rate remains elevated at 27. I had a long discussion with the patient's adult children, Anuj Claude, Nico Deal, and Anuj Ford. They relate that the mother has severe dementia, and their father's only goal was to outlive her. They also relate that have several discussions regarding end-of-life care and they believe that at this point in time they wish no heroic measures to be done. The patient does have a POLST form which is signed and marked at DO NOT RESUSCITATE. They are requesting that we give the patient IV antibiotics and fluids as needed and supplemental oxygen but are aware that he is gravely ill, and they are comfortable with this decision should he here in the hospital. History - Past Medical History Cardiovascular: reports: Hypertension, High cholesterol, Atrial fibrillation, Valve disorder, Other Respiratory: reports: Pneumonia, Shortness of breath Endocrine/Autoimmune: reports: Type 2 diabetes, HyPOthyroidism GI: reports: Colon polyps, Chronic diarrhea, Cholelithiasis, Other : reports: Benign prostate hypertrophy, Renal insuffiency HEENT: reports: None Psych: reports: Depression Musculoskeletal: reports: Osteoarthritis Derm: reports: Other MRSA Hx?: No - Past Surgical History General: reports: Cholecystectomy, Gastric surgery, Colonoscopy Ortho: reports: Hip replacement, Rotator cuff repair, Shoulder arthroplasty, Carpal Tunnel surgery, Other Cardiovascular: reports: Pacemaker HEENT: reports: Other Derm: reports: Skin cancer surgery - Family & Social History Family History: Mother: , Cancer, Father: , Diabetes, Type 2, Brother: , [place] Living arrangement: At home Living Situation: With spouse/s.o. - Substance History Use: Uses substance without health or social issues: Tobacco (distant history of smoking pipe), Alcohol (stopped drinking 06/2016) - POLST Patient has POLST: Yes POLST Status: DNR Meds/Allgy - Home Medications Home Medications: Ambulatory Orders Medication Instructions Recorded Confirmed Levothyroxine Sodium 150 mcg PO QDAC 02/17/17 12/02/17 Insulin Glargine [Lantus Solostar] 10 unit SUBQ DAILY 07/23/17 12/02/17 Fluticasone [Flonase] 1 spray INH QPM 07/24/17 12/02/17 Aspirin [Adult Aspirin] 81 mg PO DAILY 11/06/17 12/01/17 Acetaminophen 1,000 mg PO QPM 12/02/17 12/02/17 Acetaminophen 500 mg PO Q4H PRN 12/02/17 12/02/17 Acetaminophen 650 mg PO TID PRN 12/02/17 Aspirin 81 mg PO DAILY 12/02/17 12/02/17 Atorvastatin Calcium 10 mg PO DAILY 12/02/17 12/02/17 Furosemide 20 mg PO 0800,1200 12/02/17 12/02/17 Levalbuterol HCl 3 ml INH QID 12/02/17 Lisinopril 5 mg PO DAILY 12/02/17 12/02/17 Melatonin 3 mg PO QPM 12/02/17 Metoprolol Succinate 25 mg PO DAILY 12/02/17 12/02/17 Multivitamin [Theragran] 1 tab PO DAILY 12/02/17 12/02/17 Nystatin [Nystop] 1 applic TOP QPM 12/02/17 12/02/17 Oxycodone HCl/Acetaminophen 1 tab PO Q4H PRN 12/02/17 [Oxycodone-Acetaminophen 5-325] Sennosides [Senna] 8.6 mg PO DAILY PRN 12/02/17 12/02/17 Spironolactone 25 mg PO DAILY 12/02/17 - Allergies Allergies/Adverse Reactions: Allergies Allergy/AdvReac Type Severity Reaction Status Date / Time No Known Drug Allergies Allergy Verified 07/13/17 00:48 Review of Systems - Respiratory Respiratory: reports: SOB at rest, SOB with exertion (The patient is very minimally responsive and unable to participate in a review of systems at this time. He was brought from [facility] with respiratory distress.) Exam - Vital Signs Reviewed Vital Signs: Yes Vital Signs: Vital Signs x48h Temp Pulse Pulse Resp BP BP Pulse Ox 12/02/17 14:35 36.4 C L 66 24 129/69 100 12/02/17 12:30 75 25 H 108/68 100 12/02/17 11:57 71 27 H 111/75 100 - Physical Exam General Appearance: positive: No acute distress, Alert Eyes Bilateral: positive: Normal inspection, PERRL, EOMI, No lid inflammation, Conjunctivae nml, No scleral icterus ENT: positive: ENT inspection nml, Pharynx nml, No signs of dehydration Neck: positive: Nml inspection, Thyroid nml, No JVD, Trachea midline. negative : Thyromegaly Respiratory: positive: Chest non-tender, Rales, Rhonchi, Other (tachypneic, rate 27 bpm). negative: Wheezes Cardiovascular: positive: Regular rate & rhythm, No murmur, No gallop Peripheral Pulses: positive: 1+ Abdomen: positive: No organomegaly, No distention. negative: Hepatomegaly, Splenomegaly, Mass Back: positive: Nml inspection. negative: CVA tenderness (R), CVA tenderness (L ) Skin: positive: Color nml, No rash, Warm, Dry. negative: Cyanosis Extremities: positive: Non-tender, Nml appearance, No pedal edema. negative: Joint swelling Neurologic/Psychiatric: positive: Other (Unresponsive) Conclusion/Plan - Problem List (1) Pneumonia Conclusion/Plan: Patient came into the emergency department in severe respiratory distress/ failure. His oxygen saturation now is 100% but he is on a full rebreather mask at 15 L/min. Chest x-ray showed cardiomegaly, vascular congestion, and bilateral bibasilar opacities and pleural effusions. We are treating the patient with cefepime, vancomycin, and Levaquin for hospital-acquired pneumonia. I had a long discussion with the patient's adult children and made them aware that I have serious concerns that the patient may not survive this episode and they have elected for comfort measures and hospice care and supplemental oxygen as well as antibiotics. I will also treat the patient with morphine to relieve his air hunger and address any other comorbidities. Qualifiers: Pneumonia type: due to unspecified organism Laterality: bilateral Lung location: lower lobe of lung Qualified Code(s): J18.1 - Lobar pneumonia, unspecified organism (2) Colon adenocarcinoma Conclusion/Plan: The patient is colon cancer is considered to be inoperable but is nonobstructive. He has not been receiving chemotherapy or radiation for it. (3) Diabetes Conclusion/Plan: We will monitor the patient's blood sugars and correct them if they are too high or too low. At this time the patient is not able to take oral medications due to his altered mental status. As we are bringing the patient in for comfort /end-of-life care his blood sugars are not of any great concern unless they go below 50. Qualifiers: Diabetes mellitus type: type 2 (4) CVA (cerebral vascular accident) Conclusion/Plan: The patient had a CVA several weeks ago, which was to the right middle cerebral artery. He was treated at [facility] and then brought back to [facility] for rehab. There are no signs at this time of a second CVA. - Lab Results Lab results reviewed: Yes Fleipe Bones: 12/02/17 10:10 12/02/17 10:10 - EKG Results EKG Interpreted Independently: Yes Core Measures - Anticipated LOS I expect patient to be DC'd or transferred within 96 hours.: Yes - DVT/VTE - Prophylaxis VTE/DVT Device ordered at admit?: Yes
[2017-12-02] MEDS: SODIUM CHLORIDE FLUSH 0.9% 10 ML SYRINGE IVP SCH (16:49)
[2017-12-02] MEDS: MORPHINE 2 MG/ML SYRINGE IVP PRN ×2 (16:51→22:21)
[2017-12-02] MEDS: CEFEPIME 2 GM in SODIUM CHLORIDE 0.9% MINIBAG 100 ML IV SCH (20:12)
[2017-12-03] MEDS: SODIUM CHLORIDE FLUSH 0.9% 10 ML SYRINGE IVP SCH ×3 (01:52→15:59)
[2017-12-03] MEDS: VANCOMYCIN INJ 1 GM in SODIUM CHLORIDE 0.9% 250 ML IV SCH ×2 (02:02→14:32)
[2017-12-03] MEDS: CEFEPIME 2 GM in SODIUM CHLORIDE 0.9% MINIBAG 100 ML IV SCH ×3 (04:08→19:15)
[2017-12-03 08:55] LABS: MEAN CORPUSCULAR HGB CONC 34.2 g/dL (32.0-36.0); MEAN CORPUSCULAR VOLUME 93.5 fL (80.0-94.0); MEAN PLATELET VOLUME 6.6 fL (7.4-11.4); RED BLOOD COUNT 3.43 10^6/uL (4.70-6.10); RED CELL DISTRIBUTION WIDTH 14.4 % (12.0-15.0); WHITE BLOOD COUNT 8.1 x10^3/uL (4.8-10.8)
[2017-12-03 09:04] LABS: CREATININE 1.3 mg/dL (0.6-1.2)
[2017-12-03] MEDS: POLYETHYLENE GLYCOL 3350 17 GM PACKET PO SCH (09:14)
--- NOTE | 2017-12-03 12:10 | CONSULTATION NOTE ---
Palliative Care Follow Up - Referral Referring Provider: Flora Bowers DO Time of Visit: 0900-915; [id number] Referral setting: Hospitalized patient Referral Reason: pneumonia/chf/colon ca/goals of care - Information Sources Records reviewed: Previous records reviewed History/Review of Systems obtained from: Patient Exam limitations: Clinical condition (some STM deficits; does not recall events leading up to hospitalization) - History of Present Illness Update Brief HPI Update: This is an 87-year-old gentleman who was found by [facility] staff on 5 in the AM when checking for blood sugars, and to assist with toileting. Patient was significantly incontinent of urine, increased confusion, and found to be hypoxic and confused from baseline. They did call 911, patient was found to have pneumonia, also considered seriously ill and concern regarding patient's prognosis. I find patient today, having responded to the antibiotics, he is awake and alert, has no recall of the incident. He does report baseline breathlessness, but no distress. Patient has been on slow decline, he has multiple comorbidities including most recently hospitalized for right MCA infarct, with a follow-up stay at senior living facility. Patient also has CHF, with diminished ejection fraction of 30-35%, thought to have had some kind of interval ischemic event. He has a known mediastinal mass/adenopathy with a biopsy in 2017 that was negative for malignancy, and has known adenocarcinoma of the transverse colon for which decision was made not to do surgery. Despite this long list, patient has done fairly well, though he is continued to deteriorate both functionally and some cognitive, he does manage to plateau out. He was most recently discharged to [facility] with the hope to become more independent and regain his ability to ambulate. Patient does understand the seriousness of his illness, we have had multiple conversations regarding transition points with hospice in the future. He continues to be worried about being a burden as well as about his Lula who is a patient at [facility] with dementia. Social History - Living Situation Living arrangement: Assisted living Living Situation: Alone Support System: Patient had returned to [facility], assisted living. He did have a prolonged SNF stay, in hopes for him to be able to regain enough independence to be able to meet their criteria. He had hoped at one point to be able to return home with increased hired care, though this is pretty much come off the table given his most recent stroke. His daughter Anuj has been the oversight for medical care, his son Nico and his girlfriend Anuj are currently living in patient's home, there has been concern about patient returning home as far as being able to support patient if had significant care needs. Though are considering bringing him home for EOL care. . Medications/Allergies - Medications Active Medication List: Active Medications Cefepime HCl 2 gm/ Sodium (Chloride) 100 mls @ 200 mls/hr IV Q8H [facility] Last Infusion: 12/03/17 05:00 Dose: Infused Potassium Chloride/Dextrose/Sod Cl (D5.45ns W/20 Meq Kcl) 1,000 mls @ 50 mls/ hr IV .Q20H [facility] Last Infusion: 12/03/17 04:01 Dose: 50 mls/hr Vancomycin HCl 1 gm/ Sodium (Chloride) 250 mls @ 167 mls/hr IV Q12H [facility] Last Infusion: 12/03/17 03:45 Dose: Infused Levofloxacin (Levaquin 250 Mg/50 Ml) 250 mg in 50 mls @ 50 mls/hr IV Q24H [facility] Morphine Sulfate (Morphine) 2 mg IVP Q1H PRN PRN Reason: Shortness of Air/Wheezing Last Admin: 12/02/17 22:21 Dose: 2 mg Polyethylene Glycol (Miralax) 17 gm PO DAILY [facility] Last Admin: 12/03/17 09:14 Dose: 17 gm Sodium Chloride (Normal Saline Flush 0.9%) 10 ml IVP PRN PRN PRN Reason: NEEDED PER PROVIDER ORDERS Last Admin: 12/02/17 14:33 Dose: 10 ml Sodium Chloride (Normal Saline Flush 0.9%) 10 ml IVP 0100,0900,1700 [facility] Last Admin: 12/03/17 09:17 Dose: Not Given Levothyroxine Sodium 150 mcg PO QDAC 02/17/17 Insulin Glargine [Lantus Solostar] 10 unit SUBQ DAILY 07/23/17 Fluticasone [Flonase] 1 spray INH QPM 07/24/17 Aspirin [Adult Aspirin] 81 mg PO DAILY 11/06/17 Acetaminophen 1,000 mg PO QPM 12/02/17 Acetaminophen 500 mg PO Q4H PRN 12/02/17 Acetaminophen 650 mg PO TID PRN 12/02/17 Aspirin 81 mg PO DAILY 12/02/17 Atorvastatin Calcium 10 mg PO DAILY 12/02/17 Furosemide 20 mg PO 0800,1200 12/02/17 Levalbuterol HCl 3 ml INH QID 12/02/17 Lisinopril 5 mg PO DAILY 12/02/17 Melatonin 3 mg PO QPM 12/02/17 Metoprolol Succinate 25 mg PO DAILY 12/02/17 Multivitamin [Theragran] 1 tab PO DAILY 12/02/17 Nystatin [Nystop] 1 applic TOP QPM 12/02/17 Oxycodone HCl/Acetaminophen [Oxycodone-Acetaminophen 5-325] 1 tab PO Q4H PRN 09/14 Sennosides [Senna] 8.6 mg PO DAILY PRN 12/02/17 Spironolactone 25 mg PO DAILY 12/02/17 - Allergies Allergies/Adverse Reactions: Allergies Allergy/AdvReac Type Severity Reaction Status Date / Time No Known Drug Allergies Allergy Verified 07/13/17 00:48 Review of Systems - Constitutional Constitutional: reports: Fatigue, Weight loss. denies: Fever - Eyes Eyes: reports: Vision loss (increased right vision loss since strok) - Ears, Nose & Throat Ears, Nose & Throat: reports: Hearing loss (c/o of hearing loss last couple of weeks), Nasal congestion, Dry mouth - Cardiovascular Cardiovascular: reports: Decr. exercise tolerance. denies: Chest pain - Respiratory Respiratory: reports: SOB at rest (mild), SOB with exertion. denies: Cough - Gastrointestinal Gastrointestinal: reports: Abdominal distention, Early satiety, Other ( intermittent bowel movements with urgency often loose; no obstructive symptoms) . denies: Nausea - Genitourinary Genitourinary: reports: Other (dallas catheter;) - Musculoskeletal Musculoskeletal: reports: Stiffness, Muscle weakness, Other (has been bedbound since admit) - Integumentary Integumentary: reports: Dryness, Other (venous stasis lower ext.) - Neurological Neurological: reports: General weakness, Headache (right side dull; not new), Memory problems, Slurred speech - Psychiatric Psychiatric: denies: Depression, Anxiety - Endocrine Endocrine: reports: Diabetes type 2 - Hematologic/Lymphatic Hematologic/Lymphatic: reports: Anemia, Recurrent infections (presents with pneumonia/UTI) - All Other Systems All Other Systems: reports: Reviewed and negative Physical Exam - Physical Exam General Appearance: positive: No acute distress Eyes Bilateral: positive: Normal inspection ENT: positive: No signs of dehydration Neck: positive: No JVD, Trachea midline, Lymphadenopathy (L) (foreward thrust), Stiff neck (for) Cardiovascular: positive: Regular rate & rhythm Respiratory: positive: No respiratory distress, Diminished in bases. negative: Wheezes, Rales, Rhonchi Abdomen: positive: Non-tender, Soft, Nml bowel sounds, Distended, Taut. negative: Guarding Skin: positive: Pallor, Other (face laney and flushe) Extremities: positive: Pedal edema Neurologic/Psychiatric: positive: Oriented x3, Mood/affect nml, Weakness Palliative Care - POLST Patient has POLST: Yes POLST Status: DNR, Selective Treatment Pain: Pain unchanged - Palliative Care Discussion: Patient has a history of always "coming back" from multiple previous issues, though has had a slow steady decline through the last six months. This is confusing to family today as they thought he was transitioning to end of life and comfort measures. Currently being treated with AB with good response. Family meeting with daughter Anuj, patient, and son's girlfriend Anuj regarding goals of care. Daughter defers to patient as far as "the decision is yours". There is much concern about the what next and transition plan. Patient has wanted to go home, Anuj son's girlfriend, reports that Nico would be in favor of this. Expressed concerns and worries of my own, that if this is a longer process of weeks to months, to be able to sustain this with hospice support even may be taxing of that caregiving system and situation. Counseling done regarding the hospice benefit, equipment, medications, the clinical team but the alignment with no further rehospitalizations with the focus of comfort and quality of life. Discussed given patient's situation, multiple comorbidities, most likely poor prognosis that would recommend even if patient improves discharging with hospice. The bigger concern will be which setting will be most appropriate, did call [facility] would only accept him back with his increased level of care if he were to be on hospice, otherwise his increased care needs they do not feel like they would be able to meet. Limitations there are a 2 person assist, they are not able to do Karina, and most often when patients are transitioning with hospice they often end up bedbound which does make it possible for them to continue to provide support with the hospice team. The other setting to discharge to would be his home setting, there would need to be some preparation done to be able to accommodate patient and equipment. Expressed concern by Anuj his daughter, regarding the need for extra care and support in the home to be able to care for patient. Did suggest that if patient were aware he was in his home setting, she would be supportive of this if that is what the patient wants. They had not expected patient to be as alert and conversant and able to participate in the decision-making after the last few days. Results - Lab Results Lab results reviewed: Yes Fish Bones: 12/03/17 08:36 18 08:36 Lab and Imaging Results: Lab Results x24hrs 12/03/17 12/03/17 Range/Units 08:36 08:36 WBC 8.1 (4.8-10.8) x10^3/uL RBC 3.43 L (4.70-6.10) 10^6/uL Hgb 11.0 L (14.0-18.0) g/dL Hct 32.0 L (42.0-52.0) % MCV 93.5 (80.0-94.0) fL MCH 32.0 H (27.0-31.0) pg MCHC 34.2 (32.0-36.0) g/dL RDW 14.4 (12.0-15.0) % Plt Count 172 (130-450) 10^3/uL MPV 6.6 L (7.4-11.4) fL Sodium 134 L (135-145) mmol/L Potassium 4.2 (3.5-5.0) mmol/L Chloride 103 (101-111) mmol/L Carbon Dioxide 25 (21-32) mmol/L Anion Gap 6.0 (6-13) BUN 31 H (6-20) mg/dL Creatinine 1.3 H (0.6-1.2) mg/dL Estimated GFR (MDRD) 52 L (>89) Glucose 159 H (70-100) mg/dL Calcium 8.0 L (8.5-10.3) mg/dL Impression and Recommendations - Palliative Care Impression: This is an 87-year-old gentleman with another yet acute hospitalization now for pneumonia and UTI. Patient does have multiple co-morbidities, has had functional and cognitive decline over the last several weeks to months, palliative care to provide support and assistance and goals of care and transition planning Recommendations/Counseling Done: 1. CHF, patient with fragile cardiac status of progressive severe aortic stenosis, recent decrease in ejection fraction to 30-35%, and CKD. Recommend reinitiating cardiac medications as patient tolerates. 2. Pneumonia. Patient appears to be responding to the antibiotics, though remains quite fragile. Patient denies any respiratory distress, oxygen needs are coming down, would recommend transition to nasal cannula to be able to support patient's ability to eat. 3. Adenocarcinoma of the colon. Patient continues with out obstructive symptoms, has had intermittent iron transfusions, and anemia. Have been fairly vigilent in offering laxatives as needed to not let > 48 hours go without BM. 4. Advanced care planning. Patient presents had another transition point, the patient be able to be supported in either setting [facility] or home, will need additional support of the hospice team. Counseling has been provided regarding the hospice benefit, continuum of care, and the focus on comfort measures in alignment with hospice philosophy. Family meeting provided, patient is processing information, will continue to evaluate as patient progresses. Information given to Anuj in follow-up regarding information I got from [facility]. Time Spent: 75 minutes with greater than 50% of this done and coordination of care with hospice, [facility], hospitalist and counseling for family meeting and anticipatory guidance regarding goals of care
--- NOTE | 2017-12-03 13:52 | ONCOLOGY / HEMATOLOGY ---
DATE OF SERVICE: 12/03/2017 Physician: Ralph Navarro MD, PHD DIAGNOSES 1. Well-differentiated adenocarcinoma of the transverse colon since 08/2016. a. Status post surgical consultations, and not a surgical candidate. b. On observation. No clinical complications at this point. 2. Paratracheal adenopathy, anterior mediastinal mass and left pleural effusion. a. Negative malignancy workup. 3. History of aortic stenosis and diastolic heart failure. 4. Transient ischemic attack in 08/[address] brain and neurological evaluation. Stroke recurred and summer. 5. Recurrent iron deficiency anemia due to gastrointestinal bleed secondary to colon cancer. PHYSICAL EXAMINATION: Comfortably on hospital bed, intermittent oxygen use via facial mask. ABDOMEN: Soft, distended, nontender, tympanic at the upper portion of the abdomen. EXTREMITIES: Edema noted. LABORATORY DATA: WBC 8.1 K, HCT 32%, platelet 172 K. Chemistry panel showed GFR 52. Chest x-ray from 12/02/2017 showed bibasilar opacities and pleural effusion. Cardiomegaly. ASSESSMENT AND PLAN 1. Colorectal cancer: Clinically no signs of complications from his colon cancer (such as obstruction or perforation). No signs of active bleeding. He will continue on conservative management with low residue diet, to prevent hard stool causing obstruction. 2. Anemia of iron deficiency: He had previous iron infusions. When he recovers from this acute illness, he may benefit from iron level checked, and another dose of iron infusion, to improve his quality of life and well being. 3. Goal of health care. with multiple medical issues going, discussion about comfort care without heroic interventions is quite reasonable. From his colon cancer standpoint, he could go into hospice. Should he have a bowel obstruction , conservative management would be the option. If he does have bleeding, conservative management or comfort care would be the best choice. We will see him as needed in the future. He will have followup with LETICIA Carey from our palliative care team. cc: Da Rahman MD TD: 12/03/2017 13:05 MTDD
[2017-12-03] MEDS: D5.45NS W/20 MEQ KCL 1,000 ML IV SCH (16:14)
--- NOTE | 2017-12-03 18:08 | PROVIDER PROGRESS NOTE ---
Subjective - Prog Note Date Prog Note Date: 12/03/17 Prog Note Time: 18:06 - Subjective Pt reports feeling: Improved Subjective: The patient has completely woken up and is lucid and able to carry on a conversation. He is not significantly short of breath despite being off of his nasal cannula in order to eat. He denies any pain, fevers, chills or any other new problems. Current Medications - Current Medications Current Medications: Active Medications Generic Name Dose Route Start Last Admin Trade Name Freq PRN Reason Stop Dose Admin Cefepime HCl 2 gm/ Sodium 100 mls @ 200 mls/hr 12/02/17 20:00 12/03/17 15:05 Chloride IV Infused Q8H [facility] Infusion Potassium Chloride/Dextrose/Sod Cl 1,000 mls @ 50 mls/hr 12/02/17 13:00 12/03 16:14 D5.45ns W/20 Meq Kcl IV 50 mls/hr .Q20H LORNA Administration Vancomycin HCl 1 gm/ Sodium 250 mls @ 167 mls/hr 12/02/17 14:00 12/03/17 16: 56 Chloride IV Infused Q12H [facility] Infusion Levofloxacin 250 mg in 50 mls @ 50 mls/hr 12/03/17 16:00 12/03/17 17:45 Levaquin 250 Mg/50 Ml IV Infused Q24H [facility] Infusion Morphine Sulfate 2 mg 12/02/17 15:54 12/02/17 22:21 Morphine IVP 2 mg Q1H PRN Administration Shortness of Air/Wheezing Polyethylene Glycol 17 gm 12/03/17 09:00 12/03/17 09:14 Miralax PO 17 gm DAILY [facility]NA Administration Sodium Chloride 10 ml 12/02/17 11:44 12/02/17 14:33 Normal Saline Flush 0.9% IVP 10 ml PRN PRN Administration NEEDED PER PROVIDER ORDERS Sodium Chloride 10 ml 12/02/17 17:00 12/03/17 15:59 Normal Saline Flush 0.9% IVP 10 ml 0100,0900,1700 [facility] Administration Levothyroxine Sodium 150 mcg PO QDAC 02/17/17 Insulin Glargine [Lantus Solostar] 10 unit SUBQ DAILY 07/23/17 Fluticasone [Flonase] 1 spray INH QPM 07/24/17 Aspirin [Adult Aspirin] 81 mg PO DAILY 11/06/17 Acetaminophen 1,000 mg PO QPM 12/02/17 Acetaminophen 500 mg PO Q4H PRN 12/02/17 Acetaminophen 650 mg PO TID PRN 12/02/17 Aspirin 81 mg PO DAILY 12/02/17 Atorvastatin Calcium 10 mg PO DAILY 12/02/17 Furosemide 20 mg PO 0800,1200 12/02/17 Levalbuterol HCl 3 ml INH QID 12/02/17 Lisinopril 5 mg PO DAILY 12/02/17 Melatonin 3 mg PO QPM 12/02/17 Metoprolol Succinate 25 mg PO DAILY 12/02/17 Multivitamin [Theragran] 1 tab PO DAILY 12/02/17 Nystatin [Nystop] 1 applic TOP QPM 12/02/17 Oxycodone HCl/Acetaminophen [Oxycodone-Acetaminophen 5-325] 1 tab PO Q4H PRN 09/14 Sennosides [Senna] 8.6 mg PO DAILY PRN 12/02/17 Spironolactone 25 mg PO DAILY 12/02/17 Objective - Vital Signs/Intake & Output Reviewed Vital Signs: Yes Vital Signs: Last Vital Signs Temp 36.9 C 12/03/17 02:05 Pulse 69 12/03/17 02:05 Resp 16 12/03/17 02:05 BP 90/54 L 12/03/17 02:05 Pulse Ox 97 12/03/17 02:05 Intake & Output: Intake & Output 11/30/17 12/01/17 12/02/17 12/03/17 23:59 23:59 23:59 23:59 Intake Total 670 2350.0 Output Total 400 350 Balance 270 2000.0 - Objective General Appearance: positive: No acute distress, Alert Eyes Bilateral: positive: Normal inspection, PERRL, EOMI, No lid inflammation, Conjunctivae nml, No scleral icterus ENT: positive: ENT inspection nml, Pharynx nml, No signs of dehydration Neck: positive: Nml inspection, Thyroid nml, No JVD, Trachea midline. negative : Thyromegaly Respiratory: positive: Chest non-tender, No respiratory distress, Breath sounds nml. negative: Wheezes, Rales, Rhonchi Cardiovascular: positive: Regular rate & rhythm, No murmur, No gallop Abdomen: positive: Non-tender, No organomegaly, Nml bowel sounds, No distention. negative: Guarding, Rebound Back: positive: Nml inspection. negative: CVA tenderness (R), CVA tenderness (L ) Skin: positive: Color nml, No rash, Warm, Dry. negative: Cyanosis Extremities: positive: Non-tender, Full ROM, Nml appearance, No pedal edema Neurologic/Psychiatric: positive: Oriented x3, CN's nml (2-12), Motor nml, Sensation nml, Mood/affect nml - Lab Results Fish Bones: 12/03/17 08:36 18 08:36 Other Labs: Lab Results x24hrs 12/03/17 12/03/17 Range/Units 08:36 08:36 WBC 8.1 (4.8-10.8) x10^3/uL RBC 3.43 L (4.70-6.10) 10^6/uL Hgb 11.0 L (14.0-18.0) g/dL Hct 32.0 L (42.0-52.0) % MCV 93.5 (80.0-94.0) fL MCH 32.0 H (27.0-31.0) pg MCHC 34.2 (32.0-36.0) g/dL RDW 14.4 (12.0-15.0) % Plt Count 172 (130-450) 10^3/uL MPV 6.6 L (7.4-11.4) fL Sodium 134 L (135-145) mmol/L Potassium 4.2 (3.5-5.0) mmol/L Chloride 103 (101-111) mmol/L Carbon Dioxide 25 (21-32) mmol/L Anion Gap 6.0 (6-13) BUN 31 H (6-20) mg/dL Creatinine 1.3 H (0.6-1.2) mg/dL Estimated GFR (MDRD) 52 L (>89) Glucose 159 H (70-100) mg/dL Calcium 8.0 L (8.5-10.3) mg/dL - Diagnostic Imaging Diagnostic Imaging Results: positive: Final report reviewed Diagnostic Imaging Comments: EXAM: CHEST RADIOGRAPHY EXAM DATE: 12/02/2017 10:57 AM. CLINICAL HISTORY: Fever hypoxia hypotension. COMPARISON: 07/03/2017. 07/20/2017. TECHNIQUE: 2 views. FINDINGS: Lungs/Pleura: Vascular congestion. Dense left basilar opacity and lobular left midlung opacity. Bilateral pleural effusions, left greater than right. No pneumothorax. Mediastinum: Cardiomegaly. Mild aortic tortuosity. Other: Degenerative changes of the thoracic spine and both shoulders. Moderate anterior wedging of a lower thoracic/upper lumbar vertebral body again seen. IMPRESSION: 1. Cardiomegaly. Vascular congestion. 2. Left greater than right bibasilar opacities and pleural effusions. ABX Reporting Has patient been on IV antibiotics over the past 48 hours?: Yes Assessment/Plan - Problem List (1) Pneumonia Impression: The change in the patient over just 24 hours is nothing short of remarkable. 24 hours ago he had been unresponsive, on a full rebreather mask, breathing 33 times a minute. Today he is on a nasal cannula and room air and able to carry on a conversation. He is extremely lucid and understands everything that is going on. He is even making some clever jokes. Nonetheless, we will continue with the triple antibiotic regimen for HCAP. Qualifiers: Pneumonia type: due to unspecified organism Laterality: bilateral Lung location: lower lobe of lung Qualified Code(s): J18.1 - Lobar pneumonia, unspecified organism (2) Colon adenocarcinoma Impression: The patient is colon cancer is considered to be inoperable but is nonobstructive. He has not been receiving chemotherapy or radiation for it. (3) Diabetes Impression: When the patient was admitted yesterday it did appear as if he was dying and there was little concern for the patient's glycemic control. I will start him on sliding scale coverage. 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 He was treated at [facility] and then brought back to [facility] for rehab. There are no signs at this time of a second CVA or dysphagia. Aspiration is an unlikely cause of the patient's pneumonia as it is bilateral.
[2017-12-03] MEDS ORDERED: CARBOXYMETHYLCELLULOSE OPHTH DROPS EACHEYE PRN (21:20)
[2017-12-04] MEDS: SODIUM CHLORIDE FLUSH 0.9% 10 ML SYRINGE IVP SCH ×3 (00:15→16:11)
[2017-12-04 00:53] LABS: VANCOMYCIN,TROUGH 22.3 ug/mL (10.0-20.0)
[2017-12-04] MEDS: ACETAMINOPHEN 325 MG TABLET PO PRN ×3 (01:13→16:15)
[2017-12-04] MEDS ORDERED: SODIUM CHLORIDE 0.9% IV PRN (02:00)
[2017-12-04] MEDS ORDERED: VANCOMYCIN PER PHARMACY IV PRN (02:00)
[2017-12-04] MEDS: CEFEPIME 2 GM in SODIUM CHLORIDE 0.9% MINIBAG 100 ML IV SCH ×3 (04:45→20:38)
[2017-12-04] MEDS ORDERED: VANCOMYCIN INJ 0.75 GM in SODIUM CHLORIDE 0.9% 250 ML IV SCH (06:00)
[2017-12-04 06:04] LABS: HGB - HEMOGLOBIN 11.1 g/dL (14.0-18.0); MEAN CORPUSCULAR HEMOGLOBIN 31.4 pg (27.0-31.0); MEAN CORPUSCULAR HGB CONC 33.7 g/dL (32.0-36.0); MEAN CORPUSCULAR VOLUME 93.1 fL (80.0-94.0); MEAN PLATELET VOLUME 6.5 fL (7.4-11.4); RED BLOOD COUNT 3.54 10^6/uL (4.70-6.10); RED CELL DISTRIBUTION WIDTH 14.4 % (12.0-15.0); WHITE BLOOD COUNT 7.9 x10^3/uL (4.8-10.8)
[2017-12-04 06:20] LABS: CALCIUM 8.2 mg/dL (8.5-10.3); CREATININE 1.3 mg/dL (0.6-1.2)
[2017-12-04] MEDS: POLYETHYLENE GLYCOL 3350 17 GM PACKET PO SCH (08:14)
--- NOTE | 2017-12-04 09:51 | CONSULTATION NOTE ---
Palliative Care Follow Up - Referral Referring Provider: Flora Bowers DO Time of Visit: Referral setting: Hospitalized patient Referral Reason: Pneumnia/CHF/Colon Ca/Goals of Care - Information Sources Records reviewed: Previous records reviewed History/Review of Systems obtained from: Patient, Family (Nico and Anuj) Exam limitations: No limitations - History of Present Illness Update Brief HPI Update: Please see HPI 12/03. Patient continues to improve from his bilateral pneumonia, he does though have dull to percussion left lower lobe as well as diminished breath sounds. He does have a history of pleural effusions. He reports he continues to improve as far as breathlessness, he is still requiring oxygen but by nasal cannula at 6.5 L. Patient remains quite weak, contact assist and cueing needed for transfers and ambulating several steps. Patient has been progressed on his diet , denies any choking, patient does have multiple comorbidities, has had a slow steady decline, with multiple hospitalizations. He does understand the seriousness of his illness, and is ready to discuss a transition plan. Social History - Living Situation Living arrangement: Assisted living Living Situation: Alone Support System: Patient had been working towards originally getting stronger to be able to transition home, in discussing with him as far as where he would like to be for his last part of his journey, he would like to return back to his own home setting. His son Nico who currently lives with his girlfriend, has made a commitment and would like to have him return home as well. He currently has an apartment at [facility], they would unable to take him unless he was on hospice and mostly bedbound as far as being able to meet his care needs. Medications/Allergies - Medications Active Medication List: Active Medications Acetaminophen (Tylenol) 650 mg PO Q4HR PRN PRN Reason: Pain or Fever > 38C (100.4F) Last Admin: 12/04/17 07:07 Dose: 650 mg Carboxymethylcellulose (Refresh 1% Ophth Drops) 1 drops EACHEYE PRN PRN PRN Reason: Dry Eye Cefepime HCl 2 gm/ Sodium (Chloride) 100 mls @ 200 mls/hr IV Q8H [facility] Last Infusion: 12/04/17 05:15 Dose: Infused Potassium Chloride/Dextrose/Sod Cl (D5.45ns W/20 Meq Kcl) 1,000 mls @ 50 mls/ hr IV .Q20H [facility] Last Infusion: 12/04/17 07:30 Dose: 50 mls/hr Levofloxacin (Levaquin 250 Mg/50 Ml) 250 mg in 50 mls @ 50 mls/hr IV Q24H [facility] Last Infusion: 12/03/17 17:45 Dose: Infused Vancomycin HCl 0.75 gm/ Sodium (Chloride) 250 mls @ 175 mls/hr IV Q12H [facility] Morphine Sulfate (Morphine) 2 mg IVP Q1H PRN PRN Reason: Shortness of Air/Wheezing Last Admin: 12/02/17 22:21 Dose: 2 mg Polyethylene Glycol (Miralax) 17 gm PO DAILY [facility] Last Admin: 12/04/17 08:14 Dose: 17 gm Sodium Chloride (Normal Saline Flush 0.9%) 10 ml IVP PRN PRN PRN Reason: NEEDED PER PROVIDER ORDERS Last Admin: 12/02/17 14:33 Dose: 10 ml Sodium Chloride (Normal Saline Flush 0.9%) 10 ml IVP 0100,0900,1700 [facility] Last Admin: 12/04/17 08:15 Dose: Not Given Levothyroxine Sodium 150 mcg PO QDAC 02/17/17 Insulin Glargine [Lantus Solostar] 10 unit SUBQ DAILY 07/23/17 Fluticasone [Flonase] 1 spray INH QPM 07/24/17 Aspirin [Adult Aspirin] 81 mg PO DAILY 11/06/17 Acetaminophen 1,000 mg PO QPM 12/02/17 Acetaminophen 500 mg PO Q4H PRN 12/02/17 Acetaminophen 650 mg PO TID PRN 12/02/17 Aspirin 81 mg PO DAILY 12/02/17 Atorvastatin Calcium 10 mg PO DAILY 12/02/17 Furosemide 20 mg PO 0800,1200 12/02/17 Levalbuterol HCl 3 ml INH QID 12/02/17 Lisinopril 5 mg PO DAILY 12/02/17 Melatonin 3 mg PO QPM 12/02/17 Metoprolol Succinate 25 mg PO DAILY 12/02/17 Multivitamin [Theragran] 1 tab PO DAILY 12/02/17 Nystatin [Nystop] 1 applic TOP QPM 12/02/17 Oxycodone HCl/Acetaminophen [Oxycodone-Acetaminophen 5-325] 1 tab PO Q4H PRN 09/14 Sennosides [Senna] 8.6 mg PO DAILY PRN 12/02/17 Spironolactone 25 mg PO DAILY 12/02/17 - Allergies Allergies/Adverse Reactions: Allergies Allergy/AdvReac Type Severity Reaction Status Date / Time No Known Drug Allergies Allergy Verified 07/13/17 00:48 Review of Systems - Constitutional Constitutional: reports: Fatigue, Weakness, Weight loss - Eyes Eyes: reports: Vision loss - Ears, Nose & Throat Ears, Nose & Throat: reports: Hearing loss, Nasal congestion - Cardiovascular Cardiovascular: reports: Edema, Exertional dyspnea, Decr. exercise tolerance - Respiratory Respiratory: reports: SOB with exertion. denies: Cough, Wheezing, SOB at rest - Gastrointestinal Gastrointestinal: reports: Abdominal distention, Early satiety. denies: Constipation (large bowel movement), Nausea - Genitourinary Genitourinary: reports: Other (has [place] catheter; would like to keep) - Musculoskeletal Musculoskeletal: reports: Stiffness, Muscle weakness, Assistive devices ( contact one person assist to transfer; needs cueing) - Integumentary Integumentary: reports: Dryness, Other (venuos stasis lower extremities; has SCDs on) - Neurological Neurological: reports: General weakness, Memory problems (mild STM; improved today) - Psychiatric Psychiatric: reports: Other (tearful through discussion today) - Endocrine Endocrine: reports: Diabetes type 2 - Hematologic/Lymphatic Hematologic/Lymphatic: reports: Anemia - All Other Systems All Other Systems: reports: Reviewed and negative Physical Exam - Vital Signs Vital Signs: Vital Signs x48h Temp Pulse Resp BP Pulse Ox 12/04/17 08:00 36.2 C L 79 24 105/56 L 99 - Physical Exam General Appearance: positive: No acute distress Eyes Bilateral: positive: Normal inspection ENT: positive: No signs of dehydration Neck: positive: Trachea midline, Stiff neck (forward protrusion of neck) Cardiovascular: positive: Regular rate & rhythm, Diastolic murmur Respiratory: positive: Diminished in bases (LLL dull to percussion; diminished) . negative: Wheezes, Rales, Rhonchi Abdomen: positive: Non-tender, Soft, Nml bowel sounds, Distended, Taut Skin: positive: Pallor, Dryness Extremities: positive: Pedal edema Neurologic/Psychiatric: positive: Oriented x3, Mood/affect nml, Weakness Palliative Care - POLST Patient has POLST: Yes POLST Status: DNR, Comfort Measures (New POLST completed) Pain: Pain unchanged Tiredness/Fatigue: Moderate (4-6) Drowsiness/Sedation: Mild (1-3) Nausea: None Depression: Mild (1-3) Anxiety: Mild (1-3) Dyspnea: Moderate (4-6) Anorexia: Moderate (4-6) Sleep: Sleeps poorly (difficult night; felt "tied down" and unable to move in bed;) Constipation: No, Intermittent constipation - Palliative Care Discussion: Met first with Anuj his daughter and his son Nico. If patient chooses to go home, Nico does feel like he can make a commitment to be the caregiver and wants to do that for his father. He is quite anxious as far as being able to meet his father's needs, we did discuss at length training and support through hospice available, as well as bathing support through the interdisciplinary team. He will need specific directions around medication, comfort meds, home and did encourage the inpatient nurses to start working with him as far as transfers and training for caregiving. Agreement I would meet with patient one- on-one and discuss his wishes whether to return to [facility] as well as option now open to go home. Either one would involve transition to hospice. Discussed can work with social organization professor to hire and look at supplementing care at home, particularly if looking at months not weeks. Patient is quite frail, could have another "event" or prolonged decline, need to be prepared for either scenerio in shelter planning. Discussed given transition to hospice, daughter will cancer pacemaker check, modular home crew member visit, and PCP this Sunday. Met with patient and we discussed at length his wishes, he is quite tearful. He would very much like to go home, he is concerned about being a burden, and stressing the already delicate situation. We did discuss hospice support would be available to them. We also talked about goals of care, that we were entering the last leg of his journey, does not mean his imminently dying, but most likely were looking to a limited life expectancy of weeks to months. Patient would like to spend the remainder of his time in his own home surrounded by his son and daughter. This is communicated to Anuj and Nico, they are starting to work on some of the logistics as far as giving noticed [facility], getting medications and other things that they will need out of the apartment. Nico's phone #[phone] he will be available as far as making arrangements for equipment drop-off for . In discussing what he is most likely going to need they do have a wheelchair and walker, he will need a hospital bed and appropriate mattress, over the bed table, and oxygen. They are looking at moving his recliner from [facility] which is a lift chair to his home. Results - Lab Results Lab results reviewed: Yes Fish Bones: 12/04/17 05:50 12/04/17 05:50 Lab and Imaging Results: Lab Results x24hrs 12/04/17 12/04/17 12/04/17 Range/Units 05:50 05:50 00:38 WBC 7.9 (4.8-10.8) x10^3/uL RBC 3.54 L (4.70-6.10) 10^6/uL Hgb 11.1 L (14.0-18.0) g/dL Hct 32.9 L (42.0-52.0) % MCV 93.1 (80.0-94.0) fL MCH 31.4 H (27.0-31.0) pg MCHC 33.7 (32.0-36.0) g/dL RDW 14.4 (12.0-15.0) % Plt Count 177 (130-450) 10^3/uL MPV 6.5 L (7.4-11.4) fL Sodium 135 (135-145) mmol/L Potassium 4.9 (3.5-5.0) mmol/L Chloride 104 (101-111) mmol/L Carbon Dioxide 24 (21-32) mmol/L Anion Gap 7.0 (6-13) BUN 34 H (6-20) mg/dL Creatinine 1.3 H (0.6-1.2) mg/dL Estimated GFR (MDRD) 52 L (>89) Glucose 155 H (70-100) mg/dL Calcium 8.2 L (8.5-10.3) mg/dL Last Dose Date Not Reportable Last Dose Time Not Reportable Vancomycin Trough 22.3 H (10.0-20.0) ug/mL Impression and Recommendations - Palliative Care Impression: This is an 87-year-old gentleman with multiple comorbidities, most recently now admitted acutely for pneumonia and UTI. Patient does have fairly delicate CHF, recurrent left pleural effusions, underlying colon cancer of the transverse colon, and has had functional decline. This is exacerbated by recent stroke. Patient will be transitioning to hospice on discharge from hospital, current goals are to get him as functional and "tuned up" as possible to be able to enjoy his last weeks to months in his home setting Recommendations/Counseling Done: 1. CHF. Patient at high risk for exacerbation of his CHF, recently with diminished ejection fraction of 30-35% as well as worsening aortic stenosis. Would resume his baseline cardiac meds currently on hold. 2. Adenocarcinoma the colon. Patient's bowels have moved, does not have any obstructive symptoms, continues to have anemia both of renal and chronic disease , as well as suspected worsening related to his cancer. Patient has not needed transfusions, but has gotten iron supplement dictation in the past. 3. Pneumonia. Patient remains on oxygen, though his respiratory status continues to improve. Patient has had recurrent left pleural effusions of note. Patient most likely will need to be discharged on oxygen, hospice has been notified. 4. Advanced care planning. Counseling done with daughter and son regarding continuum of care including the hospice benefit, patient did make decision to transition back to his own home versus [facility]. He will discharge with hospice , counseling done regarding goals of care and transition to comfort measures on discharge. Short-term goal is to treat his pneumonia, caregiver training and improve functional status as much as possible. Patient would like to keep the [place] to decrease stress both on patient and son for caregiving needs. [facility] was updated with DNAR and comfort focused treatments. Coordination of care with hospice team, order already sent. Time Spent: 70 minutes with greater than 50% of this done in counseling and coordination of care including family meeting, coordination with hospice and hospitalist as well as anticipatory guidance.
[2017-12-04] MEDS: D5.45NS W/20 MEQ KCL 1,000 ML IV SCH (17:55)
[2017-12-04] MEDS: VANCOMYCIN INJ 0.75 GM in SODIUM CHLORIDE 0.9% 250 ML IV SCH (17:56)
--- NOTE | 2017-12-04 19:46 | PROVIDER PROGRESS NOTE ---
Assessment/Plan - Problem List (1) HCAP (healthcare-associated pneumonia) Assessment/Plan: Patient presented with acute respiratory failure with hypoxia requiring a NRB mask with respiratory distress Patient has recovered remarkably well with treatment for HCAP Patient treated with Vanco, Cefepime and levaquin Blood cx growing staph aureus with susceptibilities pending Will continue abx till susceptibilities are back then de escalate Patient would like treatment for pneumonia and then wants to go home with hospice given his colon ca Improving down to 2 L o2 Qualifiers: Pneumonia type: due to unspecified organism Laterality: bilateral Lung location: lower lobe of lung Qualified Code(s): J18.1 - Lobar pneumonia, unspecified organism (2) Bacteremia due to Staphylococcus aureus Assessment/Plan: Patient has staph aureus bacteremia likely secondary to pneumonia Awaiting susceptibilities Improving Repeat blood cx (3) Colon adenocarcinoma Impression: The patient is colon cancer is considered to be inoperable but is nonobstructive. He has not been receiving chemotherapy or radiation for it. 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 He was treated at [facility] and then brought back to [facility] for rehab. There are no signs at this time of a second CVA or dysphagia. Aspiration is an unlikely cause of the patient's pneumonia as it is bilateral - Current Meds Current Meds: Current Medications Generic Name Dose Route Start Last Admin Trade Name Freq PRN Reason Stop Dose Admin Acetaminophen 650 mg 12/03/17 22:52 12/04/17 16:15 Tylenol PO 650 mg Q4HR PRN Administration Pain or Fever > 38C (100.4F) Cefepime HCl 2 gm/ Sodium 100 mls @ 200 mls/hr 12/02/17 20:00 12/04/17 14:54 Chloride IV Infused Q8H LORNA Infusion Potassium Chloride/Dextrose/Sod Cl 1,000 mls @ 50 mls/hr 12/02/17 13:00 12/04 17:56 D5.45ns W/20 Meq Kcl IV 0 mls/hr .Q20H LORNA Infusion Levofloxacin 250 mg in 50 mls @ 50 mls/hr 12/03/17 16:00 12/04/17 16:10 Levaquin 250 Mg/50 Ml IV 50 mls/hr Q24H LORNA Administration Vancomycin HCl 0.75 gm/ Sodium 250 mls @ 175 mls/hr 12/04/17 18:00 12/04/17 17:56 Chloride IV 175 mls/hr Q12H LORNA Administration Morphine Sulfate 2 mg 12/02/17 15:54 12/02/17 22:21 Morphine IVP 2 mg Q1H PRN Administration Shortness of Air/Wheezing Polyethylene Glycol 17 gm 12/03/17 09:00 12/04/17 08:14 Miralax PO 17 gm DAILY LORNA Administration Sodium Chloride 10 ml 12/02/17 11:44 12/02/17 14:33 Normal Saline Flush 0.9% IVP 10 ml PRN PRN Administration NEEDED PER PROVIDER ORDERS Sodium Chloride 10 ml 12/02/17 17:00 12/04/17 16:11 Normal Saline Flush 0.9% IVP Not Given 0100,0900,1700 LORNA - Lab Result Lab results reviewed: Yes Fish Bone Diagrams: 12/05/17 05:15 12/05/17 05:15 - Diagnostic Imaging Results Diagnostic Imaging Results: Final report reviewed - Additional Planning Condition/Complexity: Guarded My Orders: My Active Orders 12/04/17 08:09 Echo Transthoracic Complete [ECHO] Routine 12/04/17 Dinner Regular Diet [DIET] 12/05/17 08:00 Furosemide [Lasix] 20 mg PO 0800,1200 12/05/17 09:00 Aspirin Chewable [St Jeromy Aspirin] 81 mg PO DAILY Atorvastatin [Lipitor] 10 mg PO DAILY Lisinopril [Zestril] 5 mg PO DAILY Metoprolol Succinate [Toprol Xl] 25 mg PO DAILY Consult/Specialty: Other (Palliative Care) Plan Discussed with:: Patient, Family Time Spent: 31-60 minutes Subjective - Subjective Patient Reports: Feeling Better, Cough (Improved), Shortness of Breath (improved ) Nursing Reports: No Complaints Objective Vital Signs: Vital Signs - 24 hr 12/04/17 12/04/17 12/04/17 00:00 08:00 15:55 Temperature 36.4 C L 36.2 C L 37.0 C Heart Rate [ 76 79 71 Brachial] Respiratory 18 24 20 Rate Blood Pressure 93/57 L 105/56 L 113/60 [Right Brachial artery] O2 Saturation 99 99 98 Oxygen O2 Source Nasal cannula I&O (Last 24 Hrs): Intake and Output Totals x24h 12/02/17 12/03/17 12/04/17 23:59 23:59 23:59 Intake Total 670 2700.0 1888.333 Output Total 400 500 460 Balance 270 2200.0 1428.333 General: Alert, Oriented x3, Cooperative, No acute distress HEENT: Atraumatic, PERRLA, EOMI, Mucous membr. moist/pink Neck: Supple, No JVD, No thyromegaly, +2 carotid pulse wo bruit, No LAD Lymphatic: no adenopathy Neuro: Alert, Non Focal, CN 2-12 Grossly Intact, Oriented Times 3 Cardiovascular: Regular rate, Normal S1, Normal S2, No murmurs Respiratory: Chest non-tender, Wheezes, Rhonchi (bilateral) Abdomen: Normal bowel sounds, Soft, No tenderness, No hepatospenomegaly Extremities: No clubbing, No cyanosis, No edema, Normal pulses Skin: No rashes, No breakdown - Results Results: Laboratory Results WBC 7.9 x10^3/uL (4.8-10.8) 12/04/17 05:50 RBC 3.54 10^6/uL (4.70-6.10) L 12/04/17 05:50 Hgb 11.1 g/dL (14.0-18.0) L 12/04/17 05:50 Hct 32.9 % (42.0-52.0) L 12/04/17 05:50 MCV 93.1 fL (80.0-94.0) 12/04/17 05:50 MCH 31.4 pg (27.0-31.0) H 12/04/17 05:50 MCHC 33.7 g/dL (32.0-36.0) 12/04/17 05:50 RDW 14.4 % (12.0-15.0) 12/04/17 05:50 Plt Count 177 10^3/uL (130-450) 12/04/17 05:50 MPV 6.5 fL (7.4-11.4) L 12/04/17 05:50 Neut # (Auto) 9.3 10^3/uL (1.5-6.6) H 12/02/17 10:10 Lymph # (Auto) 0.6 10^3/uL (1.5-3.5) L 12/02/17 10:10 [place] # (Auto) 0.5 10^3/uL (0.0-1.0) 12/02/17 10:10 Eos # (Auto) 0.0 10^3/uL (0.0-0.7) 12/02/17 10:10 Baso # (Auto) 0.0 10^3/uL (0.0-0.1) 12/02/17 10:10 Absolute Nucleated RBC 0.00 x10^3/uL 12/02/17 10:10 Nucleated RBC % 0.0 /100WBC 12/02/17 10:10 Sodium 135 mmol/L (135-145) 12/04/17 05:50 Potassium 4.9 mmol/L (3.5-5.0) 12/04/17 05:50 Chloride 104 mmol/L (101-111) 12/04/17 05:50 Carbon Dioxide 24 mmol/L (21-32) 12/04/17 05:50 Anion Gap 7.0 (6-13) 12/04/17 05:50 BUN 34 mg/dL (6-20) H 12/04/17 05:50 Creatinine 1.3 mg/dL (0.6-1.2) H 12/04/17 05:50 Estimated GFR (MDRD) 52 (>89) L 12/04/17 05:50 Glucose 155 mg/dL (70-100) H 12/04/17 05:50 Lactic Acid 0.9 mmol/L (0.5-2.2) 12/02/17 10:10 Calcium 8.2 mg/dL (8.5-10.3) L 12/04/17 05:50 Total Bilirubin 2.4 mg/dL (0.2-1.0) H 12/02/17 10:10 AST 79 IU/L (10-42) H 12/02/17 10:10 ALT 40 IU/L (10-60) 12/02/17 10:10 Alkaline Phosphatase 97 IU/L (42-121) 12/02/17 10:10 Troponin I 0.20 ng/mL (<0.49) 12/02/17 10:10 Total Protein 6.7 g/dL (6.7-8.2) 12/02/17 10:10 Albumin 3.1 g/dL (3.2-5.5) L 12/02/17 10:10 Globulin 3.6 g/dL (2.1-4.2) 12/02/17 10:10 Albumin/Globulin Ratio 0.9 (1.0-2.2) L 12/02/17 10:10 Lipase 19 U/L (22-51) L 12/02/17 10:10 Urine Color YELLOW 12/02/17 11:20 Urine Clarity CLOUDY (CLEAR) 12/02/17 11:20 Urine pH 6.0 PH (5.0-7.5) 12/02/17 11:20 Ur Specific [place] 1.015 (1.002-1.030) 12/02/17 11:20 Urine Protein NEGATIVE mg/dL (NEGATIVE) 12/02/17 11:20 Urine Glucose (UA) NEGATIVE mg/dL (NEGATIVE) 12/02/17 11:20 Urine Ketones NEGATIVE mg/dL (NEGATIVE) 12/02/17 11:20 Urine Occult Blood SMALL (NEGATIVE) H 12/02/17 11:20 Urine Nitrite NEGATIVE (NEGATIVE) 12/02/17 11:20 Urine Bilirubin NEGATIVE (NEGATIVE) 12/02/17 11:20 Urine Urobilinogen 0.2 (NORMAL) E.U./dL (NORMAL) 12/02/17 11:20 Ur Leukocyte Esterase LARGE (NEGATIVE) H 12/02/17 11:20 Urine RBC 6-10 /HPF (0-5) H 12/02/17 11:20 Urine WBC >25 /HPF (0-3) H 12/02/17 11:20 Urine WBC Clumps PRESENT 12/02/17 11:20 Ur Squamous Epith Cells RARE Squamous (<= Few) 12/02/17 11:20 Urine Bacteria Many /HPF (None Seen) H 12/02/17 11:20 Ur Microscopic Review INDICATED 12/02/17 11:20 Urine Culture Comments INDICATED 12/02/17 11:20 Last Dose Date Not Reportable 12/04/17 00:38 Last Dose Time Not Reportable 12/04/17 00:38 Vancomycin Trough 22.3 ug/mL (10.0-20.0) H 12/04/17 00:38 - Procedures Procedures: Procedures CARPAL TUNNEL RELEASE (02/09/14) DRAINAGE OF LEFT PLEURAL CAVITY, PERCUTANEOUS APPROACH (04/27/17) EXCISION OF CECUM, ENDO, DIAGN (09/13/16) EXCISION OF DESCENDING COLON, ENDO, DIAGN (09/13/16) EXCISION OF STOMACH, PYLORUS, ENDO, DIAGN (09/13/16) LAPAROSCOPIC CHOLECYSTECTOMY (09/19/14) PARTIAL SHOULDER REPLACEMENT (02/09/14) ABX Reporting Has patient been on IV antibiotics over the past 48 hours?: No Current Medications - Current Medications Current Medications: Active Medications Generic Name Dose Route Start Last Admin Trade Name Freq PRN Reason Stop Dose Admin Acetaminophen 650 mg 12/03/17 22:52 12/05/17 04:55 Tylenol PO 650 mg Q4HR PRN Administration Pain or Fever > 38C (100.4F) Aspirin 81 mg 12/05/17 09:00 12/05/17 08:35 St Jeromy Aspirin PO 81 mg DAILY LORNA Administration Atorvastatin Calcium 10 mg 12/05/17 09:00 12/05/17 08:41 Lipitor PO 10 mg DAILY LORNA Administration Carboxymethylcellulose 1 drops 12/03/17 21:20 Refresh 1% Ophth Drops EACHEYE PRN PRN Dry Eye Furosemide 20 mg 12/05/17 08:00 12/05/17 08:35 Lasix PO 20 mg 0800,1200 LORNA Administration Levofloxacin 250 mg in 50 mls @ 50 mls/hr 12/03/17 16:00 12/04/17 17:15 Levaquin 250 Mg/50 Ml IV Infused Q24H LORNA Infusion Lisinopril 5 mg 12/05/17 09:00 12/05/17 08:36 Zestril PO 5 mg DAILY LORNA Administration Metoprolol Succinate 25 mg 12/05/17 09:00 12/05/17 08:35 Toprol Xl PO 25 mg DAILY LORNA Administration Morphine Sulfate 2 mg 12/02/17 15:54 12/02/17 22:21 Morphine IVP 2 mg Q1H PRN Administration Shortness of Air/Wheezing Polyethylene Glycol 17 gm 12/03/17 09:00 12/05/17 08:36 Miralax PO 17 gm DAILY LORNA Administration Sodium Chloride 10 ml 12/02/17 11:44 12/02/17 14:33 Normal Saline Flush 0.9% IVP 10 ml PRN PRN Administration NEEDED PER PROVIDER ORDERS Sodium Chloride 10 ml 12/02/17 17:00 12/05/17 08:35 Normal Saline Flush 0.9% IVP 10 ml 0100,0900,1700 LORNA Administration Levothyroxine Sodium 150 mcg PO QDAC 02/17/17 Insulin Glargine [Lantus Solostar] 10 unit SUBQ DAILY 07/23/17 Fluticasone [Flonase] 1 spray INH QPM 07/24/17 Aspirin [Adult Aspirin] 81 mg PO DAILY 11/06/17 Acetaminophen 1,000 mg PO QPM 12/02/17 Acetaminophen 500 mg PO Q4H PRN 12/02/17 Acetaminophen 650 mg PO TID PRN 12/02/17 Aspirin 81 mg PO DAILY 12/02/17 Atorvastatin Calcium 10 mg PO DAILY 12/02/17 Furosemide 20 mg PO 0800,1200 12/02/17 Levalbuterol HCl 3 ml INH QID 12/02/17 Lisinopril 5 mg PO DAILY 12/02/17 Melatonin 3 mg PO QPM 12/02/17 Metoprolol Succinate 25 mg PO DAILY 12/02/17 Multivitamin [Theragran] 1 tab PO DAILY 12/02/17 Nystatin [Nystop] 1 applic TOP QPM 12/02/17 Oxycodone HCl/Acetaminophen [Oxycodone-Acetaminophen 5-325] 1 tab PO Q4H PRN 09/14 Sennosides [Senna] 8.6 mg PO DAILY PRN 12/02/17 Spironolactone 25 mg PO DAILY 12/02/17
[2017-12-05] MEDS: CEFEPIME 2 GM in SODIUM CHLORIDE 0.9% MINIBAG 100 ML IV SCH (04:47)
[2017-12-05] MEDS: SODIUM CHLORIDE FLUSH 0.9% 10 ML SYRINGE IVP SCH ×3 (04:55→15:40)
[2017-12-05] MEDS: ACETAMINOPHEN 325 MG TABLET PO PRN (04:55)
[2017-12-05 05:32] LABS: HGB - HEMOGLOBIN 11.7 g/dL (14.0-18.0); MEAN CORPUSCULAR HEMOGLOBIN 31.7 pg (27.0-31.0); MEAN CORPUSCULAR HGB CONC 33.9 g/dL (32.0-36.0); MEAN CORPUSCULAR VOLUME 93.7 fL (80.0-94.0); MEAN PLATELET VOLUME 6.8 fL (7.4-11.4); RED BLOOD COUNT 3.7 10^6/uL (4.70-6.10); RED CELL DISTRIBUTION WIDTH 14.3 % (12.0-15.0); WHITE BLOOD COUNT 7.7 x10^3/uL (4.8-10.8)
[2017-12-05 05:53] LABS: CALCIUM 8.4 mg/dL (8.5-10.3); CREATININE 1.1 mg/dL (0.6-1.2)
[2017-12-05] MEDS: VANCOMYCIN INJ 0.75 GM in SODIUM CHLORIDE 0.9% 250 ML IV SCH (06:32)
[2017-12-05] MEDS: FUROSEMIDE 20 MG TABLET PO SCH ×2 (08:35→13:08)
[2017-12-05] MEDS: ASPIRIN CHEW 81 MG TABLET PO SCH (08:35)
[2017-12-05] MEDS: METOPROLOL SUCCINATE 25 MG TABLET PO SCH (08:35)
[2017-12-05] MEDS: POLYETHYLENE GLYCOL 3350 17 GM PACKET PO SCH (08:36)
[2017-12-05] MEDS: LISINOPRIL 5 MG TABLET PO SCH (08:36)
[2017-12-05] MEDS: ATORVASTATIN 10 MG TABLET PO SCH (08:41)
[2017-12-05] MEDS: INSULIN ASPART 300 UNIT/3 ML PEN SUBQ SCH ×3 (13:08→20:43)
--- NOTE | 2017-12-05 19:07 | PROVIDER PROGRESS NOTE ---
Assessment/Plan - Problem List (1) HCAP (healthcare-associated pneumonia) Assessment/Plan: Patient presented with acute respiratory failure with hypoxia requiring a NRB mask with respiratory distress Patient has recovered remarkably well with treatment for HCAP Patient treated with Vanco, Cefepime and levaquin Blood cx growing staph aureus susceptible to levaquin Will discontinue vanco and cefepime and continue levaquin Patient would like treatment for pneumonia and then wants to go home with hospice given his colon ca Improving down to 2 L o2 Very weak will get PT eval Patient to go home with hospice on 12/07/17 Qualifiers: Pneumonia type: due to unspecified organism Laterality: bilateral Lung location: lower lobe of lung Qualified Code(s): J18.1 - Lobar pneumonia, unspecified organism (2) Bacteremia due to Staphylococcus aureus Assessment/Plan: Patient has staph aureus bacteremia likely secondary to pneumonia Staph aureus susceptible to levquin Improving Repeat blood cx pending Will need 4 weeks of treatment from negative cx (3) Colon adenocarcinoma Impression: The patient is colon cancer is considered to be inoperable but is nonobstructive. He has not been receiving chemotherapy or radiation for it. 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 He was treated at [facility] and then brought back to [facility] for rehab. There are no signs at this time of a second CVA or dysphagia. Aspiration is an unlikely cause of the patient's pneumonia as it is bilateral - Current Meds Current Meds: Current Medications Generic Name Dose Route Start Last Admin Trade Name Freq PRN Reason Stop Dose Admin Acetaminophen 650 mg 12/03/17 22:52 12/05/17 04:55 Tylenol PO 650 mg Q4HR PRN Administration Pain or Fever > 38C (100.4F) Aspirin 81 mg 12/05/17 09:00 12/05/17 08:35 St Jeromy Aspirin PO 81 mg DAILY LORNA Administration Atorvastatin Calcium 10 mg 12/05/17 09:00 12/05/17 08:41 Lipitor PO 10 mg DAILY LORNA Administration Furosemide 20 mg 12/05/17 08:00 12/05/17 13:08 Lasix PO 20 mg 0800,1200 LORNA Administration Levofloxacin 250 mg in 50 mls @ 50 mls/hr 12/03/17 16:00 12/05/17 17:11 Levaquin 250 Mg/50 Ml IV Infused Q24H LORNA Infusion Insulin Aspart 1 - 5 unit 12/05/17 12:00 12/05/17 17:07 Novolog SUBQ 2 unit 0800,1200,1700,2100 LORNA Administration Protocol Lisinopril 5 mg 12/05/17 09:00 12/05/17 08:36 Zestril PO 5 mg DAILY LORNA Administration Metoprolol Succinate 25 mg 12/05/17 09:00 12/05/17 08:35 Toprol Xl PO 25 mg DAILY LORNA Administration Morphine Sulfate 2 mg 12/02/17 15:54 12/02/17 22:21 Morphine IVP 2 mg Q1H PRN Administration Shortness of Air/Wheezing Polyethylene Glycol 17 gm 12/03/17 09:00 12/05/17 08:36 Miralax PO 17 gm DAILY LORNA Administration Sodium Chloride 10 ml 12/02/17 11:44 12/02/17 14:33 Normal Saline Flush 0.9% IVP 10 ml PRN PRN Administration NEEDED PER PROVIDER ORDERS Sodium Chloride 10 ml 12/02/17 17:00 12/05/17 15:40 Normal Saline Flush 0.9% IVP 10 ml 0100,0900,1700 LORNA Administration - Lab Result Lab results reviewed: Yes Fish Bone Diagrams: 12/05/17 05:15 12/05/17 05:15 - Diagnostic Imaging Results Diagnostic Imaging Results: Final report reviewed - Additional Planning Condition/Complexity: Guarded My Orders: My Active Orders 12/05/17 Evaluate and Treat PT [PT] Routine 12/05/17 08:00 Furosemide [Lasix] 20 mg PO 0800,1200 12/05/17 08:03 CULTURE, BLOOD #1 [RM] Urgent 12/05/17 08:54 CULTURE, BLOOD #2 [RM] Urgent 12/05/17 08:58 Blood Glucose Checks - Eating [RC] 0800,1200,1700,2100 Initiate Hypoglycemia Protocol [RC] .protocol 12/05/17 09:00 Aspirin Chewable [St Jeromy Aspirin] 81 mg PO DAILY Atorvastatin [Lipitor] 10 mg PO DAILY Lisinopril [Zestril] 5 mg PO DAILY Metoprolol Succinate [Toprol Xl] 25 mg PO DAILY 12/05/17 12:00 Insulin Aspart [NovoLOG] 1 - 5 unit SUBQ 0800,1200,1700,2100 12/05/17 21:00 Insulin Glargine [Lantus Solostar] 10 unit SUBQ QPM 12/06/17 05:00 A1C [CHEM] DAILYLAB Consult/Specialty: PT Plan Discussed with:: Patient, Family Time Spent: 31-60 minutes Subjective - Subjective Patient Reports: Feeling Better, Fatigue, Other (Feels weak but otherwise he states his cough and shortness of breath is much improved.) Nursing Reports: No Complaints Objective Vital Signs: Vital Signs - 24 hr 12/05/17 12/05/17 07:36 15:40 Temperature 36.4 C L 36.3 C L Heart Rate [ 64 75 Brachial] Respiratory 18 24 Rate Blood Pressure 151/82 H 107/72 [Right Brachial artery] O2 Saturation 94 96 Oxygen O2 Source Nasal cannula I&O (Last 24 Hrs): Intake and Output Totals x24h 12/03/17 12/04/17 12/05/17 23:59 23:59 23:59 Intake Total 2700.0 2699.166 1878.334 Output Total 027 217 9828 Balance 2200.0 1939.166 728.334 General: Alert, Oriented x3, Cooperative, Other (thin and elderly) HEENT: Atraumatic, PERRLA, EOMI, Mucous membr. moist/pink Neck: Supple, No JVD, No thyromegaly, +2 carotid pulse wo bruit, No LAD Lymphatic: no adenopathy Neuro: Alert, Non Focal, CN 2-12 Grossly Intact, Oriented Times 3 Cardiovascular: Regular rate, Normal S1, Normal S2, No murmurs Respiratory: Rhonchi (BIlateral) Abdomen: Normal bowel sounds, Soft, No tenderness, No hepatospenomegaly Extremities: No clubbing, No cyanosis, No edema, Normal pulses - Results Results: Laboratory Results WBC 7.7 x10^3/uL (4.8-10.8) 12/05/17 05:15 RBC 3.70 10^6/uL (4.70-6.10) L 12/05/17 05:15 Hgb 11.7 g/dL (14.0-18.0) L 12/05/17 05:15 Hct 34.7 % (42.0-52.0) L 12/05/17 05:15 MCV 93.7 fL (80.0-94.0) 12/05/17 05:15 MCH 31.7 pg (27.0-31.0) H 12/05/17 05:15 MCHC 33.9 g/dL (32.0-36.0) 12/05/17 05:15 RDW 14.3 % (12.0-15.0) 12/05/17 05:15 Plt Count 195 10^3/uL (130-450) 12/05/17 05:15 MPV 6.8 fL (7.4-11.4) L 12/05/17 05:15 Neut # (Auto) 9.3 10^3/uL (1.5-6.6) H 12/02/17 10:10 Lymph # (Auto) 0.6 10^3/uL (1.5-3.5) L 12/02/17 10:10 [place] # (Auto) 0.5 10^3/uL (0.0-1.0) 12/02/17 10:10 Eos # (Auto) 0.0 10^3/uL (0.0-0.7) 12/02/17 10:10 Baso # (Auto) 0.0 10^3/uL (0.0-0.1) 12/02/17 10:10 Absolute Nucleated RBC 0.00 x10^3/uL 12/02/17 10:10 Nucleated RBC % 0.0 /100WBC 12/02/17 10:10 Sodium 132 mmol/L (135-145) L 12/05/17 05:15 Potassium 4.8 mmol/L (3.5-5.0) 12/05/17 05:15 Chloride 102 mmol/L (101-111) 12/05/17 05:15 Carbon Dioxide 22 mmol/L (21-32) 12/05/17 05:15 Anion Gap 8.0 (6-13) 12/05/17 05:15 BUN 29 mg/dL (6-20) H 12/05/17 05:15 Creatinine 1.1 mg/dL (0.6-1.2) 12/05/17 05:15 Estimated GFR (MDRD) 64 (>89) L 12/05/17 05:15 Glucose 217 mg/dL (70-100) H 12/05/17 05:15 Lactic Acid 0.9 mmol/L (0.5-2.2) 12/02/17 10:10 Calcium 8.4 mg/dL (8.5-10.3) L 12/05/17 05:15 Total Bilirubin 2.4 mg/dL (0.2-1.0) H 12/02/17 10:10 AST 79 IU/L (10-42) H 12/02/17 10:10 ALT 40 IU/L (10-60) 12/02/17 10:10 Alkaline Phosphatase 97 IU/L (42-121) 12/02/17 10:10 Troponin I 0.20 ng/mL (<0.49) 12/02/17 10:10 Total Protein 6.7 g/dL (6.7-8.2) 12/02/17 10:10 Albumin 3.1 g/dL (3.2-5.5) L 12/02/17 10:10 Globulin 3.6 g/dL (2.1-4.2) 12/02/17 10:10 Albumin/Globulin Ratio 0.9 (1.0-2.2) L 12/02/17 10:10 Lipase 19 U/L (22-51) L 12/02/17 10:10 Urine Color YELLOW 12/02/17 11:20 Urine Clarity CLOUDY (CLEAR) 12/02/17 11:20 Urine pH 6.0 PH (5.0-7.5) 12/02/17 11:20 Ur Specific [place] 1.015 (1.002-1.030) 12/02/17 11:20 Urine Protein NEGATIVE mg/dL (NEGATIVE) 12/02/17 11:20 Urine Glucose (UA) NEGATIVE mg/dL (NEGATIVE) 12/02/17 11:20 Urine Ketones NEGATIVE mg/dL (NEGATIVE) 12/02/17 11:20 Urine Occult Blood SMALL (NEGATIVE) H 12/02/17 11:20 Urine Nitrite NEGATIVE (NEGATIVE) 12/02/17 11:20 Urine Bilirubin NEGATIVE (NEGATIVE) 12/02/17 11:20 Urine Urobilinogen 0.2 (NORMAL) E.U./dL (NORMAL) 12/02/17 11:20 Ur Leukocyte Esterase LARGE (NEGATIVE) H 12/02/17 11:20 Urine RBC 6-10 /HPF (0-5) H 12/02/17 11:20 Urine WBC >25 /HPF (0-3) H 12/02/17 11:20 Urine WBC Clumps PRESENT 12/02/17 11:20 Ur Squamous Epith Cells RARE Squamous (<= Few) 12/02/17 11:20 Urine Bacteria Many /HPF (None Seen) H 12/02/17 11:20 Ur Microscopic Review INDICATED 12/02/17 11:20 Urine Culture Comments INDICATED 12/02/17 11:20 Last Dose Date Not Reportable 12/04/17 00:38 Last Dose Time Not Reportable 12/04/17 00:38 Vancomycin Trough 22.3 ug/mL (10.0-20.0) H 12/04/17 00:38 - Procedures Procedures: Procedures CARPAL TUNNEL RELEASE (02/09/14) DRAINAGE OF LEFT PLEURAL CAVITY, PERCUTANEOUS APPROACH (04/27/17) EXCISION OF CECUM, ENDO, DIAGN (09/13/16) EXCISION OF DESCENDING COLON, ENDO, DIAGN (09/13/16) EXCISION OF STOMACH, PYLORUS, ENDO, DIAGN (09/13/16) LAPAROSCOPIC CHOLECYSTECTOMY (09/19/14) PARTIAL SHOULDER REPLACEMENT (02/09/14) ABX Reporting Has patient been on IV antibiotics over the past 48 hours?: Yes Current Medications - Current Medications Current Medications: Active Medications Generic Name Dose Route Start Last Admin Trade Name Freq PRN Reason Stop Dose Admin Acetaminophen 650 mg 12/03/17 22:52 12/05/17 04:55 Tylenol PO 650 mg Q4HR PRN Administration Pain or Fever > 38C (100.4F) Aspirin 81 mg 12/05/17 09:00 12/05/17 08:35 St Jeromy Aspirin PO 81 mg DAILY LORNA Administration Atorvastatin Calcium 10 mg 12/05/17 09:00 12/05/17 08:41 Lipitor PO 10 mg DAILY LORNA Administration Carboxymethylcellulose 1 drops 12/03/17 21:20 Refresh 1% Ophth Drops EACHEYE PRN PRN Dry Eye Furosemide 20 mg 12/05/17 08:00 12/05/17 13:08 Lasix PO 20 mg 0800,1200 LORNA Administration Levofloxacin 250 mg in 50 mls @ 50 mls/hr 12/03/17 16:00 12/05/17 17:11 Levaquin 250 Mg/50 Ml IV Infused Q24H LORNA Infusion Insulin Aspart 1 - 5 unit 12/05/17 12:00 12/05/17 17:07 Novolog SUBQ 2 unit 0800,1200,1700,2100 LORNA Administration Protocol Insulin Glargine 10 unit 12/05/17 21:00 Lantus Solostar SUBQ QPM LORNA Lisinopril 5 mg 12/05/17 09:00 12/05/17 08:36 Zestril PO 5 mg DAILY LORNA Administration Metoprolol Succinate 25 mg 12/05/17 09:00 12/05/17 08:35 Toprol Xl PO 25 mg DAILY LORNA Administration Morphine Sulfate 2 mg 12/02/17 15:54 12/02/17 22:21 Morphine IVP 2 mg Q1H PRN Administration Shortness of Air/Wheezing Polyethylene Glycol 17 gm 12/03/17 09:00 12/05/17 08:36 Miralax PO 17 gm DAILY LORNA Administration Sodium Chloride 10 ml 12/02/17 11:44 12/02/17 14:33 Normal Saline Flush 0.9% IVP 10 ml PRN PRN Administration NEEDED PER PROVIDER ORDERS Sodium Chloride 10 ml 12/02/17 17:00 12/05/17 15:40 Normal Saline Flush 0.9% IVP 10 ml 0100,0900,1700 LORNA Administration Levothyroxine Sodium 150 mcg PO QDAC 02/17/17 Insulin Glargine [Lantus Solostar] 10 unit SUBQ DAILY 07/23/17 Fluticasone [Flonase] 1 spray INH QPM 07/24/17 Aspirin [Adult Aspirin] 81 mg PO DAILY 11/06/17 Acetaminophen 1,000 mg PO QPM 12/02/17 Acetaminophen 500 mg PO Q4H PRN 12/02/17 Acetaminophen 650 mg PO TID PRN 12/02/17 Aspirin 81 mg PO DAILY 12/02/17 Atorvastatin Calcium 10 mg PO DAILY 12/02/17 Furosemide 20 mg PO 0800,1200 12/02/17 Levalbuterol HCl 3 ml INH QID 12/02/17 Lisinopril 5 mg PO DAILY 12/02/17 Melatonin 3 mg PO QPM 12/02/17 Metoprolol Succinate 25 mg PO DAILY 12/02/17 Multivitamin [Theragran] 1 tab PO DAILY 12/02/17 Nystatin [Nystop] 1 applic TOP QPM 12/02/17 Oxycodone HCl/Acetaminophen [Oxycodone-Acetaminophen 5-325] 1 tab PO Q4H PRN 09/14 Sennosides [Senna] 8.6 mg PO DAILY PRN 12/02/17 Spironolactone 25 mg PO DAILY 12/02/17
[2017-12-05] MEDS ORDERED: INSULIN GLARGINE 300 UNIT/3 ML PEN SUBQ SCH (21:00)
[2017-12-06] MEDS: SODIUM CHLORIDE FLUSH 0.9% 10 ML SYRINGE IVP SCH ×3 (03:20→17:06)
[2017-12-06 05:55] LABS: HGB - HEMOGLOBIN 12.1 g/dL (14.0-18.0); MEAN CORPUSCULAR HEMOGLOBIN 31.9 pg (27.0-31.0); MEAN CORPUSCULAR HGB CONC 34.4 g/dL (32.0-36.0); MEAN CORPUSCULAR VOLUME 92.8 fL (80.0-94.0); MEAN PLATELET VOLUME 6.9 fL (7.4-11.4); RED BLOOD COUNT 3.79 10^6/uL (4.70-6.10); RED CELL DISTRIBUTION WIDTH 14.2 % (12.0-15.0); WHITE BLOOD COUNT 8.1 x10^3/uL (4.8-10.8)
[2017-12-06 06:03] LABS: CALCIUM 8.8 mg/dL (8.5-10.3)
[2017-12-06 06:36] LABS: HB2 TOTAL 12.4 g/dL; HEMOGLOBIN A1C 0.72 g/dL; HEMOGLOBIN A1C % 7.5 % (4.6-6.2)
[2017-12-06] MEDS: FUROSEMIDE 20 MG TABLET PO SCH ×2 (08:28→11:24)
[2017-12-06] MEDS: INSULIN ASPART 300 UNIT/3 ML PEN SUBQ SCH ×4 (08:29→21:13)
[2017-12-06] MEDS: LISINOPRIL 5 MG TABLET PO SCH (09:35)
[2017-12-06] MEDS: ATORVASTATIN 10 MG TABLET PO SCH (09:35)
[2017-12-06] MEDS: ASPIRIN CHEW 81 MG TABLET PO SCH (09:35)
[2017-12-06] MEDS: POLYETHYLENE GLYCOL 3350 17 GM PACKET PO SCH (09:35)
[2017-12-06] MEDS: METOPROLOL SUCCINATE 25 MG TABLET PO SCH (09:35)
--- NOTE | 2017-12-06 16:23 | PROVIDER PROGRESS NOTE ---
Assessment/Plan - Problem List (1) HCAP (healthcare-associated pneumonia) Assessment/Plan: Patient presented with acute respiratory failure with hypoxia requiring a NRB mask with respiratory distress Patient has recovered remarkably well with treatment for HCAP Patient treated with Vanco, Cefepime and levaquin Blood cx growing staph aureus susceptible to levaquin Will discontinue vanco and cefepime and continue levaquin Patient would like treatment for pneumonia and then wants to go home with hospice given his colon ca Stable down to 2 L o2 Patient is very lethargic this morning and into the afternoon. Daughter states he did not sleep much last night so maybe just tired. He is easy to wake and does answer question. No change in his vitals, WBC stable does not appear to be getting worse infection. Patient to go home with hospice on 12/07/17 Qualifiers: Pneumonia type: due to unspecified organism Laterality: bilateral Lung location: lower lobe of lung Qualified Code(s): J18.1 - Lobar pneumonia, unspecified organism (2) Bacteremia due to Staphylococcus aureus Assessment/Plan: Patient has staph aureus bacteremia likely secondary to pneumonia Staph aureus susceptible to levquin Improving Repeat blood cx negative Patient will be changed to PO levaquin at discharge and will need to continue treatment till 12/18/17 (3) Colon adenocarcinoma Impression: The patient is colon cancer is considered to be inoperable but is nonobstructive. He has not been receiving chemotherapy or radiation for it. 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 He was treated at [facility] and then brought back to [facility] for rehab. There are no signs at this time of a second CVA or dysphagia. Aspiration is an unlikely cause of the patient's pneumonia as it is bilateral - Current Meds Current Meds: Current Medications Generic Name Dose Route Start Last Admin Trade Name Freq PRN Reason Stop Dose Admin Acetaminophen 650 mg 12/03/17 22:52 12/05/17 04:55 Tylenol PO 650 mg Q4HR PRN Administration Pain or Fever > 38C (100.4F) Aspirin 81 mg 12/05/17 09:00 12/06/17 09:35 [facility] Jeromy Aspirin PO 81 mg DAILY LORNA Administration Atorvastatin Calcium 10 mg 12/05/17 09:00 12/06/17 09:35 Lipitor PO 10 mg DAILY LORNA Administration Furosemide 20 mg 12/05/17 08:00 12/06/17 11:24 Lasix PO 20 mg 0800,1200 LORNA Administration Levofloxacin 250 mg in 50 mls @ 50 mls/hr 12/03/17 16:00 12/05/17 17:11 Levaquin 250 Mg/50 Ml IV Infused Q24H LORNA Infusion Insulin Aspart 1 - 5 unit 12/05/17 12:00 12/06/17 11:23 Novolog SUBQ 2 unit 0800,1200,1700,2100 LORNA Administration Protocol Insulin Glargine 10 unit 12/05/17 21:00 12/05/17 20:42 Lantus Solostar SUBQ 10 unit QPM LORNA Administration Lisinopril 5 mg 12/05/17 09:00 12/06/17 09:35 Zestril PO 5 mg DAILY LORNA Administration Metoprolol Succinate 25 mg 12/05/17 09:00 12/06/17 09:35 Toprol Xl PO 25 mg DAILY LORNA Administration Morphine Sulfate 2 mg 12/02/17 15:54 12/02/17 22:21 Morphine IVP 2 mg Q1H PRN Administration Shortness of Air/Wheezing Polyethylene Glycol 17 gm 12/03/17 09:00 12/06/17 09:35 Miralax PO 17 gm DAILY LORNA Administration Sodium Chloride 10 ml 12/02/17 11:44 12/02/17 14:33 Normal Saline Flush 0.9% IVP 10 ml PRN PRN Administration NEEDED PER PROVIDER ORDERS Sodium Chloride 10 ml 12/02/17 17:00 12/06/17 09:35 Normal Saline Flush 0.9% IVP 10 ml 0100,0900,1700 LORNA Administration - Lab Result Lab results reviewed: Yes Fish Bone Diagrams: 12/06/17 05:30 12/06/17 05:30 - Diagnostic Imaging Results Diagnostic Imaging Results: Final report reviewed - Additional Planning Condition/Complexity: Guarded My Orders: My Active Orders 12/05/17 21:00 Insulin Glargine [Lantus Solostar] 10 unit SUBQ QPM Plan Discussed with:: Patient, Family Time Spent: 31-60 minutes Subjective - Subjective Patient Reports: Other (Very drowsy this am. He knows where he is and why he is here. He is arousable but then fall back asleep. Daughter states patient did not sleep well last night. No fevers.) Nursing Reports: Other (Drowsy.) Objective Vital Signs: Vital Signs - 24 hr 12/06/17 12/06/17 03:05 07:57 Temperature 36.2 C L 37 C Heart Rate [ 70 66 Brachial] Respiratory 16 24 Rate Blood Pressure 140/67 H 133/58 H [Right Brachial artery] O2 Saturation 95 92 Oxygen O2 Source Nasal cannula I&O (Last 24 Hrs): Intake and Output Totals x24h 12/04/17 12/05/17 12/06/17 23:59 23:59 23:59 Intake Total 2699.166 1998.334 170 Output Total 760 2100 1275 Balance 1939.166 -101.666 -1105 General: Oriented x3, Cooperative, No acute distress, Other (Drowsy) HEENT: Atraumatic, PERRLA, EOMI, Mucous membr. moist/pink Neck: Supple, No JVD, No thyromegaly, +2 carotid pulse wo bruit, No LAD Lymphatic: no adenopathy Neuro: Non Focal, CN 2-12 Grossly Intact, Oriented Times 3 Cardiovascular: Regular rate, Normal S1, Normal S2, No murmurs Respiratory: Chest non-tender, Rhonchi (Bilateral), Other (Tachypnic) Abdomen: Normal bowel sounds, Soft, No tenderness, No hepatospenomegaly Extremities: No clubbing, No cyanosis, No edema, Normal pulses Skin: No rashes, No breakdown - Results Results: Laboratory Results WBC 8.1 x10^3/uL (4.8-10.8) 12/06/17 05:30 RBC 3.79 10^6/uL (4.70-6.10) L 12/06/17 05:30 Hgb 12.1 g/dL (14.0-18.0) L 12/06/17 05:30 Hct 35.2 % (42.0-52.0) L 12/06/17 05:30 MCV 92.8 fL (80.0-94.0) 12/06/17 05:30 MCH 31.9 pg (27.0-31.0) H 12/06/17 05:30 MCHC 34.4 g/dL (32.0-36.0) 12/06/17 05:30 RDW 14.2 % (12.0-15.0) 12/06/17 05:30 Plt Count 218 10^3/uL (130-450) 12/06/17 05:30 MPV 6.9 fL (7.4-11.4) L 12/06/17 05:30 Neut # (Auto) 9.3 10^3/uL (1.5-6.6) H 12/02/17 10:10 Lymph # (Auto) 0.6 10^3/uL (1.5-3.5) L 12/02/17 10:10 [place] # (Auto) 0.5 10^3/uL (0.0-1.0) 12/02/17 10:10 Eos # (Auto) 0.0 10^3/uL (0.0-0.7) 12/02/17 10:10 Baso # (Auto) 0.0 10^3/uL (0.0-0.1) 12/02/17 10:10 Absolute Nucleated RBC 0.00 x10^3/uL 12/02/17 10:10 Nucleated RBC % 0.0 /100WBC 12/02/17 10:10 Sodium 134 mmol/L (135-145) L 12/06/17 05:30 Potassium 4.4 mmol/L (3.5-5.0) 12/06/17 05:30 Chloride 102 mmol/L (101-111) 12/06/17 05:30 Carbon Dioxide 24 mmol/L (21-32) 12/06/17 05:30 Anion Gap 8.0 (6-13) 12/06/17 05:30 BUN 24 mg/dL (6-20) H 12/06/17 05:30 Creatinine 1.0 mg/dL (0.6-1.2) 12/06/17 05:30 Estimated GFR (MDRD) 71 (>89) L 12/06/17 05:30 Glucose 148 mg/dL (70-100) H 12/06/17 05:30 POC Whole Bld Glucose 195 mg/dL (70 - 100) H 12/06/17 11:13 Glycated Hemoglobin 7.5 % (4.6-6.2) H 12/06/17 05:30 Estim Average Glucose 169 (70-100) H 12/06/17 05:30 Lactic Acid 0.9 mmol/L (0.5-2.2) 12/02/17 10:10 Calcium 8.8 mg/dL (8.5-10.3) 12/06/17 05:30 Total Bilirubin 2.4 mg/dL (0.2-1.0) H 12/02/17 10:10 AST 79 IU/L (10-42) H 12/02/17 10:10 ALT 40 IU/L (10-60) 12/02/17 10:10 Alkaline Phosphatase 97 IU/L (42-121) 12/02/17 10:10 Troponin I 0.20 ng/mL (<0.49) 12/02/17 10:10 Total Protein 6.7 g/dL (6.7-8.2) 12/02/17 10:10 Albumin 3.1 g/dL (3.2-5.5) L 12/02/17 10:10 Globulin 3.6 g/dL (2.1-4.2) 12/02/17 10:10 Albumin/Globulin Ratio 0.9 (1.0-2.2) L 12/02/17 10:10 Lipase 19 U/L (22-51) L 12/02/17 10:10 Urine Color YELLOW 12/02/17 11:20 Urine Clarity CLOUDY (CLEAR) 12/02/17 11:20 Urine pH 6.0 PH (5.0-7.5) 12/02/17 11:20 Ur Specific [place] 1.015 (1.002-1.030) 12/02/17 11:20 Urine Protein NEGATIVE mg/dL (NEGATIVE) 12/02/17 11:20 Urine Glucose (UA) NEGATIVE mg/dL (NEGATIVE) 12/02/17 11:20 Urine Ketones NEGATIVE mg/dL (NEGATIVE) 12/02/17 11:20 Urine Occult Blood SMALL (NEGATIVE) H 12/02/17 11:20 Urine Nitrite NEGATIVE (NEGATIVE) 12/02/17 11:20 Urine Bilirubin NEGATIVE (NEGATIVE) 12/02/17 11:20 Urine Urobilinogen 0.2 (NORMAL) E.U./dL (NORMAL) 12/02/17 11:20 Ur Leukocyte Esterase LARGE (NEGATIVE) H 12/02/17 11:20 Urine RBC 6-10 /HPF (0-5) H 12/02/17 11:20 Urine WBC >25 /HPF (0-3) H 12/02/17 11:20 Urine WBC Clumps PRESENT 12/02/17 11:20 Ur Squamous Epith Cells RARE Squamous (<= Few) 12/02/17 11:20 Urine Bacteria Many /HPF (None Seen) H 12/02/17 11:20 Ur Microscopic Review INDICATED 12/02/17 11:20 Urine Culture Comments INDICATED 12/02/17 11:20 Last Dose Date Not Reportable 12/04/17 00:38 Last Dose Time Not Reportable 12/04/17 00:38 Vancomycin Trough 22.3 ug/mL (10.0-20.0) H 12/04/17 00:38 - Procedures Procedures: Procedures CARPAL TUNNEL RELEASE (02/09/14) DRAINAGE OF LEFT PLEURAL CAVITY, PERCUTANEOUS APPROACH (04/27/17) EXCISION OF CECUM, ENDO, DIAGN (09/13/16) EXCISION OF DESCENDING COLON, ENDO, DIAGN (09/13/16) EXCISION OF STOMACH, PYLORUS, ENDO, DIAGN (09/13/16) LAPAROSCOPIC CHOLECYSTECTOMY (09/19/14) PARTIAL SHOULDER REPLACEMENT (02/09/14) ABX Reporting Has patient been on IV antibiotics over the past 48 hours?: Yes Current Medications - Current Medications Current Medications: Laboratory Results WBC 8.1 x10^3/uL (4.8-10.8) 12/06/17 05:30 RBC 3.79 10^6/uL (4.70-6.10) L 12/06/17 05:30 Hgb 12.1 g/dL (14.0-18.0) L 12/06/17 05:30 Hct 35.2 % (42.0-52.0) L 12/06/17 05:30 MCV 92.8 fL (80.0-94.0) 12/06/17 05:30 MCH 31.9 pg (27.0-31.0) H 12/06/17 05:30 MCHC 34.4 g/dL (32.0-36.0) 12/06/17 05:30 RDW 14.2 % (12.0-15.0) 12/06/17 05:30 Plt Count 218 10^3/uL (130-450) 12/06/17 05:30 MPV 6.9 fL (7.4-11.4) L 12/06/17 05:30 Neut # (Auto) 9.3 10^3/uL (1.5-6.6) H 12/02/17 10:10 Lymph # (Auto) 0.6 10^3/uL (1.5-3.5) L 12/02/17 10:10 [place] # (Auto) 0.5 10^3/uL (0.0-1.0) 12/02/17 10:10 Eos # (Auto) 0.0 10^3/uL (0.0-0.7) 12/02/17 10:10 Baso # (Auto) 0.0 10^3/uL (0.0-0.1) 12/02/17 10:10 Absolute Nucleated RBC 0.00 x10^3/uL 12/02/17 10:10 Nucleated RBC % 0.0 /100WBC 12/02/17 10:10 Sodium 134 mmol/L (135-145) L 12/06/17 05:30 Potassium 4.4 mmol/L (3.5-5.0) 12/06/17 05:30 Chloride 102 mmol/L (101-111) 12/06/17 05:30 Carbon Dioxide 24 mmol/L (21-32) 12/06/17 05:30 Anion Gap 8.0 (6-13) 12/06/17 05:30 BUN 24 mg/dL (6-20) H 12/06/17 05:30 Creatinine 1.0 mg/dL (0.6-1.2) 12/06/17 05:30 Estimated GFR (MDRD) 71 (>89) L 12/06/17 05:30 Glucose 148 mg/dL (70-100) H 12/06/17 05:30 POC Whole Bld Glucose 195 mg/dL (70 - 100) H 12/06/17 11:13 Glycated Hemoglobin 7.5 % (4.6-6.2) H 12/06/17 05:30 Estim Average Glucose 169 (70-100) H 12/06/17 05:30 Lactic Acid 0.9 mmol/L (0.5-2.2) 12/02/17 10:10 Calcium 8.8 mg/dL (8.5-10.3) 12/06/17 05:30 Total Bilirubin 2.4 mg/dL (0.2-1.0) H 12/02/17 10:10 AST 79 IU/L (10-42) H 12/02/17 10:10 ALT 40 IU/L (10-60) 12/02/17 10:10 Alkaline Phosphatase 97 IU/L (42-121) 12/02/17 10:10 Troponin I 0.20 ng/mL (<0.49) 12/02/17 10:10 Total Protein 6.7 g/dL (6.7-8.2) 12/02/17 10:10 Albumin 3.1 g/dL (3.2-5.5) L 12/02/17 10:10 Globulin 3.6 g/dL (2.1-4.2) 12/02/17 10:10 Albumin/Globulin Ratio 0.9 (1.0-2.2) L 12/02/17 10:10 Lipase 19 U/L (22-51) L 12/02/17 10:10 Urine Color YELLOW 12/02/17 11:20 Urine Clarity CLOUDY (CLEAR) 12/02/17 11:20 Urine pH 6.0 PH (5.0-7.5) 12/02/17 11:20 Ur Specific [place] 1.015 (1.002-1.030) 12/02/17 11:20 Urine Protein NEGATIVE mg/dL (NEGATIVE) 12/02/17 11:20 Urine Glucose (UA) NEGATIVE mg/dL (NEGATIVE) 12/02/17 11:20 Urine Ketones NEGATIVE mg/dL (NEGATIVE) 12/02/17 11:20 Urine Occult Blood SMALL (NEGATIVE) H 12/02/17 11:20 Urine Nitrite NEGATIVE (NEGATIVE) 12/02/17 11:20 Urine Bilirubin NEGATIVE (NEGATIVE) 12/02/17 11:20 Urine Urobilinogen 0.2 (NORMAL) E.U./dL (NORMAL) 12/02/17 11:20 Ur Leukocyte Esterase LARGE (NEGATIVE) H 12/02/17 11:20 Urine RBC 6-10 /HPF (0-5) H 12/02/17 11:20 Urine WBC >25 /HPF (0-3) H 12/02/17 11:20 Urine WBC Clumps PRESENT 12/02/17 11:20 Ur Squamous Epith Cells RARE Squamous (<= Few) 12/02/17 11:20 Urine Bacteria Many /HPF (None Seen) H 12/02/17 11:20 Ur Microscopic Review INDICATED 12/02/17 11:20 Urine Culture Comments INDICATED 12/02/17 11:20 Last Dose Date Not Reportable 12/04/17 00:38 Last Dose Time Not Reportable 12/04/17 00:38 Vancomycin Trough 22.3 ug/mL (10.0-20.0) H 12/04/17 00:38
[2017-12-07] MEDS: SODIUM CHLORIDE FLUSH 0.9% 10 ML SYRINGE IVP SCH ×2 (00:15→08:28)
[2017-12-07 05:53] LABS: HGB - HEMOGLOBIN 12.8 g/dL (14.0-18.0); MEAN CORPUSCULAR HEMOGLOBIN 31.9 pg (27.0-31.0); MEAN CORPUSCULAR HGB CONC 34.5 g/dL (32.0-36.0); MEAN CORPUSCULAR VOLUME 92.3 fL (80.0-94.0); MEAN PLATELET VOLUME 7.3 fL (7.4-11.4); RED BLOOD COUNT 4.03 10^6/uL (4.70-6.10); RED CELL DISTRIBUTION WIDTH 13.7 % (12.0-15.0); WHITE BLOOD COUNT 9.5 x10^3/uL (4.8-10.8)
[2017-12-07 05:59] LABS: CALCIUM 8.8 mg/dL (8.5-10.3); CREATININE 1.2 mg/dL (0.6-1.2)
[2017-12-07] MEDS: FUROSEMIDE 20 MG TABLET PO SCH (08:27)
[2017-12-07] MEDS: LISINOPRIL 5 MG TABLET PO SCH (08:27)
[2017-12-07] MEDS: ASPIRIN CHEW 81 MG TABLET PO SCH (08:27)
[2017-12-07] MEDS: METOPROLOL SUCCINATE 25 MG TABLET PO SCH (08:27)
--- NOTE | 2017-12-07 08:27 | Discharge Plan ---
Discharge Plan Disposition: 50 Hospice/Home DC/Xfer Condition: Fair Prescriptions: Levofloxacin [Levaquin] 750 mg PO DAILY #11 tablet Diet: Regular Activity Restrictions: Activity as Tolerated Shower Restrictions: No Driving Restrictions: No Assistance Devices: Walker Instruction Topics: Hospice Nears Additional Instructions or Follow Up instructions: You were admitted to the hospital with a bilateral pneumonia and bacteremia. You were treated with IV antibiotics in the hospital and had significant improvement. You are still requiring oxygen and will continue to use oxygen at home. We are discharging you home on antibiotics which she will continue to take until 12/18/2017. Your going home with hospice and hospice will meet you in the home later today to admit you into their service. Follow-Up Care: Hospice No Smoking: If you smoke, Please STOP! Call for help. Follow-up with: Cristel Schultz ARNP [Primary Care Provider] -
[2017-12-07] MEDS: POLYETHYLENE GLYCOL 3350 17 GM PACKET PO SCH (08:28)
[2017-12-07] MEDS: ATORVASTATIN 10 MG TABLET PO SCH (08:28)
[2017-12-07] MEDS: INSULIN ASPART 300 UNIT/3 ML PEN SUBQ SCH (08:28)
--- NOTE | 2017-12-07 08:42 | DISCHARGE SUMMARY ---
Discharge Summary Admit Date: 12/02/17 Discharge Date: 12/07/17 Discharging Provider: Miah Farr MD Primary Care Provider: Da Rahman MD Code Status: Do Not Attempt Resuscitation Condition at Discharge: Fair Discharge Disposition: 50 Hospice/Home DC/Xfer - DIAGNOSES Admission Diagnoses: 1. Bilateral lower lobe pneumonia 2.: Adenocarcinoma 3. Diabetes 4. CVA Discharge Diagnoses with Status of Each Condition: 1. Healthcare associated pneumonia: Improving 2. Bacteremia due to Staphylococcus aureus: Improving 3. Colon adenocarcinoma: Guarded 4. Diabetes mellitus type 2: Stable 5. Cerebrovascular accident: Stable - HPI History of Present Illness: Mr. Lowell Deal is an 87 year old white male who has an extensive past medical history significant for inoperable colon cancer, congestive heart failure, diabetes mellitus, hypertension, and excision of a benign lung mass who came to [facility] 1-2 months ago where he was diagnosed with CVA. He was sent to [facility] where he was treated and then sent back to [facility] in [place] for rehab. He completed rehab at [facility] and went back to his home at [facility] but was only there for a day or 2 before he was sent here to the emergency department for shortness of breath. Upon presentation to the emergency department the patient was tachypneic with a respiratory rate in the 30s and oxygen saturation in the low 80s. Chest x-ray showed bilateral basilar opacities and pleural effusions, along with cardiomegaly and vascular congestion. Blood work from the patient have a leukocytes in the high normal range at 10.4 with mild anemia. The patient was placed on a nonrebreather at 15 L/min and his oxygen saturation came up to 100% . His respiratory rate remains elevated at 27. I had a long discussion with the patient's adult children, Anujmaksim Arce, Nico Looersen, and Anuj Ford. They relate that the mother has severe dementia, and their father's only goal was to outlive her. They also relate that have several discussions regarding end-of-life care and they believe that at this point in time they wish no heroic measures to be done. The patient does have a POLST form which is signed and marked at DO NOT RESUSCITATE. They are requesting that we give the patient IV antibiotics and fluids as needed and supplemental oxygen but are aware that he is gravely ill, and they are comfortable with this decision should he here in the hospital. - HOSPITAL COURSE Hospital Course: The patient was admitted to the medical tee with a severe bilateral pneumonia and sepsis. The patient was placed on IV antibiotics and supplemental oxygen. When the patient was admitted it appeared that was likely imminent however the patient had a surprisingly quick recovery. Initially the patient was on a nonrebreather and was titrated down to 2 L of oxygen by the time of discharge. The patient had positive blood cultures with staph aureus and antibiotics were de-escalated to treat specifically for staph aureus bacteremia. The patient responded well to Levaquin and was discharged home on oral Levaquin to complete 2 weeks of treatment until 12/18/2017. Due to the patient's deteriorating health and inoperable adenocarcinoma of the colon the family decided that they would take him home with hospice. Hospice was set up for the patient and will meet the patient at home after discharge. The patient has equipment set up at the home including a hospital bed, bedside commode and oxygen. Although the patient appeared to be dwindling the day prior to discharge as he was becoming increasing lethargic the patient seemed to rebound on the day of discharge and was more alert and active. The patient was not in any respiratory distress and appeared to be quite stable at the time of discharge. The patient was transferred home by ambulance and will meet with hospice later in the afternoon. The patient was continued on his chronic home medications including insulin and his cardiac medications. - ALLERGIES Allergies/Adverse Reactions: Allergies Allergy/AdvReac Type Severity Reaction Status Date / Time No Known Drug Allergies Allergy Verified 07/13/17 00:48 - MEDICATIONS Home Medications: Ambulatory Orders Medication Instructions Recorded Confirmed Levothyroxine Sodium 150 mcg PO QDAC 02/17/17 12/02/17 Insulin Glargine [Lantus Solostar] 10 unit SUBQ DAILY 07/23/17 12/02/17 Fluticasone [Flonase] 1 spray INH QPM 07/24/17 12/02/17 Aspirin [Adult Aspirin] 81 mg PO DAILY 11/06/17 12/01/17 Acetaminophen 1,000 mg PO QPM 12/02/17 12/02/17 Acetaminophen 500 mg PO Q4H PRN 12/02/17 12/02/17 Acetaminophen 650 mg PO TID PRN 12/02/17 Aspirin 81 mg PO DAILY 12/02/17 12/02/17 Atorvastatin Calcium 10 mg PO DAILY 12/02/17 12/02/17 Furosemide 20 mg PO 0800,1200 12/02/17 12/02/17 Levalbuterol HCl 3 ml INH QID 12/02/17 Lisinopril 5 mg PO DAILY 12/02/17 12/02/17 Melatonin 3 mg PO QPM 12/02/17 Metoprolol Succinate 25 mg PO DAILY 12/02/17 12/02/17 Multivitamin [Theragran] 1 tab PO DAILY 12/02/17 12/02/17 Nystatin [Nystop] 1 applic TOP QPM 12/02/17 12/02/17 Oxycodone HCl/Acetaminophen 1 tab PO Q4H PRN 12/02/17 [Oxycodone-Acetaminophen 5-325] Sennosides [Senna] 8.6 mg PO DAILY PRN 12/02/17 12/02/17 Spironolactone 25 mg PO DAILY 12/02/17 Levofloxacin [Levaquin] 750 mg PO DAILY #11 tablet 12/07/17 - PHYSICAL EXAM AT DISCHARGE General Appearance: positive: No acute distress, Alert, Other (Elderly, frail) Eyes Bilateral: positive: Normal inspection, PERRL, EOMI, No lid inflammation, Conjunctivae nml, No scleral icterus ENT: positive: ENT inspection nml, Pharynx nml, No signs of dehydration. negative: Purulent nasal drainage, Pharyngeal erythema, Oral lesions Neck: positive: Nml inspection, Thyroid nml, No JVD, Trachea midline. negative : Thyromegaly, Lymphadenopathy (R), Lymphadenopathy (L), Carotid bruit, Tracheal deviation Respiratory: positive: Chest non-tender, Wheezes (Scattered), Rhonchi ( Bilateral ) Cardiovascular: positive: Regular rate & rhythm, No murmur, No gallop Peripheral Pulses: positive: 2+ Abdomen: positive: Non-tender, No organomegaly, Nml bowel sounds, No distention. negative: Guarding, Rebound, Hepatomegaly Back: positive: Nml inspection. negative: CVA tenderness (R), CVA tenderness (L ) Skin: positive: Color nml, No rash, Warm. negative: Cyanosis, Diaphoresis, Pallor, Skin rash Extremities: positive: Non-tender, Full ROM, Nml appearance, No pedal edema Neurologic/Psychiatric: positive: Oriented x3, CN's nml (2-12), Motor nml, Sensation nml, Mood/affect nml - LABS Result Diagrams: 12/07/17 05:14 12/07/17 05:14 Other Lab Results: Laboratory Results WBC 9.5 x10^3/uL (4.8-10.8) 12/07/17 05:14 RBC 4.03 10^6/uL (4.70-6.10) L 12/07/17 05:14 Hgb 12.8 g/dL (14.0-18.0) L 12/07/17 05:14 Hct 37.2 % (42.0-52.0) L 12/07/17 05:14 MCV 92.3 fL (80.0-94.0) 12/07/17 05:14 MCH 31.9 pg (27.0-31.0) H 12/07/17 05:14 MCHC 34.5 g/dL (32.0-36.0) 12/07/17 05:14 RDW 13.7 % (12.0-15.0) 12/07/17 05:14 Plt Count 256 10^3/uL (130-450) 12/07/17 05:14 MPV 7.3 fL (7.4-11.4) L 12/07/17 05:14 Neut # (Auto) 9.3 10^3/uL (1.5-6.6) H 12/02/17 10:10 Lymph # (Auto) 0.6 10^3/uL (1.5-3.5) L 12/02/17 10:10 [place] # (Auto) 0.5 10^3/uL (0.0-1.0) 12/02/17 10:10 Eos # (Auto) 0.0 10^3/uL (0.0-0.7) 12/02/17 10:10 Baso # (Auto) 0.0 10^3/uL (0.0-0.1) 12/02/17 10:10 Absolute Nucleated RBC 0.00 x10^3/uL 12/02/17 10:10 Nucleated RBC % 0.0 /100WBC 12/02/17 10:10 Sodium 133 mmol/L (135-145) L 12/07/17 05:14 Potassium 4.5 mmol/L (3.5-5.0) 12/07/17 05:14 Chloride 98 mmol/L (101-111) L 12/07/17 05:14 Carbon Dioxide 23 mmol/L (21-32) 12/07/17 05:14 Anion Gap 12.0 (6-13) 12/07/17 05:14 BUN 23 mg/dL (6-20) H 12/07/17 05:14 Creatinine 1.2 mg/dL (0.6-1.2) 12/07/17 05:14 Estimated GFR (MDRD) 58 (>89) L 12/07/17 05:14 Glucose 174 mg/dL (70-100) H 12/07/17 05:14 POC Whole Bld Glucose 167 mg/dL (70 - 100) H 12/06/17 20:49 Glycated Hemoglobin 7.5 % (4.6-6.2) H 12/06/17 05:30 Estim Average Glucose 169 (70-100) H 12/06/17 05:30 Lactic Acid 0.9 mmol/L (0.5-2.2) 12/02/17 10:10 Calcium 8.8 mg/dL (8.5-10.3) 12/07/17 05:14 Total Bilirubin 2.4 mg/dL (0.2-1.0) H 12/02/17 10:10 AST 79 IU/L (10-42) H 12/02/17 10:10 ALT 40 IU/L (10-60) 12/02/17 10:10 Alkaline Phosphatase 97 IU/L (42-121) 12/02/17 10:10 Troponin I 0.20 ng/mL (<0.49) 12/02/17 10:10 Total Protein 6.7 g/dL (6.7-8.2) 12/02/17 10:10 Albumin 3.1 g/dL (3.2-5.5) L 12/02/17 10:10 Globulin 3.6 g/dL (2.1-4.2) 12/02/17 10:10 Albumin/Globulin Ratio 0.9 (1.0-2.2) L 12/02/17 10:10 Lipase 19 U/L (22-51) L 12/02/17 10:10 Urine Color YELLOW 12/02/17 11:20 Urine Clarity CLOUDY (CLEAR) 12/02/17 11:20 Urine pH 6.0 PH (5.0-7.5) 12/02/17 11:20 Ur Specific [place] 1.015 (1.002-1.030) 12/02/17 11:20 Urine Protein NEGATIVE mg/dL (NEGATIVE) 12/02/17 11:20 Urine Glucose (UA) NEGATIVE mg/dL (NEGATIVE) 12/02/17 11:20 Urine Ketones NEGATIVE mg/dL (NEGATIVE) 12/02/17 11:20 Urine Occult Blood SMALL (NEGATIVE) H 12/02/17 11:20 Urine Nitrite NEGATIVE (NEGATIVE) 12/02/17 11:20 Urine Bilirubin NEGATIVE (NEGATIVE) 12/02/17 11:20 Urine Urobilinogen 0.2 (NORMAL) E.U./dL (NORMAL) 12/02/17 11:20 Ur Leukocyte Esterase LARGE (NEGATIVE) H 12/02/17 11:20 Urine RBC 6-10 /HPF (0-5) H 12/02/17 11:20 Urine WBC >25 /HPF (0-3) H 12/02/17 11:20 Urine WBC Clumps PRESENT 12/02/17 11:20 Ur Squamous Epith Cells RARE Squamous (<= Few) 12/02/17 11:20 Urine Bacteria Many /HPF (None Seen) H 12/02/17 11:20 Ur Microscopic Review INDICATED 12/02/17 11:20 Urine Culture Comments INDICATED 12/02/17 11:20 Last Dose Date Not Reportable 12/04/17 00:38 Last Dose Time Not Reportable 12/04/17 00:38 Vancomycin Trough 22.3 ug/mL (10.0-20.0) H 12/04/17 00:38 - DIAGNOSTIC IMAGING Diagnostic Imaging Results: Final report reviewed Diagnostic Imaging Results Comments: Chest x-ray Impression: 1. Cardiomegaly. Vascular congestion. 2. Left greater than right bibasilar opacities and pleural effusions. - FOLLOW UP Follow Up: Patient was admitted for healthcare associated pneumonia and found to have bacteremia with staph aureus. Patient was treated with IV antibiotics and had improvement over a 5 day hospitalization. The patient was still requiring 2 L of oxygen at the time of discharge. He was discharged on oral Levaquin which he will continue until 12/18/2017. The patient was discharged with home hospice. - TIME SPENT Time Spent in Discharge (Minutes): 45
[2017-12-07 12:01] VITALS: BP 116/73
== END 2017-12-07 12:08 | disposition home or self-care (01) | DRG 871 ==
LOC: EDUNIT# → ED 09:56 → MS2 11:44
PROVIDERS: ADMIT Hospitalist; ATTEND Internal Medicine
DX: A41.01 Sepsis due to Methicillin susceptible Staphylococcus aureus (principal); J18.9 Pneumonia, unspecified organism; J96.00 Acute respiratory failure, unspecified whether with hypoxia or hypercapnia; I50.9 Heart failure, unspecified; C18.9 Malignant neoplasm of colon, unspecified; I13.0 Hypertensive heart and chronic kidney disease with heart failure and stage 1 through stage 4 chronic kidney disease, or unspecified chronic kidney disease; I50.32 Chronic diastolic (congestive) heart failure; N39.0 Urinary tract infection, site not specified; A41.9 Sepsis, unspecified organism; N18.9 Chronic kidney disease, unspecified; Z95.0 Presence of cardiac pacemaker; Z66 Do not resuscitate; I48.91 Unspecified atrial fibrillation; E11.9 Type 2 diabetes mellitus without complications; Z86.73 Personal history of transient ischemic attack (TIA), and cerebral infarction without residual deficits; I35.0 Nonrheumatic aortic (valve) stenosis; D50.9 Iron deficiency anemia, unspecified
CPT/HCPCS: 36415; 51701; 71046; 80048; 80053; 80202; 81001; 81003; 83036; 83605; 83690; 84484; 85025; 85027; 87040; 87077; 87086; 87181; 93005; 93306; 96374; 99233; 99284

== ENCOUNTER 2017-12-07 12:13 | Outpatient (CLI) | payer MEDICARE | END 2017-12-07 12:14 | disposition hospice, home (50) | LOC: EMS 12:13 | PROVIDERS: ATTEND Surgery | DX: C61 Malignant neoplasm of prostate (principal) | CPT/HCPCS: A0425; A0428 ==